=== PATIENT | female | born 1960 | race Caucasian/White ===

== ENCOUNTER 2020-07-18 10:15 | Outpatient (REF) | payer OTHER, SELFPAY ==
--- NOTE | 2020-07-18 10:17 | XR_ITS ---
EXAMINATION: XR ANKLE, LEFT CLINICAL INFORMATION: Pain in joints left ankle and foot. COMPARISON: Radiographs left ankle 11/11/2017. TECHNIQUE: AP, lateral, and mortise views of the left ankle. FINDINGS: There is no acute fracture, dislocation, destructive process. Old hardware again noted distal fibula with sideplate and multiple screws and 2 screws medial ankle. The hardware is intact. There is no osteolysis. The ankle mortise is symmetric. Talar dome shows no osteochondral lesion. The subtalar joint is unremarkable. 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 There are bulky posterior and smaller plantar calcaneal spurs again seen. The retrocalcaneal recess is preserved. Scattered benign venostasis calcifications again suggested soft tissues lower leg. IMPRESSION: 1. No acute bony abnormality. Hardware intact. No destructive process. 2. Calcaneal spurs. 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
== END 2020-07-18 10:16 | disposition home or self-care (01) ==
LOC: HO.XRAY 10:15
PROVIDERS: PCP Internal Medicine; Referring Provider Internal Medicine; Visit Provider Orthopaedic Surgery
DX: T84.84XA Pain due to internal orthopedic prosthetic devices, implants and grafts, initial encounter (principal); M25.572 Pain in left ankle and joints of left foot
CPT/HCPCS: 73610; 99204

== ENCOUNTER 2020-08-16 06:09 | Day surgery (SDC) | payer OTHER, SELFPAY ==
--- NOTE | 2020-08-15 12:32 | HO.ANESPROP2 ---
Documented by User: Marley Arana 08/15/20 12:34 HPI - Anesthesia Eval Consult details Narrative: 60yo F for Removal Orthopedic Hardware Ankle PMFSH Past Medical History Medical History Asthma due to environmental allergies Bimalleolar fracture of left ankle Brain aneurysm Depression Easy bruisability Essential hypertension Fibromyalgia GERD (gastroesophageal reflux disease) HLD (hyperlipidemia) Osteoarthritis Family History Family History (Updated 07/18/20 @ 10:22 by Nivia Valdez CMA) Mother Diabetes Father No problems noted. Surgical History Surgical History History of partial hysterectomy Status post open reduction with internal fixation (ORIF) of fracture of ankle Social History Social History (Updated 07/18/20 @ 10:31 by Nivia Valdez CMA) Smoking Status: Light tobacco smoker Patient Interested in Nicotine Replacement: No Use of substances other than those prescribed or required for medical reasons: No Advance Directives: No Advance Directives Information Provided: No Advance Directives on File: No Current occupational status: disabled Current occupation: Right [employer]ed Meds Allergies Allergy/AdvReac Type Severity Reaction Status Date / Time No Known Allergies Allergy Verified 08/09/20 19:53 [No Known Allergies*] Home Medications Medication Instructions Recorded Confirmed Type aripiprazole 2 mg tablet 2 mg PO DAILY 07/18/20 08/09/20 History atorvastatin 20 mg tablet 20 mg PO DAILY 07/18/20 08/09/20 History bupropion HCl 150 mg 24 hr tablet, 150 mg PO QAM 07/18/20 08/09/20 History extended release clonazepam 1 mg tablet 1 mg PO DAILY 07/18/20 08/09/20 History escitalopram oxalate 5 mg tablet 5 mg PO DAILY 07/18/20 08/09/20 History gabapentin 300 mg capsule 300 mg PO BID 07/18/20 08/09/20 History meloxicam 15 mg tablet 15 mg PO DAILY 07/18/20 08/09/20 History meloxicam 7.5 mg tablet 7.5 mg PO DAILY 07/18/20 08/09/20 History methylcellulose (laxative) 500 mg 500 mg PO DAILY 07/18/20 08/09/20 History tablet triamcinolone acetonide 0.1 % 1 applic TOPICAL DAILY 08/13/20 History topical cream Exam Exam Date and Time: August 15, 2020 1232 Height,Weight and Vital Signs: Height 5 ft 4 in Weight 79.379 kg Pertinent Lab Results Pertinent Lab Results: Laboratory Tests 05/16/20 10:10 Sodium 142 Potassium 4.2 Chloride 109 H BUN 15 Creatinine 0.72 Assessment and Plan Assessment Anesthesia Assessment: Chart Reviewed Documented by User: Fidelina Guzman 08/16/20 07:50 [facility] Past Medical History Medical History Asthma due to environmental allergies Bimalleolar fracture of left ankle Brain aneurysm Depression Easy bruisability Essential hypertension Fibromyalgia GERD (gastroesophageal reflux disease) HLD (hyperlipidemia) Osteoarthritis Family History Family History (Updated 07/18/20 @ 10:22 by Nivia Valdez CMA) Mother Diabetes Father No problems noted. Surgical History Surgical History History of partial hysterectomy Status post open reduction with internal fixation (ORIF) of fracture of ankle Social History Social History (Updated 07/18/20 @ 10:31 by Nivia Valdez CMA) Smoking Status: Light tobacco smoker Patient Interested in Nicotine Replacement: No Use of substances other than those prescribed or required for medical reasons: No Advance Directives: No Advance Directives Information Provided: No Advance Directives on File: No Current occupational status: disabled Current occupation: Right Handed Meds Allergies Allergy/AdvReac Type Severity Reaction Status Date / Time No Known Allergies Allergy Verified 08/09/20 19:53 [No Known Allergies*] Home Medications Medication Instructions Recorded Confirmed Type aripiprazole 2 mg tablet 2 mg PO DAILY 07/18/20 08/09/20 History atorvastatin 20 mg tablet 20 mg PO DAILY 07/18/20 08/09/20 History bupropion HCl 150 mg 24 hr tablet, 150 mg PO QAM 07/18/20 08/09/20 History extended release clonazepam 1 mg tablet 1 mg PO DAILY 07/18/20 08/09/20 History escitalopram oxalate 5 mg tablet 5 mg PO DAILY 07/18/20 08/09/20 History gabapentin 300 mg capsule 300 mg PO BID 07/18/20 08/09/20 History meloxicam 15 mg tablet 15 mg PO DAILY 07/18/20 08/09/20 History meloxicam 7.5 mg tablet 7.5 mg PO DAILY 07/18/20 08/09/20 History methylcellulose (laxative) 500 mg 500 mg PO DAILY 07/18/20 08/09/20 History tablet triamcinolone acetonide 0.1 % 1 applic TOPICAL DAILY 08/13/20 History topical cream Exam Airway Mallampati Class: II TM Dist: >3cm Neck ROM: Full Denture: Upper and Lower Assessment and Plan Assessment Anesthesia Assessment: Anesthesia Plan Discussed and Chart Reviewed Final Anesthetic Review NPO: Yes ASA Class: III Final Preanesthetic Review: No Changes in Pt Med Stat, Meds/Allgs Chart Reviewed, Consent Obtained/Reviewed and Anes Risks/Benef Reviewed Patient Risk: Intermediate Procedure Risk: Low Assessment/Block/Sedation in SS: Assess/Block/Sedation-SS Anesthetic Plan Anesthetic Plan: GA Disposition: Standard PACU
[2020-08-16] VITALS (15 sets, daily range): BP systolic 134–161; BP diastolic 69–98; PULSE 72–91; RESP 16–20; TEMP 36.2–36.6; O2SAT 95–100
[2020-08-16] MEDS: Lactated Ringers 1,000 ML 100 ML IVCONT (07:01)
--- NOTE | 2020-08-16 07:18 | FL_ITS ---
EXAMINATION: XR FLUOROSCOPY WITH IMAGES CLINICAL INFORMATION: Removal left ankle hardware in the operating room. COMPARISON: Left ankle radiographs on 07/18/2020 TECHNIQUE: Fluoroscopy performed by Dr. Melton. Fluoroscopy time: 0.1 minutes DAP: 0.121 mGycm2 Images: 1 FINDINGS: Single fluoroscopic image of the left ankle demonstrates alvaro along the medial border adjacent to the medial malleolus. Surgical, metallic hardware identified on the prior radiograph from 07/18/2020 is not present on the current examination. FL/FL guidance in OR IMPRESSION: Post removal of left ankle hardware.
--- NOTE | 2020-08-16 07:25 | MHC.SHP ---
Pre-Procedural Eval Section A The patient is an INPATIENT: No Changes since office visit: No Cold of Flu in the past 2 weeks, No New Medical Problems, No Changes in Medication and No Patient answered all questions The History & Physical has been completed within 30 days and I have reviewed it.: Yes Section B Chief Complaint: Painful Hardware of Left Ankle Allergies: Allergies Allergy/AdvReac Type Severity Reaction Status Date / Time No Known Allergies Allergy Verified 08/09/20 19:53 [No Known Allergies*] Plan Patient has been examined and remains a candidate for the planned procedure
--- NOTE | 2020-08-16 08:48 | PM.PRCOR ---
Brief Operative Note Date of procedure: 08/16/20 Pre-op diagnosis: painful hardware post orif left ankle Post-op diagnosis: same Anesthesia: MAC and local Surgeon: Valdemar Melton Estimated blood loss (mL): 15 Pathology: none sent Condition: stable Disposition: PACU
[2020-08-16] MEDS: Acetaminophen 325 MG TABLET 650 MG PO (08:54)
[2020-08-16] MEDS: oxyCODONE HCl Immed Release 5 MG TABLET PO ×2 (08:56→11:28)
[2020-08-16] MEDS: fentaNYL citrate/PF 100 MCG/2 ML VIAL 25 MCG IVPUSH ×4 (08:57→09:37)
[2020-08-16] MEDS: Midazolam HCl/PF 2 MG/2 ML VIAL 1 MG IVPUSH (09:02)
--- NOTE | 2020-08-16 10:28 | HO.POSTANES ---
Post Anesthesia Evaluation Post Anesthesia Evaluation Vital Signs: Vital Signs Temp Pulse Resp BP Pulse Ox 08/16/20 09:57 97.4 F 72 20 140/81 H 100 08/16/20 09:42 73 18 143/91 H 99 08/16/20 09:37 20 08/16/20 09:35 79 20 152/88 H 100 08/16/20 09:30 20 08/16/20 09:27 79 20 161/98 H 08/16/20 09:18 91 20 134/78 96 08/16/20 09:13 20 08/16/20 09:07 80 18 146/88 H 95 08/16/20 09:02 77 18 143/87 H 95 08/16/20 08:57 78 20 150/72 H 95 08/16/20 08:52 78 20 156/69 H 95 08/16/20 08:49 82 18 152/84 H 95 08/16/20 08:46 97.8 F 84 16 148/82 H 95 08/16/20 06:56 97.1 F 73 16 138/86 98 Anesthesia: General LMA Mental Status: Awake Pain Control: Satisfactory Nausea/Vomiting: None Hydration: Adequate Anesthesia-Related Issues: No Anes. Related Issues
--- NOTE | 2020-08-16 12:25 | PC.NURSE ---
Pt given Oxycodone 5mg PO ordered by TESSY Roach for reports of 10/10 surgical pain; given by Neelima Mcmullen RN as ordered. Pt still reported pain following Oxycodone. Anesthesia aware; recommends no further actions. Pt waited in discharge for ride for over 2 hours due to ride issue. Pt requested lunch however pt advised that this was not best due to her surgery; pt given 2 packs of cookies and 2 coffees as requested. Pt taken home by [email or web address], hospital employee.
--- NOTE | 2020-08-22 18:26 | OP_ITS ---
SURGEON: Valdemar Melton MD PREOPERATIVE DIAGNOSIS: Painful hardware, left ankle. POSTOPERATIVE DIAGNOSIS: Painful hardware, left ankle. PROCEDURE PERFORMED: Removal of hardware, left ankle. ESTIMATED BLOOD LOSS: COMPLICATIONS: ANESTHESIA: ASSISTANTS: SPECIMENS: CLINICAL NOTE: This lady had operative fixation of her left ankle while ago. She has healed very well, but the hardware has been giving her difficulty. Therefore, after explaining the risks, benefits, and alternatives and answering all the questions, it was mutually agreed upon to carry out the following procedure. DESCRIPTION OF PROCEDURE: Under a MAC anesthetic and local infiltrated over the incisions of 0.75% Marcaine, total of 2 mL, the patient was placed supine on the operating table. Pneumatic tourniquet cuff was placed around the upper left thigh, inflated to 300 mmHg at the beginning of the case. The left foot and ankle were then prepped and draped in standard fashion. Surgical time-out was then performed. The patient was identified, procedure confirmed, site confirmed. Medical analogy and history were reviewed. No preoperative antibiotics. No DVT prophylaxis. All other items were discussed and agreed upon. Approach to the medial side first under fluoroscopic guidance, a small incision was made at the tip of the medial malleolus along the old incision, it was dissected down to the level of the bone. The 2 heads of the screws were identified and they were successfully removed. This wound was successfully removed. Turning our attention to the lateral side, the old incision was carried out. The interfragmentary screw was identified first and removed. Following this, all the screws of the plate was removed as well. The area was debrided through the screw holes. Both wounds were thoroughly irrigated and they were proceeded to closure. Identical closures were performed. The soft tissues were approximated deep with #2 Dexon. 3-0 Dexon was used to approximate the skin. Estuardo were used to close the skin. Tourniquet was let down. Total tourniquet time approximately 32 minutes. An Valentin wrap was then placed as well. The patient was then transferred supine to the room bed and taken to the recovery room in good condition. Intraoperatively, there was only 15 mL blood loss. No complications. Valdemar Melton MD KKI/MODL / [id number]
== END 2020-08-16 12:16 | disposition home or self-care (01) ==
PROVIDERS: PCP Internal Medicine; Visit Provider Orthopaedic Surgery
PROC: (CPT 20680; principal; 2020-08-16 09:30)
DX: T84.84XA Pain due to internal orthopedic prosthetic devices, implants and grafts, initial encounter (principal); M25.572 Pain in left ankle and joints of left foot; G89.18 Other acute postprocedural pain; I10 Essential (primary) hypertension; J45.909 Unspecified asthma, uncomplicated; M19.90 Unspecified osteoarthritis, unspecified site; Y79.3 Surgical instruments, materials and orthopedic devices (including sutures) associated with adverse incidents; Y92.9 Unspecified place or not applicable; F17.200 Nicotine dependence, unspecified, uncomplicated; Z79.899 Other long term (current) drug therapy
CPT/HCPCS: 20680; J1100; J1885; J2250; J2405; J3010

== ENCOUNTER → 2020-08-28 11:02 | Outpatient (BNVA) | payer OTHER, SELFPAY | PROVIDERS: PCP Internal Medicine; Visit Provider Orthopaedic Surgery | DX: Z76.89 Persons encountering health services in other specified circumstances (principal) ==

== ENCOUNTER → 2020-08-30 10:28 | Outpatient (BNVA) | payer OTHER, SELFPAY | PROVIDERS: PCP Internal Medicine; Visit Provider Physician Assistant | DX: T84.84XA Pain due to internal orthopedic prosthetic devices, implants and grafts, initial encounter (principal) | CPT/HCPCS: 99212 ==

== ENCOUNTER 2020-09-06 10:37 | Outpatient (REF) | payer OTHER, SELFPAY ==
[2020-09-06 12:19] LABS: Alanine Aminotransferase 19 U/L (0-31); Albumin Level 4.4 g/dL (3.5-5.0); Alkaline Phosphatase 100 U/L (39-117); Anion Gap 19 (12-20); Aspartate Amino Transferase 13 U/L (5-31); Bilirubin Total 0.4 mg/dL (0.0-1.0); Blood Urea Nitrogen 14 mg/dL (9-16); Calcium 9.4 mg/dL (8.4-10.2); Carbon Dioxide 22 mmol/L (22-29); Chloride 105 mmol/L (96-108); Cholesterol 250 mg/dL; Estimated Glomerular Filt Rate > 60; Glucose Fasting 110 mg/dL (60-99); HDL Cholesterol 57 mg/dL; LDL Cholesterol Calculated 159 mg/dl; Potassium 4.4 mmol/l (3.3-5.1); Sodium 142 mmol/L (135-145); Total Protein 7.1 g/dL (6.5-8.0); Triglycerides 171 mg/dL
== END 2020-09-06 10:38 | disposition home or self-care (01) ==
LOC: HO.LAB 10:37
PROVIDERS: PCP Internal Medicine; Visit Provider Internal Medicine
DX: E78.00 Pure hypercholesterolemia, unspecified (principal)
CPT/HCPCS: 80053; 80061

== ENCOUNTER → 2020-09-11 10:06 | Outpatient (BNVA) | payer OTHER, SELFPAY | PROVIDERS: PCP Internal Medicine; Visit Provider Orthopaedic Surgery | DX: Z48.00 Encounter for change or removal of nonsurgical wound dressing (principal) | CPT/HCPCS: 99212 ==

== ENCOUNTER → 2020-09-19 10:58 | Outpatient (BNVA) | payer OTHER, SELFPAY | PROVIDERS: Visit Provider Orthopaedic Surgery | DX: M25.572 Pain in left ankle and joints of left foot (principal); Z98.890 Other specified postprocedural states | CPT/HCPCS: 99212 ==

== ENCOUNTER → 2020-09-25 10:01 | Outpatient (BNVA) | payer OTHER, SELFPAY | PROVIDERS: Visit Provider Orthopaedic Surgery | DX: Z47.89 Encounter for other orthopedic aftercare (principal) | CPT/HCPCS: 99212 ==

== ENCOUNTER 2020-10-01 11:00 | Outpatient (RCR) | payer OTHER, SELFPAY ==
--- NOTE | 2020-09-18 11:36 | MHC.PT.EP ---
[facility] [place] [facility] [place] Office [place] Office [address] [address] [phone] F: [phone] F: [phone] F: [phone] F: [phone] Physical Therapy Plan of Care Date of Evaluation: 09/18/20 Date of Surgery: 08/16/20 Diagnosis: pain due to internal orthopedic prosthetic devices, implants at encounter Assessment: 60 year old female referred for pain due to internal orthopedic prosthetic devices, implants at encounter . Pt had ankle fracture about 5 years back and this was managed with ORIF. Pt reported of having pain with one of the hardware therefore she had it removed. She is 1 month s/o hardward removal. Pt states her pain is worse post surgically and has an open wound at the medial suture site. Most of her pain is around the suture site. Examination reveals 3/10 pain at rest and 9/10 pain with weight bearing and ankle movements, TTP along suture site, open wound at suture site, decreased muscle strength, altered posture and gait. She lives alone but has a ORDER PULLER due to other medical conditions to help her with ADLS. She would benefit from PT to improve ROM, increase muscle strength, postural correction, gait training, balance training and functional training. Frequency and Duration: The patient will be seen 2/week for 5 weeks Short Term Goals: 1. Pt will have 50% decrease in pain in 2 weeks 2. Pt will have all ankle ROMs WNL in 3 weeks. Usp Goals: 1. Pt will be able to walk without any pain in 4 weeks. 2. Pt will return to PLOF in 5 weeks. Treatment Plan: Modalities to reduce pain, spasms and effusion. Manual therapy to restore motion and function. Therapeutic exercise to improve strength and flexibility. Neuromuscular re-education for posture and balance. Therapeutic activities to return to functional activities of daily living. Electronically signed by: Veronica Carvajal DPT Please sign and return to therapist. Thank you for your referral.
--- NOTE | 2020-10-10 11:33 | MHC.PT.DC ---
[facility] [place] Office [place] Office [place] Office [address] [place] [address] [facility] [phone] F: [phone] F: [phone] F: [phone] F: [phone] Physical Therapy Discharge Report Diagnosis: pain due to internal orthopedic prosthetic devices, implants at encounter Date of Surgery: 08/16/20 Date of Evaluation: 09/18/20 Date of Discharge: 10/10/20 Treatments to Date: 2 Cancellations to Date: 0 No Shows to Date: 0 Discharge Status: Patient Elected to Stop Discharge Summary: Pt called stating she is feeling good and discharged self from therapy. Electronically signed by: Veronica Carvajal DPT Please sign and return to therapist. Thank you for your referral.
== END 2020-10-10 11:34 | disposition other institution (70) ==
LOC: HO.PT 11:00
PROVIDERS: Visit Provider Physician Assistant
DX: T84.84XD Pain due to internal orthopedic prosthetic devices, implants and grafts, subsequent encounter (principal)
CPT/HCPCS: 97110; 97140; 97161; 97530

== ENCOUNTER 2021-01-23 14:37 | Outpatient (REF) | payer OTHER, SELFPAY ==
--- NOTE | ~2021-01-23 | MM_ITS ---
EXAMINATION: MM SCREENING DIGITAL BREAST TOMOSYNTHESIS, BILATERAL CLINICAL INFORMATION: Screening. Asymptomatic. The lifetime risk of breast cancer based on the Tyrer-Cuzick Model is 3%. COMPARISON: Mammography: 08/16/2019, 07/16/2018, 06/17/2017 TECHNIQUE: Digital breast tomosynthesis is performed in both the craniocaudal and mediolateral oblique views along with computer-aided detection (CAD). Synthesized 2D images are generated from the tomosynthesis. FINDINGS: There are scattered areas of fibroglandular density (ACR BI-RADS breast composition Category b). There are no significant masses, abnormal calcifications, or other abnormalities. There are scattered stable fibroglandular asymmetries similar to prior exams. No developing density. No significant changes. MM/MM tomosynthesis screening BI IMPRESSION: No significant changes from prior exams. ASSESSMENT: BI-RADS 2: Benign RECOMMENDATION: Routine annual mammography screening. This patient's information was entered into a reminder system with a target due date for their next mammogram.
== END 2021-01-23 14:38 | disposition home or self-care (01) ==
LOC: HO.MAMMO 14:37
PROVIDERS: Visit Provider Internal Medicine
DX: Z12.31 Encounter for screening mammogram for malignant neoplasm of breast (principal)
CPT/HCPCS: 77063; 77067

== ENCOUNTER 2021-02-05 10:09 | Emergency (ER) | payer OTHER, SELFPAY ==
[2021-02-05] VITALS (7 sets, daily range): BP systolic 136–183; BP diastolic 55–100; PULSE 70–82; RESP 16–17; TEMP 36.8–37.2; O2SAT 97–99; BMI 29.2
--- NOTE | ~2021-02-05 | XR_ITS ---
EXAMINATION: XR HIP, LEFT CLINICAL INFORMATION: Pain COMPARISON: None TECHNIQUE: Two views of the left hip and one view of the pelvis. FINDINGS: Bone alignment is normal. No fracture or dislocation is seen. The left hip joint is normal.. There is mild arthritis at the right hip joint with joint space narrowing and osteophyte formation. Bones of the pelvis are unremarkable. There are degenerative changes visualized lower lumbar spine. There are soft tissue pelvic calcifications probably representing calcified phleboliths. There is a larger 1.2 x 2 cm soft tissue calcification projecting over the left inferior pubic ramus likely related to old soft tissue injury. XR/XR hand wrist LT IMPRESSION: Soft tissue calcification overlying the left inferior pubic ramus likely related to old soft tissue trauma otherwise normal left hip. EXAMINATION: Left hand and wrist x-ray CLINICAL INFORMATION: Pain COMPARISON: Previous left wrist x-ray report April 2010. No images available. TECHNIQUE: 4 views of the left hand and wrist FINDINGS: Bone alignment is normal. No acute fracture or dislocation is seen. There is soft tissue well-corticated ossifications adjacent to the ulnar styloid, question representing accessory ossicles. The joint spaces are normal. Soft tissues are otherwise normal. IMPRESSION: Probable accessory ossicles adjacent to the ulnar styloid. Otherwise unremarkable exam.
--- NOTE | ~2021-02-05 | XR_ITS ---
EXAMINATION: XR HIP, LEFT CLINICAL INFORMATION: Pain COMPARISON: None TECHNIQUE: Two views of the left hip and one view of the pelvis. FINDINGS: Bone alignment is normal. No fracture or dislocation is seen. The left hip joint is normal.. There is mild arthritis at the right hip joint with joint space narrowing and osteophyte formation. Bones of the pelvis are unremarkable. There are degenerative changes visualized lower lumbar spine. There are soft tissue pelvic calcifications probably representing calcified phleboliths. There is a larger 1.2 x 2 cm soft tissue calcification projecting over the left inferior pubic ramus likely related to old soft tissue injury. XR/XR hip LT w PEL1V IMPRESSION: Soft tissue calcification overlying the left inferior pubic ramus likely related to old soft tissue trauma otherwise normal left hip. EXAMINATION: Left hand and wrist x-ray CLINICAL INFORMATION: Pain COMPARISON: Previous left wrist x-ray report April 2010. No images available. TECHNIQUE: 4 views of the left hand and wrist FINDINGS: Bone alignment is normal. No acute fracture or dislocation is seen. There is soft tissue well-corticated ossifications adjacent to the ulnar styloid, question representing accessory ossicles. The joint spaces are normal. Soft tissues are otherwise normal. IMPRESSION: Probable accessory ossicles adjacent to the ulnar styloid. Otherwise unremarkable exam.
--- NOTE | 2021-02-05 10:10 | ED.EXTPRO ---
HPI - Extremity Problem General Chief complaint: Extremity Problem Stated complaint: L HIP PAIN Time Seen by Provider: 02/05/21 10:09 Source: patient and EMS Mode of arrival: EMS Limitations: no limitations History of Present Illness MD Complaint: joint paint Onset (ago): day(s) (1) Pain Consistency: constant Location: left and other (hpi and wrist) Quality: aching Radiation: none Relieving factors: nothing Exacerbating factors: range of motion, weight bearing and walking Associated symptoms: denies other symptoms Context: other (chronic L hip pain and new onset L wrist) Related Data Home Medications Medication Instructions Recorded Confirmed aripiprazole 2 mg tablet 2 mg PO DAILY PRN 07/18/20 02/05/21 calcium carbonate 600 mg (1,500 1 tab PO DAILY 10/16/20 02/05/21 mg)-vitamin D3 400 unit tablet clonazepam 0.5 mg tablet 0.5 mg PO DAILY PRN 10/16/20 02/05/21 escitalopram oxalate 20 mg tablet 20 mg PO QAM 10/16/20 02/05/21 omeprazole 40 mg capsule,delayed 40 mg PO QAM 10/16/20 02/05/21 release bupropion HCl 1 tab PO QAM 02/05/21 02/05/21 Previous Rx's Medication Instructions Recorded ropinirole 1 mg tablet 1 mg PO BEDTIME #30 tab 07/12/20 meloxicam 15 mg tablet 15 mg PO DAILY PRN 90 Days #90 tab 08/25/20 atorvastatin 20 mg tablet 20 mg PO DAILY 90 Days #90 tab 10/16/20 lisinopril 10 mg tablet 10 mg PO DAILY 90 Days #90 tab 10/16/20 furosemide 20 mg tablet 20 mg PO DAILY #90 tab 12/08/20 docusate sodium 100 mg capsule 100 mg PO BID 90 Days #180 cap 01/22/21 albuterol sulfate 90 mcg/actuation 2 puff PO Q6H PRN #18 g 02/05/21 aerosol inhaler cyclobenzaprine 10 mg PO TID PRN #14 tab 02/05/21 gabapentin 300 mg capsule 300 mg PO Q8H #90 cap 02/05/21 lidocaine 1 patch TOPICAL DAILY PRN #10 ea 02/05/21 naproxen 500 mg tablet 500 mg PO Q12H PRN #60 tab 02/05/21 Allergies Allergy/AdvReac Type Severity Reaction Status Date / Time No Known Allergies Allergy Verified 10/16/20 10:26 [No Known Allergies*] Review of Systems Review of Systems: Constitutional : No Fever, No Chills ENT/Mouth : No Ear Pain, No Hoarseness, No sore throat Eyes: No Eye Pain, No Swelling, No Redness, No Foreign Body Cardiovascular : No Chest Pain, No SOB Respiratory : No Cough, No Dyspnea Gastrointestinal : No Nausea, No Vomiting, No Diarrhea, No abdominal Pain Genitourinary : No Dysuria, No Hematuria Musculoskeletal : positive joint pain, No Myalgias, No Joint Swelling Skin : No Skin lacerations, No rash Neuro : No Weakness, No Numbness, No Loss of Consciousness, No Dizziness, No Headache Psych : No Anxiety/Panic, No Depression Heme/Lymph: no easy bruising, no Lymphadenopathy Endocrine : No Polyuria, No Polydipsia All other systems reviewed and are negative [facility] Past Medical History Attestation statement: The following information was validated with the patient. Medical History Asthma due to environmental allergies Bimalleolar fracture of left ankle Brain aneurysm Depression Dyslipidemia Easy bruisability Essential hypertension Fibromyalgia GERD (gastroesophageal reflux disease) Osteoarthritis Surgical History History of partial hysterectomy Status post open reduction with internal fixation (ORIF) of fracture of ankle Family History Family History Mother Diabetes Father No problems noted. Social History Social History Alcohol intake: current Alcohol intake frequency: a few times a week Smoking Status: Current some day smoker Tobacco Type: Cigarette Cigarettes Per Day: 2 Use of substances other than those prescribed or required for medical reasons: No Advance Directives: Yes Advance Directives Information Provided: Yes Advance Directives on File: No Current occupational status: disabled Current occupation: Right Handed Physical Exam Vital Signs: Vital Signs: Last Vital Signs Temp 98.9 F 02/05/21 14:23 Pulse 80 02/05/21 14:23 Resp 17 02/05/21 14:23 BP 149/100 H 02/05/21 14:23 Pulse Ox 99 02/05/21 14:23 Body Mass Index 29.2 Appearance: Alert. Oriented X3. No acute distress. Eyes: Pupils equal, round and reactive to light. ENT: Pharynx normal. Neck: Normal inspection. Neck supple. CVS: Normal heart rate and rhythm. Pulses normal. Respiratory: No respiratory distress. Breath sounds normal. Abdomen: Soft and nontender. Skin: Skin warm and dry. Normal skin color. Normal skin turgor. Extremities: No lower extremity edema. No calf ttp L wrist no deformity NV intact, no erythema/warmth ttp along dorsum of wrist no swelling, L hip pain distal NV intact pain with ROM testing Neuro: Oriented X 3. No motor deficit. No sensory deficit. Course Course Course Narrative: Patient placed in physician observation at 140pm. The indication for observation is that the patient needs more time to see if their arthralgias improves or they will need STR. At this time the patient is well developed well nourished, lungs clear, CV RRR, abd nontender, neuro is intact. Physician observation ended at 357pm. Patient wants to go home and follow up with her doctor. Plan is to follow up with her doctor. NAD, lungs clear, CV RRR, Abd nontender, Neuro intact. Disposition is for home. Procedures Orthopedic Splinting/Casting Injury #1: Side: right Upper Extremity Injury Location: wrist Upper Extremity Immobilizer: wrist splint MDM - Extremity (Nontraumatic) MDM Narrative Medical decision making narrative: 60 yo female with chronic pain from arthritis, HPL, HTN, GERD here with atraumatic chronic L hip pain NV intact no signs of infection and also L wrist pain x 1 day NV intact no signs of infection - at this time will obtain labs, xrays, PO pain control Lab Data Result diagrams: 02/05/21 12:57 02/05/21 12:58 Labs: Lab Results 02/05/21 02/05/21 02/05/21 Range/Units 12:57 12:58 12:58 WBC 5.8 (4.8-10.8) X10*3/uL RBC 3.99 L (4.20-5.50) X10*6/uL Hgb 12.6 (12.0-16.0) g/dl Hct 39.3 (37-47) % MCV 98.5 H (80-98) fL MCH 31.6 (27.0-33.0) pg MCHC 32.1 (31.0-35.0) g/dl RDW 14.5 (11.0-16.0) % Plt Count 241 (160-400) X10*3/uL MPV 9.8 (9.4-12.3) fL Immature Gran % (Auto) 0.3 (0.0-0.4) % Neut % (Auto) 60.0 (45-73) % Lymph % (Auto) 32.8 (20-40) % [place] % (Auto) 5.6 (2-11) % Eos % (Auto) 1.0 (0-4) % Baso % (Auto) 0.3 (0-2) % Lymph # (Auto) 1.9 (1.2-4.9) X10*3/uL [place] # (Auto) 0.3 (0.1-1.2) X10*3/uL Eos # (Auto) 0.1 (0.0-0.4) X10*3/uL Baso # (Auto) 0.0 (0.0-0.2) X10*3/uL Abs Immat Gran (auto) 0.02 (0.00-0.03) X10*3/uL Absolute Neuts (auto) 3.5 (2.0-8.3) X10*3/uL Absolute Nucleated RBC 0.000 (0.0-0.012) X10*3/uL Nucleated RBC % (auto) 0.0 (0.0-0.2) /100WBC ESR 7 (0-20) MM/HR Sodium 142 (135-145) mmol/L Potassium 3.5 (3.3-5.1) mmol/L Chloride 106 (96-108) mmol/L Carbon Dioxide 28 (22-29) mmol/L Anion Gap 12 (12-20) BUN 8 L (9-16) mg/dL Creatinine 0.75 (0.5-1.4) mg/dL Estim Creat Clear Calc 82.1 Estimated GFR > 60 Random Glucose 153 H (60-115) mg/dL Calcium 9.4 (8.4-10.2) mg/dL Magnesium 2.1 (1.6-2.6) mg/dL C-Reactive Protein 0.40 (< or = 0.50) mg/dL COVID-19 (SERGE[facility]) (Negative) COVID-19 Clin Com 02/05/21 Range/Units 13:49 WBC (4.8-10.8) X10*3/uL RBC (4.20-5.50) X10*6/uL Hgb (12.0-16.0) g/dl Hct (37-47) % MCV (80-98) fL MCH (27.0-33.0) pg MCHC (31.0-35.0) g/dl RDW (11.0-16.0) % Plt Count (160-400) X10*3/uL MPV (9.4-12.3) fL Immature Gran % (Auto) (0.0-0.4) % Neut % (Auto) (45-73) % Lymph % (Auto) (20-40) % [place] % (Auto) (2-11) % Eos % (Auto) (0-4) % Baso % (Auto) (0-2) % Lymph # (Auto) (1.2-4.9) X10*3/uL [place] # (Auto) (0.1-1.2) X10*3/uL Eos # (Auto) (0.0-0.4) X10*3/uL Baso # (Auto) (0.0-0.2) X10*3/uL Abs Immat Gran (auto) (0.00-0.03) X10*3/uL Absolute Neuts (auto) (2.0-8.3) X10*3/uL Absolute Nucleated RBC (0.0-0.012) X10*3/uL Nucleated RBC % (auto) (0.0-0.2) /100WBC ESR (0-20) MM/HR Sodium (135-145) mmol/L Potassium (3.3-5.1) mmol/L Chloride (96-108) mmol/L Carbon Dioxide (22-29) mmol/L Anion Gap (12-20) BUN (9-16) mg/dL Creatinine (0.5-1.4) mg/dL Estim Creat Clear Calc Estimated GFR Random Glucose (60-115) mg/dL Calcium (8.4-10.2) mg/dL Magnesium (1.6-2.6) mg/dL C-Reactive Protein (< or = 0.50) mg/dL COVID-19 ([facility]) Negative (Negative) COVID-19 Clin Com See Note Discharge Plan Discharge Clinical Impression: Arthralgia Qualifiers: Joint pain location: wrist Laterality: left Qualified Code(s): M25.532 - Pain in left wrist Patient Disposition: Home, Self-Care Instructions: Arthralgia (ED) Additional Instructions: wear splint for the next week please follow up with your doctor in the few days Prescriptions: New cyclobenzaprine 10 mg tablet 10 mg PO TID PRN (Reason: muscle spasm) Qty: 14 RF: 0 lidocaine 4 % adhesive patch,medicated 1 patch topical DAILY PRN (Reason: pain) Qty: 10 RF: 0 No Action ropinirole 1 mg tablet 1 mg PO BEDTIME Qty: 30 RF: 11 meloxicam 15 mg tablet 15 mg PO DAILY PRN (Reason: pain) 90 Days Qty: 90 RF: 1 furosemide 20 mg tablet 20 mg PO DAILY Qty: 90 RF: 1 docusate sodium [Colace] 100 mg capsule 100 mg PO BID 90 Days Qty: 180 RF: 1 gabapentin 300 mg capsule 300 mg PO Q8H Qty: 90 RF: 0 naproxen 500 mg tablet 500 mg PO Q12H PRN (Reason: for pain) Qty: 60 RF: 0 albuterol sulfate [Ventolin HFA] 90 mcg/actuation HFA aerosol inhaler 2 puff PO Q6H PRN (Reason: for muscle spasm) Qty: 18 RF: 6 bupropion HCl 150 mg tablet extended release 24 hr 1 tab PO QAM RF: 0 clonazepam 0.5 mg tablet 0.5 mg PO DAILY PRN (Reason: Anxiety) RF: 0 escitalopram oxalate 20 mg tablet 20 mg PO QAM RF: 0 calcium carbonate-vitamin D3 600 mg(1,500mg) -400 unit tablet 1 tab PO DAILY RF: 0 omeprazole 40 mg capsule,delayed release(DR/EC) 40 mg PO QAM RF: 0 atorvastatin 20 mg tablet 20 mg PO DAILY 90 Days Qty: 90 RF: 3 lisinopril 10 mg tablet 10 mg PO DAILY 90 Days Qty: 90 RF: 3 aripiprazole 2 mg tablet 2 mg PO DAILY PRN (Reason: ANXIETY) RF: 0 Referrals: Trang Moya MD [Primary Care Provider] - 2 days
[2021-02-05] MEDS: HYDROcodone Bit/Acetam 5/325 TABLET 1 TAB PO (10:38)
[2021-02-05] MEDS: Cyclobenzaprine HCl 10 MG TABLET PO (10:52)
[2021-02-05 13:03] LABS: MANUAL DIFF FLAG NO
[2021-02-05 13:04] LABS: Basophils Percent Auto 0.3 % (0-2); Eosinophils Absolute Auto 0.1 X10*3/uL (0.0-0.4); Hematocrit 39.3 % (37-47); Hemoglobin 12.6 g/dl (12.0-16.0); Imm Gran Abs Auto 0.02 X10*3/uL (0.00-0.03); Imm Gran Pct Auto 0.3 % (0.0-0.4); Lymphocytes Absolute Auto 1.9 X10*3/uL (1.2-4.9); Lymphocytes Percent Auto 32.8 % (20-40); Mean Corpuscular HGB Conc 32.1 g/dl (31.0-35.0); Mean Corpuscular Hemoglobin 31.6 pg (27.0-33.0); Mean Corpuscular Volume 98.5 fL (80-98); Mean Platelet Volume 9.8 fL (9.4-12.3); Monocytes Absolute Auto 0.3 X10*3/uL (0.1-1.2); Monocytes Percent Auto 5.6 % (2-11); Neutrophils Absolute Auto 3.5 X10*3/uL (2.0-8.3); Platelet Count 241 X10*3/uL (160-400); Red Blood Count 3.99 X10*6/uL (4.20-5.50); Red Cell Distribution Width 14.5 % (11.0-16.0); White Blood Count 5.8 X10*3/uL (4.8-10.8)
[2021-02-05 13:32] LABS: Anion Gap 12 (12-20); Blood Urea Nitrogen 8 mg/dL (9-16); Calcium 9.4 mg/dL (8.4-10.2); Carbon Dioxide 28 mmol/L (22-29); Chloride 106 mmol/L (96-108); Creatinine Clr Calc Pharmacy 82.1; Estimated Glomerular Filt Rate > 60; Glucose Random 153 mg/dL (60-115); Magnesium 2.1 mg/dL (1.6-2.6); Potassium 3.5 mmol/L (3.3-5.1); Sodium 142 mmol/L (135-145)
[2021-02-05 13:48] LABS: Erythrocyte Sedimentation Rate 7 MM/HR (0-20)
[2021-02-05 14:22] LABS: COVID-19 Test Negative (Negative)
--- NOTE | 2021-02-05 15:03 | MHC.CM.ED ---
Addendum entered by Karen Smith 02/05/21 15:26: Patient also goes to a day program for Mental Health support. Original Note: Received case management consult from Dr Roberts. Patient came to the ER due to left hip pain. Work up essentially negative. Physical therapy eval completed. Short term rehab is recommended. Met with patient and daughter. 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 PCP verified. Patient has never been positive of Covid and hasn't received any Covid vaccines. [facility] is first choice. [facility] is attempting to arrange a bed and needs insurance auth. Anticipate patient will remain in ER overnight. Continue to monitor for d/c needs.
--- NOTE | 2021-02-05 15:57 | PC.NURSE ---
pt requesting dc
== END 2021-02-05 16:16 | disposition home or self-care (01) ==
PROVIDERS: Emergency Provider Emergency Medicine; PCP Internal Medicine
DX: M25.532 Pain in left wrist (principal); M25.552 Pain in left hip; Z20.822 Contact with and (suspected) exposure to COVID-19; I10 Essential (primary) hypertension; E78.5 Hyperlipidemia, unspecified; F17.210 Nicotine dependence, cigarettes, uncomplicated
CPT/HCPCS: 36415; 73110; 73130; 73502; 80048; 83735; 85025; 85652; 86140; 87635; 97162; 99285

== ENCOUNTER → 2021-02-19 11:22 | Outpatient (BNVA) | payer OTHER, SELFPAY | PROVIDERS: Visit Provider Orthopaedic Surgery | DX: M25.552 Pain in left hip (principal) | CPT/HCPCS: 99212 ==

== ENCOUNTER 2021-03-12 09:24 | Outpatient (REF) | payer OTHER, SELFPAY ==
--- NOTE | ~2021-03-12 | XR_ITS ---
EXAMINATION: XR WRIST, LEFT CLINICAL INFORMATION: Pain. COMPARISON: Radiographs left hand and wrist 02/05/2021. TECHNIQUE: The left wrist is imaged in 4 views. FINDINGS: There is no acute or healing fracture, dislocation, destructive process. The ulnar variance is neutral. The pronator quadratus fat pad appears normal. Again, there are incidental small corticated ossicles adjacent to tip ulnar styloid. The carpus shows no fracture or dislocation or interval arthropathy. No focal joint narrowing or erosive change. XR/XR wrist LT w scaphoid IMPRESSION: Unremarkable left wrist. No acute abnormality.
== END 2021-03-12 09:25 | disposition home or self-care (01) ==
LOC: HO.HOSX 09:24
PROVIDERS: Visit Provider Orthopaedic Surgery
DX: M18.12 Unilateral primary osteoarthritis of first carpometacarpal joint, left hand (principal); F17.210 Nicotine dependence, cigarettes, uncomplicated
CPT/HCPCS: 73110; 99202

== ENCOUNTER → 2021-04-08 10:26 | Outpatient (BNVA) | payer OTHER, SELFPAY | PROVIDERS: PCP Internal Medicine; Visit Provider Internal Medicine | DX: M47.816 Spondylosis without myelopathy or radiculopathy, lumbar region (principal); M25.561 Pain in right knee; M25.562 Pain in left knee; M25.552 Pain in left hip; G89.29 Other chronic pain | CPT/HCPCS: 99202 ==

== ENCOUNTER 2021-04-30 11:00 | Outpatient (REF) | payer OTHER, SELFPAY ==
[2021-04-30 12:38] LABS: Alanine Aminotransferase 20 U/L (0-31); Albumin Level 3.9 g/dL (3.5-5.0); Alkaline Phosphatase 103 U/L (39-117); Anion Gap 13 (12-20); Aspartate Amino Transferase 15 U/L (5-31); Bilirubin Total 0.4 mg/dL (0.0-1.0); Blood Urea Nitrogen 9 mg/dL (9-16); Calcium 9.8 mg/dL (8.4-10.2); Carbon Dioxide 23 mmol/L (22-29); Chloride 111 mmol/L (96-108); Cholesterol 270 mg/dL; Estimated Glomerular Filt Rate > 60; Glucose Fasting 114 mg/dL (60-99); HDL Cholesterol 76 mg/dL; LDL Cholesterol Calculated 163 mg/dl; Potassium 3.5 mmol/L (3.3-5.1); Sodium 143 mmol/L (135-145); Total Protein 6.3 g/dL (6.5-8.0); Triglycerides 157 mg/dL
== END 2021-04-30 11:01 | disposition home or self-care (01) ==
LOC: HO.LAB 11:00
PROVIDERS: PCP Internal Medicine; Visit Provider Internal Medicine
DX: E78.5 Hyperlipidemia, unspecified (principal); I10 Essential (primary) hypertension
CPT/HCPCS: 36415; 80053; 80061

== ENCOUNTER → 2021-05-13 13:44 | Outpatient (BNVA) | payer OTHER, SELFPAY | PROVIDERS: PCP Internal Medicine; Visit Provider Internal Medicine | DX: M47.816 Spondylosis without myelopathy or radiculopathy, lumbar region (principal) | CPT/HCPCS: 99212 ==

== ENCOUNTER 2021-05-16 12:35 | Outpatient (REF) | payer OTHER, SELFPAY ==
[2021-05-16 13:08] LABS: MANUAL DIFF FLAG NO
[2021-05-16 13:10] LABS: Basophils Percent Auto 0.3 % (0-2); Eosinophils Percent Auto 0.7 % (0-4); Hematocrit 38.6 % (37-47); Hemoglobin 12.4 g/dl (12.0-16.0); Imm Gran Abs Auto 0.01 X10*3/uL (0.00-0.03); Imm Gran Pct Auto 0.2 % (0.0-0.4); Lymphocytes Absolute Auto 1.6 X10*3/uL (1.2-4.9); Lymphocytes Percent Auto 27.1 % (20-40); Mean Corpuscular HGB Conc 32.1 g/dl (31.0-35.0); Mean Corpuscular Hemoglobin 31.8 pg (27.0-33.0); Mean Platelet Volume 9.9 fL (9.4-12.3); Monocytes Absolute Auto 0.3 X10*3/uL (0.1-1.2); Monocytes Percent Auto 5.6 % (2-11); Neutrophils Percent Auto 66.1 % (45-73); Platelet Count 193 X10*3/uL (160-400); Red Cell Distribution Width 14.5 % (11.0-16.0); White Blood Count 6.1 X10*3/uL (4.8-10.8)
[2021-05-16 14:43] LABS: Alanine Aminotransferase 23 U/L (0-31); Albumin Level 3.9 g/dL (3.5-5.0); Alkaline Phosphatase 108 U/L (39-117); Anion Gap 12 (12-20); Aspartate Amino Transferase 18 U/L (5-31); Bilirubin Total 0.4 mg/dL (0.0-1.0); Blood Urea Nitrogen 8 mg/dL (9-16); Calcium 9.6 mg/dL (8.4-10.2); Carbon Dioxide 27 mmol/L (22-29); Chloride 109 mmol/L (96-108); Cholesterol 228 mg/dL; Estimated Glomerular Filt Rate > 60; Glucose Fasting 84 mg/dL (60-99); HDL Cholesterol 66 mg/dL; LDL Cholesterol Calculated 117 mg/dl; Potassium 3.7 mmol/L (3.3-5.1); Sodium 144 mmol/L (135-145); Total Protein 6.2 g/dL (6.5-8.0); Triglycerides 226 mg/dL
[2021-05-16 14:51] LABS: Glucose Urine UA NEG (NEG); Leukocyte Esterase Urine NEG (NEG); Nitrite Urine NEG (NEG); Specific Gravity - Urine 1.025 (1.005-1.025); Urine Blood NEG (NEG); Urine Ketones NEG (NEG); Urine Protein NEG (NEG-TRACE)
[2021-05-16 14:52] LABS: Appearance Urine CLEAR; Color Urine YELLOW
[2021-05-16 15:07] LABS: Thyroid Stimulating Hormone 2.75 uIU/mL (0.32-4.0)
[2021-05-21 15:37] LABS: Vitamin D 25-OH, D2 <4 ng/mL; Vitamin D 25-OH, D3 9 ng/mL; Vitamin D 25-OH, Total 9 ng/mL (30-100)
== END 2021-05-16 12:36 | disposition home or self-care (01) ==
LOC: HO.LAB 12:35
PROVIDERS: PCP Internal Medicine; Visit Provider Internal Medicine
DX: E55.9 Vitamin D deficiency, unspecified (principal); E78.5 Hyperlipidemia, unspecified; I10 Essential (primary) hypertension; R63.4 Abnormal weight loss; R30.0 Dysuria; D64.9 Anemia, unspecified
CPT/HCPCS: 36415; 80053; 80061; 81003; 82306; 84443; 85025

== ENCOUNTER 2021-05-23 11:15 | Emergency (ER) | payer OTHER, SELFPAY ==
[2021-05-23 11:20] VITALS: BP 156/96; PULSE 82; RESP 16; TEMP 36.6; O2SAT 98; BMI 27.3
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
[2021-05-23] MEDS: Fluorescein Sodium STRIP 1 STRIP EYE-RIGHT (13:01)
[2021-05-23] MEDS: Tetracaine HCl/PF 0.5% Oph Sol 4 ML DROPS 1 DROP EYE-RIGHT (13:01)
[2021-05-23] MEDS: Erythromycin Base 0.5% Oph Oin 1 GM TUBE 1 CM EYE-RIGHT (13:41)
== END 2021-05-23 14:01 | disposition home or self-care (01) ==
PROVIDERS: Emergency Provider Emergency Medicine; PCP Internal Medicine
DX: S05.8X1A Other injuries of right eye and orbit, initial encounter (principal); X79.XXXA Intentional self-harm by blunt object, initial encounter; H10.31 Unspecified acute conjunctivitis, right eye; H57.11 Ocular pain, right eye; I10 Essential (primary) hypertension; E78.5 Hyperlipidemia, unspecified; F17.210 Nicotine dependence, cigarettes, uncomplicated; F14.11 Cocaine abuse, in remission; Z79.899 Other long term (current) drug therapy; Z79.02 Long term (current) use of antithrombotics/antiplatelets; Y93.89 Activity, other specified; Y92.039 Unspecified place in apartment as the place of occurrence of the external cause; Y99.9 Unspecified external cause status
CPT/HCPCS: 99283; 99284

== ENCOUNTER 2021-09-12 11:56 | Inpatient (IN) | payer OTHER, SELFPAY ==
[2021-09-12 11:58] VITALS: BP 112/83; PULSE 92; RESP 16; TEMP 36.9; O2SAT 98; BMI 25.5
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
[2021-09-12 12:44] LABS: MANUAL DIFF FLAG NO
[2021-09-12 12:47] LABS: Basophils Percent Auto 0.3 % (0-2); Eosinophils Absolute Auto 0.1 X10*3/uL (0.0-0.4); Eosinophils Percent Auto 1.2 % (0-4); Hematocrit 39.1 % (37.0-47.0); Hemoglobin 12.8 g/dl (12.0-16.0); Imm Gran Abs Auto 0.01 X10*3/uL (0.00-0.03); Imm Gran Pct Auto 0.2 % (0.0-0.4); Lymphocytes Absolute Auto 1.7 X10*3/uL (1.2-4.9); Lymphocytes Percent Auto 27.9 % (20-40); Mean Corpuscular HGB Conc 32.7 g/dl (31.0-35.0); Mean Corpuscular Hemoglobin 31.2 pg (27.0-33.0); Mean Corpuscular Volume 95.4 fL (80.0-98.0); Mean Platelet Volume 9.7 fL (9.4-12.3); Monocytes Absolute Auto 0.4 X10*3/uL (0.1-1.2); Monocytes Percent Auto 6.3 % (2-11); Neutrophils Absolute Auto 3.9 x10*3/uL (2.0-8.3); Neutrophils Percent Auto 64.1 % (45-73); Platelet Count 249 X10*3/uL (160-400); Red Cell Distribution Width 14.1 % (11.0-16.0); White Blood Count 6.1 X10*3/uL (4.8-10.8)
[2021-09-12 13:01] LABS: Alanine Aminotransferase 16 U/L (0-31); Alkaline Phosphatase 94 U/L (39-117); Anion Gap 13 (12-20); Aspartate Amino Transferase 14 U/L (5-31); Bilirubin Direct 0.2 mg/dL (0.0-0.5); Bilirubin Total 0.5 mg/dL (0.0-1.0); Blood Urea Nitrogen 9 mg/dL (9-16); Carbon Dioxide 25 mmol/L (22-29); Creatinine Clr Calc Pharmacy 85.4; Estimated Glomerular Filt Rate > 60; Total Protein 6.3 g/dL (6.5-8.0)
[2021-09-12 13:03] LABS: COVID-19 Test Negative (Negative); IDNOW Serial# 55D5AD1C
[2021-09-12 13:20] LABS: Albumin Level 3.9 g/dL (3.5-5.0); Calcium 9.6 mg/dL (8.4-10.2); Chloride 109 mmol/L (96-108); Glucose Random 98 mg/dL (60-115); Potassium 3.3 mmol/L (3.3-5.1); Sodium 144 mmol/L (135-145)
[2021-09-12 14:02] VITALS: BP 155/84; PULSE 75; RESP 16; O2SAT 98
[2021-09-12] MEDS: Diphth,Pertus(ACell),Tet Adult 0.5 ML SYRINGE IM (14:07)
[2021-09-12] MEDS: Lidocaine HCl 1 % 20 ML VIAL SUBCUT (14:07)
--- NOTE | 2021-09-12 17:31 | PHA.MEDREC ---
Pharmacy Consult ? Medication Reconciliation Pharmacy has completed the medication reconciliation. Patient has not started vit d yet. She takes her abilify PRN, and admits to missing her meds a few days a week. Thanks Sumaya Chaudhry
[2021-09-12 17:44] LABS: Appearance Urine HAZY; Color Urine YELLOW; Glucose Urine UA NEG (NEG); Leukocyte Esterase Urine 2+ (NEG); Nitrite Urine NEG (NEG); Specific Gravity - Urine 1.025 (1.005-1.025); UACC Culture Trigger YES; Urine Blood NEG (NEG); Urine Ketones NEG (NEG); Urine Protein NEG (NEG-TRACE)
[2021-09-12 17:57] LABS: Bacteria Urine 1+ /LPF; RBC Urine 0 /HPF (0); Squamous Epithelial Cell Urine 1+ /LPF; UACC CULT YES
[2021-09-12 18:03] LABS: Amphetamine Screen Urine Not Detected (Not Detect); Barbiturates, Urine Not Detected (Not Detect); Benzodiazepines Screen Urine Not Detected (Not Detect); Cannabinoid Screen Urine POSITIVE (Not Detect); Cocaine Screen Urine POSITIVE (Not Detect); Fentanyl, urine Not Detected (Not Detect); Opiate Screen Urine Not Detected (Not Detect); Phencyclidine Screen Urine Not Detected (Not Detect)
--- NOTE | 2021-09-12 19:06 | PC.NURSE ---
Pt remains calm and cooperative fro 1500 to 1900. pt maintians appropriate eye contact and speaks in clear and even tones. n has evaluated pt.
[2021-09-12] MEDS: rOPINIRole HCL 1 MG TABLET PO (21:41)
[2021-09-12] MEDS: Diclofenac Sodium Delayed Rel 75 MG TABLET.DR PO (21:41)
[2021-09-12] MEDS: ARIPiprazole 2 MG TABLET PO (21:42)
[2021-09-12] MEDS: Atorvastatin Calcium 20 MG TABLET PO (21:42)
[2021-09-12] MEDS: Acetaminophen 325 MG TABLET 650 MG PO (21:46)
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
[2021-09-13] MEDS: Omeprazole 40 MG CAPSULE.DR PO (06:53)
[2021-09-13 08:38] LABS: Cholesterol 237 mg/dL; HDL Cholesterol 54 mg/dL; LDL Cholesterol Calculated 158 mg/dl; Magnesium 2.2 mg/dL (1.6-2.6); Triglycerides 125 mg/dL
[2021-09-13 08:45] LABS: Estimated Average Glucose 105 mg/dL; Hemoglobin A1c % 5.3 %
[2021-09-13] MEDS: Escitalopram Oxalate 20 MG TABLET PO (08:48)
[2021-09-13] MEDS: Diclofenac Sodium Delayed Rel 75 MG TABLET.DR PO ×2 (08:48→20:40)
[2021-09-13 08:49] VITALS: BP 141/94; PULSE 94
[2021-09-13] MEDS: lisinopriL 10 MG TABLET PO (08:49)
[2021-09-13] MEDS: Furosemide 20 MG TABLET PO (08:49)
[2021-09-13 09:00] LABS: Free T4 (Free Thyroxine) 0.74 ng/dL (0.71-1.85); Thyroid Stimulating Hormone 2.15 uIU/mL (0.32-4.0)
[2021-09-13 09:12] LABS: Vitamin B12 184 pg/mL (200-900)
[2021-09-13 12:42] VITALS: TEMP 36.4; O2SAT 98
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
[2021-09-13 20:38] VITALS: BP 144/74; PULSE 72; RESP 18; TEMP 36.8; O2SAT 98
[2021-09-13] MEDS: ARIPiprazole 2 MG TABLET PO (20:41)
[2021-09-13] MEDS: traZODone HCL 50 MG TABLET PO ×2 (20:42→22:28)
[2021-09-13] MEDS: rOPINIRole HCL 1 MG TABLET PO (20:43)
[2021-09-13] MEDS: Atorvastatin Calcium 20 MG TABLET PO (20:50)
[2021-09-13] MEDS: Triamcinolone Acet 0.1 % Cream 15 GM TUBE 1 APPL TOPICAL (21:04)
[2021-09-14 06:00] VITALS: BP 105/59; PULSE 63; RESP 18; TEMP 36; O2SAT 96
[2021-09-14 09:11] VITALS: BP 138/86; PULSE 86
[2021-09-14] MEDS: Omeprazole 40 MG CAPSULE.DR PO (09:11)
[2021-09-14] MEDS: Triamcinolone Acet 0.1 % Cream 15 GM TUBE 1 APPL TOPICAL (09:11)
[2021-09-14] MEDS: lisinopriL 10 MG TABLET PO (09:11)
[2021-09-14] MEDS: Furosemide 20 MG TABLET PO (09:12)
[2021-09-14] MEDS: Escitalopram Oxalate 10 MG TABLET PO (09:12)
[2021-09-14] MEDS: Diclofenac Sodium Delayed Rel 75 MG TABLET.DR PO ×2 (09:12→20:01)
[2021-09-14] MEDS: Acetaminophen 325 MG TABLET 650 MG PO (09:23)
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
[2021-09-14] MEDS: rOPINIRole HCL 1 MG TABLET PO (20:00)
[2021-09-14] MEDS: Milk of Magnesia 30 ML ORAL.SUSP PO (20:00)
[2021-09-14] MEDS: ARIPiprazole 2 MG TABLET PO (20:03)
[2021-09-14] MEDS: Atorvastatin Calcium 20 MG TABLET PO (20:03)
[2021-09-14] MEDS: traZODone HCL 50 MG TABLET PO ×2 (20:03→22:46)
[2021-09-14 21:38] VITALS: BP 146/81; PULSE 79; RESP 16
[2021-09-15 06:00] VITALS: BP 119/59; PULSE 70; RESP 18; TEMP 36.1; O2SAT 97
[2021-09-15] MEDS: Ergocalciferol (Vitamin D2) 1,250 MCG CAPSULE 1250 MCG PO (09:01)
[2021-09-15] MEDS: Furosemide 20 MG TABLET PO (09:01)
[2021-09-15 09:02] VITALS: BP 175/86; PULSE 77
[2021-09-15] MEDS: Omeprazole 40 MG CAPSULE.DR PO (09:02)
[2021-09-15] MEDS: lisinopriL 10 MG TABLET PO (09:02)
[2021-09-15] MEDS: Diclofenac Sodium Delayed Rel 75 MG TABLET.DR PO ×2 (09:02→20:10)
[2021-09-15] MEDS: Triamcinolone Acet 0.1 % Cream 15 GM TUBE 1 APPL TOPICAL (09:02)
[2021-09-15] MEDS: Escitalopram Oxalate 10 MG TABLET PO (09:02)
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
[2021-09-15] MEDS: rOPINIRole HCL 1 MG TABLET PO (20:10)
[2021-09-15] MEDS: Atorvastatin Calcium 20 MG TABLET PO (20:10)
[2021-09-15] MEDS: ARIPiprazole 2 MG TABLET PO (20:10)
[2021-09-15] MEDS: traZODone HCL 50 MG TABLET PO ×2 (20:16→22:06)
[2021-09-15 20:19] VITALS: BP 124/66; PULSE 96; O2SAT 98
[2021-09-16 06:00] VITALS: BP 142/64; PULSE 67; RESP 14; TEMP 36; O2SAT 98
[2021-09-16] MEDS: Omeprazole 40 MG CAPSULE.DR PO (06:17)
[2021-09-16 08:31] VITALS: BP 140/68; PULSE 68
[2021-09-16] MEDS: Furosemide 20 MG TABLET PO (08:31)
[2021-09-16] MEDS: lisinopriL 10 MG TABLET PO (08:31)
[2021-09-16] MEDS: Diclofenac Sodium Delayed Rel 75 MG TABLET.DR PO ×2 (08:32→19:38)
[2021-09-16] MEDS: Escitalopram Oxalate 10 MG TABLET PO (08:32)
[2021-09-16] MEDS: Mineral Oil/Petrolatum,White 106 GM Tube 1 APPL TOPICAL ×2 (08:33→19:36)
[2021-09-16 09:50] LABS: COVID-19 Test Negative (Negative); IDNOW Serial# 9DD0AD1C
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
[2021-09-16] MEDS: Triamcinolone Acet 0.1 % Cream 15 GM TUBE 1 APPL TOPICAL (11:20)
[2021-09-16 19:30] VITALS: BP 143/85; PULSE 79; TEMP 36.5
[2021-09-16 19:36] VITALS: BP 143/85; PULSE 79
[2021-09-16] MEDS: cloNIDine HCL 0.1 MG TABLET PO (19:36)
[2021-09-16] MEDS: Atorvastatin Calcium 20 MG TABLET PO (19:37)
[2021-09-16] MEDS: rOPINIRole HCL 1 MG TABLET PO (19:37)
[2021-09-16] MEDS: ARIPiprazole 2 MG TABLET PO (19:39)
[2021-09-17 06:00] VITALS: BP 139/89; PULSE 72; RESP 16; TEMP 36.7; O2SAT 100
[2021-09-17] MEDS: Omeprazole 40 MG CAPSULE.DR PO (06:16)
[2021-09-17] MEDS: Diclofenac Sodium Delayed Rel 75 MG TABLET.DR PO ×2 (08:49→20:24)
[2021-09-17] MEDS: Furosemide 20 MG TABLET PO (08:49)
[2021-09-17 08:50] VITALS: BP 138/71; PULSE 70
[2021-09-17] MEDS: Escitalopram Oxalate 20 MG TABLET PO (08:50)
[2021-09-17] MEDS: lisinopriL 10 MG TABLET PO (08:50)
[2021-09-17] MEDS: Acetaminophen 325 MG TABLET 650 MG PO ×2 (08:53→19:01)
[2021-09-17] MEDS: Mineral Oil/Petrolatum,White 106 GM Tube 1 APPL TOPICAL (08:55)
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
[2021-09-17] MEDS: Docusate Sodium 100 MG CAPSULE PO (14:38)
[2021-09-17 20:15] VITALS: BP 112/56; PULSE 68; TEMP 37.1
[2021-09-17] MEDS: rOPINIRole HCL 1 MG TABLET PO (20:21)
[2021-09-17 20:22] VITALS: BP 112/56; PULSE 68
[2021-09-17] MEDS: cloNIDine HCL 0.1 MG TABLET PO (20:22)
[2021-09-17] MEDS: Atorvastatin Calcium 20 MG TABLET PO (20:23)
[2021-09-17] MEDS: ARIPiprazole 2 MG TABLET PO (20:24)
[2021-09-18 06:00] VITALS: BP 121/81; PULSE 82; RESP 16; TEMP 36.3; O2SAT 99
[2021-09-18] MEDS: Omeprazole 40 MG CAPSULE.DR PO (08:19)
[2021-09-18] MEDS: Furosemide 20 MG TABLET PO (08:19)
[2021-09-18 08:20] VITALS: BP 143/67; PULSE 72
[2021-09-18] MEDS: lisinopriL 10 MG TABLET PO (08:20)
[2021-09-18] MEDS: Escitalopram Oxalate 20 MG TABLET PO (08:21)
[2021-09-18] MEDS: Diclofenac Sodium Delayed Rel 75 MG TABLET.DR PO ×2 (08:21→20:35)
[2021-09-18] MEDS: Acetaminophen 325 MG TABLET 650 MG PO ×2 (12:07→20:48)
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
[2021-09-18 17:06] VITALS: BP 91/50; PULSE 88; TEMP 36.8; O2SAT 98
[2021-09-18 20:35] VITALS: BP 122/62; PULSE 88
[2021-09-18] MEDS: cloNIDine HCL 0.1 MG TABLET PO ×2 (20:35→23:28)
[2021-09-18] MEDS: Atorvastatin Calcium 20 MG TABLET PO (20:35)
[2021-09-18] MEDS: rOPINIRole HCL 1 MG TABLET PO (20:35)
[2021-09-18] MEDS: ARIPiprazole 2 MG TABLET PO (20:36)
[2021-09-18] MEDS: clonazePAM 0.5 MG TABLET PO (20:49)
[2021-09-18 23:28] VITALS: BP 107/55; PULSE 71
[2021-09-19 06:00] VITALS: BP 123/74; PULSE 67; RESP 16; TEMP 36.1; O2SAT 99
[2021-09-19] MEDS: Omeprazole 40 MG CAPSULE.DR PO (06:06)
[2021-09-19 07:00] VITALS: BMI 27.1
[2021-09-19] MEDS: Diclofenac Sodium Delayed Rel 75 MG TABLET.DR PO ×2 (08:30→20:19)
[2021-09-19] MEDS: Furosemide 20 MG TABLET PO (08:30)
[2021-09-19] MEDS: Escitalopram Oxalate 20 MG TABLET PO (08:31)
[2021-09-19] MEDS: lisinopriL 10 MG TABLET PO (08:31)
[2021-09-19] MEDS: Mineral Oil/Petrolatum,White 106 GM Tube 1 APPL TOPICAL (08:38)
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
[2021-09-19 12:39] VITALS: BP 101/59; PULSE 65; RESP 14
[2021-09-19] MEDS: clonazePAM 0.5 MG TABLET PO (13:38)
[2021-09-19 20:18] VITALS: BP 115/64; PULSE 77
[2021-09-19] MEDS: cloNIDine HCL 0.1 MG TABLET PO (20:18)
[2021-09-19] MEDS: ARIPiprazole 2 MG TABLET PO (20:19)
[2021-09-19] MEDS: Atorvastatin Calcium 20 MG TABLET PO (20:19)
[2021-09-19] MEDS: rOPINIRole HCL 1 MG TABLET PO (20:19)
[2021-09-19 20:20] VITALS: BP 115/64; PULSE 77; RESP 16; TEMP 36.1; O2SAT 96
[2021-09-20 00:08] VITALS: BP 118/60; PULSE 68
[2021-09-20] MEDS: cloNIDine HCL 0.1 MG TABLET PO ×3 (00:08→21:37)
[2021-09-20 06:00] VITALS: BP 122/56; PULSE 60; RESP 14; TEMP 36.4; O2SAT 99
[2021-09-20] MEDS: Omeprazole 40 MG CAPSULE.DR PO (06:13)
[2021-09-20 08:08] VITALS: BP 122/56; PULSE 60
[2021-09-20] MEDS: Escitalopram Oxalate 20 MG TABLET PO (08:08)
[2021-09-20] MEDS: lisinopriL 10 MG TABLET PO (08:08)
[2021-09-20] MEDS: Furosemide 20 MG TABLET PO (08:09)
[2021-09-20] MEDS: Diclofenac Sodium Delayed Rel 75 MG TABLET.DR PO ×2 (08:09→20:26)
[2021-09-20] MEDS: Docusate Sodium 100 MG CAPSULE PO (16:00)
[2021-09-20] MEDS: clonazePAM 0.5 MG TABLET PO (16:00)
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
[2021-09-20 17:13] VITALS: BP 108/62; PULSE 63
[2021-09-20 20:25] VITALS: BP 112/59; PULSE 70
[2021-09-20] MEDS: ARIPiprazole 2 MG TABLET PO (20:25)
[2021-09-20] MEDS: Atorvastatin Calcium 20 MG TABLET PO (20:25)
[2021-09-20] MEDS: rOPINIRole HCL 1 MG TABLET PO (20:26)
[2021-09-20 21:37] VITALS: BP 110/54; PULSE 73
[2021-09-21] MEDS: Mineral Oil/Petrolatum,White 106 GM Tube 1 APPL TOPICAL (04:03)
[2021-09-21] MEDS: Triamcinolone Acet 0.1 % Cream 15 GM TUBE 1 APPL TOPICAL (04:04)
[2021-09-21 06:00] VITALS: BP 136/64; PULSE 70; TEMP 37; O2SAT 100
[2021-09-21] MEDS: Omeprazole 40 MG CAPSULE.DR PO (06:46)
[2021-09-21] MEDS: Escitalopram Oxalate 20 MG TABLET PO (08:18)
[2021-09-21] MEDS: Furosemide 20 MG TABLET PO (08:18)
[2021-09-21] MEDS: Diclofenac Sodium Delayed Rel 75 MG TABLET.DR PO ×2 (08:18→19:57)
[2021-09-21] MEDS: clonazePAM 0.5 MG TABLET PO (08:22)
[2021-09-21 08:23] VITALS: BP 136/64; PULSE 70
[2021-09-21] MEDS: lisinopriL 10 MG TABLET PO (08:23)
[2021-09-21] MEDS: Milk of Magnesia 30 ML ORAL.SUSP PO (11:21)
--- NOTE | 2021-09-21 11:42 | PC.NURSE ---
Patients sutures reviewed for removal. three of six sutures removed when laceration began to open. Remaining three sutures left intact, steri-strips placed where the three sutures were removed. MD notified and will review. wound was clean and dry, no drainage. Patient tolerated well.
[2021-09-21] MEDS: Acetaminophen 325 MG TABLET 650 MG PO (18:30)
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
[2021-09-21] MEDS: Atorvastatin Calcium 20 MG TABLET PO (19:42)
[2021-09-21] MEDS: QUEtiapine Fumarate 25 MG TABLET PO (19:44)
[2021-09-21] MEDS: ARIPiprazole 2 MG TABLET PO (19:44)
[2021-09-21] MEDS: rOPINIRole HCL 1 MG TABLET PO (19:44)
--- NOTE | 2021-09-21 20:12 | PC.NURSE ---
Dressing changed on sutures on left arm, 3 sutures were removed and one 3 sutures intact. Wound was cleansed with sterile water and bacitracin applied, bandaid covering it. area is slightly pink and pt noted that it was tender when cleansing it.
[2021-09-22 01:20] VITALS: BP 109/64; PULSE 77
[2021-09-22] MEDS: cloNIDine HCL 0.1 MG TABLET PO ×2 (01:20→21:29)
[2021-09-22 06:00] VITALS: BP 129/64; PULSE 67; RESP 16; TEMP 36.1; O2SAT 97
[2021-09-22] MEDS: Omeprazole 40 MG CAPSULE.DR PO (06:23)
[2021-09-22 08:39] VITALS: BP 129/64; PULSE 67
[2021-09-22] MEDS: Escitalopram Oxalate 20 MG TABLET PO (08:39)
[2021-09-22] MEDS: lisinopriL 10 MG TABLET PO (08:39)
[2021-09-22] MEDS: Furosemide 20 MG TABLET PO (08:40)
[2021-09-22] MEDS: Diclofenac Sodium Delayed Rel 75 MG TABLET.DR PO ×2 (08:40→21:30)
[2021-09-22] MEDS: Triamcinolone Acet 0.1 % Cream 15 GM TUBE 1 APPL TOPICAL (08:42)
[2021-09-22] MEDS: Ergocalciferol (Vitamin D2) 1,250 MCG CAPSULE 1250 MCG PO (12:54)
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
[2021-09-22 21:29] VITALS: BP 132/67; PULSE 77
[2021-09-22] MEDS: Mineral Oil/Petrolatum,White 106 GM Tube 1 APPL TOPICAL (21:29)
[2021-09-22] MEDS: Atorvastatin Calcium 20 MG TABLET PO (21:30)
[2021-09-22] MEDS: rOPINIRole HCL 1 MG TABLET PO (21:30)
[2021-09-22] MEDS: ARIPiprazole 2 MG TABLET PO (21:30)
[2021-09-22] MEDS: QUEtiapine Fumarate 50 MG TABLET PO (21:30)
[2021-09-23] MEDS: QUEtiapine Fumarate 50 MG TABLET PO ×2 (02:01→20:12)
[2021-09-23 06:00] VITALS: BP 113/55; PULSE 66; RESP 16; TEMP 36.2; O2SAT 98
[2021-09-23] MEDS: Omeprazole 40 MG CAPSULE.DR PO (06:17)
[2021-09-23] MEDS: Furosemide 20 MG TABLET PO (09:35)
[2021-09-23 09:36] VITALS: BP 128/81; PULSE 75
[2021-09-23] MEDS: Escitalopram Oxalate 20 MG TABLET PO (09:36)
[2021-09-23] MEDS: lisinopriL 10 MG TABLET PO (09:36)
[2021-09-23] MEDS: Diclofenac Sodium Delayed Rel 75 MG TABLET.DR PO ×2 (09:37→20:12)
[2021-09-23] MEDS: clonazePAM 0.5 MG TABLET PO (09:38)
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
[2021-09-23 20:08] VITALS: BP 140/71; PULSE 75; TEMP 36.4; O2SAT 99
[2021-09-23 20:11] VITALS: BP 140/71; PULSE 75
[2021-09-23] MEDS: cloNIDine HCL 0.1 MG TABLET PO (20:11)
[2021-09-23] MEDS: ARIPiprazole 2 MG TABLET PO (20:14)
[2021-09-23] MEDS: Atorvastatin Calcium 20 MG TABLET PO (20:14)
[2021-09-23] MEDS: rOPINIRole HCL 1 MG TABLET PO (20:15)
[2021-09-23] MEDS: Mineral Oil/Petrolatum,White 106 GM Tube 1 APPL TOPICAL (20:15)
[2021-09-23] MEDS: Acetaminophen 325 MG TABLET 650 MG PO (20:20)
[2021-09-24 06:00] VITALS: BP 122/69; PULSE 62; RESP 16; TEMP 36.1; O2SAT 98
[2021-09-24 06:29] VITALS: BP 116/53
[2021-09-24] MEDS: Omeprazole 40 MG CAPSULE.DR PO (06:37)
[2021-09-24 08:58] VITALS: BP 103/65; PULSE 80
[2021-09-24] MEDS: lisinopriL 10 MG TABLET PO (08:58)
[2021-09-24] MEDS: Escitalopram Oxalate 20 MG TABLET PO (08:58)
[2021-09-24] MEDS: Diclofenac Sodium Delayed Rel 75 MG TABLET.DR PO (09:00)
[2021-09-24] MEDS: Furosemide 20 MG TABLET PO (09:00)
[2021-09-24] MEDS: clonazePAM 0.5 MG TABLET PO (09:33)
--- NOTE | 2021-09-24 10:11 | PC.NURSE ---
Wound left forearm evaluated for removal of stitches- erythema noted at suture site, no drainage. Wound edges not approximating. Dr Holden notified. Aidee Grimes notified re: wound consult per mD.
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
--- NOTE | 2021-09-24 11:33 | PC.NURSE ---
Aidee Grimes, RN notified, will evaluate wound. Patient affect anxious, patient prepared to discharge this afternoon. Pt reported some dizziness prior to lunch, orthostatic BP compketed, negative, pt encouraged to drink fluids, offered water.
[2021-09-24 11:35] VITALS: BP 118/70; PULSE 80; RESP 20; O2SAT 100
[2021-09-24 11:36] VITALS: BP 124/76; PULSE 79; RESP 20; O2SAT 100
--- NOTE | 2021-09-24 14:09 | PC.NURSE ---
Skin/wound assessment. Patient has a self inflicted wound to right forearm. This nurse removed 3 sutures then added 3 steri strips to help keep wound closed then applied Xeroform over steri strips and covered with large band aid. To be done daily.
== END 2021-09-24 14:38 | disposition home or self-care (01) | DRG 885 ==
LOC: HO.ED 14:49 → HO.PM5 20:39
PROVIDERS: Emergency Medicine; Psychiatry & Neurology Psychiatry; Admitting Provider Registered Nurse; Emergency Provider Emergency Medicine; PCP Internal Medicine; Visit Provider Psychiatry & Neurology Psychiatry
DX: F33.2 Major depressive disorder, recurrent severe without psychotic features (principal); R45.851 Suicidal ideations; F43.10 Post-traumatic stress disorder, unspecified; S61.512A Laceration without foreign body of left wrist, initial encounter; X78.1XXA Intentional self-harm by knife, initial encounter; Y92.9 Unspecified place or not applicable; Z20.822 Contact with and (suspected) exposure to COVID-19; F17.210 Nicotine dependence, cigarettes, uncomplicated; Z71.6 Tobacco abuse counseling; Z79.899 Other long term (current) drug therapy
CPT/HCPCS: 36415; 80048; 80061; 80076; 80307; 81001; 82607; 83036; 83735; 84439; 84443; 85025; 87086; 87635; 90471; 90715; 99285

== ENCOUNTER 2022-07-04 11:51 | Outpatient (REF) | payer OTHER, SELFPAY ==
--- NOTE | ~2022-07-04 | MM_ITS ---
EXAMINATION: MM SCREENING DIGITAL BREAST TOMOSYNTHESIS, BILATERAL CLINICAL INFORMATION: Screening. Asymptomatic. The lifetime risk of breast cancer based on the Tyrer-Cuzick Model is 2%. COMPARISON: Mammography: 01/23/2021, 08/16/2019, 07/16/2018 TECHNIQUE: Digital breast tomosynthesis is performed in both the craniocaudal and mediolateral oblique views along with computer-aided detection (CAD). Synthesized 2D images are generated from the tomosynthesis. FINDINGS: There are scattered areas of fibroglandular density (ACR BI-RADS breast composition Category b). There are no significant masses, abnormal calcifications, or other abnormalities. Parenchymal pattern is similar to prior studies and there is no developing density. The axilla and skin contours are unremarkable. MM/MM tomosynthesis screening BI IMPRESSION: No mammographic evidence of malignancy. ASSESSMENT: BI-RADS 1: Negative RECOMMENDATION: Routine annual mammography screening. This patient's information was entered into a reminder system with a target due date for their next mammogram.
== END 2022-07-04 11:52 | disposition home or self-care (01) ==
LOC: HO.MAMMO 11:51
PROVIDERS: Visit Provider Internal Medicine
DX: Z12.31 Encounter for screening mammogram for malignant neoplasm of breast (principal)
CPT/HCPCS: 77063; 77067

== ENCOUNTER → 2022-08-26 12:17 | Outpatient (BNVA) | payer OTHER, SELFPAY | PROVIDERS: PCP Internal Medicine; Referring Provider Internal Medicine; Visit Provider Internal Medicine | DX: R63.4 Abnormal weight loss (principal); K59.09 Other constipation; R13.10 Dysphagia, unspecified; L81.9 Disorder of pigmentation, unspecified | CPT/HCPCS: 99202 ==

== ENCOUNTER 2022-09-18 07:39 | Outpatient (REF) | payer OTHER, SELFPAY ==
[2022-09-18 09:57] LABS: Alanine Aminotransferase 12 U/L (0-31); Albumin Level 3.7 g/dL (3.5-5.0); Alkaline Phosphatase 98 U/L (39-117); Anion Gap 12 (12-20); Aspartate Amino Transferase 14 U/L (5-31); Bilirubin Total 0.5 mg/dL (0.0-1.0); Blood Urea Nitrogen 5 mg/dL (9-16); Calcium 9.2 mg/dL (8.4-10.2); Carbon Dioxide 26 mmol/L (22-29); Chloride 109 mmol/L (96-108); Cholesterol 216 mg/dL; Estimated Glomerular Filt Rate > 60; Glucose Fasting 90 mg/dL (60-99); HDL Cholesterol 49 mg/dL; LDL Cholesterol Calculated 138 mg/dl; Potassium 3.6 mmol/L (3.3-5.1); Sodium 143 mmol/L (135-145); Thyroid Stimulating Hormone 4.79 uIU/mL (0.32-4.0); Total Protein 5.9 g/dL (6.5-8.0); Triglycerides 148 mg/dL; Vitamin D 25-OH Total 13.7 ng/mL (>30)
[2022-09-18 10:10] LABS: Folate 12.7 ng/mL (> or = 4.0); Vitamin B12 379 pg/mL (200-900)
[2022-09-23 23:34] LABS: Intrinsic Factor Antibodies Negative (Negative)
[2022-09-24 12:53] LABS: Parietal Cell Antibody <=20.0 Unit (<=20.0)
== END 2022-09-18 07:40 | disposition home or self-care (01) ==
LOC: HO.LAB 07:39
PROVIDERS: PCP Internal Medicine; Visit Provider Internal Medicine
DX: E53.8 Deficiency of other specified B group vitamins (principal); R53.83 Other fatigue; E78.5 Hyperlipidemia, unspecified; I10 Essential (primary) hypertension; E55.9 Vitamin D deficiency, unspecified
CPT/HCPCS: 36415; 80053; 80061; 82306; 82607; 82746; 83516; 84443; 86340

== ENCOUNTER → 2022-09-23 07:55 | Day surgery (SDC) | payer OTHER, SELFPAY ==
[2022-09-16 15:05] VITALS: BMI 22.3
--- NOTE | 2022-09-19 12:34 | HO.ANESPROP2 ---
HPI - Anesthesia Eval Consult details Narrative: 62yo F for Upper Endoscopy and Colonoscopy [facility] Active Problems Active Problems: All Active Problems (Updated 09/16/22 @ 15:03 by Bobbi Fontaine RN) Ankle pain, left (Acute) Painful orthopaedic hardware (Acute) Arthritis of carpometacarpal (CMC) joint of left thumb (Acute) Forearm laceration (Acute) Abdominal pain (Acute) Moderate recurrent major depression (Acute) MICHELLE (generalized anxiety disorder) (Acute) Unintentional weight loss (Acute) Dysphagia (Acute) Hypopigmentation (Acute) Intermittent constipation (Acute) Cocaine use disorder, mild, abuse (Acute) Physical exam (Acute) B12 deficiency (Acute) PTSD (post-traumatic stress disorder) (Acute) Chronic diarrhea (Acute) Cocaine use disorder, mild, in early remission (Acute) Weight loss (Acute) Bilateral knee pain (Acute) Lumbar spondylosis (Acute) Left hip pain (Acute) GERD (gastroesophageal reflux disease) (Acute) Essential hypertension (Acute) Dyslipidemia (Acute) Past Medical History Medical History (Updated 09/16/22 @ 15:03 by Bobbi Fontaine RN) Asthma due to environmental allergies B12 deficiency Bilateral knee pain Bimalleolar fracture of left ankle Brain aneurysm Chronic diarrhea Cocaine use disorder, mild, abuse Cocaine use disorder, mild, in early remission Constipation by delayed colonic transit Depression Dyslipidemia Easy bruisability Essential hypertension Fibromyalgia GERD (gastroesophageal reflux disease) Left hip pain Lumbar spondylosis MDD (major depressive disorder), recurrent episode, severe Osteoarthritis Physical exam PTSD (post-traumatic stress disorder) Weight loss Family History Family History Mother Diabetes Father No problems noted. Surgical History Surgical History (Updated 09/16/22 @ 15:03 by Bobbi Fontaine RN) H/O colonoscopy History of breast lump/mass excision History of partial hysterectomy History of surgery Hx of brain surgery Status post open reduction with internal fixation (ORIF) of fracture of ankle Social History Social History Household Members: None Housing: Apartment Are you a primary pet care associate to a significant other at home: No Do you presently have visiting nurse or other home services: No Alcohol intake: never Patient Tobacco Use Status: Current everyday Tobacco user Tobacco use type: Cigarette Cigarette Packs Per Day: 0 Cigarettes Per Day: 4 Years Smoked: 20 e-Cigarette/Vaping Use: Never Used Second Hand Smoke Exposure: Yes Substance Use Type: Crack/Cocaine and Marijuana service: No Current occupational status: disabled Current occupation: Right Handed Sexual orientation: Did not discuss Cognitive needs: Yes Hearing needs: No Vision needs: Yes Meds Allergies Allergy/AdvReac Type Severity Reaction Status Date / Time No Known Allergies Allergy Verified 08/26/22 12:35 [No Known Allergies*] Home Medications Medication Instructions Recorded Confirmed Last Taken Type calcitriol 0.25 mcg capsule 1 cap PO DAILY 09/16/22 09/16/22 Unknown History Exam Exam Date and Time: September 19, 2022 1234 Height,Weight and Vital Signs: Height 5 ft 4 in Weight 58.967 kg Pertinent Lab Results Pertinent Lab Results: Laboratory Tests 09/12/21 09/18/22 12:36 07:48 WBC 6.1 Hgb 12.8 Hct 39.1 Plt Count 249 Sodium 143 Potassium 3.6 Chloride 109 H Carbon Dioxide 26 BUN 5 L Creatinine 0.63 Assessment and Plan Assessment Anesthesia Assessment: Chart Reviewed
[2022-09-23 08:09] VITALS: BMI 23.1
[2022-09-23 08:20] LABS: Amphetamine Screen Urine Not Detected (Not Detect); Barbiturates, Urine Not Detected (Not Detect); Benzodiazepines Screen Urine Not Detected (Not Detect); Cannabinoid Screen Urine POSITIVE (Not Detect); Cocaine Screen Urine POSITIVE (Not Detect); Fentanyl, urine Not Detected (Not Detect); Opiate Screen Urine Not Detected (Not Detect); Phencyclidine Screen Urine Not Detected (Not Detect)
[2022-09-23 08:29] VITALS: BP 141/85; PULSE 72; RESP 18; TEMP 36.4; O2SAT 98
[2022-09-23 08:32] VITALS: BP 141/85; PULSE 72; RESP 18; TEMP 36.4; O2SAT 98
[2022-09-23 08:33] VITALS: BP 141/85; PULSE 72; RESP 18; TEMP 36.4; O2SAT 98
--- NOTE | 2022-09-23 09:01 | PC.NURSE ---
Dr. Franco floor anesthesiologist & Dr. Madera case anesthesiologist aware of utox + marijuana + cocaine. Dr. Madera aware tthat pt wants to speak to him.
--- NOTE | 2022-09-23 09:07 | PC.NURSE ---
pt dressed and ambulatory independently off unit, ride called. reinforced call to reschedule appt but to avoid drugs as well.
== END ==
PROVIDERS: Nurse Practitioner; PCP Student in an Organized Health Care Education/Training Program; Visit Provider Internal Medicine
DX: R13.10 Dysphagia, unspecified (principal); Z53.8 Procedure and treatment not carried out for other reasons; R82.5 Elevated urine levels of drugs, medicaments and biological substances; R63.4 Abnormal weight loss; F12.90 Cannabis use, unspecified, uncomplicated; F14.90 Cocaine use, unspecified, uncomplicated; F17.210 Nicotine dependence, cigarettes, uncomplicated
CPT/HCPCS: 80307

== ENCOUNTER 2022-11-03 12:40 | Outpatient (REF) | payer OTHER, SELFPAY ==
[2022-11-04 10:04] LABS: Thyroglobulin Antibodies <1 IU/mL (< or = 1); Thyroid Peroxidase Antibodies <1 IU/mL (<9)
== END 2022-11-03 12:41 | disposition home or self-care (01) ==
LOC: HO.LAB 12:40
PROVIDERS: PCP Internal Medicine; Visit Provider Internal Medicine
DX: R79.89 Other specified abnormal findings of blood chemistry (principal)
CPT/HCPCS: 36415; 84439; 84443; 86376; 86800

== ENCOUNTER 2022-11-12 13:49 | Outpatient (REF) | payer OTHER, SELFPAY ==
--- NOTE | ~2022-11-12 | CT_ITS ---
EXAMINATION: CT CHEST, ABDOMEN AND PELVIS WITH CONTRAST CLINICAL INFORMATION: Abnormal weight loss. COMPARISON: CT abdomen and pelvis 12/2018. TECHNIQUE: CT of the chest, abdomen, pelvis was performed with contrast. 85 mL of Omnipaque 350 administered intravenously without immediate complication. DOSE LOWERING TECHNIQUES: This CT examination was performed using dose optimization techniques as appropriate, variously including the following: - Automated exposure control - Adjustment of mA and/or kV according to patient size (this includes techniques or standardized protocols for targeted exams where dose is matched to indication/reason for exam; i.e. extremities or head) - Use of iterative reconstruction technique DLP: 472 mGy-cm. FINDINGS: CHEST: LUNGS: No interstitial disease. Micronodule right apex series 5 image 67. No consolidation. MEDIASTINUM: No adenopathy. The thoracic aorta is normal in caliber. PLEURA: There is no pleural effusion. AXILLA: No lymphadenopathy. ABDOMEN AND PELVIS: LIVER, GALLBLADDER, AND BILIARY TREE: The liver is normal in size, shape, and attenuation. No focal hepatic lesion or biliary ductal dilatation is present. The gallbladder is unremarkable with no evidence of radiopaque gallstones, gallbladder wall thickening, or obvious pericholecystic inflammatory changes. PANCREAS: No pancreatic mass. No ductal dilatation. SPLEEN: Normal. ADRENAL GLANDS: No adrenal mass. KIDNEYS AND URETERS: The kidneys are normal in size, shape, and attenuation. No hydronephrosis, hydroureter, or calculi seen. No perinephric stranding. BLADDER: Unremarkable. GASTROINTESTINAL TRACT: Small bowel is normal in caliber. The appendix is normal there is mild colonic diverticulosis. No acute diverticulitis. ABDOMINAL WALL: No significant hernia is appreciated. LYMPH NODES: No adenopathy. VASCULAR: No aortic aneurysm. Moderate atherosclerosis. PELVIC VISCERA: Hysterectomy. No pelvic mass. OSSEOUS STRUCTURES: Degenerative changes in the spine. CT/CT abdomen pelvis w IV con IMPRESSION: No explanation for weight loss. Micronodule right pulmonary apex. 2017 Fleischner Society Recommendations for Lung Nodule(s): Follow-Up based on size (average of long- and short-axis diameters). Use most suspicious nodule for followup. Single Solid nodule < 6 mm: In a low risk patient, no routine follow-up imaging is recommended. In a high risk patient, a non-contrast CT chest at 12 months is optional. If performed and the nodule is stable at 12 months, no further follow-up is recommended. These guidelines do not apply to patients younger than 35 years, immunocompromised patients, and patients with cancer. Follow up in patients with significant comorbidities as clinically warranted. For lung cancer screening, adhere to Lung-RADS guidelines. Reference: Radiology. 2017 Mar; 284(1):228-243
[2022-11-12] MEDS: Barium Sulfate Oral (Mocha) 450 ML ORAL.SUSP 900 ML PO (16:43)
[2022-11-12] MEDS: iohexoL 350 MG/ML 100 ML INFUS..BTL IV (16:44)
[2022-11-13 07:18] LABS: Creatinine POC 0.6 mg/dL (0.5-1.4); GFR POC > 60
== END 2022-11-12 13:50 | disposition home or self-care (01) ==
LOC: HO.CT 13:49
PROVIDERS: PCP Internal Medicine; Visit Provider Internal Medicine
DX: R63.4 Abnormal weight loss (principal)
CPT/HCPCS: 71260; 74177; 82565; Q9967

== ENCOUNTER 2023-05-06 10:10 | Emergency (ER) | payer OTHER, SELFPAY ==
--- NOTE | ~2023-05-06 | XR_ITS ---
EXAMINATION: XR KNEE, RIGHT CLINICAL INFORMATION: Pain right swelling COMPARISON: None available. TECHNIQUE: Four views of the right knee. FINDINGS: No acute visible fracture or dislocation. Multiple ossific densities are noted in the medial soft tissues along the infrapatellar and suprapatellar region nonspecific though may represent elements of dystrophic calcifications of the medial joint versus less common entities such as lipoma arborescens versus loose bodies. Mild multi joint arthritic changes. Joint spaces and alignment are otherwise maintained. Small knee joint effusion. XR/XR knee RT 3V IMPRESSION: 1. No acute visible fracture or dislocation. 2. Multiple ossific densities are noted in the medial soft tissues along the infrapatellar and suprapatellar region nonspecific though may represent elements of dystrophic calcifications of the medial joint versus less common entities such as lipoma arborescens versus loose bodies. 3. Mild multi joint arthritic changes. 4. Small knee joint effusion.
[2023-05-06 10:17] VITALS: BP 168/97; PULSE 69; O2SAT 97
[2023-05-06 10:19] VITALS: BP 147/89; PULSE 69; RESP 14; TEMP 36.9; O2SAT 97; BMI 26.1
[2023-05-06 11:40] LABS: Basophils Percent Auto 0.5 % (0-2); Eosinophils Absolute Auto 0.1 X10*3/uL (0.0-0.4); Eosinophils Percent Auto 1.2 % (0-4); Hematocrit 38.1 % (37.0-47.0); Hemoglobin 12.3 g/dl (12.0-16.0); Imm Gran Abs Auto 0.01 X10*3/uL (0.00-0.03); Imm Gran Pct Auto 0.2 % (0.0-0.4); Lymphocytes Absolute Auto 2.3 X10*3/uL (1.2-4.9); Lymphocytes Percent Auto 39.3 % (20-40); MANUAL DIFF FLAG NO; Mean Corpuscular HGB Conc 32.3 g/dl (31.0-35.0); Mean Corpuscular Hemoglobin 31.1 pg (27.0-33.0); Mean Corpuscular Volume 96.2 fL (80.0-98.0); Mean Platelet Volume 9.8 fL (9.4-12.3); Monocytes Absolute Auto 0.4 X10*3/uL (0.1-1.2); Monocytes Percent Auto 7.5 % (2-11); Neutrophils Absolute Auto 2.9 x10*3/uL (2.0-8.3); Neutrophils Percent Auto 51.3 % (45-73); Platelet Count 229 X10*3/uL (160-400); Red Blood Count 3.96 X10*6/uL (4.20-5.50); Red Cell Distribution Width 13.5 % (11.0-16.0); White Blood Count 5.7 X10*3/uL (4.8-10.8)
[2023-05-06 11:55] LABS: Anion Gap 13 (12-20); Blood Urea Nitrogen 10 mg/dL (9-16); C Reactive Protein 0.34 mg/dL (< or = 0.50); Calcium 9.6 mg/dL (8.4-10.2); Carbon Dioxide 27 mmol/L (22-29); Chloride 109 mmol/L (96-108); Estimated Glomerular Filt Rate > 60; Glucose Random 92 mg/dL (60-115); Potassium 4.1 mmol/L (3.3-5.1); Sodium 145 mmol/L (135-145); Uric Acid 6.5 mg/dL (2.4-5.7)
[2023-05-06 12:22] LABS: Erythrocyte Sedimentation Rate 11 MM/HR (0-20)
--- NOTE | 2023-05-06 12:34 | ED.LOWEXIN ---
HPI - Extremity Injury (Lower) General Chief Complaint: Extremity Injury, Lower Stated Complaint: R knee pain/bruising per EMS Time Seen by Provider: 05/06/23 10:27 Source: patient, RN notes reviewed and old records reviewed Mode of arrival: ambulatory History of Present Illness HPI Narrative: 63-year-old female with a past medical history of asthma, substance abuse, depression, HLD, GERD, fibromyalgia, HTN, depression, osteoarthritis, PTSD, presenting to the ED complaining of atraumatic right knee pain, swelling, and erythema yesterday. Reports chronic joint pain usually obtains steroid injections. Denies fall, known tick or insect bites, history of gout, fever/chills, numbness/tingling MD complaint: knee injury Related Data Home Medications Medication Instructions Recorded Confirmed calcitriol 0.25 mcg capsule 1 cap PO DAILY 09/16/22 03/26/23 Previous Rx's Medication Instructions Recorded aripiprazole 2 mg tablet 2 mg PO BEDTIME mood 30 days #30 09/24/21 tabs clonazepam 0.5 mg tablet 0.5 mg PO DAILY PRN Anxiety 30 09/24/21 days #30 tabs clonidine HCl 0.1 mg tablet 0.1 mg PO BID PRN anxiety/insomnia 09/24/21 30 days #60 tabs quetiapine 50 mg tablet 50 mg PO BEDTIME PRN insomnia 30 09/24/21 days #30 tabs ropinirole 1 mg tablet 1 mg PO BEDTIME #30 tabs 06/12/22 docusate sodium 100 mg capsule 100 mg PO DAILY PRN Constipation 08/19/22 30 days #30 caps escitalopram oxalate 20 mg tablet 20 mg PO QAM 30 days #30 tabs 08/19/22 furosemide 20 mg tablet 20 mg PO DAILY #90 tabs 08/19/22 lisinopril 10 mg tablet 10 mg PO DAILY 90 days #90 tabs 08/19/22 omeprazole 40 mg capsule,delayed 40 mg PO QAM #90 caps 08/19/22 release peg 3350-electrolytes 236 240 ml PO Q10M colonoscopy #4,000 08/26/22 gram-22.74 gram-6.74 gram-5.86 mL gram solution (Golytely) atorvastatin 20 mg tablet 20 mg PO BEDTIME 90 days #90 tabs 09/23/22 cholecalciferol (vitamin D3) 25 25 mcg PO DAILY 90 days #90 caps 09/23/22 mcg (1,000 unit) capsule loperamide 2 mg capsule 2 mg PO Q6H PRN loose stool 30 01/09/23 days #120 caps diclofenac sodium 75 mg 75 mg PO BID #60 tabs 02/12/23 tablet,delayed release albuterol sulfate 90 mcg/actuation 2 puff PO Q6H PRN Wheezing 30 days 03/11/23 aerosol inhaler (Ventolin HFA) #6.7 grams triamcinolone acetonide 0.1 % 1 appl topical DAILY 2 weeks #80 03/26/23 topical ointment grams cephalexin 500 mg capsule 500 mg PO QID 7 days #28 caps 05/06/23 naproxen 500 mg tablet 500 mg PO BID PRN pain 10 days #20 05/06/23 tabs prednisone 20 mg tablet 40 mg PO DAILY 5 days #10 tabs 05/06/23 Allergies Allergy/AdvReac Type Severity Reaction Status Date / Time No Known Allergies Allergy Verified 05/06/23 10:24 [No Known Allergies*] Review of Systems Review of Systems: Constitutional: No Fever, No Chills, No Fatigue, No Malaise ENT/Mouth: No Ear Pain, No sore throat, No Rhinorrhea, No Swallowing Difficulty Eyes: No Eye Pain, No Swelling, No Redness, No Vision Changes Cardiovascular: No Chest Pain, No SOB, No Edema, No Palpitations Respiratory: No Cough, No Sputum, No Dyspnea Gastrointestinal: No Nausea, No Vomiting, No Diarrhea, No Constipation, No Abdominal pain Musculoskeletal: + joint pain, No Myalgias, + Joint Swelling Skin: No Skin Lesions, No rash Neuro: No Weakness, No Numbness, No Paresthesias, No Headache Yes all other systems are reviewed and are negative Constitutional: Constitutional: Reports as per [facility] Past Medical History Attestation statement: The following information was validated with the patient. Source: old records reviewed Medical History Asthma due to environmental allergies B12 deficiency Bilateral knee pain Bimalleolar fracture of left ankle Brain aneurysm Chronic diarrhea Cocaine use disorder, mild, abuse Cocaine use disorder, mild, in early remission Constipation by delayed colonic transit Depression Dyslipidemia Easy bruisability Essential hypertension Fibromyalgia GERD (gastroesophageal reflux disease) Left hip pain Lumbar spondylosis MDD (major depressive disorder), recurrent episode, severe Osteoarthritis Physical exam PTSD (post-traumatic stress disorder) Weight loss Surgical History H/O colonoscopy History of breast lump/mass excision History of partial hysterectomy History of surgery Hx of brain surgery Status post open reduction with internal fixation (ORIF) of fracture of ankle Family History Family History Mother Diabetes Father No problems noted. Social History Social History Household Members: None Housing: Apartment Are you a primary care director to a significant other at home: No Do you presently have visiting nurse or other home services: No Alcohol intake: never Patient Tobacco Use Status: Current someday Tobacco user Tobacco use type: Cigarette Cigarette Packs Per Day: 0 Cigarettes Per Day: 4 Years Smoked: 20 e-Cigarette/Vaping Use: Never Used Second Hand Smoke Exposure: Yes Substance Use Type: Crack/Cocaine and Marijuana Advance Directives: No service: No Current occupational status: disabled Current occupation: Right Handed Sexual orientation: Did not discuss Cognitive needs: Yes Hearing needs: No Vision needs: Yes Physical Exam Vital Signs: Vital Signs: Last Vital Signs Temp 98.4 F 05/06/23 10:19 Pulse 69 05/06/23 10:19 Resp 14 05/06/23 10:19 BP 147/89 H 05/06/23 10:19 Pulse Ox 97 05/06/23 10:19 O2 Del Method Room Air 05/06/23 10:19 BMI result Body Mass Index 26.1 Const: General: cooperative, healthy appearing and no acute distress Orientation/consciousness: patient oriented x3 Limitations: no limitations HEENT: Head: Yes normal to inspection and Yes atraumatic Ears: hearing grossly normal bilaterally General nose exam: Normal external nose present Face and sinus: Yes normal facial exam Eyes: General: appearance normal, both eyes and all related structures EOM: EOMs intact bilaterally Neck: Neck: Yes normal visual inspection and Yes no meningeal signs Resp: Effort & Inspection: normal respiratory effort and no respiratory distress Auscultation: clear to auscultation bilaterally Cardio: Rate: regular rate Heart sounds: S1 normal heart sound present and S2 normal heart sound present Peripheral pulses: Peripheral pulses 2+ throughout Skin: Rashes: no rashes Wounds: no wounds Neuro: General: patient oriented x3, tone normal and no meningeal signs Gait exam (Neuro): Normal gait present Extrem: Other: Please refer to images above. Mild swelling noted to left knee with medial erythema and warmth. Healing ecchymosis also noted. Diffusely tender to palpation. Full ROM intact. Neurovascular intact distally. No pitting edema or calf tenderness Course Course Course Narrative: -1247--no leukocytosis. ESR/CRP WNL. Uric acid elevated to 6.5 XR knee RT 3V IMPRESSION: 1.? No acute visible fracture or dislocation. 2.? Multiple ossific densities are noted in the medial soft tissues along the infrapatellar and suprapatellar region nonspecific though may represent elements of dystrophic calcifications of the medial joint versus less common entities such as lipoma arborescens versus loose bodies. 3.? Mild multi joint arthritic changes. 4.? Small knee joint effusion. >Results discussed with patient, will treat for gout, recommended orthopedic follow-up. Discussed worrisome signs and symptoms and strict return precautions, and when to return to the emergency department. They verbalized understanding and feel safe for discharge at this time. Medical Decision Making Medical Decision Making [facility] Narrative: 63-year-old female with a past medical history of asthma, substance abuse, depression, HLD, GERD, fibromyalgia, HTN, depression, osteoarthritis, PTSD, presenting to the ED complaining of atraumatic right knee pain, swelling, and erythema yesterday. On exam vital signs stable, NAD, nontoxic appearing, physical exam as noted above. Please refer to image. Concern for subacute injury vs fracture/sprain vs gout/pseudogout vs ? Insect bite. Low suspicion for septic joint/arthritis. Possible early cellulitis. Unlikely DVT Plan: Labs, x-ray, re-evaluate Please refer to course for remaining clinical decision making, interpretation of labs/imaging results, and discussions with consultants and/or family members. Differential Diagnosis Differential Diagnoses: The differential diagnosis associated with the presentation includes As above Admission/Observation Consideration of admission/observation: Escalation of care including admission/observation considered Lab Data [facility] Lab Attestation statement: I reviewed the patient's lab results. 05/06/23 11:35 05/06/23 11:32 Labs: Lab Results 0805/06/23 05/06/23 Range/Units 11:32 11:35 11:35 WBC 5.7 (4.8-10.8) X10*3/uL RBC 3.96 L (4.20-5.50) X10*6/uL Hgb 12.3 (12.0-16.0) g/dl Hct 38.1 (37.0-47.0) % MCV 96.2 (80.0-98.0) fL MCH 31.1 (27.0-33.0) pg MCHC 32.3 (31.0-35.0) g/dl RDW 13.5 (11.0-16.0) % Plt Count 229 (160-400) X10*3/uL MPV 9.8 (9.4-12.3) fL Immature Gran % (Auto) 0.2 (0.0-0.4) % Neut % (Auto) 51.3 (45-73) % Lymph % (Auto) 39.3 (20-40) % [place] % (Auto) 7.5 (2-11) % Eos % (Auto) 1.2 (0-4) % Baso % (Auto) 0.5 (0-2) % Lymph # (Auto) 2.3 (1.2-4.9) X10*3/uL [place] # (Auto) 0.4 (0.1-1.2) X10*3/uL Eos # (Auto) 0.1 (0.0-0.4) X10*3/uL Baso # (Auto) 0.0 (0.0-0.2) X10*3/uL Abs Immat Gran (auto) 0.01 (0.00-0.03) X10*3/uL Absolute Neuts (auto) 2.9 (2.0-8.3) x10*3/uL Absolute Nucleated RBC 0.000 (0.0-0.012) X10*3/uL Nucleated RBC % (auto) 0.0 (0.0-0.2) /100WBC ESR 11 (0-20) MM/HR Sodium 145 (135-145) mmol/L Potassium 4.1 (3.3-5.1) mmol/L Chloride 109 H (96-108) mmol/L Carbon Dioxide 27 (22-29) mmol/L Anion Gap 13 (12-20) BUN 10 (9-16) mg/dL Creatinine 0.64 (0.5-1.4) mg/dL Estim Creat Clear Calc 88.0 Estimated GFR > 60 Random Glucose 92 (60-115) mg/dL Uric Acid 6.5 H (2.4-5.7) mg/dL Calcium 9.6 (8.4-10.2) mg/dL C-Reactive Protein 0.34 (< or = 0.50) mg/dL Radiology Impression Discussion of test interpretation with radiology: I have reviewed the radiologist's reading. External Record Review External record reviewed: Inpatient record, Office record, Outpatient record, Prior outpatient labs, Prior outpatient radiology, Primary care record and Outside ED record Tests considered The following testing was considered but not selected: As above Prescription Management I considered prescription management with: Pain Medication and Antibiotic Chronic Conditions Patient?s care impacted by: Other Discharge Plan Discharge Clinical Impression: Acute knee pain, Gout Patient Disposition: Home, Self-Care Instructions: Gout (ED), Knee Pain (ED) Additional Instructions: Your uric acid level is elevated which is concerning for gout Your x-ray shows possible calcifications versus extra cartilage to area at Prednisone as a steroid which will help with pain/inflammation neck Naproxen as an anti-inflammatory/pain medication take with food Keflex as an antibiotic Please follow-up with her doctor/orthopedics Is symptoms persist or worsen return to the ED Prescriptions: New prednisone 20 mg tablet 40 mg PO DAILY 5 Days Qty: 10 0RF cephalexin 500 mg capsule 500 mg PO QID 7 Days Qty: 28 0RF naproxen 500 mg tablet 500 mg PO BID PRN (Reason: pain) 10 Days Qty: 20 0RF No Action ropinirole 1 mg tablet 1 mg PO BEDTIME Qty: 30 11RF atorvastatin 20 mg tablet 20 mg PO BEDTIME 90 Days Qty: 90 3RF cholecalciferol (vitamin D3) 25 mcg (1,000 unit) capsule 25 mcg PO DAILY 90 Days Qty: 90 1RF loperamide 2 mg capsule 2 mg PO Q6H PRN (Reason: loose stool) 30 Days Qty: 120 1RF diclofenac sodium 75 mg tablet,delayed release (DR/EC) 75 mg PO BID Qty: 60 2RF albuterol sulfate [Ventolin HFA] 90 mcg/actuation HFA aerosol inhaler 2 puff PO Q6H PRN (Reason: Wheezing) 30 Days Qty: 6.7 0RF calcitriol 0.25 mcg capsule 1 cap PO DAILY clonidine HCl 0.1 mg Tablet 0.1 mg PO BID PRN (Reason: anxiety/insomnia) 30 Days Qty: 60 0RF Protocol: Hold for SBP< HOLD for SBP < : 90 quetiapine 50 mg Tablet 50 mg PO BEDTIME PRN (Reason: insomnia) 30 Days Qty: 30 0RF clonazepam 0.5 mg tablet 0.5 mg PO DAILY PRN (Reason: Anxiety) 30 Days Qty: 30 0RF aripiprazole 2 mg tablet 2 mg PO BEDTIME 30 Days Qty: 30 0RF triamcinolone acetonide 0.1 % ointment 1 appl topical DAILY 14 Days Qty: 80 1RF docusate sodium 100 mg capsule 100 mg PO DAILY PRN (Reason: Constipation) 30 Days Qty: 30 0RF escitalopram oxalate 20 mg tablet 20 mg PO QAM 30 Days Qty: 30 0RF furosemide 20 mg tablet 20 mg PO DAILY Qty: 90 1RF lisinopril 10 mg tablet 10 mg PO DAILY 90 Days Qty: 90 3RF omeprazole 40 mg capsule,delayed release(DR/EC) 40 mg PO QAM Qty: 90 3RF peg 3350-electrolytes [Golytely] 236-22.74-6.74 -5.86 gram recon soln 240 ml PO Q10M Qty: 4000 0RF Rx Instructions: as per split prep instructions, until fecal effluent is clear Referrals: [facility] [place] [facility] [Provider Group] - 1 week Trang Moya MD [Primary Care Provider] - 3 days Interventions: ED Discharge Assessment Last Done: 05/06/23 13:18 Discharge Date/Time: 05/06/23 13:20
== END 2023-05-06 13:20 | disposition home or self-care (01) ==
PROVIDERS: Physician Assistant; Emergency Provider Student in an Organized Health Care Education/Training Program; PCP Internal Medicine
DX: M10.061 Idiopathic gout, right knee (principal); M25.561 Pain in right knee; F17.210 Nicotine dependence, cigarettes, uncomplicated; Z71.6 Tobacco abuse counseling; Z79.899 Other long term (current) drug therapy
CPT/HCPCS: 36415; 73562; 80048; 84550; 85025; 85652; 86140; 99282; 99283

== ENCOUNTER 2023-05-20 11:04 | Outpatient (AMB) | payer OTHER, SELFPAY ==
--- NOTE | 2023-05-20 11:17 | MHC.OFFVIS ---
Intake Vital Signs 05/20/23 11:23 Height 5 ft 4 in Weight 149 lb BMI 25.6 Intake Visit Reasons: [employer]-Bilateral Knee Pain Intake Note: Rigo is a a 63 year old female who presents today as a new patient for a evaluation for her bilateral knee pain. Patient reports hx of gout and ongoing pain for 2 weeks. She states that she has noticed a couple lumps on both sides of her knee. Pain is worse when she is walking and standing for too long. Allergies No Known Allergies [No Known Allergies*] Allergy (Verified 05/20/23 11:23) Medication List - Last Reconciled 05/20/23 by Raissa Reveles MD albuterol sulfate 90 mcg/actuation (Ventolin HFA) 2 puffs PO Q6H PRN 30 days aripiprazole 2 mg PO BEDTIME 30 days atorvastatin 20 mg PO BEDTIME 90 days calcitriol 1 cap PO DAILY cholecalciferol (vitamin D3) 25 mcg PO DAILY 90 days clonazepam 0.5 mg PO DAILY PRN 30 days clonidine HCl 0.1 mg See Protocol PO BID PRN 30 days diclofenac sodium 75 mg PO BID docusate sodium 100 mg PO DAILY PRN 30 days escitalopram oxalate 20 mg PO QAM 30 days furosemide 20 mg PO DAILY lisinopril 10 mg PO DAILY 90 days loperamide 2 mg PO Q6H PRN 30 days naproxen 500 mg PO BID PRN 10 days omeprazole 40 mg PO QAM peg 3350-electrolytes 236-22.74-6.74 -5.86 gram (Golytely) 240 mL PO Q10M quetiapine 50 mg PO BEDTIME PRN 30 days ropinirole 1 mg PO BEDTIME triamcinolone acetonide 0.1% 1 appl topical DAILY 2 weeks HPI HPI Comments History of Present Illness Details For past notes, past medical history of asthma, substance abuse, depression, HLD, GERD, fibromyalgia, HTN, depression, osteoarthritis, PTSD. This presented to ER 1 month ago for acute onset right knee swelling. Prescribed prednisone, naproxen and antibiotic. Swelling and pain resolved with medication but pain has come back since she has run out of the medications prescribed. No fever. She was told to have gout basin calcifications seen on patellar tendon on right knee x-ray. No aspiration or crystal exam done at the ER. She is a long-term patient at the arthritis treatment center Dr. Alba. [facility] Medical History (Updated 05/20/23 @ 12:20 by Raissa Reveles MD) Asthma due to environmental allergies B12 deficiency Bilateral knee pain Bimalleolar fracture of left ankle Brain aneurysm Calcification of patellar tendon determined by X-ray Chronic diarrhea Cocaine use disorder, mild, abuse Cocaine use disorder, mild, in early remission Constipation by delayed colonic transit Degenerative joint disease of knee Depression Dyslipidemia Easy bruisability Essential hypertension Fibromyalgia GERD (gastroesophageal reflux disease) Left hip pain Lumbar spondylosis MDD (major depressive disorder), recurrent episode, severe Osteoarthritis Physical exam PTSD (post-traumatic stress disorder) Weight loss Surgical History H/O colonoscopy History of breast lump/mass excision History of partial hysterectomy History of surgery Hx of brain surgery Status post open reduction with internal fixation (ORIF) of fracture of ankle Family History Mother Diabetes Father No problems noted. Social History Household Members: None Housing: Apartment Are you a primary nurse care manager to a significant other at home: No Do you presently have visiting nurse or other home services: No Alcohol intake: never Patient Tobacco Use Status: Current someday Tobacco user Tobacco use type: Cigarette Cigarette Packs Per Day: 0 Cigarettes Per Day: 4 Years Smoked: 20 e-Cigarette/Vaping Use: Never Used Second Hand Smoke Exposure: Yes Substance Use Type: Crack/Cocaine and Marijuana service: No Current occupational status: disabled Current occupation: Right Handed Sexual orientation: Did not discuss Cognitive needs: Yes Hearing needs: No Vision needs: Yes Review of Systems Const All systems reviewed & are unremarkable except as noted in HPI and below Physical Exam Vital Signs: BMI result Body Mass Index 25.6 Constitutional: Patient appears to be in no acute distress, well nourished and well developed. MSK: No specific abnormalities found on inspection of the spine and all extremities. Lumbar ROM was full. Bilateral hip, knee and ankle ROM WNL. No ligamentous laxity or crepitant. No increased effusion. Bilateral medial joint line tenderness. Bilateral tenderness over patella. Patellar grind test is positive bilateral. Anterior drawer test is negative. Sarah test is negative. Posterior drawer test is negative. Valgus and varus stress tests are negative. Rodolfo test is negative. Strength is 5/5 in all muscle groups tested. No increased tone noted. Neurological: Neurologic examination of the upper and lower extremities was nonfocal with intact sensation, muscle stretch reflexes and without focal motor deficits . Dennis?s negative bilaterally. Babinski was down going bilaterally. Clonus was negative. Gait is without loss of balance. Results Reviewed Results Reviewed: I independently reviewed the results of the following: Right knee x-ray showed calcification patellar tendon. Joint spaces preserved. I reviewed records from the following: ER Rheumatology Assessment & Plan Assessment & Plan (1) Degenerative joint disease of knee: Code(s): M17.9 - Osteoarthritis of knee, unspecified (2) Calcification of patellar tendon determined by X-ray: Code(s): M65.869 - Other synovitis and tenosynovitis, unspecified lower leg Plan Known knee arthritis, treated at the arthritis treatment center before. Gets steroid injection every few months from Dr. Alba. Acute swelling on right knee 1 month ago. X-ray shows calcification on patellar tendon. She was told to have gout but no joint fluid aspiration or crystal exam was done. Dr. Alba's past notes have not mention gout before. Discussed with patient how gout is formally diagnosed. Discussed how prednisone is not for long-term use. Due to possible long-term complications. Under review of medication, she is already on chronic diclofenac. Only right-sided x-ray was done at the ER. Will get left-sided three views today. Advised to return to Dr. Alba for repeat joint injection and aspiration. I can do samke for her here in the office if Dr. Alba cannot see her right away. Assessment and plan discussed with patent, and patient was agreeable. All questions were answered thoroughly. Orders: Orders XR knee LT 3V Today M17.9 - Osteoarthritis of knee, unspecified, M65.869 - Other synovitis and tenosynovitis, unspecified lower leg Quality Reporting (2020) Adult ([facility] 138/2/) Smoking risk assessment performed?: Yes Patient Tobacco Use Status: Current someday Tobacco user Coding Level of Care Code New Pt Level 4 (97944) Diagnoses Degenerative joint disease of knee M17.9 Calcification of patellar tendon determined by X-ray M65.869
[2023-05-20 11:23] VITALS: BMI 25.6
== END 2023-05-20 12:19 | disposition home or self-care (01) ==
PROVIDERS: PCP Internal Medicine; Visit Provider Physical Medicine & Rehabilitation
DX: M17.0 Bilateral primary osteoarthritis of knee (principal)
CPT/HCPCS: 99214

== ENCOUNTER 2023-05-20 11:04 | Outpatient (REF) | payer OTHER, SELFPAY ==
--- NOTE | ~2023-05-20 | XR_ITS ---
EXAMINATION: XR KNEE, LEFT CLINICAL INFORMATION: Pain COMPARISON: 01/03/2011 TECHNIQUE: 3 views of the left knee. FINDINGS: No fracture or joint effusion. Alignment is anatomic. Joint spaces are maintained. There is serpiginous calcification in proximal tibia more prominent than in 2011 and consistent with the appearance of enchondroma or bone island. Soft tissue calcification seen medial to the patella with mild narrowing of patellofemoral compartment. XR/XR knee LT 3V IMPRESSION: Mild degenerative changes in the patellofemoral compartment. Enchondroma or bone island in the proximal tibia and soft tissue calcification.
== END 2023-05-20 11:05 | disposition home or self-care (01) ==
LOC: HO.HOSX 11:04
PROVIDERS: PCP Internal Medicine; Visit Provider Physical Medicine & Rehabilitation
DX: M65.869 Other synovitis and tenosynovitis, unspecified lower leg (principal); M17.9 Osteoarthritis of knee, unspecified
CPT/HCPCS: 73562

== ENCOUNTER 2023-05-28 13:33 | Outpatient (AMB) | payer OTHER, SELFPAY ==
[2023-05-28 13:45] VITALS: BP 158/84; PULSE 80; O2SAT 98; BMI 26.7
--- NOTE | 2023-05-28 13:45 | A.OFFPC_ITS ---
Vital Signs 05/28/23 13:45 Height 5 ft 4 in Weight 155 lb 6 oz BMI 26.7 BP 158/84 H Blood Pressure Location Lt brachial Position Sitting Pulse 80 Pulse Source Pulse Oximeter Pulse Oximetry (%) 98 Oxygen Delivery Method Room Air Intake Visit Reasons: 05-06-23/[facility] [place] Intake Note: Patient is here to follow-up after a visit the emergency department at [facility] [place] on 05/06/23 for Gout. Regional Engagement Consultant Required: No Accompanied by: Self / Same As Patient Allergies No Known Allergies [No Known Allergies*] Allergy (Verified 05/28/23 13:47) Tobacco use date assessed: 03/26/23 Dental Screening Dental Screen Date: 05/28/23 Did you have a dental visit in the last 12 months?: No Did you have a dental problem in the last 6 months where you did not have access to dental care?: No Was dental information given to patient?: Patient has dentist HPI HPI Comments History of Present Illness Details 63-year-old female past medical History significant for dyslipidemia, hypertension, GERD, lumbar spondylosis, anxiety disorder, depression. Patient Dr. Ervin last seen in February patient presents today for ER follow-up keep the on 05/06/2023 for atraumatic right knee pain, swelling and redness. Patient has a history of chronic joint pain for which she received steroid injections. Patient denied any acute injury, insect bite or history of gout. Uric acid level 6.5 X-ray showed: IMPRESSION: 1.? No acute visible fracture or dislocation. 2.? Multiple ossific densities are noted in the medial soft tissues along the infrapatellar and suprapatellar region nonspecific though may represent elements of dystrophic calcifications of the medial joint versus less common entities such as lipoma arborescens versus loose bodies. 3.? Mild multi joint arthritic changes. 4.? Small knee joint effusion. Review of the notes patient has followed up orthopedic on 05/20/2023. Left knee x-rays were obtained at that time when showed mild degenerative changes, patient was recommended to follow-up with arthritis specialist Dr. Alba for joint injections and Right knee joint aspiration, to confirm gout diagnosis. Patient states has an appointment with Dr. Alba in May. Patient requesting a medication to have on hand for acute gout flare. REPLACED BY [facility] Medical History (Updated 05/28/23 @ 14:34 by JULIAN Berger) Asthma due to environmental allergies B12 deficiency Bilateral knee pain Bimalleolar fracture of left ankle Brain aneurysm Calcification of patellar tendon determined by X-ray Chronic diarrhea Cocaine use disorder, mild, abuse Cocaine use disorder, mild, in early remission Constipation by delayed colonic transit Degenerative joint disease of knee Depression Dyslipidemia Easy bruisability Essential hypertension Fibromyalgia GERD (gastroesophageal reflux disease) Gout Left hip pain Lumbar spondylosis MDD (major depressive disorder), recurrent episode, severe Osteoarthritis Physical exam PTSD (post-traumatic stress disorder) Weight loss Surgical History H/O colonoscopy History of breast lump/mass excision History of partial hysterectomy History of surgery Hx of brain surgery Status post open reduction with internal fixation (ORIF) of fracture of ankle Family History Mother Diabetes Father No problems noted. Social History Household Members: None Housing: Apartment Are you a primary post acute care nurse practitioner to a significant other at home: No Do you presently have visiting nurse or other home services: No Alcohol intake: never Patient Tobacco Use Status: Current someday Tobacco user Tobacco use type: Cigarette Cigarette Packs Per Day: 0 Cigarettes Per Day: 4 Years Smoked: 20 e-Cigarette/Vaping Use: Never Used Second Hand Smoke Exposure: Yes Substance Use Type: Crack/Cocaine and Marijuana service: No Current occupational status: disabled Current occupation: Right Handed Sexual orientation: Did not discuss Cognitive needs: Yes Hearing needs: No Vision needs: Yes Questionnaire Thrive Questionnaire Date Thrive assessed: 03/26/23 MICHELLE-7 AMB Questionnaire MICHELLE-7 Date MICHELLE - 7 assessed: 08/19/22 Source: Developed by Drs. Sunil Amador, Anahi Mcguire, Bry Tyler and colleagues, with an educational tamie from [employer]. Review of Systems Const Denies chills, Denies fatigue, Denies fever(s) and Denies poor appetite Eyes Denies no additional complaints ENT Reports Normal hearing present Card Denies chest pain, Denies syncope, Denies rapid heart rate and Denies dyspnea Resp Denies cough and Denies dyspnea GI Denies change in stool character, Denies constipation, Denies diarrhea, Denies nausea and Denies vomiting Denies urinary frequency, Denies dysuria and Denies urinary urgency Neuro Reports Normal hearing present, Denies confusion and Denies syncope Psych Denies confusion Endo Denies fatigue Physical exam (Primary Care) Vital Signs: Last Vital Signs Pulse 80 05/28/23 13:45 BP 158/84 H 05/28/23 13:45 Pulse Ox 98 05/28/23 13:45 Oxygen Delivery Method Room Air 05/28/23 13:45 BMI result Body Mass Index 26.7 Tobacco/Smoking Status: Tobacco use Status Tobacco use date assessed 03/26/23 05/28/23 13:51 Patient Tobacco Use Status Current someday Tobacco 05/28/23 13:51 Tobacco use type Cigarette 05/28/23 13:51 e-Cigarette/Vaping Use Never Used 05/28/23 13:51 Thrive Assessment: Date of Thrive Assessment Date Thrive assessed 03/26/23 05/28/23 13:51 Const General: No confusion Orientation/consciousness: No confusion HENMT Head: Yes normocephalic and Yes atraumatic Eyes Conjunctivae: conjunctivae normal Chest Chest palpation & inspection: normal inspection of the chest Resp Effort & Inspection: normal respiratory effort Auscultation: clear to auscultation bilaterally, no crackles, no rhonchi and no wheezes Cardio Rate: regular rate Rhythm: regular rhythm Heart sounds: S1 normal heart sound present and S2 normal heart sound present GI Inspection: Yes normal to inspection Neuro General: No confusion Cranial nerves: Yes Normal hearing present Extrem General: No edema Assessment and Plan Assessment & Plan (1) Gout: Code(s): M10.9 - Gout, unspecified Plan: Uric acid elevated 6.5 Colchicine sent to patient's pharmacy to take at 1st onset of gout flare Patient advised to avoid alcohol consumption, red meat, shellfish, high purine foods to prevent future gout flare-ups. Follow-up with arthritis specialist for joint aspiration to confirm diagnosis. (2) Essential hypertension: Code(s): I10 - Essential (primary) hypertension Plan: Continue on lisinopril 10 mg daily. Follow low-salt diet and exercise. Plan keep scheduled follow up with pcp. Medications: New colchicine (gout) Take 1.2 mg by mouth once at the first onset of gout flare, then 0.6mg by mouth 1 hour later x1 Then 0.6mg bid x 2 days until flare resolves. 0.6 mg PO DAILY PRN 10 tabs 0RF gout M10.9 - Gout, unspecified Coding Level of Care Code Est Pt Level 3 (93852) Diagnoses Gout M10.9 Essential hypertension I10
== END 2023-05-28 14:51 | disposition home or self-care (01) ==
PROVIDERS: PCP Internal Medicine; Visit Provider Nurse Practitioner Family
DX: M10.9 Gout, unspecified (principal); I10 Essential (primary) hypertension
CPT/HCPCS: 99213

== ENCOUNTER 2023-06-05 11:34 | Emergency (ER) | payer OTHER, SELFPAY ==
--- NOTE | ~2023-06-05 | XR_ITS ---
EXAMINATION: XR FOOT, LEFT CLINICAL INFORMATION: Pain COMPARISON: None available. TECHNIQUE: AP, lateral, and oblique views of the left foot. FINDINGS: There is no visible acute fracture, dislocation or subluxation. Joint spaces in mid and hindfoot are maintained normal. The ankle mortise and subtalar joints are normal. There is a small calcaneal heel and retrocalcaneal enthesophyte. There is dystrophic calcification distal tibia likely old bone infarct. The soft tissues are normal. XR/XR foot LT min 3V IMPRESSION: No acute fracture or dislocation left foot. Small calcaneal heel and retrocalcaneal enthesophytes.
[2023-06-05 11:44] VITALS: BP 134/95; PULSE 80; RESP 16; TEMP 36.9; O2SAT 96; BMI 27.6
--- NOTE | 2023-06-05 12:27 | ED.PSYCH ---
HPI - Psych General Chief Complaint: General Medical Stated Complaint: crisis, si, per ems Time Seen by Provider: 06/05/23 11:55 Source: patient Mode of arrival: EMS Limitations: no limitations History of Present Illness HPI Narrative: 63 yo female with depression, substance abuse, HTN, HLD here with c/o L foot pain for weeks worse in AM when she stands on it and now depressed because of it she now c/o SI. At this time she states she feels like she doesn't want to live. She hasn't done anything about her foot. She states she can't live like this with her arthritis no rash no fevers no trauma to the foot. She also tells me she has voices in her head telling her to harm herself. MD complaint: suicidal ideation and feels depressed Onset (ago): day(s) (2) Duration: intermittent History of same: Yes Relieving factors: none Exacerbating factors: other ( arthritis pain ) Context: other Associated psychiatric symptoms: depression and suicidal ideation Associated symptoms: other (left foot pain) Treatments prior to arrival: none Related Data Home Medications Medication Instructions Recorded Confirmed calcitriol 0.25 mcg capsule 1 cap PO DAILY 09/16/22 05/20/23 Previous Rx's Medication Instructions Recorded aripiprazole 2 mg tablet 2 mg PO BEDTIME mood 30 days #30 09/24/21 tabs clonazepam 0.5 mg tablet 0.5 mg PO DAILY PRN Anxiety 30 09/24/21 days #30 tabs clonidine HCl 0.1 mg tablet 0.1 mg PO BID PRN anxiety/insomnia 09/24/21 30 days #60 tabs quetiapine 50 mg tablet 50 mg PO BEDTIME PRN insomnia 30 09/24/21 days #30 tabs ropinirole 1 mg tablet 1 mg PO BEDTIME #30 tabs 06/12/22 docusate sodium 100 mg capsule 100 mg PO DAILY PRN Constipation 08/19/22 30 days #30 caps escitalopram oxalate 20 mg tablet 20 mg PO QAM 30 days #30 tabs 08/19/22 furosemide 20 mg tablet 20 mg PO DAILY #90 tabs 08/19/22 lisinopril 10 mg tablet 10 mg PO DAILY 90 days #90 tabs 08/19/22 omeprazole 40 mg capsule,delayed 40 mg PO QAM #90 caps 08/19/22 release peg 3350-electrolytes 236 240 ml PO Q10M colonoscopy #4,000 08/26/22 gram-22.74 gram-6.74 gram-5.86 mL gram solution (Golytely) atorvastatin 20 mg tablet 20 mg PO BEDTIME 90 days #90 tabs 09/23/22 cholecalciferol (vitamin D3) 25 25 mcg PO DAILY 90 days #90 caps 09/23/22 mcg (1,000 unit) capsule loperamide 2 mg capsule 2 mg PO Q6H PRN loose stool 30 01/09/23 days #120 caps diclofenac sodium 75 mg 75 mg PO BID #60 tabs 02/12/23 tablet,delayed release triamcinolone acetonide 0.1 % 1 appl topical DAILY 2 weeks #80 03/26/23 topical ointment grams naproxen 500 mg tablet 500 mg PO BID PRN pain 10 days #20 05/06/23 tabs albuterol sulfate 90 mcg/actuation 2 puff PO Q6H PRN Wheezing 30 days 05/11/23 aerosol inhaler (Ventolin HFA) #6.7 grams colchicine (gout) 0.6 mg tablet 0.6 mg PO DAILY PRN gout #10 tabs 05/28/23 Allergies Allergy/AdvReac Type Severity Reaction Status Date / Time No Known Allergies Allergy Verified 05/28/23 13:47 [No Known Allergies*] Review of Systems Review of Systems: Constitutional : No Fever, No Chills ENT/Mouth : No Ear Pain, No Hoarseness, No sore throat Eyes: No Eye Pain, No Swelling, No Redness, No Foreign Body Cardiovascular : No Chest Pain, No SOB Respiratory : No Cough, No Dyspnea Gastrointestinal : No Nausea, No Vomiting, No Diarrhea, No abdominal Pain Genitourinary : No Dysuria, No Hematuria Musculoskeletal : positive joint pain, No Myalgias, No Joint Swelling Skin : No Skin lacerations, No rash Neuro : No Weakness, No Numbness, No Loss of Consciousness, No Dizziness, No Headache Psych : pos Anxiety/Panic, pos Depression, pos SI no HI, pos AH All other systems reviewed and are negative [facility] Past Medical History Attestation statement: The following information was validated with the patient. Source: old records reviewed Medical History Calcification of patellar tendon determined by X-ray Degenerative joint disease of knee Gout Physical exam B12 deficiency PTSD (post-traumatic stress disorder) MDD (major depressive disorder), recurrent episode, severe Chronic diarrhea Cocaine use disorder, mild, in early remission Weight loss Cocaine use disorder, mild, abuse Constipation by delayed colonic transit Bilateral knee pain Lumbar spondylosis Left hip pain Dyslipidemia Osteoarthritis GERD (gastroesophageal reflux disease) Depression Fibromyalgia Easy bruisability Essential hypertension Asthma due to environmental allergies Bimalleolar fracture of left ankle Brain aneurysm Surgical History Hx of brain surgery H/O colonoscopy History of breast lump/mass excision History of surgery History of partial hysterectomy Status post open reduction with internal fixation (ORIF) of fracture of ankle Family History Family History Mother Diabetes Father No problems noted. Social History Social History Household Members: None Housing: Apartment Are you a primary resident care coordinator to a significant other at home: No Do you presently have visiting nurse or other home services: No Alcohol intake: never Patient Tobacco Use Status: Current someday Tobacco user Tobacco use type: Cigarette Cigarette Packs Per Day: 0 Cigarettes Per Day: 4 Years Smoked: 20 Smoked in Last 30 Days: Yes e-Cigarette/Vaping Use: Never Used Second Hand Smoke Exposure: Yes Substance Use Type: Crack/Cocaine Advance Directives: Yes Advance Directives Information Provided: Yes Advance Directives on File: No service: No Current occupational status: disabled Current occupation: Right Handed Sexual orientation: Did not discuss Cognitive needs: Yes Hearing needs: No Vision needs: Yes Physical Exam Vital Signs: Vital Signs: Last Vital Signs Temp 98.5 F 06/05/23 11:44 Pulse 80 06/05/23 11:44 Resp 16 06/05/23 11:44 BP 134/95 H 06/05/23 11:44 Pulse Ox 96 06/05/23 11:44 O2 Del Method Room Air 06/05/23 11:44 BMI result Body Mass Index 27.6 Appearance: Alert. Oriented X3. No acute distress. Eyes: Pupils equal, round and reactive to light. ENT: Pharynx normal. Neck: Normal inspection. Neck supple. CVS: Normal heart rate and rhythm. Pulses normal. Respiratory: No respiratory distress. Breath sounds normal. Abdomen: Soft and non-tender. Skin: Skin warm and dry. Normal skin color. Normal skin turgor. Extremities: No lower extremity edema. L foot ttp along the plantar fascia reproduces pain distal NV intact Neuro: Oriented X 3. No motor deficit. No sensory deficit. Course Course Course Narrative: Physician observation started at 111pm. Patient placed in physician observation because the patient needed more time for CARE team to assess the need for psych admission. At the time observation was started the patient's vitals were stable, patient is alert and oriented but slightly anxious Neuro: nonfocal, CV RRR, Lungs clear Reevaluation(s) Reevaluation #1: Physician observation ended at 248pm Patient seen and cleared by CARE team. Plan is to follow up as outpatient she is feeling better. NAD, lungs clear, CV RRR, Abd nontender, Neuro intact. Disposition is for home. Medical Decision Making Medical Decision Making [facility] Narrative: 63 yo female with depression, substance abuse, HTN, HLD here with c/o SI and depression in setting of pain in foot which seems unusual she also tells me voices are telling her to harm herself at this time I will order labs and xray - suspect plantar fasciitis and refer to CARE team. I will not be giving narcotics in light of secondary gain or give narcotics to someone who wants to kill themselves. Differential Diagnosis Differential Diagnoses: The differential diagnosis associated with the presentation includes plantar fasciitis, adjustment disorder, malingering Admission/Observation Consideration of admission/observation: Escalation of care including admission/observation considered observe until CARE team sees Consult Healthcare Provider Management of the patient was discussed with: Behavioral Health Provider Lab Data [facility] Lab Attestation statement: I reviewed the patient's lab results. 06/05/23 12:32 06/05/23 12:32 Labs: Lab Results 06/05/23 Range/Units 12:32 WBC 5.4 (4.8-10.8) X10*3/uL RBC 4.06 L (4.20-5.50) X10*6/uL Hgb 12.5 (12.0-16.0) g/dl Hct 38.0 (37.0-47.0) % MCV 93.6 (80.0-98.0) fL MCH 30.8 (27.0-33.0) pg MCHC 32.9 (31.0-35.0) g/dl RDW 12.7 (11.0-16.0) % Plt Count 241 (160-400) X10*3/uL MPV 9.5 (9.4-12.3) fL Immature Gran % (Auto) 0.2 (0.0-0.4) % Neut % (Auto) 58.1 (45-73) % Lymph % (Auto) 32.0 (20-40) % Cooke % (Auto) 7.8 (2-11) % Eos % (Auto) 1.5 (0-4) % Baso % (Auto) 0.4 (0-2) % Lymph # (Auto) 1.7 (1.2-4.9) X10*3/uL Cooke # (Auto) 0.4 (0.1-1.2) X10*3/uL Eos # (Auto) 0.1 (0.0-0.4) X10*3/uL Baso # (Auto) 0.0 (0.0-0.2) X10*3/uL Abs Immat Gran (auto) 0.01 (0.00-0.03) X10*3/uL Absolute Neuts (auto) 3.1 (2.0-8.3) x10*3/uL Absolute Nucleated RBC 0.000 (0.0-0.012) X10*3/uL Nucleated RBC % (auto) 0.0 (0.0-0.2) /100WBC Sodium 140 (135-145) mmol/L Potassium 4.0 (3.3-5.1) mmol/L Chloride 109 H (96-108) mmol/L Carbon Dioxide 23 (22-29) mmol/L Anion Gap 12 (12-20) BUN 12 (9-16) mg/dL Creatinine 0.64 (0.5-1.4) mg/dL Estim Creat Clear Calc 87.0 Estimated GFR > 60 Random Glucose 93 (60-115) mg/dL Calcium 9.3 (8.4-10.2) mg/dL Total Bilirubin 0.4 (0.0-1.0) mg/dL Direct Bilirubin 0.1 (0.0-0.5) mg/dL AST 18 (5-31) U/L ALT 11 (0-31) U/L Alkaline Phosphatase 89 (39-117) U/L Total Protein 6.4 L (6.5-8.0) g/dL Albumin 3.7 (3.5-5.0) g/dL Ethyl Alcohol < 10 mg/dL COVID-19 (SERGEY) Negative (Negative) COVID-19 Clin Com See Note Independent Interpretation I performed an independent interpretation of an: Plain X-Ray (no fracture) Radiology Impression Discussion of test interpretation with radiology: I have reviewed the radiologist's reading. External Record Review External record reviewed: Inpatient record Discharge Plan Discharge Clinical Impression: Plantar fasciitis of left foot, Anxiety reaction Patient Disposition: Home, Self-Care Instructions: Anxiety (ED), Plantar Fasciitis (ED), Plantar Fasciitis Exercises (ED) Additional Instructions: there are shoe inserts that can help and stretches with your foot. there are also night time foot devices that you can wear. you might have some spurs on your heel as well causing pain. I would call your doctor about this and possibly a biological lab technician I have listed a podiatry number below. any thoughts of self harm please call [phone] or seek care in the ER Prescriptions: No Action ropinirole 1 mg tablet 1 mg PO BEDTIME Qty: 30 11RF atorvastatin 20 mg tablet 20 mg PO BEDTIME 90 Days Qty: 90 3RF cholecalciferol (vitamin D3) 25 mcg (1,000 unit) capsule 25 mcg PO DAILY 90 Days Qty: 90 1RF loperamide 2 mg capsule 2 mg PO Q6H PRN (Reason: loose stool) 30 Days Qty: 120 1RF diclofenac sodium 75 mg tablet,delayed release (DR/EC) 75 mg PO BID Qty: 60 2RF albuterol sulfate [Ventolin HFA] 90 mcg/actuation HFA aerosol inhaler 2 puff PO Q6H PRN (Reason: Wheezing) 30 Days Qty: 6.7 0RF calcitriol 0.25 mcg capsule 1 cap PO DAILY clonidine HCl 0.1 mg Tablet 0.1 mg PO BID PRN (Reason: anxiety/insomnia) 30 Days Qty: 60 0RF Protocol: Hold for SBP< HOLD for SBP < : 90 quetiapine 50 mg Tablet 50 mg PO BEDTIME PRN (Reason: insomnia) 30 Days Qty: 30 0RF clonazepam 0.5 mg tablet 0.5 mg PO DAILY PRN (Reason: Anxiety) 30 Days Qty: 30 0RF aripiprazole 2 mg tablet 2 mg PO BEDTIME 30 Days Qty: 30 0RF naproxen 500 mg tablet 500 mg PO BID PRN (Reason: pain) 10 Days Qty: 20 0RF triamcinolone acetonide 0.1 % ointment 1 appl topical DAILY 14 Days Qty: 80 1RF colchicine (gout) 0.6 mg tablet 0.6 mg PO DAILY PRN (Reason: gout) Qty: 10 0RF Rx Instructions: Take 1.2 mg by mouth once at the first onset of gout flare, then 0.6mg by mouth 1 hour later x1 Then 0.6mg bid x 2 days until flare resolves. docusate sodium 100 mg capsule 100 mg PO DAILY PRN (Reason: Constipation) 30 Days Qty: 30 0RF escitalopram oxalate 20 mg tablet 20 mg PO QAM 30 Days Qty: 30 0RF furosemide 20 mg tablet 20 mg PO DAILY Qty: 90 1RF lisinopril 10 mg tablet 10 mg PO DAILY 90 Days Qty: 90 3RF omeprazole 40 mg capsule,delayed release(DR/EC) 40 mg PO QAM Qty: 90 3RF peg 3350-electrolytes [Golytely] 236-22.74-6.74 -5.86 gram recon soln 240 ml PO Q10M Qty: 4000 0RF Rx Instructions: as per split prep instructions, until fecal effluent is clear Referrals: Shamir Velazquez MD [Physician] -
[2023-06-05 12:36] LABS: MANUAL DIFF FLAG NO
[2023-06-05 12:39] LABS: Basophils Percent Auto 0.4 % (0-2); Eosinophils Absolute Auto 0.1 X10*3/uL (0.0-0.4); Eosinophils Percent Auto 1.5 % (0-4); Hemoglobin 12.5 g/dl (12.0-16.0); Imm Gran Abs Auto 0.01 X10*3/uL (0.00-0.03); Imm Gran Pct Auto 0.2 % (0.0-0.4); Lymphocytes Absolute Auto 1.7 X10*3/uL (1.2-4.9); Mean Corpuscular HGB Conc 32.9 g/dl (31.0-35.0); Mean Corpuscular Hemoglobin 30.8 pg (27.0-33.0); Mean Corpuscular Volume 93.6 fL (80.0-98.0); Mean Platelet Volume 9.5 fL (9.4-12.3); Monocytes Absolute Auto 0.4 X10*3/uL (0.1-1.2); Monocytes Percent Auto 7.8 % (2-11); Neutrophils Absolute Auto 3.1 x10*3/uL (2.0-8.3); Neutrophils Percent Auto 58.1 % (45-73); Platelet Count 241 X10*3/uL (160-400); Red Blood Count 4.06 X10*6/uL (4.20-5.50); Red Cell Distribution Width 12.7 % (11.0-16.0); White Blood Count 5.4 X10*3/uL (4.8-10.8)
[2023-06-05 12:57] LABS: Alanine Aminotransferase 11 U/L (0-31); Albumin Level 3.7 g/dL (3.5-5.0); Alkaline Phosphatase 89 U/L (39-117); Anion Gap 12 (12-20); Aspartate Amino Transferase 18 U/L (5-31); Bilirubin Direct 0.1 mg/dL (0.0-0.5); Bilirubin Total 0.4 mg/dL (0.0-1.0); Blood Urea Nitrogen 12 mg/dL (9-16); Calcium 9.3 mg/dL (8.4-10.2); Carbon Dioxide 23 mmol/L (22-29); Chloride 109 mmol/L (96-108); Estimated Glomerular Filt Rate > 60; Ethanol < 10 mg/dL; Glucose Random 93 mg/dL (60-115); Sodium 140 mmol/L (135-145); Total Protein 6.4 g/dL (6.5-8.0)
[2023-06-05 13:03] LABS: COVID-19 Test Negative (Negative); IDNOW Serial# 08D9AD1C
--- NOTE | 2023-06-05 14:52 | MHC.CARE ---
Pt was assessed by [facility] in the community and was found not to meet inpatient level of care. Pt reported SI upon arrival to ED,however recanted and requested discharged home. Case and information reviewed with Sarah Roberts who agrees with discharge.
== END 2023-06-05 15:45 | disposition home or self-care (01) ==
PROVIDERS: Emergency Provider Emergency Medicine; PCP Internal Medicine
DX: F41.1 Generalized anxiety disorder (principal); M72.2 Plantar fascial fibromatosis; R45.851 Suicidal ideations; F32.A Depression, unspecified; R44.0 Auditory hallucinations; Z20.822 Contact with and (suspected) exposure to COVID-19; I10 Essential (primary) hypertension; E78.5 Hyperlipidemia, unspecified; F43.10 Post-traumatic stress disorder, unspecified; F14.11 Cocaine abuse, in remission; F17.210 Nicotine dependence, cigarettes, uncomplicated; Z79.899 Other long term (current) drug therapy
CPT/HCPCS: 73630; 80048; 80076; 80307; 85025; 87635; 99284

== ENCOUNTER 2023-07-01 11:39 | Outpatient (AMB) | payer OTHER, SELFPAY ==
[2023-07-01 11:47] VITALS: BMI 27.5
--- NOTE | 2023-07-01 11:47 | MHC.OFFVIS ---
Intake Vital Signs 07/01/23 11:47 Height 5 ft 3 in Weight 155 lb BMI 27.5 Intake Visit Reasons: OV - B/L knee aspiration Intake Note: Rigo 63 yr old female presents today for bilateral knee O.A and gout pain. States she is now sure she has gout. States she took the first dose of her gout medication and has noticed a big relief and difference in pain and swelling. States she doesnt want her knee aspirated, however she would like to discuss gout medication. Allergies No Known Allergies [No Known Allergies*] Allergy (Verified 07/01/23 11:50) Medication List - Last Reconciled 07/01/23 by Raissa Reveles MD albuterol sulfate 90 mcg/actuation (Ventolin HFA) 2 puffs PO Q6H PRN 30 days aripiprazole 2 mg PO BEDTIME 30 days atorvastatin 20 mg PO BEDTIME 90 days calcitriol 1 cap PO DAILY cholecalciferol (vitamin D3) 25 mcg PO DAILY 90 days clonazepam 0.5 mg PO DAILY PRN 30 days clonidine HCl 0.1 mg See Protocol PO BID PRN 30 days colchicine (gout) 0.6 mg PO DAILY PRN diclofenac sodium 75 mg PO BID docusate sodium 100 mg PO DAILY PRN 30 days escitalopram oxalate 20 mg PO QAM 30 days furosemide 20 mg PO DAILY lisinopril 10 mg PO DAILY 90 days loperamide 2 mg PO Q6H PRN 30 days naproxen 500 mg PO BID PRN 10 days omeprazole 40 mg PO QAM peg 3350-electrolytes 236-22.74-6.74 -5.86 gram (Golytely) 240 mL PO Q10M quetiapine 50 mg PO BEDTIME PRN 30 days ropinirole 1 mg PO BEDTIME triamcinolone acetonide 0.1% 1 appl topical DAILY 2 weeks HPI HPI Comments History of Present Illness Details Past medical history of asthma, substance abuse, depression, HLD, GERD, fibromyalgia, HTN, depression, osteoarthritis, PTSD. This presented to ER 2 months ago for acute onset right knee swelling. Prescribed prednisone, naproxen and antibiotic. Swelling and pain resolved with medication but pain has come back since she has run out of the medications prescribed. No fever. She was told to have gout based on calcifications seen on patellar tendon on right knee x-ray. No aspiration or crystal exam done at the ER. She is a long-term patient at the [facility] Dr. Alba. Her, she had seen Dr. Ontiveros. Had bilateral knee injections 1 week ago. She says gout is confirmed and she does not need aspiration done today. She is asking to renew medication previously prescribed. I looked back at previous orders and my last note, I did not prescribe anything for her. She says she was given medication that she took for 1 or 2 days that worked very well for her. She has 3 pills left. She wants a refill. She does not remember which medication it was. Looks like PCP prescribed diclofenac last 06/11/2023 for 60 pills, 2 refills. And looks like ER prescribed her colchicine. She reports a recent left foot pain episode 2 weeks ago. [facility] Medical History Calcification of patellar tendon determined by X-ray Degenerative joint disease of knee Gout Physical exam B12 deficiency PTSD (post-traumatic stress disorder) MDD (major depressive disorder), recurrent episode, severe Chronic diarrhea Cocaine use disorder, mild, in early remission Weight loss Cocaine use disorder, mild, abuse Constipation by delayed colonic transit Bilateral knee pain Lumbar spondylosis Left hip pain Dyslipidemia Osteoarthritis GERD (gastroesophageal reflux disease) Depression Fibromyalgia Easy bruisability Essential hypertension Asthma due to environmental allergies Bimalleolar fracture of left ankle Brain aneurysm Surgical History Hx of brain surgery H/O colonoscopy History of breast lump/mass excision History of surgery History of partial hysterectomy Status post open reduction with internal fixation (ORIF) of fracture of ankle Family History Mother Diabetes Father No problems noted. Social History Household Members: None Housing: Apartment Are you a primary health and social care teacher to a significant other at home: No Do you presently have visiting nurse or other home services: No Alcohol intake: never Patient Tobacco Use Status: Current someday Tobacco user Tobacco use type: Cigarette Cigarette Packs Per Day: 0 Cigarettes Per Day: 4 Years Smoked: 20 e-Cigarette/Vaping Use: Never Used Second Hand Smoke Exposure: Yes Substance Use Type: Crack/Cocaine service: No Current occupational status: disabled Current occupation: Right Handed Sexual orientation: Did not discuss Cognitive needs: Yes Hearing needs: No Vision needs: Yes Physical Exam Vital Signs: BMI result Body Mass Index 27.5 Constitutional: Patient appears to be in no acute distress, well nourished and well developed. MSK: No specific abnormalities found on inspection of the spine and all extremities. Neurological: Neurologic examination of the upper and lower extremities was nonfocal with intact sensation, muscle stretch reflexes and without focal motor deficits . Dennis?s negative bilaterally. Babinski was down going bilaterally. Clonus was negative. Gait is without loss of balance. Results Reviewed Results Reviewed: Notes from crisis assessment reviewed. X-rays done on last visit: TECHNIQUE: 3 views of the left knee. FINDINGS: No fracture or joint effusion. Alignment is anatomic. Joint spaces are maintained. There is serpiginous calcification in proximal tibia more prominent than in 2011 and consistent with the appearance of enchondroma or bone island. Soft tissue calcification seen medial to the patella with mild narrowing of patellofemoral compartment. XR/XR knee LT 3V IMPRESSION: Mild degenerative changes in the patellofemoral compartment. Enchondroma or bone island in the proximal tibia and soft tissue calcification. TECHNIQUE: Four views of the right knee. FINDINGS: No acute visible fracture or dislocation. Multiple ossific densities are noted in the medial soft tissues along the infrapatellar and suprapatellar region nonspecific though may represent elements of dystrophic calcifications of the medial joint versus less common entities such as lipoma arborescens versus loose bodies. Mild multi joint arthritic changes. Joint spaces and alignment are otherwise maintained. Small knee joint effusion. XR/XR knee RT 3V IMPRESSION: 1. No acute visible fracture or dislocation. 2. Multiple ossific densities are noted in the medial soft tissues along the infrapatellar and suprapatellar region nonspecific though may represent elements of dystrophic calcifications of the medial joint versus less common entities such as lipoma arborescens versus loose bodies. 3. Mild multi joint arthritic changes. 4. Small knee joint effusion. Assessment & Plan Assessment & Plan (1) Gout: Code(s): M10.9 - Gout, unspecified Qualifiers: Chronicity: chronic Gout etiology: unspecified cause Gout site: knee Laterality: left Qualified Code(s): M1A.0620 - Idiopathic chronic gout, left knee, without tophus (tophi) Plan She was scheduled today for aspiration of both knees, so that we could send fluid to confirm for gout crystals. But today she defers procedure. She says gout is confirmed and that she does not want the pain from the procedure. She had recent knee injections from Dr. Alba, arthritis treatment center. She is asking for a refill of previous medication she had taken. She does not remember the name of the medication. Based on her medication list, she would benefit from taking colchicine every day and diclofenac p.r.n.. Discussed that she does not need a stevedore hold to prescribe this for her. Would be more appropriate for rheumatology or PCP to prescribe. She will discuss with PCP instead. Total of 30 spent today including chart review, results review, history taking, physical examination, discussion of assessment and plan, and coordination of care. Assessment and plan discussed with patient, and patient was agreeable. All questions were answered thoroughly. Raissa Reveles MD, JYOTI Board Certified, [place] [employer] and Rehabilitation (ABPMR) Board Certified, [place] Board [employer] Electro[employer] (ABEM) Quality Reporting (2019) Adult ([facility] 138/11/19/68) Smoking risk assessment performed?: Yes Patient Tobacco Use Status: Current someday Tobacco user Coding Level of Care Code Est Pt Level 4 (63304) Diagnoses Chronic gout of left knee, unspecified cause M1A.0620 Chronicity: chronic Gout etiology: unspecified cause Gout site: knee Laterality: left
== END 2023-07-01 12:00 | disposition home or self-care (01) ==
PROVIDERS: PCP Internal Medicine; Visit Provider Physical Medicine & Rehabilitation
DX: M1A.0620 Idiopathic chronic gout, left knee, without tophus (tophi) (principal)
CPT/HCPCS: 99214

== ENCOUNTER → 2023-07-01 11:39 | Outpatient (BNVA) | payer OTHER, SELFPAY | PROVIDERS: PCP Internal Medicine; Visit Provider Physical Medicine & Rehabilitation | DX: M17.0 Bilateral primary osteoarthritis of knee (principal); M1A.0620 Idiopathic chronic gout, left knee, without tophus (tophi) | CPT/HCPCS: 99212 ==

== ENCOUNTER 2023-08-06 11:42 | Outpatient (REF) | payer OTHER, SELFPAY | END 2023-08-06 11:43 | disposition home or self-care (01) | LOC: HO.MAMMO 11:42 | PROVIDERS: PCP Internal Medicine; Visit Provider Internal Medicine | DX: Z12.31 Encounter for screening mammogram for malignant neoplasm of breast (principal) | CPT/HCPCS: 77063; 77067 ==

== ENCOUNTER → 2023-08-06 12:15 | Outpatient (BNV) | payer OTHER, SELFPAY | PROVIDERS: PCP Internal Medicine; Visit Provider Radiology Diagnostic Radiology | DX: Z12.31 Encounter for screening mammogram for malignant neoplasm of breast (principal) | CPT/HCPCS: 77063; 77067 ==

== ENCOUNTER 2023-09-24 12:27 | Outpatient (AMB) | payer OTHER, SELFPAY ==
--- NOTE | 2023-09-24 12:34 | MHC.PC.OV ---
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: No Accompanied by: Self / Same As Patient Allergies No Known Allergies [No Known Allergies*] Allergy (Verified 09/24/23 12:40) Medication List - Last Reconciled 09/24/23 by Trang Fishman MD albuterol sulfate 90 mcg/actuation (Ventolin HFA) 2 puffs PO Q6H PRN 30 days aripiprazole 2 mg PO BEDTIME 30 days atorvastatin 20 mg PO BEDTIME 90 days calcitriol 1 cap PO DAILY cholecalciferol (vitamin D3) 25 mcg PO DAILY 90 days clonazepam 0.5 mg PO DAILY PRN 30 days clonidine HCl 0.1 mg See Protocol PO BID PRN 30 days colchicine 0.6 mg PO DAILY PRN diclofenac sodium 75 mg PO BID docusate sodium 100 mg PO DAILY PRN 30 days escitalopram oxalate 20 mg PO QAM 30 days furosemide 20 mg PO DAILY lisinopril 10 mg PO DAILY 90 days loperamide 2 mg PO Q6H PRN 30 days naproxen 500 mg PO BID PRN 10 days omeprazole 40 mg PO QAM peg 3350-electrolytes 236-22.74-6.74 -5.86 gram (Golytely) 240 mL PO Q10M quetiapine 50 mg PO BEDTIME PRN 30 days ropinirole 1 mg PO BEDTIME triamcinolone acetonide 0.1% 1 appl topical DAILY 2 weeks Tobacco use date assessed: 03/26/23 Dental Screening Dental Screen Date: 09/24/23 Did you have a dental visit in the last 12 months?: No Did you have a dental problem in the last 6 months where you did not have access to dental care?: No Was dental information given to patient?: Patient has dentist HPI HPI Comments History of Present Illness Details This is a 63-year-old female with hypertension, moderate recurrent major depression, cocaine use disorder that complains today of lumbar pain secondary to lumbar spondylosis and urinary retention. No fever, bowel or bladder incontinence. Blood pressure stable. Depression well control with escitalopram. Was advised to quit cocaine. Will be referred to Pain Management again for her lumbar pain. Wants to see Urology for her urinary retention. I wanted to do a urine today but she declines. [facility] Medical History Calcification of patellar tendon determined by X-ray Degenerative joint disease of knee Gout Physical exam B12 deficiency PTSD (post-traumatic stress disorder) MDD (major depressive disorder), recurrent episode, severe Chronic diarrhea Cocaine use disorder, mild, in early remission Weight loss Cocaine use disorder, mild, abuse Constipation by delayed colonic transit Bilateral knee pain Lumbar spondylosis Left hip pain Dyslipidemia Osteoarthritis GERD (gastroesophageal reflux disease) Depression Fibromyalgia Easy bruisability Essential hypertension Asthma due to environmental allergies Bimalleolar fracture of left ankle Brain aneurysm Surgical History Hx of brain surgery H/O colonoscopy History of breast lump/mass excision History of surgery History of partial hysterectomy Status post open reduction with internal fixation (ORIF) of fracture of ankle Family History Mother Diabetes Father No problems noted. Social History Household Members: None Housing: Apartment Are you a primary manager respiratory care to a significant other at home: No Do you presently have visiting nurse or other home services: No Alcohol intake: never Patient Tobacco Use Status: Current someday Tobacco user Tobacco use type: Cigarette Cigarette Packs Per Day: 0 Cigarettes Per Day: 4 Years Smoked: 20 e-Cigarette/Vaping Use: Never Used Second Hand Smoke Exposure: Yes Substance Use Type: Crack/Cocaine service: No Current occupational status: disabled Current occupation: Right Handed Sexual orientation: Did not discuss Cognitive needs: Yes Hearing needs: No Vision needs: Yes Questionnaire Thrive Questionnaire Date Thrive assessed: 03/26/23 MICHELLE-7 AMB Questionnaire MICHELLE-7 Date MICHELLE - 7 assessed: 08/19/22 Source: Developed by Drs. Sunil Amador, Anahi Mcguire, Bry Tyler and colleagues, with an educational tamie from [employer]. Review of Systems Const All systems reviewed & are unremarkable except as noted in HPI and below Eyes Reports no additional complaints, Denies change in vision and Denies other visual disturbances Card Denies chest pain at rest, Denies chest pain with activity, Denies edema, Denies irregular heart rhythm, Denies claudication, Denies dyspnea, Denies dyspnea on exertion, Denies orthopnea, Denies paroxysmal nocturnal dyspnea and Denies slow heart rate Resp Denies cough, Denies dyspnea and Denies dyspnea on exertion GI Denies abdominal pain, Denies change in bowel habits, Denies excessive flatus, Denies nausea and Denies vomiting Reports difficulty voiding, Denies urinary incontinence, Denies urinary hesitancy and Denies urinary urgency Musc Denies abnormal gait, Reports back pain, Denies atrophy, Denies deformity and Denies limited range of motion Skin/Breast Denies bleeding lesions, Denies changing lesions and Denies rash Neuro Denies abnormal gait, Denies behavioral changes and Denies lack of coordination Psych Denies behavioral changes Physical exam (Primary Care) Vital Signs: Last Vital Signs BP 130/82 09/24/23 12:35 BMI result Body Mass Index 27.5 Tobacco/Smoking Status: Tobacco use Status Tobacco use date assessed 03/26/23 09/24/23 12:39 Patient Tobacco Use Status Current someday Tobacco 09/24/23 12:39 Tobacco use type Cigarette 09/24/23 12:39 e-Cigarette/Vaping Use Never Used 09/24/23 12:39 Thrive Assessment: Date of Thrive Assessment Date Thrive assessed 03/26/23 09/24/23 12:39 Eyes General: appearance normal, both eyes and all related structures Eyelids: Yes eyelids normal Conjunctivae: conjunctivae normal Neck Neck: Yes normal visual inspection and Yes supple Resp Effort & Inspection: normal respiratory effort Auscultation: clear to auscultation bilaterally Cardio Jugular venous distension: no JVD Rate: regular rate Rhythm: regular rhythm Heart sounds: S1 normal heart sound present and S2 normal heart sound present Back/Spine/Pelvis Thoracic/Lumbar Spine: straight leg raise positive bilateral Extrem General: Yes full ROM Assessment and Plan Assessment & Plan (1) Lumbar spondylosis: Code(s): M47.816 - Spondylosis without myelopathy or radiculopathy, lumbar region Plan: Referred to pain management (2) Cocaine use disorder, mild, abuse: Comment: admits to using 09/09/22 Code(s): F14.10 - Cocaine abuse, uncomplicated Plan: Advised to quit doing cocaine. (3) Moderate recurrent major depression: Code(s): F33.1 - Major depressive disorder, recurrent, moderate Plan: Continue escitalopram. (4) Urinary retention: Code(s): R33.9 - Retention of urine, unspecified Plan: Referred to Urology. (5) Essential hypertension: Code(s): I10 - Essential (primary) hypertension Plan: Continue lisinopril and clonidine. Blood pressure goal is equal or less than 130/80. Orders: Referrals Pain Management Referral M47.816 - Spondylosis without myelopathy or radiculopathy, lumbar region Urology Referral R33.9 - Retention of urine, unspecified Coding Level of Care Code Est Pt Level 4 (91359) Diagnoses Lumbar spondylosis M47.816 Cocaine use disorder, mild, abuse F14.10 Moderate recurrent major depression F33.1 Urinary retention R33.9 Essential hypertension I10 Time Spent (min) 24
[2023-09-24 12:35] VITALS: BP 130/82; BMI 27.5
== END 2023-09-24 12:44 | disposition home or self-care (01) ==
PROVIDERS: PCP Internal Medicine; Visit Provider Internal Medicine
DX: M47.816 Spondylosis without myelopathy or radiculopathy, lumbar region (principal); F14.10 Cocaine abuse, uncomplicated; F33.1 Major depressive disorder, recurrent, moderate; R33.9 Retention of urine, unspecified; I10 Essential (primary) hypertension
CPT/HCPCS: 99214

== ENCOUNTER 2023-10-30 11:32 | Outpatient (REF) | payer OTHER, SELFPAY ==
--- NOTE | ~2023-10-30 | XR_ITS ---
EXAMINATION: XR LUMBOSACRAL SPINE WITH OBLIQUES CLINICAL INFORMATION: Spondylosis. COMPARISON: CT abdomen/pelvis 11/12/2022. TECHNIQUE: AP, both oblique, and lateral views of the lumbar spine. Lateral view of the lumbosacral junction. FINDINGS: No evidence of acute compression deformity or traumatic subluxation. Moderate intervertebral disc height loss and facet arthropathy at L5-S1. Mild to moderate intervertebral disc height loss and osteoarthropathy at L4-L5. Neural foraminal encroachment is noted from L4 through S1. Large anterior osteophytes in the lower thoracic spine. No significant paraspinal soft tissue abnormality. Numerous pelvic phleboliths. Moderate to severe atherosclerotic disease. XR/XR lumbar spine 4V min IMPRESSION: 1. No acute compression deformity or traumatic subluxation. 2. Moderate lumbar spondylosis, most notably at L5-S1.
== END 2023-10-30 11:33 | disposition home or self-care (01) ==
LOC: HO.XRAY 11:32
PROVIDERS: PCP Internal Medicine; Referring Provider Internal Medicine; Visit Provider Registered Nurse Emergency
DX: M47.816 Spondylosis without myelopathy or radiculopathy, lumbar region (principal)
CPT/HCPCS: 72110; 99212

== ENCOUNTER 2023-10-30 11:32 | Outpatient (AMB) | payer OTHER, SELFPAY ==
--- NOTE | 2023-10-30 11:35 | MHC.OFFVIS ---
Intake Vital Signs 10/30/23 11:45 Height 5 ft 3 in Weight 159 lb 4 oz BMI 28.2 BP 124/82 Blood Pressure Location Lt brachial Position Sitting Respiration 14 Pulse 73 Pulse Source Pulse Oximeter Pulse Oximetry (%) 97 Oxygen Delivery Method Room Air Intake Visit Reasons: LUMBAR SPONDYLOSIS - LVM Allergies No Known Allergies [No Known Allergies*] Allergy (Verified 10/30/23 11:44) HPI HPI Comments History of Present Illness Details Rigo presents the office today for follow-up lower back pain. Patient reports today pain 10/10, constant, worse with activity. She was previously getting injections from [facility], states last 1 was over 3 years ago. She does endorse good relief with previous injections. Pain today across the lower back she denies shooting, electrical pain or numbness tingling down either lower extremity. She reports previous attempted physical therapy made her pain worse. She does continue to do home exercise program but it is not helping Patient states that they will not give her medications for her pain due to her history of mental health issues. She currently takes Advil as needed with limited benefit. She has tried lidocaine patch in the past with some relief, she would like a prescription for them again today. Denies red flag symptoms including new loss of bowel, bladder or saddle anesthesia. Prior visit with Dr. Del Toro: Patient is a 61-year-old female presenting for a follow-up for low-back pain. We received records from her prior treatment at [facility] that showed multiple interventions including trans-foraminal injections, facet injections, and sacroiliac injections for different instances of her pain over the years. Patient is not having any pain right now. She is here to discuss potential options for her axial low back pain, should it return. She states that the last time she had pain it was in the lower back which is what bothers her the most. Patient has not done physical therapy recently due to it making her pain worse but continues with home exercises. At its worst, the pain is described as excruciating that interferes with ability to carry on with activates of daily living. It occasional radiates down to the knees. [facility], [facility] Medical History Calcification of patellar tendon determined by X-ray Degenerative joint disease of knee Gout Physical exam B12 deficiency PTSD (post-traumatic stress disorder) MDD (major depressive disorder), recurrent episode, severe Chronic diarrhea Cocaine use disorder, mild, in early remission Weight loss Cocaine use disorder, mild, abuse Constipation by delayed colonic transit Bilateral knee pain Lumbar spondylosis Left hip pain Dyslipidemia Osteoarthritis GERD (gastroesophageal reflux disease) Depression Fibromyalgia Easy bruisability Essential hypertension Asthma due to environmental allergies Bimalleolar fracture of left ankle Brain aneurysm Surgical History Hx of brain surgery H/O colonoscopy History of breast lump/mass excision History of surgery History of partial hysterectomy Status post open reduction with internal fixation (ORIF) of fracture of ankle Family History Mother Diabetes Father No problems noted. Social History Household Members: None Housing: Apartment Are you a primary care professionals to a significant other at home: No Do you presently have visiting nurse or other home services: No Alcohol intake: never Patient Tobacco Use Status: Current someday Tobacco user Tobacco use type: Cigarette Cigarette Packs Per Day: 0 Cigarettes Per Day: 4 Years Smoked: 20 e-Cigarette/Vaping Use: Never Used Second Hand Smoke Exposure: Yes Substance Use Type: Crack/Cocaine service: No Current occupational status: disabled Current occupation: Right Handed Sexual orientation: Did not discuss Cognitive needs: Yes Hearing needs: No Vision needs: Yes Review of Systems Const All systems reviewed & are unremarkable except as noted in HPI and below Physical Exam Vital Signs: Last Vital Signs Pulse 73 10/30/23 11:45 Resp 14 10/30/23 11:45 BP 124/82 10/30/23 11:45 Pulse Ox 97 10/30/23 11:45 Oxygen Delivery Method Room Air 10/30/23 11:45 BMI result Body Mass Index 28.2 General: awake, alert, oriented. Answers questions appropriately. Fully engaged in examination. Skin: warm, dry, intact HEENT: Normocephalic. Hearing intact. Cardiac: External chest normal in appearance. Respiratory: No cough, audible wheezing or stridor. Abdomen: without gross distension. MS: No obvious swelling or deformities. Able to stand on bilateral tiptoes and bilateral heels.? Able to transition from sit to stand unassisted. Ambulates with bilaterally normal heel strike and toe off BLE strength 5/5 Facet loading positive SLR negative bilaterally ROM intact Tenderness to palpation midline lumbar vertebrae and lumbar paraspinal muscles Neurological: Oriented to person, place, time and situation. Thought process intact. No gait abnormalities appreciated. Psychiatric: Appropriate mood and affect. Good judgment and insight. Assessment & Plan Assessment & Plan (1) Lumbar spondylosis: Code(s): M47.816 - Spondylosis without myelopathy or radiculopathy, lumbar region Plan Patient presented to the office today for follow-up lower back pain. History, physical exam and provocative testing consistent with lumbar spondylosis without radiculopathy or myelopathy X-ray ordered for evaluation. Lidocaine patches as prescribed. Patient instructed on use Patient has exhausted greater than 6 months of conservative therapy including [id number] medications, topical medications, attempts at physical therapy and home exercise program. Will schedule for bilateral fluoroscopy guided diagnostic L3-L4 DR L5 MBBs with local anesthetic. Discussed options for Sprint versus RFA pending results of diagnostic MBBs. If patient reports good relief with diagnostic injections will plan for bilateral radiofrequency ablation with sedation. All questions and concerns were answered, patient appears the plan. Follow up in the office after injections, sooner if needed Orders: Orders XR lumbar spine 4V min Today M47.816 - Spondylosis without myelopathy or radiculopathy, lumbar region Medications: New lidocaine 5% leave on most painful area for up to 12 hrs 1 patch topical DAILY 30 ea 0RF Quality Reporting (2019) Adult ([facility] 138//) Smoking risk assessment performed?: Yes Patient Tobacco Use Status: Current someday Tobacco user Coding Level of Care Code Est Pt Level 3 (02778) Diagnoses Lumbar spondylosis M47.816
[2023-10-30 11:45] VITALS: BP 124/82; PULSE 73; RESP 14; O2SAT 97; BMI 28.2
== END 2023-10-30 11:56 | disposition home or self-care (01) ==
PROVIDERS: PCP Internal Medicine; Referring Provider Internal Medicine; Visit Provider Registered Nurse Emergency
DX: M47.816 Spondylosis without myelopathy or radiculopathy, lumbar region (principal)
CPT/HCPCS: 99213

== ENCOUNTER 2023-12-08 06:21 | Outpatient (REF) | payer OTHER, SELFPAY ==
--- NOTE | ~2023-12-08 | FL_ITS ---
EXAMINATION: XR FLUOROSCOPY WITH IMAGES CLINICAL INFORMATION: Spondylosis without myelopathy or radiculopathy, lumbar region. COMPARISON: Lumbar spine radiographs 10/30/2023. TECHNIQUE: Fluoroscopy Supervised By: Stephanie Leonard NP. Fluoroscopy Time: 57.4 seconds. Cumulative Dose: 19.744 mGy. DAP: 5.5705 Gy-cm2. Images: 6. FINDINGS: Radiographs show needle positions overlying the lumbar spine with contrast seen bilaterally. Please see Stephanie Leonard's report for full details. FL/FL guidance in treatment room IMPRESSION: Fluoroscopy and spot films provided during lumbar procedure.
== END 2023-12-08 06:22 | disposition home or self-care (01) ==
LOC: CF 06:21
PROVIDERS: Visit Provider Anesthesiology
DX: M47.816 Spondylosis without myelopathy or radiculopathy, lumbar region (principal)
CPT/HCPCS: 64493; 64494; J2795; Q9967

== ENCOUNTER 2023-12-08 12:54 | Outpatient (AMB) | payer OTHER, SELFPAY ==
[2023-12-08 12:56] VITALS: BP 118/64; PULSE 84; RESP 18; O2SAT 98; BMI 28.2
--- NOTE | 2023-12-08 12:56 | A.OFFVIS_ITS ---
Intake Vital Signs 12/08/23 12:56 12/08/23 13:55 Height 5 ft 3 in Weight 159 lb BMI 28.2 BP 118/64 124/78 Blood Pressure Location Lt brachial Lt brachial Position Sitting Sitting Respiration 18 16 Pulse 84 78 Pulse Source Pulse Oximeter Pulse Oximeter Pulse Oximetry (%) 98 95 Oxygen Delivery Method Room Air Room Air Comment Pre-Op Post-Op Intake Visit Reasons: BILATERAL DIAGNOSTIC L3, L4, DRL5 MBB Allergies No Known Allergies [No Known Allergies*] Allergy (Verified 10/30/23 11:44) [facility] Medical History Calcification of patellar tendon determined by X-ray Degenerative joint disease of knee Gout Physical exam B12 deficiency PTSD (post-traumatic stress disorder) MDD (major depressive disorder), recurrent episode, severe Chronic diarrhea Cocaine use disorder, mild, in early remission Weight loss Cocaine use disorder, mild, abuse Constipation by delayed colonic transit Bilateral knee pain Lumbar spondylosis Left hip pain Dyslipidemia Osteoarthritis GERD (gastroesophageal reflux disease) Depression Fibromyalgia Easy bruisability Essential hypertension Asthma due to environmental allergies Bimalleolar fracture of left ankle Brain aneurysm Surgical History Hx of brain surgery H/O colonoscopy History of breast lump/mass excision History of surgery History of partial hysterectomy Status post open reduction with internal fixation (ORIF) of fracture of ankle Family History Mother Diabetes Father No problems noted. Social History Household Members: None Housing: Apartment Are you a primary insurance healthcare consultant to a significant other at home: No Do you presently have visiting nurse or other home services: No Alcohol intake: never Patient Tobacco Use Status: Current someday Tobacco user Tobacco use type: Cigarette Cigarette Packs Per Day: 0 Cigarettes Per Day: 4 Years Smoked: 20 e-Cigarette/Vaping Use: Never Used Second Hand Smoke Exposure: Yes Substance Use Type: Crack/Cocaine service: No Current occupational status: disabled Current occupation: Right Handed Sexual orientation: Did not discuss Cognitive needs: Yes Hearing needs: No Vision needs: Yes Physical Exam Vital Signs: Last Vital Signs Pulse 78 12/08/23 13:55 Resp 16 12/08/23 13:55 BP 124/78 12/08/23 13:55 Pulse Ox 95 12/08/23 13:55 Oxygen Delivery Method Room Air 12/08/23 13:55 BMI result Body Mass Index 28.2 Assessment & Plan Assessment & Plan (1) Lumbar spondylosis: Code(s): M47.816 - Spondylosis without myelopathy or radiculopathy, lumbar region Plan Diagnostic branch block L3,L4 dorsal ramus L5 bilateral.? ? ?Informed consent was explained to the patient. All questions were explained and? answered.? The patient was taken inside the operating room where she was positioned prone on the operating table. Time-out was performed delineating correct site, side, the nature of the procedure, patient's allergy, . All operating room staff was participating in OR time-out procedure. ? ? The lower back was prepped with ChloraPrep and draped with sterile towels.? C- arm was brought over the operating field and sq picture of L4-, L5 vertebra and S1 AREA were delineated on the screen.? Point of interest were delineated as confluence of superior articular process of L4 and L5 vertebra bilaterally with corresponding transverse processes as well as confluence of the sacral alae bilaterally with superior articular process of S1.? The projection of the point of interest to the skin were injected with the small amount of local anesthetic lidocaine 2% 1-1.5 cc.? After that 22 gauge 3.5 inch spinal needle was driven sequentially to the points of interest in tunnel vision fashion. After needles gently contacted the bone at the point of interests the needle was injected with small amount of the contrast.? The injection of the contrast did not demonstrate any intravascular or intrathecal spread of the contrast.? After that injection of the? ropivacaine 0.5%-1cc was performed at each needle location.??after that the needles were removed and Bandaids were applied. ? Upon completion of the injections? needle was? removed and sterile Band-Aids were applied.? The patient tolerated procedure very well. Orders: Orders FL guidance in treatment room 12/08/23 M47.816 - Spondylosis without myelopathy or radiculopathy, lumbar region Quality Reporting (2019) Adult ([facility] 138/11/19/68) Smoking risk assessment performed?: Yes Patient Tobacco Use Status: Current someday Tobacco user Coding Level of Care Code Procedure Only Diagnoses Lumbar spondylosis M47.816
[2023-12-08 13:55] VITALS: BP 124/78; PULSE 78; RESP 16; O2SAT 95
== END 2023-12-08 14:03 | disposition home or self-care (01) ==
LOC: HO.PMCPRC 12:55
PROVIDERS: PCP Internal Medicine; Visit Provider Anesthesiology
DX: M47.816 Spondylosis without myelopathy or radiculopathy, lumbar region (principal)
CPT/HCPCS: 64493; 64494

== ENCOUNTER 2023-12-11 14:22 | Outpatient (AMB) | payer OTHER, SELFPAY ==
--- NOTE | 2023-12-11 14:58 | A.OFFVIS_ITS ---
Intake Intake Visit Reasons: BILATERAL DIAGNOSTIC L3, L4,DRL5 MBB Allergies No Known Allergies [No Known Allergies*] Allergy (Verified 10/30/23 11:44) HPI HPI Comments History of Present Illness Details Telephone visit today completed for follow-up, 2 days status post bilateral diagnostic L3-L4 DR L5 medial branch blocks. Patient reports 100% pain relief for the entire 6 hours after the procedure was improvement in function and mobility. She states she continues to be pain-free even today. She denies untoward effects of the injections. Prior: Rigo presents the office today for follow-up lower back pain. Patient reports today pain 10/10, constant, worse with activity. She was previously getting injections from [facility], states last 1 was over 3 years ago. She does endorse good relief with previous injections. Pain today across the lower back she denies shooting, electrical pain or numbness tingling down either lower extremity. She reports previous attempted physical therapy made her pain worse. She does continue to do home exercise program but it is not helping Patient states that they will not give her medications for her pain due to her history of mental health issues. She currently takes Advil as needed with limited benefit. She has tried lidocaine patch in the past with some relief, she would like a prescription for them again today. Denies red flag symptoms including new loss of bowel, bladder or saddle anesthesia. Prior visit with Dr. Del Toro: Patient is a 61-year-old female presenting for a follow-up for low-back pain. We received records from her prior treatment at [facility] that showed multiple interventions including trans-foraminal injections, facet injections, and sacroiliac injections for different instances of her pain over the years. Patient is not having any pain right now. She is here to discuss potential options for her axial low back pain, should it return. She states that the last time she had pain it was in the lower back which is what bothers her the most. Patient has not done physical therapy recently due to it making her pain worse but continues with home exercises. At its worst, the pain is described as excruciating that interferes with ability to carry on with activates of daily living. It occasional radiates down to the knees. [facility] Medical History Calcification of patellar tendon determined by X-ray Degenerative joint disease of knee Gout Physical exam B12 deficiency PTSD (post-traumatic stress disorder) MDD (major depressive disorder), recurrent episode, severe Chronic diarrhea Cocaine use disorder, mild, in early remission Weight loss Cocaine use disorder, mild, abuse Constipation by delayed colonic transit Bilateral knee pain Lumbar spondylosis Left hip pain Dyslipidemia Osteoarthritis GERD (gastroesophageal reflux disease) Depression Fibromyalgia Easy bruisability Essential hypertension Asthma due to environmental allergies Bimalleolar fracture of left ankle Brain aneurysm Surgical History Hx of brain surgery H/O colonoscopy History of breast lump/mass excision History of surgery History of partial hysterectomy Status post open reduction with internal fixation (ORIF) of fracture of ankle Family History Mother Diabetes Father No problems noted. Social History Household Members: None Housing: Apartment Are you a primary patient care nursing assistant to a significant other at home: No Do you presently have visiting nurse or other home services: No Alcohol intake: never Patient Tobacco Use Status: Current someday Tobacco user Tobacco use type: Cigarette Cigarette Packs Per Day: 0 Cigarettes Per Day: 4 Years Smoked: 20 e-Cigarette/Vaping Use: Never Used Second Hand Smoke Exposure: Yes Substance Use Type: Crack/Cocaine service: No Current occupational status: disabled Current occupation: Right Handed Sexual orientation: Did not discuss Cognitive needs: Yes Hearing needs: No Vision needs: Yes Review of Systems Const All systems reviewed & are unremarkable except as noted in HPI and below Physical Exam Deferred, telephone visit only Results Reviewed Results Reviewed: Notes from crisis assessment reviewed. X-rays done on last visit: TECHNIQUE: 3 views of the left knee. FINDINGS: No fracture or joint effusion. Alignment is anatomic. Joint spaces are maintained. There is serpiginous calcification in proximal tibia more prominent than in 2011 and consistent with the appearance of enchondroma or bone island. Soft tissue calcification seen medial to the patella with mild narrowing of patellofemoral compartment. XR/XR knee LT 3V IMPRESSION: Mild degenerative changes in the patellofemoral compartment. Enchondroma or bone island in the proximal tibia and soft tissue calcification. TECHNIQUE: Four views of the right knee. FINDINGS: No acute visible fracture or dislocation. Multiple ossific densities are noted in the medial soft tissues along the infrapatellar and suprapatellar region nonspecific though may represent elements of dystrophic calcifications of the medial joint versus less common entities such as lipoma arborescens versus loose bodies. Mild multi joint arthritic changes. Joint spaces and alignment are otherwise maintained. Small knee joint effusion. XR/XR knee RT 3V IMPRESSION: 1. No acute visible fracture or dislocation. 2. Multiple ossific densities are noted in the medial soft tissues along the infrapatellar and suprapatellar region nonspecific though may represent elements of dystrophic calcifications of the medial joint versus less common entities such as lipoma arborescens versus loose bodies. 3. Mild multi joint arthritic changes. 4. Small knee joint effusion. Assessment & Plan Assessment & Plan (1) Lumbar spondylosis: Code(s): M47.816 - Spondylosis without myelopathy or radiculopathy, lumbar region Plan Telephone visit completed today for follow-up status post bilateral diagnostic L3-L4 DR L5 medial branch blocks of local anesthetic. Patient reports 100% pain relief in the 6 hours after the procedure with improvement in functional mobility. Three days postprocedure patient continues with 100% pain relief. Patient has exhausted greater than 6 months of conservative therapy including [id number] medications, topical medications, attempts at physical therapy and home exercise program. Discussed options for treatment including peripheral nerve stimulation with Sprint, RFA and more permanent neuromodulation. She does not want to proceed with Sprint peripheral nerve stimulator, she elects to proceed with bilateral radiofrequency ablation with sedation. Patient is aware that insurance may require repeat diagnostic medial branch blocks, in this case she will be called to schedule those first. All questions and concerns were answered, patient appears the plan. Follow up in the office after procedure, sooner if needed Quality Reporting (2019) Adult ([facility] 138/11/19/68) Smoking risk assessment performed?: Yes Patient Tobacco Use Status: Current someday Tobacco user Telehealth Telehealth Location of provider rendering services: practice address Location of patient: address on file Patient Identification confirmed using: Name, : Yes Telehealth method: voice only Patient verbally consented to treatment: Yes Patient verbally consented to billing insurance company: Yes Patient informed of any privacy concerns related to visit: Yes Coding Level of Care Code Est Pt Level 3 (20307) Diagnoses Lumbar spondylosis M47.816
== END 2023-12-11 14:28 | disposition home or self-care (01) ==
LOC: HO.PMC 14:22
PROVIDERS: PCP Internal Medicine; Visit Provider Registered Nurse Emergency
DX: M47.816 Spondylosis without myelopathy or radiculopathy, lumbar region (principal)
CPT/HCPCS: 99442

== ENCOUNTER → 2023-12-11 14:22 | Outpatient (BNVA) | payer OTHER, SELFPAY | PROVIDERS: PCP Internal Medicine; Visit Provider Registered Nurse Emergency ==

== ENCOUNTER 2023-12-25 13:21 | Outpatient (AMB) | payer OTHER, SELFPAY ==
--- NOTE | 2023-12-25 13:42 | MHC.OFFVIS ---
Intake Intake Visit Reasons: incomplete bladder emptying Intake Note: New Patient presents for initial visit for incomplete bladder emptying and retention Urology Medications: none Blood Thinner: none Entry Level Sales Consultant Required: No Accompanied by: Self / Same As Patient Allergies No Known Allergies [No Known Allergies*] Allergy (Verified 12/27/23 13:04) Medication List - Last Reconciled 12/27/23 by JULIAN Mohr- albuterol sulfate 90 mcg/actuation (Ventolin HFA) 2 puffs PO Q6H PRN 30 days aripiprazole 2 mg PO BEDTIME 30 days atorvastatin 20 mg PO BEDTIME 90 days calcitriol 1 cap PO DAILY cholecalciferol (vitamin D3) 25 mcg PO DAILY 90 days clonazepam 0.5 mg PO DAILY PRN 30 days clonidine HCl 0.1 mg See Protocol PO BID PRN 30 days colchicine 0.6 mg PO DAILY PRN diclofenac sodium 75 mg PO BID docusate sodium 100 mg PO DAILY PRN 30 days escitalopram oxalate 20 mg PO QAM 30 days furosemide 20 mg PO DAILY lidocaine 5% 1 patch topical DAILY lisinopril 10 mg PO DAILY 90 days loperamide 2 mg PO Q6H PRN 30 days naproxen 500 mg PO BID PRN 10 days omeprazole 40 mg PO QAM peg 3350-electrolytes 236-22.74-6.74 -5.86 gram (Golytely) 240 mL PO Q10M quetiapine 50 mg PO BEDTIME PRN 30 days ropinirole 1 mg PO BEDTIME triamcinolone acetonide 0.1% 1 appl topical DAILY 2 weeks HPI HPI Comments History of Present Illness Details Rigo is a very pleasant 63-year-old female patient of Dr. Ervin. She has a past medical history of B12 deficiency, PTSD, depression, chronic diarrhea, cocaine use, lumbar spondylosis, dyslipidemia, osteoarthritis, GERD, fibromyalgia, allergic rhinitis, and brain aneurysm status post coil. She presents to the office today as a new patient for ongoing lower urinary tract symptoms. In discussion with the patient today she reports having a longstanding history of feeling of incomplete bladder emptying. She reports having to play with myself to empty she reports noting symptoms have been present for many years. She also reports urinary urgency and frequency. She otherwise denies incontinence, nocturia, hematuria, dysuria, foul smelling urine, changes to urinary stream, flank pain, fever, and or chills. In office urinalysis results reviewed with the patient today. Microscopic hematuria noted. When asked she does report a longstanding history of nicotine dependence. She reports smoking for over 20 years and smokes approximately 5-10 cigarettes a day. PVR 15 mL. Discussed at length potential causes for lower urinary tract symptoms patient is experiencing. Discussed further microscopic hematuria workup versus surveillance monitoring. She otherwise offers no other issues or concerns at this time. [facility] Medical History Calcification of patellar tendon determined by X-ray Degenerative joint disease of knee Gout Physical exam B12 deficiency PTSD (post-traumatic stress disorder) MDD (major depressive disorder), recurrent episode, severe Chronic diarrhea Cocaine use disorder, mild, in early remission Weight loss Cocaine use disorder, mild, abuse Constipation by delayed colonic transit Bilateral knee pain Lumbar spondylosis Left hip pain Dyslipidemia Osteoarthritis GERD (gastroesophageal reflux disease) Depression Fibromyalgia Easy bruisability Essential hypertension Asthma due to environmental allergies Bimalleolar fracture of left ankle Brain aneurysm Surgical History Hx of brain surgery H/O colonoscopy History of breast lump/mass excision History of surgery History of partial hysterectomy Status post open reduction with internal fixation (ORIF) of fracture of ankle Family History Mother Diabetes Father No problems noted. Social History Household Members: None Housing: Apartment Are you a primary hiv/aids care nurse to a significant other at home: No Do you presently have visiting nurse or other home services: No Alcohol intake: never Patient Tobacco Use Status: Current someday Tobacco user Tobacco use type: Cigarette Cigarette Packs Per Day: 0 Cigarettes Per Day: 4 Years Smoked: 20 e-Cigarette/Vaping Use: Never Used Second Hand Smoke Exposure: Yes Substance Use Type: Crack/Cocaine service: No Current occupational status: disabled Current occupation: Right Handed Sexual orientation: Did not discuss Cognitive needs: Yes Hearing needs: No Vision needs: Yes Review of Systems Const Reports as per HPI Eyes Reports no additional complaints ENT Reports no additional complaints Card Reports as per HPI Resp Reports no additional complaints GI Reports no additional complaints Reports as per HPI Musc Reports as per HPI Neuro Reports as per HPI Psych Reports as per HPI Endo Reports no additional complaints Clemente/Lymph Reports no additional complaints Aller/Immun Reports as per HPI Physical Exam Const General: cooperative, comfortable, no acute distress, well developed, alert and awake Orientation/consciousness: patient oriented x3 Limitations: no limitations HEENT Head: Yes normal to inspection, Yes normocephalic and Yes atraumatic Ears: hearing grossly normal bilaterally Eyes General: appearance normal, both eyes and all related structures Neck Neck: Yes normal visual inspection and Yes trachea midline Chest Chest palpation & inspection: normal inspection of the chest Resp Effort & Inspection: normal respiratory effort and able to speak in complete sentences Cardio Rate: regular rate GI Inspection: Yes normal to inspection General: Yes no CVA tenderness Back/Spine/Pelvis Back: no CVA tenderness Skin General skin exam: no rashes or lesions noted Neuro General: patient oriented x3 Extrem General: Yes normal to inspection Psych Appearance: grossly normal and well kempt Mental Status: mental status grossly normal Speech and movement: Normal speech and movement present and Clear speech present Affect: normal affect Attitude: cooperative Thought process: Normal thought process present Thought content: Normal thought content present Insight: Fair insight present (Psych) Judgement: Fair judgement present (Psych) Office Procedures Post Void Residual Post Residual Void Post Void Residual (PVR): 15 [id number] Void Residual by ultrasound Results AMB Urinalysis, Automated UA Leukoctes 0 Giovani/uL Last Edit by [employer] on 12/25/23 13:54 UA Nitrite Negative Last Edit by [employer] on 12/25/23 13:54 UA Urobilinogen 0.2 mg/dL Last Edit by [employer] on 12/25/23 13:54 UA Protein 0 mg/dL Last Edit by [employer] on 12/25/23 13:54 UA pH 6.0 Last Edit by [employer] on 12/25/23 13:54 UA Blood 10 Som/uL Last Edit by [employer] on 12/25/23 13:54 UA Specific [place] 1.015 Last Edit by [employer] on 12/25/23 13:54 UA Ketone Negative Last Edit by [employer] on 12/25/23 13:54 UA Bilirubin 0 mg/dL Last Edit by [employer] on 12/25/23 13:54 UA Glucose 0 mg/dL Last Edit by Odin Moreno on 12/25/23 13:54 Results Reviewed Results Reviewed: Laboratory Last Values Urine pH (Auto) 6.0 12/25/23 13:44 Specific [place] (Auto) 1.015 12/25/23 13:44 Urine Protein (Auto) 0 mg/dL 12/25/23 13:44 Glucose (UA)(Auto) 0 mg/dL 12/25/23 13:44 Urine Ketones (Auto) Negative 12/25/23 13:44 Urine Blood (Auto) 10 Som/uL 12/25/23 13:44 Urine Nitrite (Auto) Negative 12/25/23 13:44 Urine Bilirubin (Auto) 0 mg/dL 12/25/23 13:44 Urine Urobilinogen (Auto) 0.2 mg/dL 12/25/23 13:44 Leukocyte Esterase (Auto) 0 Giovani/uL 12/25/23 13:44 Assessment & Plan Assessment & Plan (1) Microscopic hematuria: Code(s): R31.29 - Other microscopic hematuria (2) Feeling of incomplete bladder emptying: Code(s): R39.14 - Feeling of incomplete bladder emptying (3) Nicotine dependence: Code(s): F17.200 - Nicotine dependence, unspecified, uncomplicated Plan In office urinalysis results reviewed with the patient today; as noted above; will send for urine cytology. PVR 15 mL. Discussed at length potential causes of microscopic hematuria; discussed surveillance monitoring verses further workup with cytology, CT urogram, and in office cystoscopy; risks and benefits of these treatment options were discussed at length. Discussed pelvic floor therapy. Discussed blader triggers/irritants. Discussed further treatment options for lower urinary tract symptoms patient is experiencing. Discussed, educated, and stressed the importance of drinking plenty of water daily. Will obtain retroperitoneal ultrasound for further assessment evaluation. Patient declines further microscopic hematuria workup at this time. Follow-up in 1-3 months with imaging to be completed prior; or sooner with any issues, concerns, and or questions. Orders: Orders AMB Urinalysis Automated 12/25/23 Z13.9 - Encounter for screening, unspecified AMB Post Void Residual by ultrasound 12/25/23 R33.9 - Retention of urine, unspecified US retroperitoneal comp 12/25/23 R31.29 - Other microscopic hematuria Urine Cytology 12/25/23 R33.9 - Retention of urine, unspecified Medications: Discontinued peg 3350-electrolytes 236-22.74-6.74 -5.86 gram (Golytely) as per split prep instructions, until fecal effluent is clear Discontinued Reason: Patient Completed Course 240 mL PO Q10M 4,000 mL 0RF colonoscopy Patient Instructions: The patient had an opportunity to ask questions regarding the treatment plan. All questions were answered. Physical exam, labs, and imaging were discussed and reviewed in detail. As well as risks, benefits, and discussion of treatment choices. No major barriers to understanding were identified. The patient expressed understanding and agreement with the above treatment plan. The patient was made aware they should contact our office by phone for worsening of their current condition, the appearance of new symptoms, or with any questions or concerns. Compliance is encouraged with any medications and follow up testing that is ordered. It is a privilege to be allowed the opportunity to participate in? your urological care.? Again, if you have any questions or concerns If you have any questions or concerns please do not hesitate to contact me. The office is [phone]. This note is constructed using voice recognition software. While every effort has been made to ensure accuracy check scaler errors may have been included. Yours sincerely, JULIAN Mohr- Quality Reporting (2019) Adult ([facility] ) Smoking risk assessment performed?: Yes Patient Tobacco Use Status: Current someday Tobacco user Coding Level of Care Code New Pt Level 3 (13131) Diagnoses Microscopic hematuria R31.29 Feeling of incomplete bladder emptying R39.14 Nicotine dependence F17.200 CPT Codes Post Residual Void - PVR CPT Code: 11027-Pwer Void Residual by ultrasound ([id number])
== END 2023-12-25 14:18 | disposition home or self-care (01) ==
PROVIDERS: PCP Internal Medicine; Visit Provider Nurse Practitioner Family
DX: Z13.9 Encounter for screening, unspecified (principal)
CPT/HCPCS: 99203

== ENCOUNTER 2023-12-25 13:21 | Outpatient (REF) | payer OTHER, SELFPAY ==
[2023-12-25 18:54] LABS: Urine Cytology See Pathology rpt
== END 2023-12-25 13:22 | disposition home or self-care (01) ==
LOC: HO.LNP 13:21
PROVIDERS: PCP Internal Medicine; Visit Provider Nurse Practitioner Family
DX: R33.9 Retention of urine, unspecified (principal); R31.29 Other microscopic hematuria; R39.14 Feeling of incomplete bladder emptying; F17.200 Nicotine dependence, unspecified, uncomplicated; Z79.899 Other long term (current) drug therapy
CPT/HCPCS: 51798; 81003; 88112; 99202

== ENCOUNTER 2024-01-07 12:40 | Outpatient (REF) | payer OTHER, SELFPAY ==
--- NOTE | ~2024-01-07 | US_ITS ---
EXAMINATION: US RETROPERITONEAL COMPLETE (RENAL) CLINICAL INFORMATION: Other microscopic hematuria. COMPARISON: Ultrasound abdomen complete 12/15/2018 and 12/21/2017. CT chest, abdomen and pelvis 11/12/2022. TECHNIQUE: Real-time imaging of the kidneys and bladder. FINDINGS: RIGHT KIDNEY: 10.0 x 5.9 x 5.7 cm (SAG x AP x TRV). The kidney is normal in size, contour, and echogenicity. Renal cortical thickness is normal. No calculi or focal parenchymal lesions. No hydronephrosis. LEFT KIDNEY: 10.5 x 5.6 x 4.5 cm (SAG x AP x TRV). The kidney is normal in size, contour, and echogenicity. Renal cortical thickness is normal. No focal parenchymal lesions or hydronephrosis. There is a tiny 2 mm echogenic focus present at the upper pole of the left kidney consistent with a nonobstructing calculus. BLADDER: Well distended and normal. Left ureteral jet is demonstrated; right is not. Prevoid bladder volume is 194 mL. Postvoid bladder volume is 30.6 mL. US/US retroperitoneal comp IMPRESSION: A 2 mm nonobstructing left upper pole renal calculus.
== END 2024-01-07 12:41 | disposition home or self-care (01) ==
LOC: HO.US 12:40
PROVIDERS: PCP Internal Medicine; Visit Provider Nurse Practitioner Family
DX: R31.29 Other microscopic hematuria (principal)
CPT/HCPCS: 76770

== ENCOUNTER 2024-03-11 11:45 | Outpatient (AMB) | payer OTHER, SELFPAY ==
[2024-03-11 11:51] VITALS: BP 132/71; PULSE 76; RESP 18; O2SAT 97; BMI 28.5
--- NOTE | 2024-03-11 11:51 | MHC.OFFVIS ---
Vital Signs 03/11/24 11:51 Height 5 ft 3 in Weight 161 lb BMI 28.5 BP 132/71 Blood Pressure Location Lt brachial Position Sitting Respiration 18 Pulse 76 Pulse Source Pulse Oximeter Pulse Oximetry (%) 97 Oxygen Delivery Method Room Air Intake Visit Reasons: Lumbar Spondylosis Allergies No Known Allergies [No Known Allergies*] Allergy (Verified 12/27/23 13:04) HPI Comments Details: Patient presents back to the office today for follow up to discuss procedure options to treat her chronic lower back pain Previously she had elected RFA but then decided against it. She is adamant that she does not want Sprint PNS device. Pain today is 8/10. would like to repeat injections with steroids also c/o right hip pain, was told in the past she needs surgery but she is not ready for replacement at this time Prior: Telephone visit today completed for follow-up, 2 days status post bilateral diagnostic L3-L4 DR L5 medial branch blocks. Patient reports 100% pain relief for the entire 6 hours after the procedure was improvement in function and mobility. She states she continues to be pain-free even today. She denies untoward effects of the injections. Prior: Rigo presents the office today for follow-up lower back pain. Patient reports today pain 10/10, constant, worse with activity. She was previously getting injections from [facility] and [email or web address], states last 1 was over 3 years ago. She does endorse good relief with previous injections. Pain today across the lower back she denies shooting, electrical pain or numbness tingling down either lower extremity. She reports previous attempted physical therapy made her pain worse. She does continue to do home exercise program but it is not helping Patient states that they will not give her medications for her pain due to her history of mental health issues. She currently takes Advil as needed with limited benefit. She has tried lidocaine patch in the past with some relief, she would like a prescription for them again today. Denies red flag symptoms including new loss of bowel, bladder or saddle anesthesia. Prior visit with Dr. Del Toro: Patient is a 61-year-old female presenting for a follow-up for low-back pain. We received records from her prior treatment at [facility] that showed multiple interventions including trans-foraminal injections, facet injections, and sacroiliac injections for different instances of her pain over the years. Patient is not having any pain right now. She is here to discuss potential options for her axial low back pain, should it return. She states that the last time she had pain it was in the lower back which is what bothers her the most. Patient has not done physical therapy recently due to it making her pain worse but continues with home exercises. At its worst, the pain is described as excruciating that interferes with ability to carry on with activates of daily living. It occasional radiates down to the knees. [facility] Medical History Calcification of patellar tendon determined by X-ray Degenerative joint disease of knee Gout Physical exam B12 deficiency PTSD (post-traumatic stress disorder) MDD (major depressive disorder), recurrent episode, severe Chronic diarrhea Cocaine use disorder, mild, in early remission Weight loss Cocaine use disorder, mild, abuse Constipation by delayed colonic transit Bilateral knee pain Lumbar spondylosis Left hip pain Dyslipidemia Osteoarthritis GERD (gastroesophageal reflux disease) Depression Fibromyalgia Easy bruisability Essential hypertension Asthma due to environmental allergies Bimalleolar fracture of left ankle Brain aneurysm Surgical History Hx of brain surgery H/O colonoscopy History of breast lump/mass excision History of surgery History of partial hysterectomy Status post open reduction with internal fixation (ORIF) of fracture of ankle Family History Mother Diabetes Father No problems noted. Social History Household Members: None Housing: Apartment Are you a primary pet care associate to a significant other at home: No Do you presently have visiting nurse or other home services: No Alcohol intake: never Patient Tobacco Use Status: Current someday Tobacco user Tobacco use type: Cigarette Cigarette Packs Per Day: 0 Cigarettes Per Day: 4 Years Smoked: 20 e-Cigarette/Vaping Use: Never Used Second Hand Smoke Exposure: Yes Substance Use Type: Crack/Cocaine service: No Current occupational status: disabled Current occupation: Right Handed Sexual orientation: Did not discuss Cognitive needs: Yes Hearing needs: No Vision needs: Yes Review of Systems Const All systems reviewed & are unremarkable except as noted in HPI and below Physical Exam Vital Signs: Last Vital Signs Pulse 76 03/11/24 11:51 Resp 18 06/14/24 11:51 BP 132/71 03/11/24 11:51 Pulse Ox 97 03/11/24 11:51 Oxygen Delivery Method Room Air 03/11/24 11:51 BMI result Body Mass Index 28.5 General: awake, alert, oriented. Answers questions appropriately. Fully engaged in examination. Skin: warm, dry, intact HEENT: Normocephalic. Hearing intact. Cardiac: External chest normal in appearance. Respiratory: No cough, audible wheezing or stridor. Abdomen: without gross distension. MS: No obvious swelling or deformities. Able to stand on bilateral tiptoes and bilateral heels.? Able to transition from sit to stand unassisted. Ambulates with bilaterally normal heel strike and toe off BLE strength 5/5 Facet loading positive SLR negative bilaterally ROM intact Tenderness to palpation midline lumbar vertebrae and lumbar paraspinal muscles Pain with I/E rotation right hip Neurological: Oriented to person, place, time and situation. Thought process intact. No gait abnormalities appreciated. Psychiatric: Appropriate mood and affect. Good judgment and insight. Quality Reporting (2019) Adult ([facility] 138/11/19/68) Smoking risk assessment performed?: Yes Patient Tobacco Use Status: Current someday Tobacco user Results Reviewed Results Reviewed: X-rays done on last visit: TECHNIQUE: 3 views of the left knee. FINDINGS: No fracture or joint effusion. Alignment is anatomic. Joint spaces are maintained. There is serpiginous calcification in proximal tibia more prominent than in 2011 and consistent with the appearance of enchondroma or bone island. Soft tissue calcification seen medial to the patella with mild narrowing of patellofemoral compartment. XR/XR knee LT 3V IMPRESSION: Mild degenerative changes in the patellofemoral compartment. Enchondroma or bone island in the proximal tibia and soft tissue calcification. TECHNIQUE: Four views of the right knee. FINDINGS: No acute visible fracture or dislocation. Multiple ossific densities are noted in the medial soft tissues along the infrapatellar and suprapatellar region nonspecific though may represent elements of dystrophic calcifications of the medial joint versus less common entities such as lipoma arborescens versus loose bodies. Mild multi joint arthritic changes. Joint spaces and alignment are otherwise maintained. Small knee joint effusion. XR/XR knee RT 3V IMPRESSION: 1. No acute visible fracture or dislocation. 2. Multiple ossific densities are noted in the medial soft tissues along the infrapatellar and suprapatellar region nonspecific though may represent elements of dystrophic calcifications of the medial joint versus less common entities such as lipoma arborescens versus loose bodies. 3. Mild multi joint arthritic changes. 4. Small knee joint effusion. Assessment & Plan Assessment & Plan (1) Lumbar spondylosis: Code(s): M47.816 - Spondylosis without myelopathy or radiculopathy, lumbar region Category: Medical (2) Right hip pain: Code(s): M25.551 - Pain in right hip Category: Medical Plan Patient presented to the office for follow up back pain and procedure discussion. Reported 100% pain relief for 3 months after bilateral diagnostic L3-L4 DR L5 medial branch blocks with improvement in functional mobility. Patient has exhausted greater than 6 months of conservative therapy including [id number] medications, topical medications, attempts at physical therapy and home exercise program. Discussed options for treatment including peripheral nerve stimulation with Sprint, RFA and more permanent neuromodulation. She does not want to proceed with Sprint peripheral nerve stimulator, no longer wishes to proceed with bilateral radiofrequency ablation as previously discussed Will schedule for Fluoroscopy guided Therapeutic bilateral L3-L4 DR L5 medial branch blocks with local anesthetic. XR right hip ordered for evaluation of pain All questions and concerns were answered, patient appears the plan. Follow up in the office after procedure, sooner if needed Orders: Orders XR hip RT min 2V Today M25.551 - Pain in right hip Coding Level of Care Code Est Pt Level 3 (59477) Diagnoses Lumbar spondylosis M47.816 Right hip pain M25.551
== END 2024-03-11 12:03 | disposition home or self-care (01) ==
PROVIDERS: PCP Internal Medicine; Visit Provider Registered Nurse Emergency
DX: M47.816 Spondylosis without myelopathy or radiculopathy, lumbar region (principal); M25.551 Pain in right hip
CPT/HCPCS: 99213

== ENCOUNTER → 2024-03-11 11:45 | Outpatient (BNVA) | payer OTHER, SELFPAY | PROVIDERS: PCP Internal Medicine; Visit Provider Registered Nurse Emergency | DX: M47.816 Spondylosis without myelopathy or radiculopathy, lumbar region (principal); M25.551 Pain in right hip; Z98.890 Other specified postprocedural states | CPT/HCPCS: 99212 ==

== ENCOUNTER 2024-03-14 11:27 | Outpatient (REF) | payer OTHER, SELFPAY ==
--- NOTE | ~2024-03-14 | XR_ITS ---
EXAMINATION: XR HIP, RIGHT CLINICAL INFORMATION: Hip pain COMPARISON: X-ray 02/05/2021 TECHNIQUE: Two views of the right hip. FINDINGS: Mild right hip arthritis, spurring along the lateral aspect of the acetabulum with subchondral cysts no acute fracture or dislocation. Redemonstrated is chronic ossification/enthesophyte along the greater tuberosity. Stable chronic calcifications/phleboliths in the pelvis. Stable small soft tissue calcification the right gluteal region. XR/XR hip RT min 2V IMPRESSION: Mild right hip arthritis.
== END 2024-03-14 11:28 | disposition home or self-care (01) ==
LOC: HO.XRAY 11:27
PROVIDERS: PCP Internal Medicine; Visit Provider Registered Nurse Emergency
DX: M25.551 Pain in right hip (principal)
CPT/HCPCS: 73502

== ENCOUNTER 2024-03-17 16:46 | Emergency (ER) | payer OTHER, SELFPAY ==
--- NOTE | ~2024-03-17 | XR_ITS ---
EXAMINATION: XR HIP, RIGHT CLINICAL INFORMATION: Right hip pain. No history of trauma. COMPARISON: Right hip March 14, 2024. CT abdomen and pelvis November 12, 2022 TECHNIQUE: Frontal view of pelvis Two views of the right hip. FINDINGS: No fracture. No dislocation. Hip joint space maintained. No significant arthropathy. Normal sacroiliac joints. No focal bone lesion. XR/XR hip RT w PEL1V IMPRESSION: Normal right hip.
[2024-03-17 16:51] VITALS: BP 142/88; PULSE 85; O2SAT 96
[2024-03-17 16:54] VITALS: BMI 28.3
[2024-03-17 16:56] VITALS: BP 122/62; PULSE 85; RESP 16; TEMP 37.1; O2SAT 96
--- NOTE | 2024-03-17 17:40 | ED.BACK ---
HPI - Back Pain/Injury General Chief Complaint: Back Pain/Injury Stated Complaint: SCIATICA X 1MONTH,HIP PAIN WHILE WALKING Time Seen by Provider: 03/17/24 17:20 Source: patient, EMS, RN notes reviewed and old records reviewed Mode of arrival: EMS Limitations: no limitations History of Present Illness ED Provider: JACKIE GANN PA-C HPI Narrative: 64-year-old female with pmhx significant for fibromyalgia, gout, HTN, GERD, depression, PTSD, cocaine use disorder, asthma, and sciatica presents to the ED via EMS from home for evaluation of atraumatic left hip pain x3 days. Denies injury or trauma. Reports pain with walking due to pain. Denies saddle anesthesia, numbness/tingling/weakness of the LEs, bowel or bladder incontinence or retention. Denies hx of IVDU. Denies hx of spinal surgeries. Additionally reports atraumatic left wrist pain, worse on waking up in the morning. Reports slight tingling to digits 3-5, worse with flexion of the wrist. Denies known hx of carpal tunnel. Not taking any OTC medications for this at home. Related Data Home Medications ?Medication ?Instructions ?Recorded ?Confirmed calcitriol 0.25 mcg capsule 1 cap PO DAILY 09/16/22 09/24/23 Previous Rx's ?Medication ?Instructions ?Recorded aripiprazole 2 mg tablet 2 mg PO BEDTIME mood 30 days #30 09/24/21 tabs clonazepam 0.5 mg tablet 0.5 mg PO DAILY PRN Anxiety 30 09/24/21 days #30 tabs clonidine HCl 0.1 mg tablet 0.1 mg PO BID PRN anxiety/insomnia 09/24/21 30 days #60 tabs quetiapine 50 mg tablet 50 mg PO BEDTIME PRN insomnia 30 09/24/21 days #30 tabs docusate sodium 100 mg capsule 100 mg PO DAILY PRN Constipation 08/19/22 30 days #30 caps escitalopram oxalate 20 mg tablet 20 mg PO QAM 30 days #30 tabs 08/19/22 naproxen 500 mg tablet 500 mg PO BID PRN pain 10 days #20 05/06/23 tabs colchicine 0.6 mg tablet 0.6 mg PO DAILY PRN gout #10 tabs 05/28/23 ropinirole 1 mg tablet 1 mg PO BEDTIME #30 tabs 06/11/23 loperamide 2 mg capsule 2 mg PO Q6H PRN loose stool 30 08/11/23 days #120 caps lisinopril 10 mg tablet 10 mg PO DAILY 90 days #90 tabs 09/10/23 omeprazole 40 mg capsule,delayed 40 mg PO QAM #90 caps 09/10/23 release lidocaine 5 % topical patch 1 patch topical DAILY #30 patches 12/10/23 atorvastatin 20 mg tablet 20 mg PO BEDTIME 90 days #90 tabs 12/11/23 disposable wipes #1 ea 01/12/24 albuterol sulfate 90 mcg/actuation 2 puff PO Q6H PRN Wheezing 30 days 02/09/24 aerosol inhaler (Ventolin HFA) #8.5 grams cholecalciferol (vitamin D3) 25 25 mcg PO DAILY 90 days #90 caps 02/09/24 mcg (1,000 unit) capsule furosemide 20 mg tablet 20 mg PO DAILY #90 tabs 02/09/24 diclofenac sodium 75 mg 75 mg PO BID #60 tabs 03/07/24 tablet,delayed release triamcinolone acetonide 0.1 % 1 appl topical DAILY 2 weeks #80 03/07/24 topical ointment grams acetaminophen 650 mg 650 mg PO Q12H PRN pain (scale 03/17/24 tablet,extended release (Tylenol score 1-3) #20 tabs Arthritis Pain) baclofen 5 mg tablet 5 mg PO QID #9 tabs 03/17/24 lidocaine 5 % topical patch 1 patch topical DAILY #15 ea 03/17/24 (Lidoderm) Allergies Allergy/AdvReac Type Severity Reaction Status Date / Time No Known Allergies Allergy Verified 03/17/24 16:55 [No Known Allergies*] Review of Systems Review of Systems: Constitutional: No fever, chills, fatigue, night sweats, weight changes ENT/Mouth: No ear pain, hearing loss, nasal congestion, sinus pain, rhinorrhea, sore throat Eyes: No eye pain, swelling, redness, vision changes, discharge Cardio: No chest pain, palpitations, TOBAR, orthopnea, peripheral edema Pulm: No SOB, cough, sputum, wheezing, dyspnea, hemoptysis GI: No nausea, vomiting, hematemesis, abdominal pain, diarrhea, constipation, hematochezia, melena : No irregular bleeding, dysuria, frequency, urgency, hesitancy, hematuria, flank pain, urinary flow changes, urinary incontinence or retention MSK: No back pain, neck pain, joint pain, myalgias, +right hip pain, +left wrist pain Skin: No lesions, rashes Neuro: No weakness, numbness, paresthesias, LOC, dizziness, headache Psych: No anxiety/panic, depression, SI/HI, AH/VH All other systems reviewed and are negative. [facility] Past Medical History Attestation statement: The following information was validated with the patient. Source: old records reviewed and nursing notes reviewed Medical History Calcification of patellar tendon determined by X-ray Degenerative joint disease of knee Gout Physical exam B12 deficiency PTSD (post-traumatic stress disorder) MDD (major depressive disorder), recurrent episode, severe Chronic diarrhea Cocaine use disorder, mild, in early remission Weight loss Cocaine use disorder, mild, abuse Constipation by delayed colonic transit Bilateral knee pain Lumbar spondylosis Left hip pain Dyslipidemia Osteoarthritis GERD (gastroesophageal reflux disease) Depression Fibromyalgia Easy bruisability Essential hypertension Asthma due to environmental allergies Bimalleolar fracture of left ankle Brain aneurysm Surgical History Hx of brain surgery H/O colonoscopy History of breast lump/mass excision History of surgery History of partial hysterectomy Status post open reduction with internal fixation (ORIF) of fracture of ankle Family History Family History Mother Diabetes Father No problems noted. Social History Social History Household Members: None Housing: Apartment Are you a primary home care chaplain to a significant other at home: No Do you presently have visiting nurse or other home services: No Alcohol intake: never Patient Tobacco Use Status: Current someday Tobacco user Tobacco use type: Cigarette Cigarette Packs Per Day: 0 Cigarettes Per Day: 4 Years Smoked: 20 Smoked in Last 30 Days: No e-Cigarette/Vaping Use: Never Used Second Hand Smoke Exposure: Yes Use of substances other than those prescribed or required for medical reasons: Yes Substance Use Type: Crack/Cocaine Substance Use Frequency: Occasionally Advance Directives: No Advance Directives Information Provided: No Do you have a plan to hurt others: No Plan Patient : No service: No Current occupational status: disabled Current occupation: Right Handed Sexual orientation: Did not discuss Cognitive needs: Yes Hearing needs: No Vision needs: Yes Physical Exam Vital Signs: Vital Signs: Last Vital Signs Temp 98.7 F 03/17/24 16:56 Pulse 85 03/17/24 16:56 Resp 16 03/17/24 16:56 BP 122/62 03/17/24 16:56 Pulse Ox 96 03/17/24 16:56 O2 Del Method Room Air 03/17/24 16:56 BMI result Body Mass Index 28.3 Vital signs stable Const: General: cooperative, healthy appearing, comfortable and no acute distress Orientation/consciousness: patient oriented x3 HEENT: Head: Yes normal to inspection, Yes No palpable skull fracture present, Yes normocephalic and Yes atraumatic Eyes: General: appearance normal, both eyes and all related structures Pupils: Equal, round and reactive pupils present Resp: Effort & Inspection: normal respiratory effort and able to speak in complete sentences Auscultation: clear to auscultation bilaterally Cardio: Rate: regular rate Rhythm: regular rhythm GI: Inspection: Yes normal to inspection Palpation (GI): Soft to palpation and not firm : General: Yes no CVA tenderness Back/Spine/Pelvis: Other: No midline spinous tenderness or step-off deformity. No paraspinal muscle tenderness to palpation Back: no CVA tenderness Skin: General skin exam: no rashes or lesions noted Neuro: Other: Strength 5/5 intact throughout.? No saddle anesthesia.? Sensation intact to light touch.? Neurovascular intact distally.? General: patient oriented x3 and tone normal Cranial nerves: Yes Equal, round and reactive pupils present Motor exam (neuro): 5/5 motor strength present throughout Pupils: Normal pupillary reactivity/response: bilateral Extrem: Other: + FROM intact to right hip with minimal pain on extension. no overlying skin changes or deformity. FROM intact to right knee. 2+ PT/DP and popliteal pulse intact. + no overlying skin changes or bony deformity noted to left wrist. positive Tinel and Phalen sign to left wrist. FROM intac to left wrist with pain elicited with flexion. [employer]ter strength is slightly decreased to left hand. Finger to thumb opposition intact. Course Course Course Narrative: 1842-- X-ray pelvis and right hip does not demonstrate acute fracture. Patient reports improvement in pain with baclofen and lidocaine patch. Will send these to pharmacy. I educated patient on importance of following up with PCP for possible physical therapy as pain medication only masks her symptoms. She verbalizes understanding. Ambulating with steady gait to the bathroom. I feel comfortable with patient being discharged home at this time. She is agreeable to this. Patient has remained stable throughout ED visit today. Discussed worrisome signs and symptoms and when to return to the ED. All questions answered at this time. Patient is agreeable with disposition and stable for discharge. Medications Administered Discontinued Medications Generic Name Dose Route Start Last Admin Trade Name Freq PRN Reason Stop Dose Admin Baclofen 10 mg 03/17/24 17:25 03/17/24 17:53 Baclofen 10 Mg Tablet PO 03/17/24 17:26 10 mg ONCE ONE Administration Lidocaine 1 patch 03/17/24 17:25 03/17/24 17:53 Lidocaine 4 % Patch Adh..Patch TRANSDERMA 03/17/24 17:26 1 patch ONCE ONE Administration Protocol Medical Decision Making Medical Decision Making MDM Narrative: 64-year-old female with pmhx significant for fibromyalgia, gout, HTN, GERD, depression, PTSD, cocaine use disorder, asthma, and sciatica presents to the ED via EMS from home for evaluation of atraumatic left hip pain x3 days. Vital signs stable. Patient is nontoxic-appearing and in no acute distress. On exam, FROM intact to right hip with minimal pain on extension. no overlying skin changes or deformity. FROM intact to right knee. 2+ PT/DP and popliteal pulse intact. No overlying skin changes or bony deformity noted to left wrist. positive Tinel and Phalen sign to left wrist. FROM intac to left wrist with pain elicited with flexion. [employer] Setter strength is slightly decreased to left hand. Finger to thumb opposition intact. Differential diagnosis includes sciatica, MSK sprain/strain, contusion, fracture, dislocation, carpal tunnel syndrome, arthritis. Unlikely cauda equina, epidural abscess, cord compression, threat to limb, neurovascular compromise. Plan for xrays, pain control, and re-evaluation. Differential Diagnosis Differential Diagnoses: The differential diagnosis associated with the presentation includes as above. Admission/Observation Not indicated. Independent Interpretation I performed an independent interpretation of an: Plain X-Ray Interpretation: XR right hip without fracture, agree with radiologist's interpretation Radiology Impression Discussion of test interpretation with radiology: I have reviewed the radiologist's reading. Radiologist Impression: EXAMINATION: XR HIP, RIGHT CLINICAL INFORMATION: Right hip pain. No history of trauma. COMPARISON: Right hip March 14, 2024. CT abdomen and pelvis November 12, 2022 TECHNIQUE: Frontal view of pelvis Two views of the right hip. FINDINGS: No fracture. No dislocation. Hip joint space maintained. No significant arthropathy. Normal sacroiliac joints. No focal bone lesion. XR/XR hip RT w PEL1V IMPRESSION: Normal right hip. External Record Review External record reviewed: Inpatient record, Office record, Outpatient record, Prior outpatient labs, Prior outpatient radiology, Primary care record and Outside ED record Prescription Management I considered prescription management with: Other (Tylenol, baclofen, lidocaine patch) Chronic Conditions Patient?s care impacted by: Other (chronic pain, arthritis) Social Determinants Patient?s care significantly limited by Social Determinants of Health including: Other Social Determinant of Health Procedures Orthopedic Splinting/Casting Injury #1: Side: left Upper Extremity Injury Location: wrist Upper Extremity Immobilizer: wrist splint Critical Care Time Critical Care Time Critical Care Time: No Discharge Plan Discharge Clinical Impression: Acute carpal tunnel syndrome of left wrist, Chronic pain of right hip Patient Disposition: Home, Self-Care Instructions: Pain Management in Older Adults (DC), Hip Pain (ED) Additional Instructions: The xray of your pelvis/ hip is normal. Baclofen has been sent to your pharmacy for you to take as needed for muscle pain. Do not take this with diclofenac. Lidocaine patches have been sent to your pharmacy. You may apply these to painful areas. Follow-up with your primary care provider. As discussed, you likely have carpal tunnel of the left wrist. Keep wrist splint applied to help with pain/ discomfort. Wear this while you sleep at night to prevent your wrist bending in painful positions. Take tylenol and motrin at home for pain/ discomfort. Follow up with ortho. You have been provided a referral. You may call them to establish care. They will not call you. Return with new or worsening symptoms. In the case of an emergency call 911. Prescriptions: New baclofen 5 mg tablet 5 mg PO QID Qty: 9 0RF lidocaine [Lidoderm] 5 % adhesive patch,medicated 1 patch topical DAILY Qty: 15 0RF Rx Instructions: leave on most painful area for up to 12 hrs acetaminophen [Tylenol Arthritis Pain] 650 mg tablet extended release 650 mg PO Q12H PRN (Reason: pain (scale score 1-3)) Qty: 20 0RF No Action ropinirole 1 mg tablet 1 mg PO BEDTIME Qty: 30 11RF loperamide 2 mg capsule 2 mg PO Q6H PRN (Reason: loose stool) 30 Days Qty: 120 1RF lisinopril 10 mg tablet 10 mg PO DAILY 90 Days Qty: 90 3RF omeprazole 40 mg capsule,delayed release(DR/EC) 40 mg PO QAM Qty: 90 3RF lidocaine 5 % adhesive patch,medicated 1 patch topical DAILY Qty: 30 3RF atorvastatin 20 mg tablet 20 mg PO BEDTIME 90 Days Qty: 90 3RF (DME) disposable wipes See Rx Instructions .Route .MEDSUPPLY Qty: 1 6RF Rx Instructions: As directed cholecalciferol (vitamin D3) 25 mcg (1,000 unit) capsule 25 mcg PO DAILY 90 Days Qty: 90 1RF albuterol sulfate [Ventolin HFA] 90 mcg/actuation HFA aerosol inhaler 2 puff PO Q6H PRN (Reason: Wheezing) 30 Days Qty: 8.5 1RF furosemide 20 mg tablet 20 mg PO DAILY Qty: 90 1RF diclofenac sodium 75 mg tablet,delayed release (DR/EC) 75 mg PO BID Qty: 60 2RF triamcinolone acetonide 0.1 % ointment 1 appl topical DAILY 14 Days Qty: 80 2RF calcitriol 0.25 mcg capsule 1 cap PO DAILY clonidine HCl 0.1 mg Tablet 0.1 mg PO BID PRN (Reason: anxiety/insomnia) 30 Days Qty: 60 0RF Protocol: Hold for SBP< HOLD for SBP < : 90 quetiapine 50 mg Tablet 50 mg PO BEDTIME PRN (Reason: insomnia) 30 Days Qty: 30 0RF clonazepam 0.5 mg tablet 0.5 mg PO DAILY PRN (Reason: Anxiety) 30 Days Qty: 30 0RF aripiprazole 2 mg tablet 2 mg PO BEDTIME 30 Days Qty: 30 0RF naproxen 500 mg tablet 500 mg PO BID PRN (Reason: pain) 10 Days Qty: 20 0RF colchicine 0.6 mg tablet 0.6 mg PO DAILY PRN (Reason: gout) Qty: 10 0RF Rx Instructions: Take 1.2 mg by mouth once at the first onset of gout flare, then 0.6mg by mouth 1 hour later x1 Then 0.6mg bid x 2 days until flare resolves. docusate sodium 100 mg capsule 100 mg PO DAILY PRN (Reason: Constipation) 30 Days Qty: 30 0RF escitalopram oxalate 20 mg tablet 20 mg PO QAM 30 Days Qty: 30 0RF Referrals: [facility] [place] [facility] [Provider Group] Trang Moya MD [Primary Care Provider] - Print Language: [place]ian
[2024-03-17] MEDS: Lidocaine 4 % Patch ADH..PATCH 1 PATCH TRANSDERMA (17:53)
[2024-03-17] MEDS: Baclofen 10 MG TABLET PO (17:53)
--- NOTE | 2024-03-17 17:55 | PC.NURSE ---
pt medicated per order
[2024-03-17 18:46] VITALS: BP 155/71; PULSE 76; RESP 18; TEMP 36.6; O2SAT 99
[2024-03-17 18:52] VITALS: BP 155/71; PULSE 76; RESP 18; TEMP 36.6; O2SAT 99
== END 2024-03-17 18:53 | disposition home or self-care (01) ==
PROVIDERS: Emergency Provider Emergency Medicine; PCP Internal Medicine
DX: G89.29 Other chronic pain (principal); M25.552 Pain in left hip; G56.02 Carpal tunnel syndrome, left upper limb
CPT/HCPCS: 73502; 99283; 99284

== ENCOUNTER 2024-04-04 12:03 | Outpatient (AMB) | payer OTHER, SELFPAY ==
[2024-04-04 12:46] VITALS: BP 130/90; PULSE 80; O2SAT 99; BMI 28.4
--- NOTE | 2024-04-04 12:46 | MHC.PC.OV ---
Vital Signs 04/04/24 12:46 Height 5 ft 2 in Weight 155 lb 0.6 oz BMI 28.4 BP 130/90 H Blood Pressure Location Lt brachial Position Sitting Pulse 80 Pulse Source Pulse Oximeter Pulse Oximetry (%) 99 Oxygen Delivery Method Room Air Intake Visit Reasons: Annual Exam Intake Note: Patient is here today for a physical. Aerobics Teacher Required: No Accompanied by: Self / Same As Patient Allergies No Known Allergies [No Known Allergies*] Allergy (Verified 04/04/24 13:16) Medication List - Last Reconciled 04/04/24 by Trang Fishman MD acetaminophen ER (Tylenol Arthritis Pain) 650 mg PO Q12H PRN albuterol sulfate 90 mcg/actuation (Ventolin HFA) 2 puffs PO Q6H PRN 30 days aripiprazole 2 mg PO BEDTIME 30 days atorvastatin 20 mg PO BEDTIME 90 days baclofen 5 mg PO QID calcitriol 1 cap PO DAILY cholecalciferol (vitamin D3) 25 mcg PO DAILY 90 days clonazepam 0.5 mg PO DAILY PRN 30 days clonidine HCl 0.1 mg See Protocol PO BID PRN 30 days colchicine 0.6 mg PO DAILY PRN diclofenac sodium 75 mg PO BID [disposable wipes As directed] docusate sodium 100 mg PO DAILY PRN 30 days escitalopram oxalate 20 mg PO QAM 30 days furosemide 20 mg PO DAILY lidocaine 5% (Lidoderm) 1 patch topical DAILY lidocaine 5% 1 patch topical DAILY lisinopril 10 mg PO DAILY 90 days loperamide 2 mg PO Q6H PRN 30 days naproxen 500 mg PO BID PRN 10 days omeprazole 40 mg PO QAM quetiapine 50 mg PO BEDTIME PRN 30 days ropinirole 1 mg PO BEDTIME triamcinolone acetonide 0.1% 1 appl topical DAILY 2 weeks Tobacco use date assessed: 04/04/24 Dental Screening Dental Screen Date: 04/04/24 HPI HPI Comments History of Present Illness Details This is a 64-year-old female with moderate recurrent major depression and cocaine abuse that comes for her physical exam. Mammogram done 2022 was normal. Colonoscopy done 2018 that needs to be repeated but she declines. She had partial hysterectomy therefore no need for Pap smear. She complains of a red lump that is tender in the right knee most likely an abscess. I will give her antibiotics and send her to surgery. She also has a mass on the right thigh medially and an ultrasound will be done for this matter. Depression is follow by Psychiatry. She still use cocaine and was advised to quit. [facility] Medical History (Updated 04/04/24 @ 20:01 by Trang Fishman MD) Painful orthopaedic hardware Calcification of patellar tendon determined by X-ray Degenerative joint disease of knee Gout Physical exam B12 deficiency PTSD (post-traumatic stress disorder) MDD (major depressive disorder), recurrent episode, severe Chronic diarrhea Cocaine use disorder, mild, in early remission Weight loss Cocaine use disorder, mild, abuse Constipation by delayed colonic transit Bilateral knee pain Lumbar spondylosis Left hip pain Dyslipidemia Osteoarthritis GERD (gastroesophageal reflux disease) Depression Fibromyalgia Easy bruisability Essential hypertension Asthma due to environmental allergies Bimalleolar fracture of left ankle Brain aneurysm Surgical History Hx of brain surgery H/O colonoscopy History of breast lump/mass excision History of surgery History of partial hysterectomy Status post open reduction with internal fixation (ORIF) of fracture of ankle Family History Mother Diabetes Father No problems noted. Social History (Updated 04/04/24 @ 20:05 by Trang Fishman MD) Household Members: None Housing: Apartment Are you a primary healthcare network consultant to a significant other at home: No Do you presently have visiting nurse or other home services: No Alcohol intake: current Alcohol intake frequency: a few times a month Patient Tobacco Use Status: Current someday Tobacco user Tobacco use type: Cigarette Cigarette Packs Per Day: 0 Cigarettes Per Day: 4 Years Smoked: 20 e-Cigarette/Vaping Use: Never Used Second Hand Smoke Exposure: Yes Substance Use Type: Crack/Cocaine service: No Current occupational status: disabled Current occupation: Right Handed Sexual orientation: Did not discuss Cognitive needs: Yes Hearing needs: No Vision needs: Yes Questionnaire PHQ-9 Over the last 2 weeks, how often have you been bothered by any of the following problems? 1. Little interest or pleasure in doing things: more than half the days 2. Feeling down, depressed, or hopeless: more than half the days 3. Trouble falling or staying asleep, or sleeping too much: nearly every day 4. Feeling tired or having little energy: more than half the days 5. Poor appetite or overeating: more than half the days 6. Feeling bad about yourself - or that you are a failure or have let yourself or your family down: several days 7. Trouble concentrating on things, such as reading the newspaper or watching television: several days 8. Moving or speaking so slowly that other people could have noticed. Or the opposite - being so fidgety or restless that you have been moving around a lot more than usual: several days 9. Thoughts that you would be better off or of hurting yourself in some way: not at all Total score: 14 Depression Screening Interpretation: Positive Depression Screening Follow-up: Existing condition, In treatment, Community Mental Health Worker F/U and Follow-up Visit Requested Depression Screening Done: Yes 49980 - PHQ-9 Billing: Yes Source: Developed by Drs. Sunil Amador, Anahi Mcguire, Bry Tyler and colleagues, with an educational tamie from [employer]. Thrive Questionnaire Date Thrive assessed: 04/04/24 AUDIT C Alcohol Use Questionnaire (AUDIT-C) 1. How often do you have a drink containing alcohol?: Monthly or less 2. How many drinks containing alcohol do you have on a typical day when you are drinking?: 1 or 2 3. How often do you have six or more drinks on one occasion?: Never Total Score: 1 Score Reviewed/Action Taken: No MICHELLE-7 AMB Questionnaire MICHELLE-7 Date MICHELLE - 7 assessed: 04/04/24 (due to pain ) Feeling nervous, anxious, or on edge: 1 = Several days Not being able to stop or control worryin = Several days Worrying too much about different things: 1 = Several days Trouble relaxin = Several days Being so restless that it is hard to sit still: 1 = Several days Becoming easily annoyed or irritable: 1 = Several days Feeling afraid as if something awful might happen: 1 = Several days Total MICHELLE-7 score (0-4 normal; 5-9 mild; 10-14 moderate; 15-21 severe): 7 Source: Developed by Drs. Sunil Amador, Anahi Mcguire, Bry Tyler and colleagues, with an educational tamie from [employer]. MICHELLE-7 Assessment Billing MICHELLE-7 Assessment Tool: MICHELLE-7 Assessment 09414 Review of Systems Const All systems reviewed & are unremarkable except as noted in HPI and below Card Denies chest pain at rest, Denies chest pain with activity, Denies edema, Denies irregular heart rhythm, Denies claudication, Denies dyspnea, Denies dyspnea on exertion, Denies orthopnea, Denies paroxysmal nocturnal dyspnea and Denies slow heart rate Resp Denies cough, Denies dyspnea and Denies dyspnea on exertion GI Denies abdominal pain, Denies change in bowel habits, Denies excessive flatus, Denies nausea and Denies vomiting Physical exam (Primary Care) Vital Signs: Last Vital Signs Pulse 80 04/04/24 12:46 BP 130/90 H 04/04/24 12:46 Pulse Ox 99 04/04/24 12:46 Oxygen Delivery Method Room Air 04/04/24 12:46 BMI result Body Mass Index 28.4 Tobacco/Smoking Status: Tobacco use Status Tobacco use date assessed 04/04/24 04/04/24 12:47 Patient Tobacco Use Status Current someday Tobacco 04/04/24 12:47 Tobacco use type Cigarette 04/04/24 12:47 e-Cigarette/Vaping Use Never Used 04/04/24 12:47 PHQ-9: PHQ-9 Score PHQ-9: Total score 14 04/04/24 13:23 Depression Screening Interpretation: Positive Depression Screening Follow-up: Existing condition, In treatment, Community Mental Health Worker F/U and Follow-up Visit Requested Thrive Assessment: Date of Thrive Assessment Date Thrive assessed 04/04/24 04/04/24 12:47 HENFL Head: Yes normal to inspection, Yes normocephalic and Yes atraumatic Ears: external ears normal Eyes General: appearance normal, both eyes and all related structures Eyelids: Yes eyelids normal Conjunctivae: conjunctivae normal Neck Neck: Yes normal visual inspection and Yes supple Resp Effort & Inspection: normal respiratory effort Auscultation: clear to auscultation bilaterally Cardio Jugular venous distension: no JVD Rate: regular rate Rhythm: regular rhythm Heart sounds: S1 normal heart sound present and S2 normal heart sound present GI Inspection: Yes normal to inspection Palpation (GI): Soft to palpation and nontender Auscultation: normal bowel sounds Skin General skin exam: no rashes or lesions noted Neuro General: no focal motor deficits Extrem Other: Medial lump in right thigh and abscess right knee General: Yes full ROM Psych Appearance: grossly normal Assessment and Plan Assessment & Plan (1) Physical exam: Code(s): Z00.00 - Encounter for general adult medical examination without abnormal findings Plan: Repeat in a year. (2) Cocaine use disorder, mild, abuse: Comment: admits to using 09/09/22 Code(s): F14.10 - Cocaine abuse, uncomplicated Plan: Advised to quit. (3) Mass of right thigh: Code(s): R22.41 - Localized swelling, mass and lump, right lower limb Plan: Ultrasound ordered (4) Abscess: Code(s): L02.91 - Cutaneous abscess, unspecified Plan: Start Bactrim. Referred to General surgery. (5) Moderate recurrent major depression: Code(s): F33.1 - Major depressive disorder, recurrent, moderate Plan: Follow-up with psychiatry. Orders: Orders US extremity nonvascular Today R22.41 - Localized swelling, mass and lump, right lower limb CT hip RT wo IV con Today M25.551 - Pain in right hip Referrals General Surgery Referral L02.91 - Cutaneous abscess, unspecified Medications: New sulfamethoxazole-trimethoprim 800-160 mg (Bactrim DS) 1 tab PO BID 10 days 20 tabs 0RF Changed From baclofen 5 mg PO QID 9 tabs 0RF To baclofen 5 mg PO QID 30 days 120 tabs 0RF From acetaminophen ER (Tylenol Arthritis Pain) 650 mg PO Q12H PRN 20 tabs 0RF pain (scale score 1-3) To acetaminophen ER (Tylenol Arthritis Pain) 650 mg PO Q8H 30 days PRN 90 tabs 4RF pain (scale score 1-3) Coding Level of Care Code Est Pt Level 3 (69622) Est Pt Prev Care 40-64y(60226) Diagnoses Physical exam Z00.00 Cocaine use disorder, mild, abuse F14.10 Mass of right thigh R22.41 Abscess L02.91 Moderate recurrent major depression F33.1 Additional Codes MICHELLE-7 Assessment Billing - MICHELLE-7 Assessment Tool: MICHELLE-7 Assessment 66651 ([id number]) Time Spent (min) 33
== END 2024-04-04 13:32 | disposition home or self-care (01) ==
PROVIDERS: PCP Internal Medicine; Visit Provider Internal Medicine
DX: Z00.00 Encounter for general adult medical examination without abnormal findings (principal); F14.10 Cocaine abuse, uncomplicated; F33.1 Major depressive disorder, recurrent, moderate; R22.41 Localized swelling, mass and lump, right lower limb; L02.91 Cutaneous abscess, unspecified
CPT/HCPCS: 99213; 99396

== ENCOUNTER 2024-04-11 11:26 | Outpatient (REF) | payer OTHER, SELFPAY ==
--- NOTE | ~2024-04-11 | CT_ITS ---
EXAMINATION: CT HIP WITHOUT CONTRAST, RIGHT CLINICAL INFORMATION: Right hip pain. COMPARISON: Right hip radiographs dated 03/17/2024. TECHNIQUE: Multidetector volumetric imaging was obtained through the right hip without contrast material. Multiplanar reformatted images were submitted in coronal and sagittal planes. This CT examination was performed using dose optimization techniques as appropriate, variously including the following: *Automated exposure control *Adjustment of mA and/or kV according to patient size (this includes techniques or standardized protocols for targeted exams where dose is matched to indication/reason for exam; i.e. extremities or head) *Use of iterative reconstruction technique DLP: 315 mGy-cm FINDINGS: No acute fracture or dislocation. Mild right hip joint space narrowing with small marginal osteophytes. Enthesopathic spurring at the greater trochanter with a lateral corticated ossification measuring up to 1.9 cm in AP dimension. Findings could represent an unfused osteophyte versus chronic calcific tendinitis. No concerning lytic or blastic osseous lesion. No evidence of avascular necrosis. Attenuation of the distal gluteus medius and gluteus minimus tendons which could represent a combination of tendinosis and chronic partial tearing. Evaluation significantly limited on CT examination. No abnormal soft tissue mass or fluid collection. Phleboliths within the pelvis. Otherwise, the visualized intrapelvic structures are grossly unremarkable. CT/CT hip RT wo IV con IMPRESSION: 1. No acute fracture or dislocation. 2. Mild right hip osteoarthritis. 3. Enthesopathic spurring at the greater trochanter with a lateral corticated ossification measuring up to 1.9 cm in AP dimension. Findings could represent an unfused osteophyte versus chronic calcific tendinitis. 4. Attenuation of the distal gluteus medius and gluteus minimus tendons which could represent a combination of tendinosis and chronic partial tearing. Evaluation significantly limited on CT examination.
--- NOTE | ~2024-04-11 | US_ITS ---
EXAMINATION: US EXTREMITY, NONVASCULAR CLINICAL INFORMATION: Right lower limb lump. COMPARISON: None available. TECHNIQUE: Patient directed the supervisor type disk quality control to the area of concern. Targeted ultrasound was performed. FINDINGS: There is no visible sonographic abnormality in the area of palpable concern. US/US extremity nonvascular IMPRESSION: No visible sonographic abnormality in the area of palpable concern. Consider MRI without and with intravenous contrast for further evaluation.
== END 2024-04-11 11:27 | disposition home or self-care (01) ==
LOC: HO.CT 11:26
PROVIDERS: PCP Internal Medicine; Visit Provider Internal Medicine
DX: M25.551 Pain in right hip (principal); R22.41 Localized swelling, mass and lump, right lower limb
CPT/HCPCS: 73700; 76882

== ENCOUNTER 2024-04-19 11:33 | Outpatient (AMB) | payer OTHER, SELFPAY ==
--- NOTE | 2024-04-19 11:34 | MHC.OFFVIS ---
Intake Visit Reasons: Mass~ Rt med thigh Intake Note: Patient referred by pcp Dr. Arcadio Fishman for mass on Rt medial thigh. Abscess treated w/bactrim. Patient c/o: denies pain. Computer Aided Design Designer Required: Yes Computer Aided Design Designer Name: Jackeline MILLARD Accompanied by: Self / Same As Patient Allergies No Known Allergies [No Known Allergies*] Allergy (Verified 04/19/24 11:40) HPI Comments Details: Patient has right groin pain for several weeks time. Because of progression of symptoms, she presents here for further evaluation. Patient otherwise tolerating her diet. Having regular bowel habits. Pain is a very specific point in the infra inguinal area. Chart was reviewed and patient evaluated. Patient has a plethora of comorbidities PFSH Medical History Painful orthopaedic hardware Calcification of patellar tendon determined by X-ray Degenerative joint disease of knee Gout Physical exam B12 deficiency PTSD (post-traumatic stress disorder) MDD (major depressive disorder), recurrent episode, severe Chronic diarrhea Cocaine use disorder, mild, in early remission Weight loss Cocaine use disorder, mild, abuse Constipation by delayed colonic transit Bilateral knee pain Lumbar spondylosis Left hip pain Dyslipidemia Osteoarthritis GERD (gastroesophageal reflux disease) Depression Fibromyalgia Easy bruisability Essential hypertension Asthma due to environmental allergies Bimalleolar fracture of left ankle Brain aneurysm Surgical History Hx of brain surgery H/O colonoscopy History of breast lump/mass excision History of surgery History of partial hysterectomy Status post open reduction with internal fixation (ORIF) of fracture of ankle Family History Mother Diabetes Father No problems noted. Social History Household Members: None Housing: Apartment Are you a primary child care associate teacher to a significant other at home: No Do you presently have visiting nurse or other home services: No Alcohol intake: current Alcohol intake frequency: a few times a month Patient Tobacco Use Status: Current someday Tobacco user Tobacco use type: Cigarette Cigarette Packs Per Day: 0 Cigarettes Per Day: 4 Years Smoked: 20 e-Cigarette/Vaping Use: Never Used Second Hand Smoke Exposure: Yes Substance Use Type: Crack/Cocaine service: No Current occupational status: disabled Current occupation: Right Handed Sexual orientation: Did not discuss Cognitive needs: Yes Hearing needs: No Vision needs: Yes Physical Exam Chest Other: Chest breath sounds bilaterally, HS 1 in 2 GI Other: Patient was examined both supine and standing with Valsalva. Lower midline scar. No obvious incisional hernia. Abdomen corpulent, soft, benign Left groin negative. Right groin inguinal area negative. Patient has tenderness over the right femoral area in the region of a femoral hernia. Although the patient is corpulent, a small right femoral hernia was palpable. Quality Reporting (2019) Adult ([facility] 13811/19/68) Smoking risk assessment performed?: Yes Patient Tobacco Use Status: Current someday Tobacco user Assessment & Plan Assessment & Plan (1) Femoral hernia of right side: Code(s): K41.90 - Unilateral femoral hernia, without obstruction or gangrene, not specified as recurrent Category: Surgical Plan Findings were reviewed with the patient. Options include observation or surgical repair. Patient has operative for the latter. Risks, benefits, and alternatives of right femoral hernia repair with mesh were reviewed the patient and included but not limited to bleeding, infection, recurrence, numbness, pain, scarring and the patient wishes to proceed. All questions answered. Arrangements were made for this. Coding Level of Care Code New Pt Level 5 (59529) Diagnoses Femoral hernia of right side K41.90
== END 2024-04-19 11:49 | disposition home or self-care (01) ==
PROVIDERS: PCP Internal Medicine; Referring Provider Internal Medicine; Visit Provider Surgery
DX: K41.90 Unilateral femoral hernia, without obstruction or gangrene, not specified as recurrent (principal)
CPT/HCPCS: 99205

== ENCOUNTER → 2024-04-19 11:33 | Outpatient (BNVA) | payer OTHER, SELFPAY | PROVIDERS: PCP Internal Medicine; Referring Provider Internal Medicine; Visit Provider Surgery | DX: K41.90 Unilateral femoral hernia, without obstruction or gangrene, not specified as recurrent (principal) | CPT/HCPCS: 99202 ==

== ENCOUNTER 2024-04-26 12:17 | Outpatient (AMB) | payer OTHER, SELFPAY ==
[2024-04-26 12:33] VITALS: BMI 28.3
--- NOTE | 2024-04-26 12:33 | A.OFFVIS_ITS ---
Vital Signs 04/26/24 12:33 Height 5 ft 2 in Weight 155 lb BMI 28.3 Intake Visit Reasons: New Prob - Left hand Pain - ? CTS Intake Note: Rigo is a 64 yo right hand dominant female who presents today for bilateral hand pain that began 1-2 years ago although scheduled for just the left hand. Patient reports numbness and tingling. Denies locking on fingers. Patient reports her pains have worsened since the time she was referred. No EMG done. Allergies No Known Allergies [No Known Allergies*] Allergy (Verified 04/26/24 12:35) HPI HPI New Prob - Left hand Pain - ? CTS: Details: Rigo is a 64 year old right dominant woman presents with complaints of left wrist pain She complains primarily of pain in her left radial & volar wrist, with no ulnar sided wrist pain. She has pain when gripping objects or with pinching activities, saying she cannot open a can or a jar, and she has difficulty pulling her pants up. She says she wakes up at night due to her pain, and she is unsure if she has any numbness in her hands when this occurs. She denies any numbness or tingling in her fingers, but when seen in the ED on 03/17/24 she was told she had acute carpal tunnel syndrome. She denies any prior treatment options, but has been wearing a wrist brace given to her by the ED. She also complains of severe right knee pain which limits her ambulation and daily activities. She was tearful today in clinic and says she feels sad & depressed, and like her body is falling apart. She has a Hx of Fibromyalgia, Gout, major depression, PTSD, cocaine use, and is a daily cigarette smoker. She is scheduled for a Hernia repair surgery on 05/05/24 . She follows with Pain Management for lumbar pain, and is seen at an outside arthritis center for knee OA & Gout. [facility] Medical History (Updated 04/26/24 @ 13:23 by Blair Fine) Painful orthopaedic hardware Calcification of patellar tendon determined by X-ray Degenerative joint disease of knee Gout Physical exam B12 deficiency PTSD (post-traumatic stress disorder) MDD (major depressive disorder), recurrent episode, severe Chronic diarrhea Cocaine use disorder, mild, in early remission Weight loss Cocaine use disorder, mild, abuse Constipation by delayed colonic transit Bilateral knee pain Lumbar spondylosis Left hip pain Dyslipidemia Osteoarthritis GERD (gastroesophageal reflux disease) Depression Fibromyalgia Easy bruisability Essential hypertension Asthma due to environmental allergies Bimalleolar fracture of left ankle Brain aneurysm Surgical History (Updated 04/19/24 @ 11:53 by Saurabh Quick MD) Hx of brain surgery H/O colonoscopy History of breast lump/mass excision History of surgery History of partial hysterectomy Status post open reduction with internal fixation (ORIF) of fracture of ankle Family History Mother Diabetes Father No problems noted. Social History Household Members: None Housing: Apartment Are you a primary critical care nurse specialist to a significant other at home: No Do you presently have visiting nurse or other home services: No Alcohol intake: current Alcohol intake frequency: a few times a month Patient Tobacco Use Status: Current someday Tobacco user Tobacco use type: Cigarette Cigarette Packs Per Day: 0 Cigarettes Per Day: 4 Years Smoked: 20 e-Cigarette/Vaping Use: Never Used Second Hand Smoke Exposure: Yes Substance Use Type: Crack/Cocaine service: No Current occupational status: disabled Current occupation: Right Handed Sexual orientation: Did not discuss Cognitive needs: Yes Hearing needs: No Vision needs: Yes Review of Systems Const All systems reviewed & are unremarkable except as noted in HPI and below Physical Exam Vital Signs: BMI result Body Mass Index 28.3 Const General: cooperative, healthy appearing and no acute distress Orientation/consciousness: patient oriented x3 HEENT Head: Yes normocephalic and Yes atraumatic Eyes EOM: EOMs intact bilaterally Resp Effort & Inspection: normal respiratory effort and able to speak in complete sentences Cardio Jugular venous distension: no JVD Skin General skin exam: turgor normal Rashes: no rashes Neuro General: patient oriented x3 Extrem Other: Evaluation of Bilateral Upper Extremity: The patient is alert and oriented. She became tearful today in clinic when discussing her symptoms. Neuro: Median, Ulnar, Radial nerves motor and sensory intact and sensation is normal to the tips of all digits No thenar or intrinsic wasting Good APB muscle belly firing and good finger cross Vascular: Cap refill brisk ROM: She can make a fist and extend all her digits No locking or catching Tender over the LEFT 1ST DORSAL COMPARTMENT She is also tender over the distal aspect of the FCR tendon, to where it passes over the scaphoid tubercle Negative Nazario test on the right Positive Nazario test on the left Radiographs: 3 views of the left wrist from 02/05/2021 show minimal arthritic changes in the basal joint of the left thumb as well as an accessory ossicle in the area of the ulnar styloid. Psych Appearance: grossly normal Affect: normal affect Attitude: cooperative Office Procedures Fracture Care Details: No fracture, injection Fracture Billing Code: Fracture Billing Code Quality Reporting (2019) Adult ([facility] 138/11/19/68) Smoking risk assessment performed?: Yes Patient Tobacco Use Status: Current someday Tobacco user Assessment & Plan Assessment & Plan (1) De Quervain's tenosynovitis, left: Code(s): M65.4 - Radial styloid tenosynovitis [de Quervain] Category: Medical (2) Bilateral hand pain: Code(s): M79.641 - Pain in right hand; M79.642 - Pain in left hand Category: Medical (3) Fibromyalgia: Code(s): M79.7 - Fibromyalgia Category: Medical Plan Assessment & Plan: 1. Left De Quervains tenosynovitis Positive Nazario test She may also have some FCR tendinitis I educated her about this condition I discussed operative and non-operative treatment options The patient would like to proceed with an injection I discussed activity modification, they should limit or avoid any heavy or repetitive pinching or gripping activities She was fitted for a comfort cool brace to wear with daily activity She is happy with the current plan. Injection #1: The risks and benefits of a steroid injection including but not limited to risk of damage to blood vessels, nerves, tendons, infection, skin bleaching, failure to improve symptoms, increased pain, and possible need for further injections or other intervention were discussed with the patient and the patient wishes to proceed with the steroid injection. Once consent was obtained, I sterilely prepped the area over the 1st dorsal compartment of the left thumb. I then injected the 1st dorsal compartment with a combination of 1 mL of dexamethasone (4mg/ml), and 1% lidocaine. The patient tolerated the procedure well with no complications and good improvement of their symptoms prior to leaving clinic. 2. Bilateral night-time hand pain, L>R Patient denies any numbness today in clinic, but according to an ED note from 03/17/24 she had symptoms of acute carpal tunnel syndrome. She says she does wake up every night with pain, but is unsure whether or not she has numbness. I have a low suspicion for carpal tunnel syndrome as she does not believe she has trouble with numbness and tingling, however she is waking up with nighttime symptoms particularly on the left side and is now not sure whether she has numbness at night. I ordered a bilateral NCS to assess for peripheral nerve compression She will follow up when completed for review We are going to see her back in 6-8 weeks to see how she is doing. We are also going to have her schedule an appointment with orthopedics for her right knee pain and history of gout. Scribed for Lennie Dove MD by Blair Fine, outside medical sales representative, on 04/26/24 at 12:45 PM, EST. Orders: Orders NE nerve conduction velocity Today R20.0 - Anesthesia of skin, R20.2 - Paresthesia of skin Coding Level of Care Code Est Pt Level 4 (98417) Diagnoses De Quervain's tenosynovitis, left M65.4 Bilateral hand pain M79.641; M79.642 Fibromyalgia M79.7 CPT Codes Fracture Care - Fracture Billing Code: Fracture Billing Code ([id number])
== END 2024-04-26 13:28 | disposition home or self-care (01) ==
PROVIDERS: PCP Internal Medicine; Visit Provider Orthopaedic Surgery
DX: M65.4 Radial styloid tenosynovitis [de Quervain] (principal); M79.641 Pain in right hand; M79.642 Pain in left hand; M79.7 Fibromyalgia
CPT/HCPCS: 20550; 99214

== ENCOUNTER → 2024-04-26 12:17 | Outpatient (BNVA) | payer OTHER, SELFPAY | PROVIDERS: PCP Internal Medicine; Visit Provider Orthopaedic Surgery | DX: M65.4 Radial styloid tenosynovitis [de Quervain] (principal); M79.641 Pain in right hand; M79.642 Pain in left hand; M79.7 Fibromyalgia | CPT/HCPCS: 20550; 99212; J1100 ==

== ENCOUNTER 2024-04-27 11:24 | Outpatient (AMB) | payer OTHER, SELFPAY ==
[2024-04-27 11:27] VITALS: BP 128/83; PULSE 83; O2SAT 97; BMI 28.3
--- NOTE | 2024-04-27 11:27 | A.OFFVIS_ITS ---
Vital Signs 04/27/24 11:27 Height 5 ft 2 in Weight 155 lb BMI 28.3 BP 128/83 Blood Pressure Location Rt brachial Position Sitting Pulse 83 Pulse Source Pulse Oximeter Pulse Oximetry (%) 97 Oxygen Delivery Method Room Air Intake Visit Reasons: Right hip/Right Knee Allergies No Known Allergies [No Known Allergies*] Allergy (Verified 04/26/24 12:35) HPI Comments Details: Rigo presents back to the office today for follow-up Complaining of right hip/groin pain Had recent visit with PCP and General surgery. She is scheduled for inguinal hernia repair on the right on May 05 Approximately 3 weeks ago she was treated with Bactrim for question of an abscess to the right lower extremity. She was told by PCP to follow-up top of the abscess drained. She was under the impression that this is what we would be doing in the office today. Also complaining of intermittent bilateral lower extremity edema. She currently takes 20 mg of Lasix daily but edema persists. Had steroid injection to her left hand/wrist yesterday by Orthopedics She is currently under care of orthopedics for bilateral wrist and bilateral knee pains. Prior: Patient presents back to the office today for follow up to discuss procedure options to treat her chronic lower back pain Previously she had elected RFA but then decided against it. She is adamant that she does not want Sprint PNS device. Pain today is 8/10. would like to repeat injections with steroids also c/o right hip pain, was told in the past she needs surgery but she is not ready for replacement at this time Prior: Telephone visit today completed for follow-up, 2 days status post bilateral diagnostic L3-L4 DR L5 medial branch blocks. Patient reports 100% pain relief for the entire 6 hours after the procedure was improvement in function and mobility. She states she continues to be pain-free even today. She denies untoward effects of the injections. Prior: Rigo presents the office today for follow-up lower back pain. Patient reports today pain 10/10, constant, worse with activity. She was previously getting injections from [facility], states last 1 was over 3 years ago. She does endorse good relief with previous injections. Pain today across the lower back she denies shooting, electrical pain or numbness tingling down either lower extremity. She reports previous attempted physical therapy made her pain worse. She does continue to do home exercise program but it is not helping Patient states that they will not give her medications for her pain due to her history of mental health issues. She currently takes Advil as needed with limited benefit. She has tried lidocaine patch in the past with some relief, she would like a prescription for them again today. Denies red flag symptoms including new loss of bowel, bladder or saddle anesthesia. Prior visit with Dr. Del Toro: Patient is a 61-year-old female presenting for a follow-up for low-back pain. We received records from her prior treatment at [facility] that showed multiple interventions including trans-foraminal injections, facet injections, and sacroiliac injections for different instances of her pain over the years. Patient is not having any pain right now. She is here to discuss potential options for her axial low back pain, should it return. She states that the last time she had pain it was in the lower back which is what bothers her the most. Patient has not done physical therapy recently due to it making her pain worse but continues with home exercises. At its worst, the pain is described as excruciating that interferes with ability to carry on with activates of daily living. It occasional radiates down to the knees. [facility] Medical History (Updated 04/27/24 @ 12:01 by Veronica Hansen APRN, MACHINIST [employer]) Painful orthopaedic hardware Calcification of patellar tendon determined by X-ray Degenerative joint disease of knee Gout Physical exam B12 deficiency PTSD (post-traumatic stress disorder) MDD (major depressive disorder), recurrent episode, severe Chronic diarrhea Cocaine use disorder, mild, in early remission Weight loss Cocaine use disorder, mild, abuse Constipation by delayed colonic transit Bilateral knee pain Lumbar spondylosis Left hip pain Dyslipidemia Osteoarthritis GERD (gastroesophageal reflux disease) Depression Fibromyalgia Easy bruisability Essential hypertension Asthma due to environmental allergies Bimalleolar fracture of left ankle Brain aneurysm Surgical History (Updated 04/19/24 @ 11:53 by Saurabh Quick MD) Hx of brain surgery H/O colonoscopy History of breast lump/mass excision History of surgery History of partial hysterectomy Status post open reduction with internal fixation (ORIF) of fracture of ankle Family History Mother Diabetes Father No problems noted. Social History Household Members: None Housing: Apartment Are you a primary childcare attendant to a significant other at home: No Do you presently have visiting nurse or other home services: No Alcohol intake: current Alcohol intake frequency: a few times a month Patient Tobacco Use Status: Current someday Tobacco user Tobacco use type: Cigarette Cigarette Packs Per Day: 0 Cigarettes Per Day: 4 Years Smoked: 20 e-Cigarette/Vaping Use: Never Used Second Hand Smoke Exposure: Yes Substance Use Type: Crack/Cocaine service: No Current occupational status: disabled Current occupation: Right Handed Sexual orientation: Did not discuss Cognitive needs: Yes Hearing needs: No Vision needs: Yes Review of Systems Const All systems reviewed & are unremarkable except as noted in HPI and below Physical Exam Vital Signs: Last Vital Signs Pulse 83 04/27/24 11:27 BP 128/83 04/27/24 11:27 Pulse Ox 97 04/27/24 11:27 Oxygen Delivery Method Room Air 04/27/24 11:27 BMI result Body Mass Index 28.3 General: awake, alert, oriented. Answers questions appropriately. Fully engaged in examination. Skin: warm, dry, intact HEENT: Normocephalic. Hearing intact. Cardiac: External chest normal in appearance. Respiratory: No cough, audible wheezing or stridor. Abdomen: without gross distension. MS: No obvious swelling or deformities. 1+ pitting edema bilateral lower extremities No visible abscess of the right lower extremity Neurological: Oriented to person, place, time and situation. Thought process intact. No gait abnormalities appreciated. Psychiatric: Appropriate mood and affect. Good judgment and insight. Quality Reporting (2019) Adult ([facility] 138/11/19/68) Smoking risk assessment performed?: Yes Patient Tobacco Use Status: Current someday Tobacco user Results Reviewed Results Reviewed: 04/11 RLE US: IMPRESSION: No visible sonographic abnormality in the area of palpable concern. Consider MRI without and with intravenous contrast for further evaluation. 04/11/24 CT right hip IMPRESSION: 1. No acute fracture or dislocation. 2. Mild right hip osteoarthritis. 3. Enthesopathic spurring at the greater trochanter with a lateral corticated ossification measuring up to 1.9 cm in AP dimension. Findings could represent an unfused osteophyte versus chronic calcific tendinitis. 4. Attenuation of the distal gluteus medius and gluteus minimus tendons which could represent a combination of tendinosis and chronic partial tearing. Evaluation significantly limited on CT examination. 05/20/23 XR/XR knee LT 3V IMPRESSION: Mild degenerative changes in the patellofemoral compartment. Enchondroma or bone island in the proximal tibia and soft tissue calcification. 05/20/23 XR/XR knee RT 3V IMPRESSION: 1. No acute visible fracture or dislocation. 2. Multiple ossific densities are noted in the medial soft tissues along the infrapatellar and suprapatellar region nonspecific though may represent elements of dystrophic calcifications of the medial joint versus less common entities such as lipoma arborescens versus loose bodies. 3. Mild multi joint arthritic changes. 4. Small knee joint effusion. Assessment & Plan Assessment & Plan (1) Peripheral edema: Code(s): R60.0 - Localized edema Category: Medical (2) Lumbar spondylosis: Code(s): M47.816 - Spondylosis without myelopathy or radiculopathy, lumbar region Category: Medical (3) Right hip pain: Code(s): M25.551 - Pain in right hip Category: Medical Plan Continue with plan for inguinal hernia repair May 05 with general surgery Referral placed for vascular surgery to evaluate for venous insufficiency given patient's complaint of bilateral lower extremity edema Follow-up with orthopedics as planned for knee pain. Patient received cortisone injection yesterday to left wrist, she is not eligible for any steroid injections for at least 1 month. Follow up with PCP to discuss questions regarding her Lasix dose. Patient questioning if she could take 40 mg daily, she was referred back to her primary care doctor. Advised patient not to increase the dose unless instructed to by her PCP. All questions and concerns were answered, patient appears the plan. Follow up in the office after procedure, sooner if needed Orders: Referrals Vascular Surgery Referral R60.0 - Localized edema Coding Level of Care Code Est Pt Level 3 (39934) Diagnoses Peripheral edema R60.0 Lumbar spondylosis M47.816 Right hip pain M25.551
== END 2024-04-27 11:57 | disposition home or self-care (01) ==
PROVIDERS: PCP Internal Medicine; Visit Provider Registered Nurse Emergency
DX: R60.0 Localized edema (principal); M47.816 Spondylosis without myelopathy or radiculopathy, lumbar region; M25.551 Pain in right hip
CPT/HCPCS: 99213

== ENCOUNTER → 2024-04-27 11:24 | Outpatient (BNVA) | payer OTHER, SELFPAY | PROVIDERS: PCP Internal Medicine; Visit Provider Registered Nurse Emergency | DX: M25.551 Pain in right hip (principal); R60.0 Localized edema; M47.816 Spondylosis without myelopathy or radiculopathy, lumbar region | CPT/HCPCS: 99212 ==

== ENCOUNTER 2024-04-28 | Outpatient (REF) | payer OTHER, SELFPAY ==
--- NOTE | 2024-04-28 | ECG_ITS ---
Test Reason : preop Blood Pressure : / mmHG Vent. Rate : 058 BPM Atrial Rate : 058 BPM P-R Int : 144 ms QRS Dur : 084 ms QT Int : 452 ms P-R-T Axes : -18 041 041 degrees QTc Int : 443 ms Sinus bradycardia Otherwise normal ECG When compared with ECG of 10-MAR-2019 09:19, No significant change was found Referred By: Marley Arana Electronically Signed By:Buck Villalpando
[2024-04-28 12:02] VITALS: BP 125/69; PULSE 67; RESP 16; O2SAT 98; BMI 28.2
--- NOTE | 2024-04-28 12:27 | HO.ANESPROP2 ---
HPI - Anesthesia Eval Consult details Narrative: ? pending reschedule 64yo F for Right OPEN Hernia Femoral Reducible with mesh, 06/03/24 No recent illness Rare occassionaly atypical CP TOBAR with walking ~ 10 blocks (asthma) + Cocaine use: Last 04/27/24, long discussion about risks with anesthesia and hx brain aneurysm. Pt will try to refrain preop. Utox DOS. Some day smoker Brain aneurysm: repaired with coil ~ 20years ago Seizures: none since teens, no rx Asthma: stable, albuterol ~ 1 x weekly GERD: ppi PMFSH Active Problems Active Problems: All Active Problems Peripheral edema (Acute) Bilateral hand pain (Acute) De Quervain's tenosynovitis, left (Acute) Bilateral hand numbness (Acute) Femoral hernia of right side (Acute) Urinary incontinence (Acute) Physical exam (Acute) Mass of right thigh (Acute) Abscess (Acute) Right hip pain (Acute) Nicotine dependence (Acute) Feeling of incomplete bladder emptying (Acute) Microscopic hematuria (Acute) Urinary retention (Acute) Vitiligo (Acute) Urinary straining (Acute) Elevated TSH (Acute) Intermittent constipation (Acute) Hypopigmentation (Acute) Dysphagia (Acute) Unintentional weight loss (Acute) MICHELLE (generalized anxiety disorder) (Acute) Moderate recurrent major depression (Acute) Abdominal pain (Acute) Forearm laceration (Acute) Arthritis of carpometacarpal (CMC) joint of left thumb (Acute) Ankle pain, left (Acute) Fibromyalgia (Acute) Gout (Acute) Calcification of patellar tendon determined by X-ray (Acute) Degenerative joint disease of knee (Acute) Cocaine use disorder, mild, abuse (Acute) Physical exam (Acute) B12 deficiency (Acute) PTSD (post-traumatic stress disorder) (Acute) Chronic diarrhea (Acute) Weight loss (Acute) Bilateral knee pain (Acute) Lumbar spondylosis (Acute) Left hip pain (Acute) GERD (gastroesophageal reflux disease) (Acute) Essential hypertension (Acute) Dyslipidemia (Acute) Past Medical History Medical History (Updated 04/28/24 @ 12:01 by Janice Chavis RN) History of seizure Hyperlipidemia HTN (hypertension) Calcification of patellar tendon determined by X-ray Degenerative joint disease of knee Gout Physical exam B12 deficiency PTSD (post-traumatic stress disorder) MDD (major depressive disorder), recurrent episode, severe Chronic diarrhea Cocaine use disorder, mild, in early remission Weight loss Cocaine use disorder, mild, abuse Constipation by delayed colonic transit Bilateral knee pain Lumbar spondylosis Left hip pain Dyslipidemia Osteoarthritis GERD (gastroesophageal reflux disease) Depression Painful orthopaedic hardware Fibromyalgia Easy bruisability Essential hypertension Asthma due to environmental allergies Bimalleolar fracture of left ankle Brain aneurysm (~2003) Family History Family History Mother Diabetes Father No problems noted. Family history of problems with anesthesia: No Surgical History Surgical History (Updated 04/19/24 @ 11:53 by Saurabh Quick MD) Hx of brain surgery H/O colonoscopy History of breast lump/mass excision History of surgery History of partial hysterectomy Status post open reduction with internal fixation (ORIF) of fracture of ankle History of Problems with Anesthesia: No Social History Social History (Updated 04/28/24 @ 12:28 by Janice Chavis RN) Household Members: None Housing: Apartment Are you a primary assisted living care manager to a significant other at home: No Do you presently have visiting nurse or other home services: Yes (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) Alcohol intake: current Alcohol intake frequency: a few times a month Patient Tobacco Use Status: Current someday Tobacco user Tobacco use type: Cigarette Cigarette Packs Per Day: 0 Cigarettes Per Day: 4 (someday smoker) Years Smoked: 30 e-Cigarette/Vaping Use: Never Used Second Hand Smoke Exposure: Yes Substance Use Type: Crack/Cocaine service: No Current occupational status: disabled Current occupation: Right Handed Sexual orientation: Did not discuss Cognitive needs: Yes Hearing needs: No Vision needs: Yes Meds Allergies Allergy/AdvReac Type Severity Reaction Status Date / Time No Known Allergies Allergy Verified 05/03/24 12:53 [No Known Allergies*] Home Medications ?Medication ?Instructions ?Recorded ?Confirmed ?Last Taken ?Type calcitriol 0.25 mcg capsule 1 cap PO DAILY 09/16/22 04/27/24 Unknown History Exam Height,Weight and Vital Signs: Height 5 ft 2 in Weight 69.853 kg Last Vital Signs Pulse 67 04/28/24 12:02 Resp 16 04/28/24 12:02 BP 125/69 04/28/24 12:02 Pulse Ox 98 04/28/24 12:02 O2 Del Method Room Air 04/28/24 12:02 Pertinent Lab Results Pertinent Lab Results: Lab Results 04/28/24 Range/Units 12:58 WBC 6.1 (4.8-10.8) X10*3/uL RBC 3.84 L (4.20-5.50) X10*6/uL Hgb 11.8 L (12.0-16.0) g/dl Hct 36.9 L (37.0-47.0) % MCV 96.1 (80.0-98.0) fL MCH 30.7 (27.0-33.0) pg MCHC 32.0 (31.0-35.0) g/dl RDW 12.6 (11.0-16.0) % Plt Count 274 (160-400) X10*3/uL MPV 9.7 (9.4-12.3) fL Absolute Nucleated RBC 0.000 (0.0-0.012) X10*3/uL Nucleated RBC % (auto) 0.0 (0.0-0.2) /100WBC Sodium 145 (135-145) mmol/L Potassium 3.4 (3.3-5.1) mmol/L Chloride 108 (96-108) mmol/L Carbon Dioxide 31 H (22-29) mmol/L Anion Gap 9 L (12-20) BUN 16 (9-16) mg/dL Creatinine 0.74 (0.5-1.4) mg/dL Estim Creat Clear Calc 72.2 Estimated GFR > 60 Random Glucose 83 (60-115) mg/dL Calcium 10.1 D (8.4-10.2) mg/dL Narrative Narrative: EKG 04/2024 Vent. Rate : 058 BPM Atrial Rate : 058 BPM P-R Int : 144 ms QRS Dur : 084 ms QT Int : 452 ms P-R-T Axes : -18 041 041 degrees QTc Int : 443 ms Sinus bradycardia Otherwise normal ECG When compared with ECG of 10-MAR-2019 09:19, No significant change was found Airway Mallampati Class: III (small mouth opening) TM Dist: >3cm Neck ROM: Full Denture: Upper Heart: RRR Lungs: faint insp wheeze RUL Assessment and Plan Assessment Anesthesia Assessment: Anesthesia Plan Discussed, Smoking Cess. Discussed (Instructed to avoid cocaine) and PAT Visit Final Anesthetic Review Family History of Problems with Anesthesia: No History of Problems with Anesthesia: No
[2024-04-28 13:08] LABS: Hematocrit 36.9 % (37.0-47.0); Hemoglobin 11.8 g/dl (12.0-16.0); Mean Corpuscular Hemoglobin 30.7 pg (27.0-33.0); Mean Corpuscular Volume 96.1 fL (80.0-98.0); Mean Platelet Volume 9.7 fL (9.4-12.3); Platelet Count 274 X10*3/uL (160-400); Red Blood Count 3.84 X10*6/uL (4.20-5.50); Red Cell Distribution Width 12.6 % (11.0-16.0); White Blood Count 6.1 X10*3/uL (4.8-10.8)
[2024-04-28 13:37] LABS: Anion Gap 9 (12-20); Blood Urea Nitrogen 16 mg/dL (9-16); Calcium 10.1 mg/dL (8.4-10.2); Carbon Dioxide 31 mmol/L (22-29); Chloride 108 mmol/L (96-108); Creatinine Clr Calc Pharmacy 72.2; Estimated Glomerular Filt Rate > 60; Glucose Random 83 mg/dL (60-115); Potassium 3.4 mmol/L (3.3-5.1); Sodium 145 mmol/L (135-145)
== END 2024-04-28 00:01 | disposition home or self-care (01) ==
LOC: HO.PAT
PROVIDERS: Nurse Practitioner; PCP Internal Medicine; Visit Provider Surgery
DX: K41.90 Unilateral femoral hernia, without obstruction or gangrene, not specified as recurrent (principal); Z01.818 Encounter for other preprocedural examination
CPT/HCPCS: 36415; 80048; 85027; 93005

== ENCOUNTER → 2024-04-28 12:47 | Outpatient (BNV) | payer OTHER, SELFPAY | PROVIDERS: PCP Internal Medicine; Visit Provider Internal Medicine Cardiovascular Disease | DX: R00.1 Bradycardia, unspecified (principal); Z01.810 Encounter for preprocedural cardiovascular examination | CPT/HCPCS: 93010 ==

== ENCOUNTER 2024-05-03 06:29 | Outpatient (REF) | payer OTHER, SELFPAY ==
--- NOTE | ~2024-05-03 | FL_ITS ---
EXAMINATION: XR FLUOROSCOPY WITH IMAGES CLINICAL INFORMATION: Spondylosis without myelopathy or radiculopathy, lumbar region. COMPARISON: Lumbar radiographs to 10/30/2023. TECHNIQUE: Fluoroscopy provided to: Dr. Zarate Fluoroscopy time: 0.5 minutes DAP: 0.254 mGycm2 Images: 12 FINDINGS: Sequential spot images of the dorsal lower lumbar spine demonstrate needle placement and contrast injection within the L4 and L5 nerve root sleeves. FL/FL guidance in treatment room IMPRESSION: Fluoroscopic guidance. Please refer to the full operative report for details. Electronically signed by: Ruslan Spain MD 07/01/2024 02:30 PM EDT
== END 2024-05-03 06:30 | disposition home or self-care (01) ==
LOC: CF 06:29
PROVIDERS: Visit Provider Anesthesiology
DX: M47.816 Spondylosis without myelopathy or radiculopathy, lumbar region (principal)
CPT/HCPCS: 64493; 64494; J2795; J3301; Q9967

== ENCOUNTER 2024-05-03 12:46 | Outpatient (AMB) | payer OTHER, SELFPAY ==
[2024-05-03 12:52] VITALS: BP 202/106; PULSE 70; RESP 14; O2SAT 98; BMI 27.8
--- NOTE | 2024-05-03 12:52 | MHC.OFFVIS ---
Vital Signs 05/03/24 12:52 05/03/24 12:53 05/03/24 13:36 Height 5 ft 2 in Weight 152 lb BMI 27.8 BP 202/106 H 145/89 H 177/100 H Blood Pressure Location Lt brachial Rt brachial Lt brachial Position Sitting Sitting Sitting Respiration 14 14 Pulse 70 79 Pulse Source Pulse Oximeter Pulse Oximeter Pulse Oximetry (%) 98 98 Oxygen Delivery Method Room Air Room Air Comment Pre-Op BP recheck Post-Op Intake Visit Reasons: Bilateral Therapeutic L3-L4 DR L5 MBBS Domestic Cleaner Required: No Accompanied by: Self / Same As Patient Allergies No Known Allergies [No Known Allergies*] Allergy (Verified 05/03/24 12:53) [facility] Medical History (Updated 04/28/24 @ 12:01 by Janice Chavis RN) History of seizure Hyperlipidemia HTN (hypertension) Calcification of patellar tendon determined by X-ray Degenerative joint disease of knee Gout Physical exam B12 deficiency PTSD (post-traumatic stress disorder) MDD (major depressive disorder), recurrent episode, severe Chronic diarrhea Cocaine use disorder, mild, in early remission Weight loss Cocaine use disorder, mild, abuse Constipation by delayed colonic transit Bilateral knee pain Lumbar spondylosis Left hip pain Dyslipidemia Osteoarthritis GERD (gastroesophageal reflux disease) Depression Painful orthopaedic hardware Fibromyalgia Easy bruisability Essential hypertension Asthma due to environmental allergies Bimalleolar fracture of left ankle Brain aneurysm (~2003) Surgical History (Updated 04/19/24 @ 11:53 by Saurabh Quick MD) Hx of brain surgery H/O colonoscopy History of breast lump/mass excision History of surgery History of partial hysterectomy Status post open reduction with internal fixation (ORIF) of fracture of ankle Family History Mother Diabetes Father No problems noted. Social History (Updated 04/28/24 @ 12:28 by Janice Chavis RN) Household Members: None Housing: Apartment Are you a primary rn primary care to a significant other at home: No Do you presently have visiting nurse or other home services: Yes ([employer] 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) Alcohol intake: current Alcohol intake frequency: a few times a month Patient Tobacco Use Status: Current someday Tobacco user Tobacco use type: Cigarette Cigarette Packs Per Day: 0 Cigarettes Per Day: 4 (someday smoker) Years Smoked: 30 e-Cigarette/Vaping Use: Never Used Second Hand Smoke Exposure: Yes Substance Use Type: Crack/Cocaine service: No Current occupational status: disabled Current occupation: Right Handed Sexual orientation: Did not discuss Cognitive needs: Yes Hearing needs: No Vision needs: Yes Physical Exam Vital Signs: Last Vital Signs Pulse 79 05/03/24 13:36 Resp 14 05/03/24 13:36 BP 177/100 H 05/03/24 13:36 Pulse Ox 98 05/03/24 13:36 Oxygen Delivery Method Room Air 05/03/24 13:36 BMI result Body Mass Index 27.8 Quality Reporting (2019) Adult ([facility] [address]11/19/68) Smoking risk assessment performed?: Yes Patient Tobacco Use Status: Current someday Tobacco user Assessment & Plan Assessment & Plan (1) Lumbar spondylosis: Code(s): M47.816 - Spondylosis without myelopathy or radiculopathy, lumbar region Category: Medical Plan Therapeutic branch block L3,L4 dorsal ramus L5 bilateral.? ? ?Informed consent was explained to the patient. All questions were explained and? answered.? The patient was taken inside the operating room where she was positioned prone on the operating table. Time-out was performed delineating correct site, side, the nature of the procedure, patient's allergy, . All operating room staff was participating in OR time-out procedure. ? ? The lower back was prepped with ChloraPrep and draped with sterile towels.? C-arm was brought over the operating field and sq picture of L4-, L5 vertebra and S1 AREA were delineated on the screen.? Point of interest were delineated as confluence of superior articular process of L4 and L5 vertebra bilaterally with corresponding transverse processes as well as confluence of the sacral alae bilaterally with superior articular process of S1.? The projection of the point of interest to the skin were injected with the small amount of local anesthetic lidocaine 2% 1-1.5 cc.? After that 22 gauge 3.5 inch spinal needle was driven sequentially to the points of interest in tunnel vision fashion. After needles gently contacted the bone at the point of interests the needle was injected with small amount of the contrast.? The injection of the contrast did not demonstrate any intravascular or intrathecal spread of the contrast.? After that injection of the? ropivacaine 0.5%-1cc mixed with Kenalog was performed at each needle location.? Total dose of Kenalog was 80 mg. ?after that the needles were removed and Bandaids were applied. ? Upon completion of the injections? needle was? removed and sterile Band-Aids were applied.? The patient tolerated procedure very well. Orders: Orders FL guidance in treatment room Today M47.816 - Spondylosis without myelopathy or radiculopathy, lumbar region Coding Level of Care Code Procedure Only Diagnoses Lumbar spondylosis M47.816
[2024-05-03 12:53] VITALS: BP 145/89
[2024-05-03 13:36] VITALS: BP 177/100; PULSE 79; RESP 14; O2SAT 98
== END 2024-05-03 13:26 | disposition home or self-care (01) ==
LOC: HO.PMCPRC 12:46
PROVIDERS: PCP Internal Medicine; Visit Provider Anesthesiology
DX: M47.816 Spondylosis without myelopathy or radiculopathy, lumbar region (principal)
CPT/HCPCS: 64493; 64494

== ENCOUNTER 2024-06-03 11:06 | Outpatient (AMB) | payer OTHER, SELFPAY ==
[2024-06-03 11:21] VITALS: BP 123/71; PULSE 62; O2SAT 98; BMI 28.2
--- NOTE | 2024-06-03 11:21 | A.OFFVIS_ITS ---
Vital Signs 06/03/24 11:21 Height 5 ft 2 in Weight 154 lb BMI 28.2 BP 123/71 Blood Pressure Location Lt brachial Position Sitting Pulse 62 Pulse Source Pulse Oximeter Pulse Oximetry (%) 98 Oxygen Delivery Method Room Air Intake Visit Reasons: Therapeutic L3-L4 DR L5 MBBS Allergies No Known Allergies [No Known Allergies*] Allergy (Verified 05/03/24 12:53) HPI Comments Details: Patient presents back to the office today for follow-up, 1 month status post bilateral therapeutic L3-L4 DR L5 medial branch blocks with local anesthetic Pain today is rated as a 1/10. She reports greater than 90% pain relief with improvement in functional mobility. Denies any untoward effects of the injections Prior: Rigo presents back to the office today for follow-up Complaining of right hip/groin pain Had recent visit with PCP and General surgery. She is scheduled for inguinal hernia repair on the right on May 05 Approximately 3 weeks ago she was treated with Bactrim for question of an abscess to the right lower extremity. She was told by PCP to follow-up top of the abscess drained. She was under the impression that this is what we would be doing in the office today. Also complaining of intermittent bilateral lower extremity edema. She currently takes 20 mg of Lasix daily but edema persists. Had steroid injection to her left hand/wrist yesterday by Orthopedics She is currently under care of orthopedics for bilateral wrist and bilateral knee pains. Prior: Patient presents back to the office today for follow up to discuss procedure options to treat her chronic lower back pain Previously she had elected RFA but then decided against it. She is adamant that she does not want Sprint PNS device. Pain today is 8/10. would like to repeat injections with steroids also c/o right hip pain, was told in the past she needs surgery but she is not ready for replacement at this time Prior: Telephone visit today completed for follow-up, 2 days status post bilateral diagnostic L3-L4 DR L5 medial branch blocks. Patient reports 100% pain relief for the entire 6 hours after the procedure was improvement in function and mobility. She states she continues to be pain-free even today. She denies untoward effects of the injections. Prior: Rigo presents the office today for follow-up lower back pain. Patient reports today pain 10/10, constant, worse with activity. She was previously getting injections from [facility], states last 1 was over 3 years ago. She does endorse good relief with previous injections. Pain today across the lower back she denies shooting, electrical pain or numbness tingling down either lower extremity. She reports previous attempted physical therapy made her pain worse. She does continue to do home exercise program but it is not helping Patient states that they will not give her medications for her pain due to her history of mental health issues. She currently takes Advil as needed with limited benefit. She has tried lidocaine patch in the past with some relief, she would like a prescription for them again today. Denies red flag symptoms including new loss of bowel, bladder or saddle anesthesia. Prior visit with Dr. Del Toro: Patient is a 61-year-old female presenting for a follow-up for low-back pain. We received records from her prior treatment at [facility] that showed multiple interventions including trans-foraminal injections, facet injections, and sacroiliac injections for different instances of her pain over the years. Patient is not having any pain right now. She is here to discuss potential options for her axial low back pain, should it return. She states that the last time she had pain it was in the lower back which is what bothers her the most. Patient has not done physical therapy recently due to it making her pain worse but continues with home exercises. At its worst, the pain is described as excruciating that interferes with ability to carry on with activates of daily living. It occasional radiates down to the knees. [facility] Medical History (Updated 04/28/24 @ 12:01 by Janice Chavis RN) History of seizure Hyperlipidemia HTN (hypertension) Calcification of patellar tendon determined by X-ray Degenerative joint disease of knee Gout Physical exam B12 deficiency PTSD (post-traumatic stress disorder) MDD (major depressive disorder), recurrent episode, severe Chronic diarrhea Cocaine use disorder, mild, in early remission Weight loss Cocaine use disorder, mild, abuse Constipation by delayed colonic transit Bilateral knee pain Lumbar spondylosis Left hip pain Dyslipidemia Osteoarthritis GERD (gastroesophageal reflux disease) Depression Painful orthopaedic hardware Fibromyalgia Easy bruisability Essential hypertension Asthma due to environmental allergies Bimalleolar fracture of left ankle Brain aneurysm (~2003) Surgical History (Updated 04/19/24 @ 11:53 by Saurabh Quick MD) Hx of brain surgery H/O colonoscopy History of breast lump/mass excision History of surgery History of partial hysterectomy Status post open reduction with internal fixation (ORIF) of fracture of ankle Family History Mother Diabetes Father No problems noted. Social History (Updated 04/28/24 @ 12:28 by Janice Chavis RN) Household Members: None Housing: Apartment Are you a primary college and career counselor to a significant other at home: No Do you presently have visiting nurse or other home services: Yes ([employer] 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) Alcohol intake: current Alcohol intake frequency: a few times a month Patient Tobacco Use Status: Current someday Tobacco user Tobacco use type: Cigarette Cigarette Packs Per Day: 0 Cigarettes Per Day: 4 (someday smoker) Years Smoked: 30 e-Cigarette/Vaping Use: Never Used Second Hand Smoke Exposure: Yes Substance Use Type: Crack/Cocaine service: No Current occupational status: disabled Current occupation: Right Handed Sexual orientation: Did not discuss Cognitive needs: Yes Hearing needs: No Vision needs: Yes Review of Systems Const All systems reviewed & are unremarkable except as noted in HPI and below Physical Exam Vital Signs: Last Vital Signs Pulse 62 06/03/24 11:21 BP 123/71 06/03/24 11:21 Pulse Ox 98 06/03/24 11:21 Oxygen Delivery Method Room Air 06/03/24 11:21 BMI result Body Mass Index 28.2 General: awake, alert, oriented. Answers questions appropriately. Fully engaged in examination. Skin: warm, dry, intact HEENT: Normocephalic. Hearing intact. Cardiac: External chest normal in appearance. Respiratory: No cough, audible wheezing or stridor. Abdomen: without gross distension. MS: No obvious swelling or deformities. Neurological: Oriented to person, place, time and situation. Thought process intact. No gait abnormalities appreciated. Psychiatric: Appropriate mood and affect. Good judgment and insight. Quality Reporting (2019) Adult ([facility] 138/11/19/68) Smoking risk assessment performed?: Yes Patient Tobacco Use Status: Current someday Tobacco user Results Reviewed Results Reviewed: 04/11 RLE US: IMPRESSION: No visible sonographic abnormality in the area of palpable concern. Consider MRI without and with intravenous contrast for further evaluation. 04/11/24 CT right hip IMPRESSION: 1. No acute fracture or dislocation. 2. Mild right hip osteoarthritis. 3. Enthesopathic spurring at the greater trochanter with a lateral corticated ossification measuring up to 1.9 cm in AP dimension. Findings could represent an unfused osteophyte versus chronic calcific tendinitis. 4. Attenuation of the distal gluteus medius and gluteus minimus tendons which could represent a combination of tendinosis and chronic partial tearing. Evaluation significantly limited on CT examination. 05/20/23 XR/XR knee LT 3V IMPRESSION: Mild degenerative changes in the patellofemoral compartment. Enchondroma or bone island in the proximal tibia and soft tissue calcification. 05/20/23 XR/XR knee RT 3V IMPRESSION: 1. No acute visible fracture or dislocation. 2. Multiple ossific densities are noted in the medial soft tissues along the infrapatellar and suprapatellar region nonspecific though may represent elements of dystrophic calcifications of the medial joint versus less common entities such as lipoma arborescens versus loose bodies. 3. Mild multi joint arthritic changes. 4. Small knee joint effusion. Assessment & Plan Assessment & Plan (1) Lumbar spondylosis: Code(s): M47.816 - Spondylosis without myelopathy or radiculopathy, lumbar region Category: Medical (2) Right hip pain: Code(s): M25.551 - Pain in right hip Category: Medical Plan Rigo presented back to the office today for follow-up, 1 month status post bilateral therapeutic L3-L4 DR L5 medial branch blocks. She reports greater than 90% pain relief with improvement in functional mobility since the injections. Patient is aware we can repeat this procedure in 3 months, she will call to schedule appointment when her pain returns. All questions and concerns were answered, patient appears the plan. Follow up when pain returns, sooner if needed Coding Level of Care Code Est Pt Level 3 (87285) Complex EM visit Add On G2211 Diagnoses Lumbar spondylosis M47.816 Right hip pain M25.551
== END 2024-06-03 11:35 | disposition home or self-care (01) ==
PROVIDERS: PCP Internal Medicine; Visit Provider Registered Nurse Emergency
DX: M47.816 Spondylosis without myelopathy or radiculopathy, lumbar region (principal); M25.551 Pain in right hip
CPT/HCPCS: 99213; G2211

== ENCOUNTER → 2024-06-03 11:06 | Outpatient (BNVA) | payer OTHER, SELFPAY | PROVIDERS: PCP Internal Medicine; Visit Provider Registered Nurse Emergency | DX: M47.816 Spondylosis without myelopathy or radiculopathy, lumbar region (principal); M25.551 Pain in right hip | CPT/HCPCS: 99212 ==

== ENCOUNTER 2024-07-21 10:36 | Outpatient (AMB) | payer OTHER, SELFPAY ==
[2024-07-21 10:46] VITALS: BP 180/84; PULSE 80; O2SAT 98; BMI 27.4
--- NOTE | 2024-07-21 10:46 | MHC.OFFVIS ---
Vital Signs 07/21/24 10:46 Height 5 ft 2 in Weight 150 lb BMI 27.4 BP 180/84 H Blood Pressure Location Rt brachial Position Sitting Pulse 80 Pulse Source Pulse Oximeter Pulse Oximetry (%) 98 Oxygen Delivery Method Room Air Intake Visit Reasons: Follow Up/Discuss Injections Allergies No Known Allergies [No Known Allergies*] Allergy (Verified 07/21/24 10:47) Medication List - Last Reconciled 07/21/24 by Renetta Charlton acetaminophen ER (Tylenol Arthritis Pain) 650 mg PO Q8H PRN 30 days albuterol sulfate 90 mcg/actuation (Ventolin HFA) 2 puffs PO Q6H PRN 30 days aripiprazole 2 mg PO BEDTIME 30 days atorvastatin 20 mg PO BEDTIME 90 days baclofen 5 mg PO QID 30 days calcitriol 1 cap PO DAILY cholecalciferol (vitamin D3) 25 mcg PO DAILY 90 days clonazepam 0.5 mg PO DAILY PRN 30 days clonidine HCl 0.1 mg See Protocol PO BID PRN 30 days colchicine 0.6 mg PO DAILY PRN [disposable wipes As directed] escitalopram oxalate 20 mg PO QAM 30 days furosemide 20 mg PO DAILY lidocaine 5% (Lidoderm) 1 patch topical DAILY lisinopril 10 mg PO DAILY 90 days loperamide 2 mg PO Q6H PRN 30 days omeprazole 40 mg PO QAM quetiapine 50 mg PO BEDTIME PRN 30 days [raised toilet seat As directed] ropinirole 1 mg PO BEDTIME triamcinolone acetonide 0.1% 1 appl topical DAILY 2 weeks [wipes As directed] HPI Comments Details: Rigo presents back to the office today for follow-up lower back pain Pain today is 10/10, she reports she fell 2 days ago and this has exacerbated her pain. Prior to this her pain had been slowly returning after her previous therapeutic lumbar medial branch blocks. She had schedule an appointment to discuss repeating the injections. Also complains of bilateral knee pain and left shoulder pain after the fall Prior: Patient presents back to the office today for follow-up, 1 month status post bilateral therapeutic L3-L4 DR L5 medial branch blocks with local anesthetic Pain today is rated as a 1/10. She reports greater than 90% pain relief with improvement in functional mobility. Denies any untoward effects of the injections Prior: Rigo presents back to the office today for follow-up Complaining of right hip/groin pain Had recent visit with PCP and General surgery. She is scheduled for inguinal hernia repair on the right on May 05 Approximately 3 weeks ago she was treated with Bactrim for question of an abscess to the right lower extremity. She was told by PCP to follow-up top of the abscess drained. She was under the impression that this is what we would be doing in the office today. Also complaining of intermittent bilateral lower extremity edema. She currently takes 20 mg of Lasix daily but edema persists. Had steroid injection to her left hand/wrist yesterday by Orthopedics She is currently under care of orthopedics for bilateral wrist and bilateral knee pains. Prior: Patient presents back to the office today for follow up to discuss procedure options to treat her chronic lower back pain Previously she had elected RFA but then decided against it. She is adamant that she does not want Sprint PNS device. Pain today is 8/10. would like to repeat injections with steroids also c/o right hip pain, was told in the past she needs surgery but she is not ready for replacement at this time Prior: Telephone visit today completed for follow-up, 2 days status post bilateral diagnostic L3-L4 DR L5 medial branch blocks. Patient reports 100% pain relief for the entire 6 hours after the procedure was improvement in function and mobility. She states she continues to be pain-free even today. She denies untoward effects of the injections. Intake note: Rigo presents the office today for follow-up lower back pain. Patient reports today pain 10/10, constant, worse with activity. She was previously getting injections from [facility], states last 1 was over 3 years ago. She does endorse good relief with previous injections. Pain today across the lower back she denies shooting, electrical pain or numbness tingling down either lower extremity. She reports previous attempted physical therapy made her pain worse. She does continue to do home exercise program but it is not helping Patient states that they will not give her medications for her pain due to her history of mental health issues. She currently takes Advil as needed with limited benefit. She has tried lidocaine patch in the past with some relief, she would like a prescription for them again today. Denies red flag symptoms including new loss of bowel, bladder or saddle anesthesia. Prior visit with Dr. Del Toro: Patient is a 61-year-old female presenting for a follow-up for low-back pain. We received records from her prior treatment at [facility] that showed multiple interventions including trans-foraminal injections, facet injections, and sacroiliac injections for different instances of her pain over the years. Patient is not having any pain right now. She is here to discuss potential options for her axial low back pain, should it return. She states that the last time she had pain it was in the lower back which is what bothers her the most. Patient has not done physical therapy recently due to it making her pain worse but continues with home exercises. At its worst, the pain is described as excruciating that interferes with ability to carry on with activates of daily living. It occasional radiates down to the knees. [facility] Medical History (Updated 07/21/24 @ 10:56 by Veronica Hansen APRN, TIP SCOURER) History of seizure Hyperlipidemia HTN (hypertension) Calcification of patellar tendon determined by X-ray Degenerative joint disease of knee Gout Physical exam B12 deficiency PTSD (post-traumatic stress disorder) MDD (major depressive disorder), recurrent episode, severe Chronic diarrhea Cocaine use disorder, mild, in early remission Weight loss Cocaine use disorder, mild, abuse Constipation by delayed colonic transit Bilateral knee pain Lumbar spondylosis Left hip pain Dyslipidemia Osteoarthritis GERD (gastroesophageal reflux disease) Depression Painful orthopaedic hardware Fibromyalgia Easy bruisability Essential hypertension Asthma due to environmental allergies Bimalleolar fracture of left ankle Brain aneurysm (~2003) Surgical History (Updated 04/19/24 @ 11:53 by Saurabh Quick MD) Hx of brain surgery H/O colonoscopy History of breast lump/mass excision History of surgery History of partial hysterectomy Status post open reduction with internal fixation (ORIF) of fracture of ankle Family History Mother Diabetes Father No problems noted. Social History (Updated 04/28/24 @ 12:28 by Janice Chavis RN) Household Members: None Housing: Apartment Are you a primary intensive care medicine specialist to a significant other at home: No Do you presently have visiting nurse or other home services: Yes ([employer] 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) Alcohol intake: current Alcohol intake frequency: a few times a month Patient Tobacco Use Status: Current someday Tobacco user Tobacco use type: Cigarette Cigarette Packs Per Day: 0 Cigarettes Per Day: 4 Years Smoked: 30 e-Cigarette/Vaping Use: Never Used Second Hand Smoke Exposure: Yes Substance Use Type: Crack/Cocaine service: No Current occupational status: disabled Current occupation: Right Handed Sexual orientation: Did not discuss Cognitive needs: Yes Hearing needs: No Vision needs: Yes Review of Systems Const All systems reviewed & are unremarkable except as noted in HPI and below Physical Exam Vital Signs: Last Vital Signs Pulse 80 07/21/24 10:46 BP 180/84 H 07/21/24 10:46 Pulse Ox 98 07/21/24 10:46 Oxygen Delivery Method Room Air 07/21/24 10:46 BMI result Body Mass Index 27.4 General: awake, alert, oriented. Answers questions appropriately. Fully engaged in examination. Skin: warm, dry, intact HEENT: Normocephalic. Hearing intact. Cardiac: External chest normal in appearance. Respiratory: No cough, audible wheezing or stridor. Abdomen: without gross distension. MS: No obvious swelling or deformities. Left shoulder: Limited range of motion secondary to pain. Bilateral knees: Tender to palpation. Positive crepitus. Abrasions noted to bilateral knees. Neurological: Oriented to person, place, time and situation. Thought process intact. No gait abnormalities appreciated. Psychiatric: Appropriate mood and affect. Good judgment and insight. Quality Reporting (2019) Adult ([facility] 138/11/19/68) Smoking risk assessment performed?: Yes Patient Tobacco Use Status: Current someday Tobacco user Results Reviewed Results Reviewed: 04/11 RLE US: IMPRESSION: No visible sonographic abnormality in the area of palpable concern. Consider MRI without and with intravenous contrast for further evaluation. 04/11/24 CT right hip IMPRESSION: 1. No acute fracture or dislocation. 2. Mild right hip osteoarthritis. 3. Enthesopathic spurring at the greater trochanter with a lateral corticated ossification measuring up to 1.9 cm in AP dimension. Findings could represent an unfused osteophyte versus chronic calcific tendinitis. 4. Attenuation of the distal gluteus medius and gluteus minimus tendons which could represent a combination of tendinosis and chronic partial tearing. Evaluation significantly limited on CT examination. 05/20/23 XR/XR knee LT 3V IMPRESSION: Mild degenerative changes in the patellofemoral compartment. Enchondroma or bone island in the proximal tibia and soft tissue calcification. 05/20/23 XR/XR knee RT 3V IMPRESSION: 1. No acute visible fracture or dislocation. 2. Multiple ossific densities are noted in the medial soft tissues along the infrapatellar and suprapatellar region nonspecific though may represent elements of dystrophic calcifications of the medial joint versus less common entities such as lipoma arborescens versus loose bodies. 3. Mild multi joint arthritic changes. 4. Small knee joint effusion. Assessment & Plan Assessment & Plan (1) Left shoulder pain: Code(s): M25.512 - Pain in left shoulder Category: Medical (2) Knee pain: Code(s): M25.569 - Pain in unspecified knee Category: Medical (3) Lumbar spondylosis: Code(s): M47.816 - Spondylosis without myelopathy or radiculopathy, lumbar region Category: Medical Plan Patient presents today for follow-up low back pain, status post fall X-rays ordered for evaluation Patient has exhausted greater than 6 months of conservative therapy including [id number] medications, topical medications, attempts at physical therapy and home exercise program. Discussed options for treatment including peripheral nerve stimulation with Sprint, RFA and more permanent neuromodulation. She is not interested in sprint PNS trial. Would like to proceed with bilateral L3-L4 DR L5 RFA with sedation. Continue with Tylenol and lidocaine patches as needed. All questions and concerns answered, patient agrees to the plan. Follow up after procedure, sooner if needed Orders: Orders XR knee LT 3V Today M25.569 - Pain in unspecified knee XR knee RT 3V Today M25.569 - Pain in unspecified knee XR shoulder LT min 2V Today M25.512 - Pain in left shoulder Coding Level of Care Code Est Pt Level 3 (14069) Complex EM visit Add On G2211 Diagnoses Left shoulder pain M25.512 Knee pain M25.569 Lumbar spondylosis M47.816
== END 2024-07-21 10:56 | disposition home or self-care (01) ==
PROVIDERS: PCP Internal Medicine; Visit Provider Registered Nurse Emergency
DX: M25.512 Pain in left shoulder (principal); M25.569 Pain in unspecified knee; M47.816 Spondylosis without myelopathy or radiculopathy, lumbar region
CPT/HCPCS: 99213; G2211

== ENCOUNTER 2024-07-21 10:36 | Outpatient (REF) | payer OTHER, SELFPAY ==
--- NOTE | ~2024-07-21 | XR_ITS ---
EXAMINATION: XR SHOULDER, LEFT CLINICAL INFORMATION: Pain COMPARISON: None available. TECHNIQUE: AP external , and internal rotation, and scapular Y, views of the left shoulder. FINDINGS: No acute cortical disruption or malalignment. No lytic or blastic lesions. XR/XR shoulder LT min 2V IMPRESSION: No acute fracture or dislocation. Electronically signed by: Antione Colby MD 07/21/2024 11:33 AM EDT
== END 2024-07-21 10:37 | disposition home or self-care (01) ==
LOC: HO.XRAY 10:36
PROVIDERS: PCP Internal Medicine; Visit Provider Registered Nurse Emergency
DX: M25.512 Pain in left shoulder (principal); M47.816 Spondylosis without myelopathy or radiculopathy, lumbar region; M25.561 Pain in right knee; M25.562 Pain in left knee; Z91.81 History of falling
CPT/HCPCS: 73030; 73562; 99212

== ENCOUNTER → 2024-07-21 11:09 | Outpatient (BNV) | payer OTHER, SELFPAY | PROVIDERS: PCP Internal Medicine; Visit Provider Radiology Diagnostic Radiology | DX: M25.512 Pain in left shoulder (principal) | CPT/HCPCS: 73030 ==

== ENCOUNTER 2024-08-11 11:24 | Outpatient (AMB) | payer OTHER, SELFPAY ==
[2024-08-11 11:28] VITALS: BP 131/96; PULSE 81; O2SAT 99; BMI 28.2
--- NOTE | 2024-08-11 11:28 | MHC.OFFVIS ---
Vital Signs 08/11/24 11:28 Height 5 ft 2 in Weight 154 lb BMI 28.2 BP 131/96 H Blood Pressure Location Rt brachial Position Sitting Pulse 81 Pulse Source Pulse Oximeter Pulse Oximetry (%) 99 Oxygen Delivery Method Room Air Intake Visit Reasons: 2 month F/U Allergies No Known Allergies [No Known Allergies*] Allergy (Verified 08/11/24 11:29) Medication List - Last Reconciled 08/11/24 by Renetta Charlton acetaminophen ER (Tylenol Arthritis Pain) 650 mg PO Q8H PRN 30 days albuterol sulfate 90 mcg/actuation (Ventolin HFA) 2 puffs PO Q6H PRN 30 days aripiprazole 2 mg PO BEDTIME 30 days atorvastatin 20 mg PO BEDTIME 90 days baclofen 5 mg PO QID 30 days calcitriol 1 cap PO DAILY cholecalciferol (vitamin D3) 25 mcg PO DAILY 90 days clonazepam 0.5 mg PO DAILY PRN 30 days clonidine HCl 0.1 mg See Protocol PO BID PRN 30 days colchicine 0.6 mg PO DAILY PRN [disposable wipes As directed] escitalopram oxalate 20 mg PO QAM 30 days furosemide 20 mg PO DAILY lidocaine 5% (Lidoderm) 1 patch topical DAILY lisinopril 10 mg PO DAILY 90 days loperamide 2 mg PO Q6H PRN 30 days omeprazole 40 mg PO QAM quetiapine 50 mg PO BEDTIME PRN 30 days [raised toilet seat As directed] ropinirole 1 mg PO BEDTIME triamcinolone acetonide 0.1% 1 appl topical DAILY 2 weeks [wipes As directed] HPI Comments Details: Patient presents back to the office today for follow-up to discuss upcoming procedure. Pain today is rated as a 9/10, she has pending L3-L4 DR L5 RFA with sedation Patient here to discuss the procedure she has some questions and concerns Prior: Rigo presents back to the office today for follow-up lower back pain Pain today is 10/10, she reports she fell 2 days ago and this has exacerbated her pain. Prior to this her pain had been slowly returning after her previous therapeutic lumbar medial branch blocks. She had schedule an appointment to discuss repeating the injections. Also complains of bilateral knee pain and left shoulder pain after the fall Prior: Patient presents back to the office today for follow-up, 1 month status post bilateral therapeutic L3-L4 DR L5 medial branch blocks with local anesthetic Pain today is rated as a 1/10. She reports greater than 90% pain relief with improvement in functional mobility. Denies any untoward effects of the injections Prior: Rigo presents back to the office today for follow-up Complaining of right hip/groin pain Had recent visit with PCP and General surgery. She is scheduled for inguinal hernia repair on the right on May 05 Approximately 3 weeks ago she was treated with Bactrim for question of an abscess to the right lower extremity. She was told by PCP to follow-up top of the abscess drained. She was under the impression that this is what we would be doing in the office today. Also complaining of intermittent bilateral lower extremity edema. She currently takes 20 mg of Lasix daily but edema persists. Had steroid injection to her left hand/wrist yesterday by Orthopedics She is currently under care of orthopedics for bilateral wrist and bilateral knee pains. Prior: Patient presents back to the office today for follow up to discuss procedure options to treat her chronic lower back pain Previously she had elected RFA but then decided against it. She is adamant that she does not want Sprint PNS device. Pain today is 8/10. would like to repeat injections with steroids also c/o right hip pain, was told in the past she needs surgery but she is not ready for replacement at this time Prior: Telephone visit today completed for follow-up, 2 days status post bilateral diagnostic L3-L4 DR L5 medial branch blocks. Patient reports 100% pain relief for the entire 6 hours after the procedure was improvement in function and mobility. She states she continues to be pain-free even today. She denies untoward effects of the injections. Intake note: Rigo presents the office today for follow-up lower back pain. Patient reports today pain 10/10, constant, worse with activity. She was previously getting injections from [facility], states last 1 was over 3 years ago. She does endorse good relief with previous injections. Pain today across the lower back she denies shooting, electrical pain or numbness tingling down either lower extremity. She reports previous attempted physical therapy made her pain worse. She does continue to do home exercise program but it is not helping Patient states that they will not give her medications for her pain due to her history of mental health issues. She currently takes Advil as needed with limited benefit. She has tried lidocaine patch in the past with some relief, she would like a prescription for them again today. Denies red flag symptoms including new loss of bowel, bladder or saddle anesthesia. Prior visit with Dr. Del Toro: Patient is a 61-year-old female presenting for a follow-up for low-back pain. We received records from her prior treatment at [facility] that showed multiple interventions including trans-foraminal injections, facet injections, and sacroiliac injections for different instances of her pain over the years. Patient is not having any pain right now. She is here to discuss potential options for her axial low back pain, should it return. She states that the last time she had pain it was in the lower back which is what bothers her the most. Patient has not done physical therapy recently due to it making her pain worse but continues with home exercises. At its worst, the pain is described as excruciating that interferes with ability to carry on with activates of daily living. It occasional radiates down to the knees. [facility] Medical History (Updated 07/21/24 @ 10:56 by Veronica Hansen APRN, DESOLDERER) History of seizure Hyperlipidemia HTN (hypertension) Calcification of patellar tendon determined by X-ray Degenerative joint disease of knee Gout Physical exam B12 deficiency PTSD (post-traumatic stress disorder) MDD (major depressive disorder), recurrent episode, severe Chronic diarrhea Cocaine use disorder, mild, in early remission Weight loss Cocaine use disorder, mild, abuse Constipation by delayed colonic transit Bilateral knee pain Lumbar spondylosis Left hip pain Dyslipidemia Osteoarthritis GERD (gastroesophageal reflux disease) Depression Painful orthopaedic hardware Fibromyalgia Easy bruisability Essential hypertension Asthma due to environmental allergies Bimalleolar fracture of left ankle Brain aneurysm (~2003) Surgical History (Updated 04/19/24 @ 11:53 by Saurabh Quick MD) Hx of brain surgery H/O colonoscopy History of breast lump/mass excision History of surgery History of partial hysterectomy Status post open reduction with internal fixation (ORIF) of fracture of ankle Family History Mother Diabetes Father No problems noted. Social History (Updated 04/28/24 @ 12:28 by Janice Chavis RN) Household Members: None Housing: Apartment Are you a primary pulmonary care nurse to a significant other at home: No Do you presently have visiting nurse or other home services: Yes ([employer] 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) Alcohol intake: current Alcohol intake frequency: a few times a month Patient Tobacco Use Status: Current someday Tobacco user Tobacco use type: Cigarette Cigarette Packs Per Day: 0 Cigarettes Per Day: 4 Years Smoked: 30 e-Cigarette/Vaping Use: Never Used Second Hand Smoke Exposure: Yes Substance Use Type: Crack/Cocaine service: No Current occupational status: disabled Current occupation: Right Handed Sexual orientation: Did not discuss Cognitive needs: Yes Hearing needs: No Vision needs: Yes Review of Systems Const All systems reviewed & are unremarkable except as noted in HPI and below Physical Exam Vital Signs: Last Vital Signs Pulse 81 08/11/24 11:28 BP 131/96 H 08/11/24 11:28 Pulse Ox 99 08/11/24 11:28 Oxygen Delivery Method Room Air 08/11/24 11:28 BMI result Body Mass Index 28.2 General: awake, alert, oriented. Answers questions appropriately. Fully engaged in examination. Skin: warm, dry, intact HEENT: Normocephalic. Hearing intact. Cardiac: External chest normal in appearance. Respiratory: No cough, audible wheezing or stridor. Abdomen: without gross distension. MS: No obvious swelling or deformities. Neurological: Oriented to person, place, time and situation. Thought process intact. No gait abnormalities appreciated. Psychiatric: Appropriate mood and affect. Good judgment and insight. Quality Reporting (2020) Adult ([facility] 138/11/19/68) Smoking risk assessment performed?: Yes Patient Tobacco Use Status: Current someday Tobacco user Results Reviewed Results Reviewed: 04/11 RLE US: IMPRESSION: No visible sonographic abnormality in the area of palpable concern. Consider MRI without and with intravenous contrast for further evaluation. 04/11/24 CT right hip IMPRESSION: 1. No acute fracture or dislocation. 2. Mild right hip osteoarthritis. 3. Enthesopathic spurring at the greater trochanter with a lateral corticated ossification measuring up to 1.9 cm in AP dimension. Findings could represent an unfused osteophyte versus chronic calcific tendinitis. 4. Attenuation of the distal gluteus medius and gluteus minimus tendons which could represent a combination of tendinosis and chronic partial tearing. Evaluation significantly limited on CT examination. 05/20/23 XR/XR knee LT 3V IMPRESSION: Mild degenerative changes in the patellofemoral compartment. Enchondroma or bone island in the proximal tibia and soft tissue calcification. 05/20/23 XR/XR knee RT 3V IMPRESSION: 1. No acute visible fracture or dislocation. 2. Multiple ossific densities are noted in the medial soft tissues along the infrapatellar and suprapatellar region nonspecific though may represent elements of dystrophic calcifications of the medial joint versus less common entities such as lipoma arborescens versus loose bodies. 3. Mild multi joint arthritic changes. 4. Small knee joint effusion. Assessment & Plan Assessment & Plan (1) Left shoulder pain: Code(s): M25.512 - Pain in left shoulder Category: Medical (2) Knee pain: Code(s): M25.569 - Pain in unspecified knee Category: Medical (3) Lumbar spondylosis: Code(s): M47.816 - Spondylosis without myelopathy or radiculopathy, lumbar region Category: Medical Plan Patient presents today for follow-up low back pain, procedure discussion All questions and concerns regarding the pending radiofrequency ablation were addressed with the patient. Patient is spoke with the surgery scheduler after the visit, procedure has been scheduled for September 02. All questions and concerns answered, patient agrees to the plan. Follow up after procedure, sooner if needed Coding Level of Care Code Est Pt Level 3 (35371) Complex EM visit Add On G2211 Diagnoses Left shoulder pain M25.512 Knee pain M25.569 Lumbar spondylosis M47.816
== END 2024-08-11 11:52 | disposition home or self-care (01) ==
PROVIDERS: PCP Internal Medicine; Visit Provider Registered Nurse Emergency
DX: M25.512 Pain in left shoulder (principal); M25.569 Pain in unspecified knee; M47.816 Spondylosis without myelopathy or radiculopathy, lumbar region
CPT/HCPCS: 99213; G2211

== ENCOUNTER → 2024-08-11 11:24 | Outpatient (BNVA) | payer OTHER, SELFPAY | PROVIDERS: PCP Internal Medicine; Visit Provider Registered Nurse Emergency | DX: M25.512 Pain in left shoulder (principal); M25.569 Pain in unspecified knee; M47.816 Spondylosis without myelopathy or radiculopathy, lumbar region | CPT/HCPCS: 99212 ==

== ENCOUNTER 2024-08-23 13:07 | Outpatient (REF) | payer OTHER, SELFPAY ==
--- NOTE | ~2024-08-23 | MM_ITS ---
EXAMINATION: MM SCREENING DIGITAL BREAST TOMOSYNTHESIS, BILATERAL CLINICAL INFORMATION: Screening. Asymptomatic. COMPARISON: Mammography: Comparison is made with available priors TECHNIQUE: Digital breast mammography with tomosynthesis is performed in both the craniocaudal and mediolateral oblique views along with computer-aided detection (CAD). FINDINGS: There are scattered areas of fibroglandular density (ACR BI-RADS breast composition Category b). There are no significant masses, abnormal calcifications, or other abnormalities. MM/MM tomosynthesis screening BI IMPRESSION: No mammographic evidence of malignancy. ASSESSMENT: BI-RADS BI-RADS 1 - Negative RECOMMENDATION: Routine annual mammography screening. 1 year F/U This examination should not preclude the clinical evaluation of a suspicious palpable abnormality. This patient's information was entered into a reminder system with a target due date for their next mammogram. Electronically signed by: Dipika Yen DO 09/01/2024 01:47 PM [facility]
== END 2024-08-23 13:08 | disposition home or self-care (01) ==
LOC: HO.MAMMO 13:07
PROVIDERS: PCP Internal Medicine; Visit Provider Internal Medicine
DX: Z12.31 Encounter for screening mammogram for malignant neoplasm of breast (principal)
CPT/HCPCS: 77063; 77067

== ENCOUNTER → 2024-08-23 13:30 | Outpatient (BNV) | payer OTHER, SELFPAY | PROVIDERS: PCP Internal Medicine; Visit Provider Internal Medicine | DX: Z12.31 Encounter for screening mammogram for malignant neoplasm of breast (principal) | CPT/HCPCS: 77063; 77067 ==

== ENCOUNTER → 2024-09-02 11:03 | Day surgery (SDC) | payer OTHER, SELFPAY ==
[2024-08-31 13:35] VITALS: BMI 28.2
--- NOTE | 2024-09-01 10:54 | HO.ANESPROP2 ---
HPI - Anesthesia Eval Consult details Narrative: 64yo F for Bilateral L3-L4-DR L5 Medial Branch Radiofrequency AB Pt seen in PAT 04/2024 for hernia repair, not performed. + Cocaine use: Last 04/27/24, long discussion about risks with anesthesia and hx brain aneurysm. Pt will try to refrain preop. Utox DOS. Some day smoker Brain aneurysm: repaired with coil ~ 20years ago Seizures: none since teens, no rx Asthma: stable, albuterol ~ 1 x weekly GERD: ppi PMFSH Active Problems Active Problems: All Active Problems Left shoulder pain (Acute) Knee pain (Acute) Peripheral edema (Acute) Bilateral hand pain (Acute) De Quervain's tenosynovitis, left (Acute) Bilateral hand numbness (Acute) Femoral hernia of right side (Acute) Urinary incontinence (Acute) Physical exam (Acute) Mass of right thigh (Acute) Abscess (Acute) Right hip pain (Acute) Nicotine dependence (Acute) Feeling of incomplete bladder emptying (Acute) Microscopic hematuria (Acute) Urinary retention (Acute) Vitiligo (Acute) Urinary straining (Acute) Elevated TSH (Acute) Intermittent constipation (Acute) Hypopigmentation (Acute) Dysphagia (Acute) Unintentional weight loss (Acute) MICHELLE (generalized anxiety disorder) (Acute) Moderate recurrent major depression (Acute) Abdominal pain (Acute) Forearm laceration (Acute) Arthritis of carpometacarpal (CMC) joint of left thumb (Acute) Ankle pain, left (Acute) Fibromyalgia (Acute) Gout (Acute) Calcification of patellar tendon determined by X-ray (Acute) Degenerative joint disease of knee (Acute) Cocaine use disorder, mild, abuse (Acute) Physical exam (Acute) B12 deficiency (Acute) PTSD (post-traumatic stress disorder) (Acute) Chronic diarrhea (Acute) Weight loss (Acute) Bilateral knee pain (Acute) Lumbar spondylosis (Acute) Left hip pain (Acute) GERD (gastroesophageal reflux disease) (Acute) Essential hypertension (Acute) Dyslipidemia (Acute) Past Medical History Medical History (Updated 07/21/24 @ 10:56 by Veronica Hansen APRN, SCHEDULING SPECIALIST) History of seizure Hyperlipidemia HTN (hypertension) Calcification of patellar tendon determined by X-ray Degenerative joint disease of knee Gout Physical exam B12 deficiency PTSD (post-traumatic stress disorder) MDD (major depressive disorder), recurrent episode, severe Chronic diarrhea Cocaine use disorder, mild, in early remission Weight loss Cocaine use disorder, mild, abuse Constipation by delayed colonic transit Bilateral knee pain Lumbar spondylosis Left hip pain Dyslipidemia Osteoarthritis GERD (gastroesophageal reflux disease) Depression Painful orthopaedic hardware Fibromyalgia Easy bruisability Essential hypertension Asthma due to environmental allergies Bimalleolar fracture of left ankle Brain aneurysm (~2003) Family History Family History Mother Diabetes Father No problems noted. Family history of problems with anesthesia: No Surgical History Surgical History (Updated 04/19/24 @ 11:53 by Saurabh Quick MD) Hx of brain surgery H/O colonoscopy History of breast lump/mass excision History of surgery History of partial hysterectomy Status post open reduction with internal fixation (ORIF) of fracture of ankle History of Problems with Anesthesia: No Social History Social History (Updated 04/28/24 @ 12:28 by Janice Chavis RN) Household Members: None Housing: Apartment Are you a primary senior care provider to a significant other at home: No Do you presently have visiting nurse or 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 home services: 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) Alcohol intake: current Alcohol intake frequency: a few times a month Patient Tobacco Use Status: Current someday Tobacco user Tobacco use type: Cigarette Cigarette Packs Per Day: 0 Cigarettes Per Day: 4 Years Smoked: 30 e-Cigarette/Vaping Use: Never Used Second Hand Smoke Exposure: Yes Substance Use Type: Crack/Cocaine service: No Current occupational status: disabled Current occupation: Right Handed Sexual orientation: Did not discuss Cognitive needs: Yes Hearing needs: No Vision needs: Yes Meds Allergies Allergy/AdvReac Type Severity Reaction Status Date / Time No Known Allergies Allergy Verified 08/11/24 11:29 [No Known Allergies*] Home Medications ?Medication ?Instructions ?Recorded ?Confirmed ?Last Taken ?Type calcitriol 0.25 mcg capsule 1 cap PO DAILY 09/16/22 08/11/24 Unknown History Exam Height,Weight and Vital Signs: Height 5 ft 2 in Weight 69.853 kg Pertinent Lab Results Pertinent Lab Results: Lab Results 04/28/24 Range/Units 12:58 WBC 6.1 (4.8-10.8) X10*3/uL RBC 3.84 L (4.20-5.50) X10*6/uL Hgb 11.8 L (12.0-16.0) g/dl Hct 36.9 L (37.0-47.0) % MCV 96.1 (80.0-98.0) fL MCH 30.7 (27.0-33.0) pg MCHC 32.0 (31.0-35.0) g/dl RDW 12.6 (11.0-16.0) % Plt Count 274 (160-400) X10*3/uL MPV 9.7 (9.4-12.3) fL Absolute Nucleated RBC 0.000 (0.0-0.012) X10*3/uL Nucleated RBC % (auto) 0.0 (0.0-0.2) /100WBC Sodium 145 (135-145) mmol/L Potassium 3.4 (3.3-5.1) mmol/L Chloride 108 (96-108) mmol/L Carbon Dioxide 31 H (22-29) mmol/L Anion Gap 9 L (12-20) BUN 16 (9-16) mg/dL Creatinine 0.74 (0.5-1.4) mg/dL Estim Creat Clear Calc 72.2 Estimated GFR > 60 Random Glucose 83 (60-115) mg/dL Calcium 10.1 D (8.4-10.2) mg/dL Narrative Narrative: EKG 04/2024 Vent. Rate : 058 BPM Atrial Rate : 058 BPM P-R Int : 144 ms QRS Dur : 084 ms QT Int : 452 ms P-R-T Axes : -18 041 041 degrees QTc Int : 443 ms Sinus bradycardia Otherwise normal ECG When compared with ECG of 10-MAR-2019 09:19, No significant change was found Assessment and Plan Assessment Anesthesia Assessment: Chart Reviewed Final Anesthetic Review Family History of Problems with Anesthesia: No History of Problems with Anesthesia: No
--- NOTE | 2024-09-02 11:11 | PC.NURSE ---
Patient brought into preop bed 6, patient admitted to use of cocaine yesterday. Dr. wSain notified and at bedside to speak with patient. procedure cancelled by Anesthesia for today,
== END ==
LOC: HO.SSS 11:05
PROVIDERS: PCP Internal Medicine; Visit Provider Anesthesiology
DX: M47.816 Spondylosis without myelopathy or radiculopathy, lumbar region (principal); Z53.09 Procedure and treatment not carried out because of other contraindication; F14.90 Cocaine use, unspecified, uncomplicated; R82.5 Elevated urine levels of drugs, medicaments and biological substances

== ENCOUNTER 2024-10-12 11:05 | Outpatient (AMB) | payer OTHER, SELFPAY ==
[2024-10-12 11:42] VITALS: BP 136/63; PULSE 76; RESP 15; O2SAT 97; BMI 28.2
--- NOTE | 2024-10-12 11:42 | A.OFFVIS_ITS ---
Vital Signs 10/12/24 11:42 Height 5 ft 2 in Weight 154 lb BMI 28.2 BP 136/63 Blood Pressure Location Lt brachial Position Sitting Respiration 15 Pulse 76 Pulse Source Pulse Oximeter Pulse Oximetry (%) 97 Oxygen Delivery Method Room Air Intake Visit Reasons: xray result/ injection discussion Allergies No Known Allergies [No Known Allergies*] Allergy (Verified 10/12/24 11:43) Medication List - Last Reconciled 10/12/24 by Jana Armenta LPN acetaminophen ER (Tylenol Arthritis Pain) 650 mg PO Q8H PRN 30 days albuterol sulfate 90 mcg/actuation (Ventolin HFA) 2 puffs PO Q6H PRN 30 days aripiprazole 2 mg PO BEDTIME 30 days atorvastatin 20 mg PO BEDTIME 90 days baclofen 5 mg PO QID 30 days calcitriol 1 cap PO DAILY cholecalciferol (vitamin D3) 25 mcg PO DAILY 90 days clonazepam 0.5 mg PO DAILY PRN 30 days clonidine HCl 0.1 mg See Protocol PO BID PRN 30 days colchicine 0.6 mg PO DAILY PRN [disposable wipes As directed] escitalopram oxalate 20 mg PO QAM 30 days furosemide 20 mg PO DAILY lidocaine 5% (Lidoderm) 1 patch topical DAILY lisinopril 10 mg PO DAILY 90 days loperamide 2 mg PO Q6H PRN 30 days omeprazole 40 mg PO QAM quetiapine 50 mg PO BEDTIME PRN 30 days [raised toilet seat As directed] ropinirole 1 mg PO BEDTIME triamcinolone acetonide 0.1% 1 appl topical DAILY 2 weeks [wipes As directed] HPI Comments Details: Patient presents back to the office today for follow-up, review x-rays X-rays reviewed, results as per below Continues with bilateral knee pain, left worse than right. Receiving injections through [facility] pain management. States had cortisone injections 2 months ago with no relief. She also complaining of lower back pain. One month ago arrived for lumbar RFA which was canceled. Patient would like to proceed with therapeutic MBB, she is not interested in RFA at this time Patient also states that she has baclofen on her medication list. Her PCP keeps refilling this even though we initiated it. She would like this discontinued as it does not help and she is no longer taking. She does not with the pharmacy to keep filling it. Prior: Patient presents back to the office today for follow-up to discuss upcoming procedure. Pain today is rated as a 9/10, she has pending L3-L4 DR L5 RFA with sedation Patient here to discuss the procedure she has some questions and concerns Prior: Rigo presents back to the office today for follow-up lower back pain Pain today is 10/10, she reports she fell 2 days ago and this has exacerbated her pain. Prior to this her pain had been slowly returning after her previous therapeutic lumbar medial branch blocks. She had schedule an appointment to discuss repeating the injections. Also complains of bilateral knee pain and left shoulder pain after the fall Prior: Patient presents back to the office today for follow-up, 1 month status post bilateral therapeutic L3-L4 DR L5 medial branch blocks with local anesthetic Pain today is rated as a 1/10. She reports greater than 90% pain relief with improvement in functional mobility. Denies any untoward effects of the injections Prior: Rigo presents back to the office today for follow-up Complaining of right hip/groin pain Had recent visit with PCP and General surgery. She is scheduled for inguinal hernia repair on the right on May 05 Approximately 3 weeks ago she was treated with Bactrim for question of an abscess to the right lower extremity. She was told by PCP to follow-up top of the abscess drained. She was under the impression that this is what we would be doing in the office today. Also complaining of intermittent bilateral lower extremity edema. She currently takes 20 mg of Lasix daily but edema persists. Had steroid injection to her left hand/wrist yesterday by Orthopedics She is currently under care of orthopedics for bilateral wrist and bilateral knee pains. Prior: Patient presents back to the office today for follow up to discuss procedure options to treat her chronic lower back pain Previously she had elected RFA but then decided against it. She is adamant that she does not want Sprint PNS device. Pain today is 8/10. would like to repeat injections with steroids also c/o right hip pain, was told in the past she needs surgery but she is not ready for replacement at this time Prior: Telephone visit today completed for follow-up, 2 days status post bilateral diagnostic L3-L4 DR L5 medial branch blocks. Patient reports 100% pain relief for the entire 6 hours after the procedure was improvement in function and mobility. She states she continues to be pain-free even today. She denies untoward effects of the injections. Intake note: Rigo presents the office today for follow-up lower back pain. Patient reports today pain 10/10, constant, worse with activity. She was previously getting injections from [facility], states last 1 was over 3 years ago. She does endorse good relief with previous injections. Pain today across the lower back she denies shooting, electrical pain or numbness tingling down either lower extremity. She reports previous attempted physical therapy made her pain worse. She does continue to do home exercise program but it is not helping Patient states that they will not give her medications for her pain due to her history of mental health issues. She currently takes Advil as needed with limited benefit. She has tried lidocaine patch in the past with some relief, she would like a prescription for them again today. Denies red flag symptoms including new loss of bowel, bladder or saddle anesthesia. Prior visit with Dr. Del Toro: Patient is a 61-year-old female presenting for a follow-up for low-back pain. We received records from her prior treatment at [facility] that showed multiple interventions including trans-foraminal injections, facet injections, and sacroiliac injections for different instances of her pain over the years. Patient is not having any pain right now. She is here to discuss potential options for her axial low back pain, should it return. She states that the last time she had pain it was in the lower back which is what bothers her the most. Patient has not done physical therapy recently due to it making her pain worse but continues with home exercises. At its worst, the pain is described as excruciating that interferes with ability to carry on with activates of daily living. It occasional radiates down to the knees. [facility] Medical History (Updated 07/21/24 @ 10:56 by Veronica Hansen, GOVERNMENT SALES MANAGER, SUPERVISOR IN CIRCUIT TESTING) History of seizure Hyperlipidemia HTN (hypertension) Calcification of patellar tendon determined by X-ray Degenerative joint disease of knee Gout Physical exam B12 deficiency PTSD (post-traumatic stress disorder) MDD (major depressive disorder), recurrent episode, severe Chronic diarrhea Cocaine use disorder, mild, in early remission Weight loss Cocaine use disorder, mild, abuse Constipation by delayed colonic transit Bilateral knee pain Lumbar spondylosis Left hip pain Dyslipidemia Osteoarthritis GERD (gastroesophageal reflux disease) Depression Painful orthopaedic hardware Fibromyalgia Easy bruisability Essential hypertension Asthma due to environmental allergies Bimalleolar fracture of left ankle Brain aneurysm (~2003) Surgical History (Updated 04/19/24 @ 11:53 by Saurabh Quick MD) Hx of brain surgery H/O colonoscopy History of breast lump/mass excision History of surgery History of partial hysterectomy Status post open reduction with internal fixation (ORIF) of fracture of ankle Family History Mother Diabetes Father No problems noted. 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) Alcohol intake: current Alcohol intake frequency: a few times a month Patient Tobacco Use Status: Current someday Tobacco user Tobacco use type: Cigarette Cigarette Packs Per Day: 0 Cigarettes Per Day: 4 Years Smoked: 30 e-Cigarette/Vaping Use: Never Used Second Hand Smoke Exposure: Yes Substance Use Type: Crack/Cocaine service: No Current occupational status: disabled Current occupation: Right Handed Sexual orientation: Did not discuss Cognitive needs: Yes Hearing needs: No Vision needs: Yes Review of Systems Const All systems reviewed & are unremarkable except as noted in HPI and below Physical Exam Vital Signs: Last Vital Signs Pulse 76 10/12/24 11:42 Resp 15 10/12/24 11:42 BP 136/63 10/12/24 11:42 Pulse Ox 97 10/12/24 11:42 Oxygen Delivery Method Room Air 10/12/24 11:42 BMI result Body Mass Index 28.2 General: awake, alert, oriented. Answers questions appropriately. Fully engaged in examination. Skin: warm, dry, intact HEENT: Normocephalic. Hearing intact. Cardiac: External chest normal in appearance. Respiratory: No cough, audible wheezing or stridor. Abdomen: without gross distension. MS: No obvious swelling or deformities. Ambulates with antalgic gait Neurological: Oriented to person, place, time and situation. Thought process intact. No gait abnormalities appreciated. Psychiatric: Appropriate mood and affect. Good judgment and insight. Quality Reporting (2019) Adult ([facility] 138/2//69) Smoking risk assessment performed?: Yes Patient Tobacco Use Status: Current someday Tobacco user Results Reviewed Results Reviewed: 07/21/24 XR/XR knee LT 3V IMPRESSION: 1. No acute finding. 2. Stable enchondroma left tibia. 3. Stable soft tissue calcifications. 07/21/24 XR/XR knee RT 3V IMPRESSION: Progression of soft tissue calcifications. No acute finding. 04/11/24 RLE US: IMPRESSION: No visible sonographic abnormality in the area of palpable concern. Consider MRI without and with intravenous contrast for further evaluation. 04/11/24 CT right hip IMPRESSION: 1. No acute fracture or dislocation. 2. Mild right hip osteoarthritis. 3. Enthesopathic spurring at the greater trochanter with a lateral corticated ossification measuring up to 1.9 cm in AP dimension. Findings could represent an unfused osteophyte versus chronic calcific tendinitis. 4. Attenuation of the distal gluteus medius and gluteus minimus tendons which could represent a combination of tendinosis and chronic partial tearing. Evaluation significantly limited on CT examination. 05/20/23 XR/XR knee LT 3V IMPRESSION: Mild degenerative changes in the patellofemoral compartment. Enchondroma or bone island in the proximal tibia and soft tissue calcification. 05/20/23 XR/XR knee RT 3V IMPRESSION: 1. No acute visible fracture or dislocation. 2. Multiple ossific densities are noted in the medial soft tissues along the infrapatellar and suprapatellar region nonspecific though may represent elements of dystrophic calcifications of the medial joint versus less common entities such as lipoma arborescens versus loose bodies. 3. Mild multi joint arthritic changes. 4. Small knee joint effusion. Assessment & Plan Assessment & Plan (1) Knee pain: Code(s): M25.569 - Pain in unspecified knee Category: Medical (2) Left shoulder pain: Code(s): M25.512 - Pain in left shoulder Category: Medical (3) Lumbar spondylosis: Code(s): M47.816 - Spondylosis without myelopathy or radiculopathy, lumbar region Category: Medical Plan Patient presents today for follow-up bilateral knee and lower back pain Referral placed for Orthopedics to evaluate bilateral knee pain Discontinue baclofen per patient request Discussed RFA, patient is not interested at the time. She would like to proceed with therapeutic L3-L4 DR L5 medial branch blocks. She was advised of the risks of continued steroid use as well as potential for decreased effect with repeat use. Patient verbalizes understanding but would like to proceed with therapeutic injections. Will schedule for fluoroscopy guided bilateral therapeutic L3-L4 DR L5 medial branch blocks with local anesthetic All questions and concerns answered, patient agrees to the plan. Follow up after procedure, sooner if needed Orders: Referrals Orthopedics Referral M25.569 - Pain in unspecified knee Medications: Discontinued baclofen Discontinued Reason: Patient no longer taking 5 mg PO QID 30 days 120 tabs 11RF Coding Level of Care Code Est Pt Level 3 (38097) Complex EM visit Add On G2211 Diagnoses Knee pain M25.569 Left shoulder pain M25.512 Lumbar spondylosis M47.816
== END 2024-10-12 12:02 | disposition home or self-care (01) ==
PROVIDERS: PCP Internal Medicine; Visit Provider Registered Nurse Emergency
DX: M25.569 Pain in unspecified knee (principal); M25.512 Pain in left shoulder; M47.816 Spondylosis without myelopathy or radiculopathy, lumbar region
CPT/HCPCS: 99213; G2211

== ENCOUNTER → 2024-10-12 11:05 | Outpatient (BNVA) | payer OTHER, SELFPAY | PROVIDERS: PCP Internal Medicine; Visit Provider Registered Nurse Emergency | DX: M25.512 Pain in left shoulder (principal); M25.569 Pain in unspecified knee; M47.816 Spondylosis without myelopathy or radiculopathy, lumbar region | CPT/HCPCS: 99212 ==

== ENCOUNTER 2024-12-20 06:35 | Outpatient (REF) | payer OTHER, SELFPAY ==
--- NOTE | ~2024-12-20 | FL_ITS ---
EXAMINATION: FL GUIDANCE ONLY HISTORY: M47.816 - Spondylosis without myelopathy or radiculopathy, lumbar region COMPARISON: None available. TECHNIQUE: Fluoroscopy time: 0.5 minutes. Cumulative Dose: 5.85 mGy. DAP: 0.101 mGym2 Images: 6. FINDINGS: Images demonstrate needles and contrast material in the regions of the bilateral L3-4, L4-5, and L5-S1 facet joints. FL/FL guidance in treatment room IMPRESSION: Fluoroscopy during procedure. Please see procedure report for additional information. Electronically signed by: Sunil Todd MD 12/21/2024 07:02 AM EDT
== END 2024-12-20 06:36 | disposition home or self-care (01) ==
LOC: CF 06:35
PROVIDERS: Visit Provider Anesthesiology
DX: M47.816 Spondylosis without myelopathy or radiculopathy, lumbar region (principal)
CPT/HCPCS: 64493; 64494; J2003; J2795; J3301; Q9967

== ENCOUNTER 2024-12-20 14:36 | Outpatient (AMB) | payer OTHER, SELFPAY ==
--- NOTE | 2024-12-20 14:48 | A.OFFVIS_ITS ---
Vital Signs 12/20/24 14:50 12/20/24 15:31 BP 143/78 H 136/77 Blood Pressure Location Rt brachial Rt brachial Position Sitting Sitting Pulse 74 78 Pulse Source Pulse Oximeter Pulse Oximeter Pulse Oximetry (%) 97 100 Oxygen Delivery Method Room Air Room Air Comment Pre-Procedure Post-Procedure Intake Visit Reasons: BILATERAL THERAPEUTIC L3, L4, DRL5 MBB Allergies No Known Allergies [No Known Allergies*] Allergy (Verified 10/12/24 11:43) PFS Medical History (Updated 12/21/24 @ 07:55 by Zurdo Zarate MD) History of seizure Hyperlipidemia HTN (hypertension) Calcification of patellar tendon determined by X-ray Degenerative joint disease of knee Gout Physical exam B12 deficiency PTSD (post-traumatic stress disorder) MDD (major depressive disorder), recurrent episode, severe Chronic diarrhea Cocaine use disorder, mild, in early remission Weight loss Cocaine use disorder, mild, abuse Constipation by delayed colonic transit Bilateral knee pain Lumbar spondylosis Left hip pain Dyslipidemia Osteoarthritis GERD (gastroesophageal reflux disease) Depression Painful orthopaedic hardware Fibromyalgia Easy bruisability Essential hypertension Asthma due to environmental allergies Bimalleolar fracture of left ankle Brain aneurysm (~2003) Surgical History (Updated 04/19/24 @ 11:53 by Saurabh Quick MD) Hx of brain surgery H/O colonoscopy History of breast lump/mass excision History of surgery History of partial hysterectomy Status post open reduction with internal fixation (ORIF) of fracture of ankle Family History Mother Diabetes Father No problems noted. 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) Alcohol intake: current Alcohol intake frequency: a few times a month Patient Tobacco Use Status: Current someday Tobacco user Tobacco use type: Cigarette Cigarette Packs Per Day: 0 Cigarettes Per Day: 4 Years Smoked: 30 e-Cigarette/Vaping Use: Never Used Second Hand Smoke Exposure: Yes Substance Use Type: Crack/Cocaine service: No Current occupational status: disabled Current occupation: Right Handed Sexual orientation: Did not discuss Cognitive needs: Yes Hearing needs: No Vision needs: Yes Physical Exam Vital Signs: Last Vital Signs Pulse 78 12/20/24 15:31 BP 136/77 12/20/24 15:31 Pulse Ox 100 12/20/24 15:31 Oxygen Delivery Method Room Air 12/20/24 15:31 Assessment & Plan Assessment & Plan (1) Spondylosis of lumbar region without myelopathy or radiculopathy: Code(s): M47.816 - Spondylosis without myelopathy or radiculopathy, lumbar region Category: Medical Plan Therapeutic bilateral medial branch block L3, L4, dorsal ramus L5. Informed consent was thoroughly explained to the patient before the procedure.? The patient came to the operating room.? She was positioned prone on operating table with a pillow under her abdomen.? Time-out was performed delineating correct site and side of the procedure, nature of the injection, name and date of of the patient. The lower back and upper buttocks of the patient was prepped with ChloraPrep and draped with sterile utility towels.? C-arm was brought over the operating field and the point of interest were delineated as confluence of the superior art icular process of L4 vertebra and L5 vertebra bilaterally with corresponding transverse process bilaterally., as well as confluence of the superior articular process of S1 on the bilaterally with sacral ala bilaterally. The point of interest projection to the skin was injected with small amount of mixture of lidocaine 2% and ropivacaine 0.5% one-to-one. After that 22 gauge 3-1/2 inch needle was driven to point of interest in tunnel vision fashion. When needle gently contacted the bone injection of the contrast was performed delineating no intravascular and no intrathecal spread of the contrast. After that injection of the small amount of ropivacaine 0.5% 1 cc mixed with Kenalog into each target site was performed. Total dose of Kenalog was 80 mg. Upon completion of the injections the needle was removed sterile Band-Aids were applied. The patient tolerated procedure well. Orders: Orders FL guidance in treatment room 12/20/24 M47.816 - Spondylosis without myelopathy or radiculopathy, lumbar region Coding Level of Care Code Procedure Only Diagnoses Spondylosis of lumbar region without myelopathy or radiculopathy M47.816
[2024-12-20 14:50] VITALS: BP 143/78; PULSE 74; O2SAT 97
[2024-12-20 15:31] VITALS: BP 136/77; PULSE 78; O2SAT 100
== END 2024-12-20 15:31 | disposition home or self-care (01) ==
LOC: HO.PMCPRC 14:36
PROVIDERS: PCP Internal Medicine; Visit Provider Anesthesiology
DX: M47.816 Spondylosis without myelopathy or radiculopathy, lumbar region (principal)
CPT/HCPCS: 64493; 64494

== ENCOUNTER 2024-12-28 13:01 | Outpatient (AMB) | payer OTHER, SELFPAY ==
--- NOTE | 2024-12-28 13:03 | A.OFFVIS_ITS ---
Vital Signs 12/28/24 13:10 Height 5 ft 2 in Weight 154 lb BMI 28.2 Intake Visit Reasons: Right knee pain Intake Note: Rigo is a 64 year old female who presents with complaints of progressively worsening bilateral knee pains, right greater than left. The patient also complains of a soft tissue mass along the anterior aspect of her right knee. She states that the mass has gotten bigger over the last 6 months. She has been told by other providers that the mass is either a cyst or a ?lipoma?. She is not able to have an MRI because of aneurysm clips. She states that her right knee will give out several times per day. Allergies No Known Allergies [No Known Allergies*] Allergy (Verified 12/28/24 13:08) FOR[facility]LY [facility] Medical History (Updated 12/28/24 @ 13:21 by Marlo Saldaña MD) History of seizure Hyperlipidemia HTN (hypertension) Calcification of patellar tendon determined by X-ray Degenerative joint disease of knee Gout Physical exam B12 deficiency PTSD (post-traumatic stress disorder) MDD (major depressive disorder), recurrent episode, severe Chronic diarrhea Cocaine use disorder, mild, in early remission Weight loss Cocaine use disorder, mild, abuse Constipation by delayed colonic transit Bilateral knee pain Lumbar spondylosis Left hip pain Dyslipidemia Osteoarthritis GERD (gastroesophageal reflux disease) Depression Painful orthopaedic hardware Fibromyalgia Easy bruisability Essential hypertension Asthma due to environmental allergies Bimalleolar fracture of left ankle Brain aneurysm (~2003) Surgical History (Updated 04/19/24 @ 11:53 by Saurabh Quick MD) Hx of brain surgery H/O colonoscopy History of breast lump/mass excision History of surgery History of partial hysterectomy Status post open reduction with internal fixation (ORIF) of fracture of ankle Family History Mother Diabetes Father No problems noted. Social History Household Members: None Housing: Apartment Are you a primary healthcare administration intern to a significant other at home: No Do you presently have visiting nurse or other home services: Yes ([employer] 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) Alcohol intake: current Alcohol intake frequency: a few times a month Patient Tobacco Use Status: Current someday Tobacco user Tobacco use type: Cigarette Cigarette Packs Per Day: 0 Cigarettes Per Day: 4 Years Smoked: 30 e-Cigarette/Vaping Use: Never Used Second Hand Smoke Exposure: Yes Substance Use Type: Crack/Cocaine service: No Current occupational status: disabled Current occupation: Right Handed Sexual orientation: Did not discuss Cognitive needs: Yes Hearing needs: No Vision needs: Yes Physical Exam Vital Signs: BMI result Body Mass Index 28.2 Const Other: Well-nourished well-developed very friendly female awake alert and oriented x3 in no acute distress Extrem Other: Right knee examination shows a soft tissue mass along the anterior aspect of her patella and patella tendon measuring approximately 2 cm x 2 cm, no overlying skin lesions, no redness, no signs of infection, positive Rodolfo's test, no instability Results Reviewed Results Reviewed: X-ray report of the patient's bilateral knees shows ?multiple serpiginous sclerotic medullary bone lesions seen around both knees... Advise MRI for further confirmation? Assessment & Plan Assessment & Plan (1) Mass of right knee: Code(s): R22.41 - Localized swelling, mass and lump, right lower limb Category: Medical (2) Right knee pain: Code(s): M25.561 - Pain in right knee Plan Ms. Gamble presents with right knee pain due to degenerative joint disease as well as possible medial meniscus tearing. She also has a soft tissue mass along the anterior aspect of her right knee of unclear etiology. Thus, I will send the patient for a CT scan of her right knee with and without contrast to help evaluate her soft tissue and bony lesions. I will see her back once the CT scan is performed to discuss the findings and treatment options. Feel free to call me at any time should questions regarding her orthopedic management arise. I spent 20 minutes in reviewing the patient's records and imaging studies, seeing the patient and documenting in the medical record. Orders: Orders CT knee RT wo/w IV con Today R22.41 - Localized swelling, mass and lump, right lower limb Coding Level of Care Code Est Pt Level 3 (11634) Complex EM visit Add On G2211 Diagnoses Mass of right knee R22.41 Right knee pain M25.561
[2024-12-28 13:10] VITALS: BMI 28.2
--- OUTSIDE RECORDS SUMMARY | 2024-12-28 15:39 | XMS_ITS | Data Portability ---
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 Name Role Phone HIM [facility] OTHER Assessment Encounter Date Assessment Date Assessment LastModified by Organization Details LastModified Time 03/22/2024 03/22/2024 service called for lump R knee found 64 yom with HTN no hx CHF c/o 3d new fleshy lump on R knee, started as smal lwhite spot denies injury or fall no new chest pain/pressure /SOB/decerase in exercise capacity no redness, tenderness, swelling VSS afebrile reported exam: firm fleshy nodule overlying skin of R patella, non tender, non-fixed, no redness no joint effusion R knee ROM intact #Lipoma reassured monitor for worsening, redness, swelling and notify service otherwise return to primary team [email or web address] Not available 03/22/2024 23:57:04 Plan of Treatment Reminders Order Date Submit Date Provider Last Modified By Organization Details Last Modified Time Details Appointments None record ed. Lab None record ed. Referral None record ed. Procedures None record ed. Surgeries None record ed. Imaging None record ed. Medication Orders None record ed. Patient TargetsNo targets recorded. Patient InstructionsNo instructions recorded. Reason for Referral None Reported. Medical Equipment None Reported. Medications Name Sig Start Date Stop Date Status Note LastModified by Organization Details LastModified Time atorvastatin 20 mg tablet TAKE 1 TABLET BY MOUTH ONCE DAILY AT BEDTIME active Not Available Not Available No t Available ropinirole 1 mg tablet TAKE 1 TABLET BY MOUTH AT BEDTIME active Not Available Not Available No t Available loperamide 2 mg capsule TAKE 1 CAPSULE BY MOUTH EVERY 6 HOURS NEEDED FOR loose stool active Not Available Not Available No t Available prednisone 20 mg tablet active Not Available Not Available No t Available clonazepam 0.5 mg tablet Take 1 tablet by mouth twice a day as needed active Not Available Not Available No t Available omeprazole 40 mg capsule,delay ed release TAKE 1 CAPSULE BY MOUTH EVERY MORNING active Not Available Not Available No t Available acetaminophen ER 650 mg tablet,extend ed release TAKE 1 TABLET BY MOUTH EVERY TWELVE HOURS NEEDED FOR PAIN (SCALE 1-3) active Not Available Not Available No t Available cephalexin 500 mg capsule active Not Available Not Available Not Available triamcinolone acetonide 0.1 % topical ointment APPLY TO THE AFFECTED AREA TOPICALLY ONCE DAILY FOR 2 WEEKS active Not Available Not Available No t Available lisinopril 10 mg tablet TAKE 1 TABLET BY MOUTH ONCE DAILY active Not Available Not Available No t Available lidocaine 5 % topical patch APPLY 1 PATCH TOPICALLY ONCE DAILY. remove patch after 12 hours active Not Available Not Available No t Available diclofenac sodium 75 mg tablet,delaye d release TAKE 1 TABLET BY MOUTH two (2) times a day active Not Available Not Available No t Available furosemide 20 mg tablet TAKE 1 TABLET BY MOUTH ONCE DAILY active Not Available Not Available No t Available albuterol sulfate HFA 90 mcg/actuation aerosol inhaler INHALE 2 PUFFS BY MOUTH INTO THE lungs EVERY 6 HOURS NEEDED FOR WHEEZING active Not Available Not Available No t Available colchicine 0.6 mg tablet TAKE 2 TABLETS BY MOUTH ONCE AT THE 1st ONSET OF gout flare THEN 1 TABLET 1 HOUR LATER ONCE, THEN 1 TABLET two (2) times a day FOR 2 DAYS UNTIL flare resolves active Not Available Not Available No t Available naproxen 500 mg tablet active Not Available Not Available No t Available escitalopram 20 mg tablet Take 1 tablet by mouth every morning active Not Available Not Available No t Available Vitamin D3 25 mcg (1,000 unit) capsule TAKE 1 CAPSULE BY MOUTH ONCE DAILY active Not Available Not Available No t Available quetiapine 50 mg tablet TAKE 1 TABLET BY MOUTH ONCE DAILY AT BEDTIME NEEDED active Not Available Not Available No t Available baclofen 5 mg tablet TAKE 1 TABLET BY MOUTH 4 (FOUR) TIMES DAILY active Not Available Not Available No t Available Vitals Date Recorded Body temperature Respiratory rate Body height Heart rate Body weight Oxygen saturation Oxygen saturation in Arterial blood by Pulse oximetry Systolic blood pressure Diastolic blood pressure Provider Name and Address Organization Details Last Updated DateTime 4 96.9 [degF] 16 /min 162.56 cm 97 /min 35422.7 6 g 99 % 99 % 157 mm[Hg] 102 mm[Hg] Not Available [employer]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 Functional Status None recorded. Mental Status None recorded. Family History Nothing Reported. Medical History No medical history recorded. Gynecological HistoryNo gynecological history recorded. Obstetrics History GPAL:G 0 P 0 0 0 0 Past Encounters Encounter ID Performer Location Encounter Start Date Encounter Closed Date Diagnosis/Indication Diagnosis SNOMED-CT Code Diagnosis ICD10 Code Diagnosis Note [id number] Shahrzad Davis MD Main - [address] [phone] 03/22/2024 17:38:17 03/23/2024 20:12:59 Lipoma of skin 902664981 D17.30 Health Concerns Section Related Observation LastModified by Organization Detai ls LastModified Time None Recorded Concern Status LastModified by Organization Details LastModified Time None Recorded Advance Directives Directive None Recorded Payers Encounter Date Sequence Insurance Name Policy Number Policy Martin Covered Member ID Martin Member ID Guarantor Name 03/22/2024 1 [facility] - DOS ON OR AFTER 2022 - DUAL ELIGIBLE - [employer] OPTIONS AND ONE CARE (MEDICARE REPLACEMENT/ADV ANTAGE - HMO) Rigo Gamble [id number] Rigo Gamble Notes Date Note Type Note Provider Name and Address Organization Details Recorded Time 03/22/2024 text/html HPI: Member reports having increased lower extremity edema recently. Went to the ED on 03/17. Member noticed thereafter she was not taking her Lasix and was taking her Cholesterol medication. That same night member developed a soft bump on her right knee that started off soft and white. Member states now that bump is hardened and hot. Unable to state an approximate size to the bump on her knee. Member states he lower extremities have reduced in size but continue to to be edematous. Member states she called her MD and was given an appt for 04/04. Member expresses increased anxiety about her lower extremities and the bump to her right knee and would like to be evaluated. Member is able to ambulate using her cane. .................. .................. .................. .................. .................. .................. .................. ............... [facility] Nurse Triage Notes (Kristin Olmstead): Comments: [facility] RN did not require any additional information to process this visit. .................. .................. .................. .................. .................. .................. .................. ............... Rn Intensive Care Unit Note From Brown Souza: Pt reports a bump on her right knee that formed Thursday evening. Pt denies any associated injury or trauma. Pt only endorses discomfort with palpation. Pt denies CP, SOB, f/n/v/d. Pt also reports some mild BLE edema but sts she mixed up her Lipitor and lasix and missed several days of her lasix (20 mg qd). Pt has PCP f/u on 04/04. Pt is alert, NAD. Mild hypertension (did not take lisinopril today). Afebrile. Non focal neuro exam. Normal gait. Lungs CTA. Bengin ABD exam. Trace BLE edema. Small, what appears to be a lipoma on the top of her right kneecap. It is solid and moveable, feels fatty. Pt instructed to keep f/u with PCP and discuss a derm referral. Pt instructed to seek emergent medical care for new or worsening sx, such as high fever, erythema, if the skin becomes hot, severe pain. .................. .................. .................. .................. .................. .................. .................. ............... Disposition: Fulfilled Shahrzad Davis MD [address] [place] [address],[address] [facility], [place], [phone], [employer] 03/22/2024 23:58:08 OBGyn Episode No OBEpisode recorded.
== END 2024-12-28 13:22 | disposition home or self-care (01) ==
LOC: HO.HOS 13:01
PROVIDERS: PCP Internal Medicine; Visit Provider Orthopaedic Surgery
DX: M25.561 Pain in right knee (principal); R22.41 Localized swelling, mass and lump, right lower limb
CPT/HCPCS: 99213; G2211

== ENCOUNTER → 2024-12-28 13:01 | Outpatient (BNVA) | payer OTHER, SELFPAY | PROVIDERS: PCP Internal Medicine; Visit Provider Orthopaedic Surgery | DX: M25.561 Pain in right knee (principal); R22.41 Localized swelling, mass and lump, right lower limb | CPT/HCPCS: 99212 ==

== ENCOUNTER 2025-02-23 13:57 | Outpatient (AMB) | payer OTHER, SELFPAY ==
--- OUTSIDE RECORDS SUMMARY | 2025-02-23 14:10 | XMS_ITS | Data Portability ---
Author Organization [employer] Address [address] [place] [phone] Care Team Providers Care Complaint Investigator Name Role Phone HIM [facility] OTHER Assessment [...] [degF] 16 /min 162.56 cm 97 /min 23893.7 6 g 99 % 99 % 157 mm[Hg] 102 mm[Hg] Not Available [employer]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 Functional Status None recorded. Mental Status None recorded. Family History Nothing Reported. Medical History No medical history recorded. Gynecological HistoryNo gynecological history recorded. Obstetrics History GPAL:G 0 P 0 0 0 0 Past Encounters Encounter ID Performer Location Encounter Start Date Encounter Closed Date Diagnosis/Indication Diagnosis SNOMED-CT Code Diagnosis ICD10 Code Diagnosis Note [id number] Shahrzad Davis MD Main - [address] [address] 03/22/2024 17:38:17 03/23/2024 20:12:59 Lipoma of skin 635899102 D17.30 Health Concerns Section Related Observation LastModified by Organization Detai ls LastModified Time None Recorded Concern Status LastModified by Organization Details LastModified Time None Recorded Advance Directives Directive None Recorded Payers Insurance Date Sequence Insurance Name Policy Number Policy Martin Covered Member ID Martin Member ID Guarantor Name 03/22/2024 1 [facility] - DOS ON OR AFTER 2022 - DUAL ELIGIBLE - ASSISTED OPTIONS AND ONE CARE (MEDICARE REPLACEMENT/ADV ANTAGE - HMO) Rigo Gamble [id number] Rigo Gamble Notes Date Note Type Note [...] .................. .................. .................. .................. .................. .................. ............... Home Health Cna Note From Brown Souza: Pt reports a [...] .................. ............... Disposition: Fulfilled Shahrzad Davis MD [address] [place] [address],[address] [facility], [place], [phone], [employer] 03/22/2024 23:58:08 OBGyn Episode No OBEpisode recorded.
--- NOTE | 2025-02-23 14:17 | MHC.PC.OV ---
Vital Signs 02/23/25 14:19 Height 5 ft 2 in Weight 152 lb BMI 27.8 BP 118/86 Blood Pressure Location Lt brachial Position Sitting Intake Visit Reasons: Toe pain Process Maintenance Technician Required: No Accompanied by: Self / Same As Patient Allergies No Known Allergies [No Known Allergies*] Allergy (Verified 02/23/25 14:41) Medication List - Last Reconciled 02/23/25 by Trang Fishman MD acetaminophen ER (Tylenol Arthritis Pain) 650 mg PO Q8H PRN 30 days albuterol sulfate 90 mcg/actuation (Ventolin HFA) 2 puffs PO Q6H PRN 30 days aripiprazole 2 mg PO BEDTIME 30 days atorvastatin 20 mg PO BEDTIME 90 days calcitriol 1 cap PO DAILY cholecalciferol (vitamin D3) 25 mcg PO DAILY 90 days clonazepam 0.5 mg PO DAILY PRN 30 days clonidine HCl 0.1 mg See Protocol PO BID PRN 30 days colchicine 0.6 mg PO DAILY PRN [disposable wipes As directed] escitalopram oxalate 20 mg PO QAM 30 days furosemide 20 mg PO DAILY lidocaine 5% (Lidoderm) 1 patch topical DAILY lisinopril 10 mg PO DAILY 90 days loperamide 2 mg PO Q6H PRN 30 days omeprazole 40 mg PO QAM quetiapine 50 mg PO BEDTIME PRN 30 days [raised toilet seat As directed] ropinirole 1 mg PO BEDTIME triamcinolone acetonide 0.1% 1 appl topical DAILY 2 weeks [wipes As directed] Tobacco use date assessed: 02/23/25 Dental Screening Dental Screen Date: 02/23/25 Did you have a dental visit in the last 12 months?: No Did you have a dental problem in the last 6 months where you did not have access to dental care?: No Was dental information given to patient?: Patient declined HPI HPI Comments History of Present Illness Details The patient is a 65-year-old female presenting with musculoskeletal pain and cysts in the knees. She has a history of osteoarthritis affecting both knees, with significant degeneration noted. The condition has been ongoing for over a year. Additionally, there is a cyst in the right knee, which the patient reports as non-painful. Another cyst is present and causes discomfort due to its position above a vein. No recent imaging has been performed for this cyst, although an X-ray was done previously for the knees. The patient also reports chronic pain in her hands, which has been progressively worsening. She is currently receiving treatment at an arthritis center. The patient manages depression with psychiatric care and support from a therapist, noting she can control depressive episodes at home. Her medication regimen remains unchanged, and she is advised to monitor vitamin D and cholesterol levels. Blood pressure is reported as stable. On statins for her elevated cholesterol. [facility], [facility] Medical History History of seizure Hyperlipidemia HTN (hypertension) Calcification of patellar tendon determined by X-ray Degenerative joint disease of knee Gout Physical exam B12 deficiency PTSD (post-traumatic stress disorder) MDD (major depressive disorder), recurrent episode, severe Chronic diarrhea Cocaine use disorder, mild, in early remission Weight loss Cocaine use disorder, mild, abuse Constipation by delayed colonic transit Bilateral knee pain Lumbar spondylosis Left hip pain Dyslipidemia Osteoarthritis GERD (gastroesophageal reflux disease) Depression Painful orthopaedic hardware Fibromyalgia Easy bruisability Essential hypertension Asthma due to environmental allergies Bimalleolar fracture of left ankle Brain aneurysm (~2003) Surgical History Hx of brain surgery H/O colonoscopy History of breast lump/mass excision History of surgery History of partial hysterectomy Status post open reduction with internal fixation (ORIF) of fracture of ankle Family History Mother Diabetes Father No problems noted. Social History Household Members: None Housing: Apartment Are you a primary animal caretaker to a significant other at home: No Do you presently have visiting nurse or other home services: Yes ([employer]ENEWABLE EN[employer]GY ENGINE[employer] 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) Alcohol intake: current Alcohol intake frequency: a few times a month Patient Tobacco Use Status: Current someday Tobacco user Tobacco use type: Cigarette Cigarette Packs Per Day: 0 Cigarettes Per Day: 4 Years Smoked: 30 Packs Per Year: 0 Packs per year/per ci.00 e-Cigarette/Vaping Use: Never Used Second Hand Smoke Exposure: Yes Substance Use Type: Crack/Cocaine service: No Current occupational status: disabled Current occupation: Right Handed Sexual orientation: Did not discuss Cognitive needs: Yes Hearing needs: No Vision needs: Yes Questionnaire PHQ-9 Over the last 2 weeks, how often have you been bothered by any of the following problems? 1. Little interest or pleasure in doing things: nearly every day 2. Feeling down, depressed, or hopeless: nearly every day 3. Trouble falling or staying asleep, or sleeping too much: more than half the days 4. Feeling tired or having little energy: nearly every day 5. Poor appetite or overeating: several days 6. Feeling bad about yourself - or that you are a failure or have let yourself or your family down: nearly every day 7. Trouble concentrating on things, such as reading the newspaper or watching television: nearly every day 8. Moving or speaking so slowly that other people could have noticed. Or the opposite - being so fidgety or restless that you have been moving around a lot more than usual: several days 9. Thoughts that you would be better off or of hurting yourself in some way: several days Total score: 20 Depression Screening Interpretation: Positive (no suicidal thoughts) Depression Screening Follow-up: Existing condition, In treatment, Community Mental Health Worker F/U and Follow-up Visit Requested Depression Screening Done: Yes [id number] - PHQ-9 Billing: Yes Source: Developed by Drs. Sunil Amador, Anahi Mcguire, Bry Tyler and colleagues, with an educational tamie from [employer]. Thrive Questionnaire Date Thrive assessed: 02/23/25 I am a: Patient What is your living situation today?: I have a steady place to live Within the past 12 months, did the food you bought not last and you didn't have the money to get more?: Sometimes True Within the past 12 months, did you worry whether your food would run out before you got money to buy more?: Sometimes True Do you have trouble paying for medicines?: No Do you have trouble getting transportation to medical appointments?: No Do you have trouble paying your heating and electricity bill?: No Do you have trouble taking care of your child, family member or friend?: Yes Do you have trouble with day-to-day activities such as bathing, preparing meals, shopping, managing finances, etc.?: Yes Are you currently unemployed and looking for a job?: Yes Are you interested in more education?: No Please select the resources that you would like help with: Food Currently or been in a relationship where the following occur: No concerns reported and I choose not to answer THRIVE Score: 2 AUDIT C Alcohol Use Questionnaire (AUDIT-C) 1. How often do you have a drink containing alcohol?: 2-3 times a week 2. How many drinks containing alcohol do you have on a typical day when you are drinking?: 1 or 2 3. How often do you have six or more drinks on one occasion?: Never Total Score: 3 MICHELLE-7 AMB Questionnaire MICHELLE-7 Date MICHELLE - 7 assessed: 02/23/25 Feeling nervous, anxious, or on edge: 3 = Nearly every day Not being able to stop or control worryin = Nearly every day Worrying too much about different things: 3 = Nearly every day Trouble relaxin = Nearly every day Being so restless that it is hard to sit still: 3 = Nearly every day Becoming easily annoyed or irritable: 3 = Nearly every day Feeling afraid as if something awful might happen: 3 = Nearly every day Total MICHELLE-7 score (0-4 normal; 5-9 mild; 10-14 moderate; 15-21 severe): 21 Source: Developed by Drs. Sunil Amador, Anahi Mgcuire, Bry Tyler and colleagues, with an educational tamie from [employer]. Review of Systems Const All systems reviewed & are unremarkable except as noted in HPI and below Card Denies chest pain at rest, Denies chest pain with activity, Denies edema, Denies irregular heart rhythm, Denies claudication, Denies dyspnea, Denies dyspnea on exertion, Denies orthopnea, Denies paroxysmal nocturnal dyspnea and Denies slow heart rate Resp Denies cough, Denies dyspnea and Denies dyspnea on exertion GI Denies abdominal pain, Denies change in bowel habits, Denies excessive flatus, Denies nausea and Denies vomiting Denies urinary incontinence, Denies urinary hesitancy and Denies urinary urgency Musc Reports back pain and Reports arthralgias Neuro Denies lack of coordination Physical exam (Primary Care) Vital Signs: Last Vital Signs BP 118/86 02/23/25 14:19 BMI result Body Mass Index 27.8 Tobacco/Smoking Status: Tobacco use Status Tobacco use date assessed 02/23/25 02/23/25 14:25 Patient Tobacco Use Status Current someday Tobacco 02/23/25 14:25 Tobacco use type Cigarette 02/23/25 14:25 e-Cigarette/Vaping Use Never Used 02/23/25 14:25 PHQ-9: PHQ-9 Score PHQ-9: Total score 02/23/25 17:00 Depression Screening Interpretation: Positive (no suicidal thoughts) Depression Screening Follow-up: Existing condition, In treatment, Community Mental Health Worker F/U and Follow-up Visit Requested Thrive Assessment: Date of Thrive Assessment Date Thrive assessed 02/23/25 02/23/25 14:25 Currently or been in a relationship where the following occur: No concerns reported and I choose not to answer Resp Effort & Inspection: normal respiratory effort Auscultation: clear to auscultation bilaterally Cardio Jugular venous distension: no JVD Rate: regular rate Rhythm: regular rhythm Heart sounds: S1 normal heart sound present and S2 normal heart sound present Extrem General: Yes full ROM Coding Level of Care Code Est Pt Level 4 (52234) Complex EM visit Add On G2211 Diagnoses Mass of right knee R22.41 Spondylosis of lumbar region without myelopathy or radiculopathy M47.816 Moderate recurrent major depression F33.1 MICHELLE (generalized anxiety disorder) F41.1 Essential hypertension I10 Dyslipidemia E78.5 Additional Codes PHQ-9 - 53419 - PHQ-9 Billing: Yes ([id number]) Time Spent (min) 23 Assessment & Plan Assessment & Plan (1) Mass of right knee: Code(s): R22.41 - Localized swelling, mass and lump, right lower limb Category: Medical (2) Spondylosis of lumbar region without myelopathy or radiculopathy: Code(s): M47.816 - Spondylosis without myelopathy or radiculopathy, lumbar region Category: Medical (3) Moderate recurrent major depression: Code(s): F33.1 - Major depressive disorder, recurrent, moderate Category: Medical (4) MICHELLE (generalized anxiety disorder): Code(s): F41.1 - Generalized anxiety disorder Category: Medical (5) Essential hypertension: Code(s): I10 - Essential (primary) hypertension Category: Medical (6) Dyslipidemia: Code(s): E78.5 - Hyperlipidemia, unspecified Category: Medical Plan I will continue managing the osteoarthritis of the knees with the current strategies, monitoring the chronic hand pain with the assistance of the arthritis treatment center. The Esteves's cyst in the right knee requires further evaluation to decide on potential interventions. Depression will be managed with ongoing psychiatric support and therapy. I recommend checking vitamin D and cholesterol levels to ensure optimal health. The patient's stable blood pressure will continue to be monitored, and lifestyle modifications will be encouraged. During the visit, I discussed the management of the patient's osteoarthritis, emphasizing adherence to current treatment plans and monitoring strategies. We reviewed the Esteves's cyst, considering potential interventions and the need for further evaluation. For depression, I emphasized the importance of continued psychiatric support and therapy. I highlighted the need to check vitamin D and cholesterol levels to maintain overall health and discussed the benefits of lifestyle modifications to support cardiovascular health. The patient was advised to monitor her blood pressure regularly and report any significant changes or symptoms. Orders: Orders Complete Blood Count Auto Diff Today D64.9 - Anemia, unspecified Lipid Panel Today E78.5 - Hyperlipidemia, unspecified Comprehensive [place]. Panel Fast Today R63.4 - Abnormal weight loss IRON PROFILE Today D64.9 - Anemia, unspecified Vitamin D 25-OH Total Today E55.9 - Vitamin D deficiency, unspecified Vitamin B12 and Folate Today E53.8 - Deficiency of other specified B group vitamins Uric Acid Today M10.9 - Gout, unspecified, M1A.0620 - Idiopathic chronic gout, left knee, without tophus (tophi) Thyroid Stimulating Hormone Today R63.4 - Abnormal weight loss Patient Instructions: - Continue current arthritis management plan. - Seek further evaluation for the Esteves's cyst if symptoms change or worsen. - Engage with psychiatric support and therapy for depression. - Monitor vitamin D and cholesterol levels. - Maintain a healthy lifestyle, including regular exercise and dietary modifications. - Monitor blood pressure regularly.
[2025-02-23 14:19] VITALS: BP 118/86; BMI 27.8
== END 2025-02-23 14:39 | disposition home or self-care (01) ==
LOC: HO.HMCH 13:58
PROVIDERS: PCP Internal Medicine; Visit Provider Internal Medicine
DX: R22.41 Localized swelling, mass and lump, right lower limb (principal); M47.816 Spondylosis without myelopathy or radiculopathy, lumbar region; F33.1 Major depressive disorder, recurrent, moderate; F41.1 Generalized anxiety disorder; I10 Essential (primary) hypertension; E78.5 Hyperlipidemia, unspecified

== ENCOUNTER → 2025-02-23 13:57 | Outpatient (BNVA) | payer OTHER, SELFPAY | PROVIDERS: PCP Internal Medicine; Visit Provider Internal Medicine | DX: R22.41 Localized swelling, mass and lump, right lower limb (principal); M71.21 Synovial cyst of popliteal space [Baker], right knee; M17.0 Bilateral primary osteoarthritis of knee; M47.816 Spondylosis without myelopathy or radiculopathy, lumbar region; F33.1 Major depressive disorder, recurrent, moderate; F41.1 Generalized anxiety disorder; I10 Essential (primary) hypertension; E78.5 Hyperlipidemia, unspecified | CPT/HCPCS: 96127; 99212 ==

== ENCOUNTER 2025-03-02 10:57 | Outpatient (REF) | payer OTHER, SELFPAY ==
--- NOTE | ~2025-03-02 | CT_ITS ---
CLINICAL HISTORY: R22.41 - Localized swelling, mass and lump, right lower limb --- Additional Notes o r Special Instructions: The patient can not have an MRI because of aneurysm clips within her brain. CT right knee with and without contrast Comparison: None Findings: No fractures or dislocations. No joint effusion. There is mild degenerative change. Multiple soft tissue calcifications on the medial aspect of the patella. 0.8 x 2.6 cm cystic area anterior to the patella series 10, image 18 with attenuation of 1.2 Hounsfield unit precontrast and 2.8 Hounsfield unit post-contrast. Impression: Cystic area anterior to the patella without contrast enhancement. Correlation with soft tissue ultrasound findings may be of benefit. This document has been electronically signed by: Krystyna Sparrow MD on 03/02/2025 15:53:08
--- OUTSIDE RECORDS SUMMARY | 2025-03-02 12:56 | XMS_ITS | Data Portability ---
Author Organization [employer], [place] [facility] [employer] Address [address] [place] [id number] Care Team Providers Care Landscape Architect Name Role Phone HIM [facility] OTHER Assessment [...] [degF] 16 /min 162.56 cm 97 /min 17124.7 6 g 99 % 99 % 157 mm[Hg] 102 mm[Hg] Not Available 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 Functional Status None recorded. Mental Status None recorded. Family History Nothing Reported. Medical History No medical history recorded. Gynecological HistoryNo gynecological history recorded. Obstetrics History GPAL:G 0 P 0 0 0 0 Past Encounters Encounter ID Performer Location Encounter Start Date Encounter Closed Date Diagnosis/Indication Diagnosis SNOMED-CT Code Diagnosis ICD10 Code Diagnosis Note [id number] Shahrzad Davis MD Main - [address] [address] 03/22/2024 17:38:17 03/23/2024 20:12:59 Lipoma of skin 401532477 D17.30 Health Concerns Section Related Observation LastModified by Organization Detai ls LastModified Time None Recorded Concern Status LastModified by Organization Details LastModified Time None Recorded Advance Directives Directive None Recorded Payers Insurance Date Sequence Insurance Name Policy Number Policy Martin Covered Member ID Martin Member ID Guarantor Name 03/22/2024 1 [facility] - DOS ON OR AFTER 2022 - DUAL ELIGIBLE - CARE HOME OPTIONS AND ONE CARE (MEDICARE REPLACEMENT/ADV ANTAGE - HMO) Rigo Gamble [id number] Rigo Gamble Notes Date Note Type Note [...] .................. .................. .................. .................. .................. .................. ............... Optician Note From Brown Souza: Pt reports a [...] .................. ............... Disposition: Fulfilled Shahrzad Davis MD [address] [place] [address],[address] [facility], [place], [address], [employer] 03/22/2024 23:58:08 OBGyn Episode No OBEpisode recorded.
[2025-03-02] MEDS: iohexoL 350 MG/ML 100 ML INFUS..BTL 85 ML IV (13:23)
[2025-03-03 10:59] LABS: Creatinine POC 0.8 mg/dL (0.5-1.4); GFR POC > 60
== END 2025-03-02 10:58 | disposition home or self-care (01) ==
LOC: HO.CT 10:57
PROVIDERS: PCP Internal Medicine; Visit Provider Orthopaedic Surgery
DX: R22.41 Localized swelling, mass and lump, right lower limb (principal)
CPT/HCPCS: 73702; 82565; Q9967

== ENCOUNTER → 2025-03-02 11:00 | Outpatient (BNV) | payer OTHER, SELFPAY | PROVIDERS: PCP Internal Medicine; Visit Provider Nuclear Medicine | DX: M22.91 Unspecified disorder of patella, right knee (principal) | CPT/HCPCS: 73702 ==

== ENCOUNTER 2025-03-14 14:35 | Outpatient (AMB) | payer OTHER, SELFPAY ==
[2025-03-14 14:43] VITALS: BMI 27.8
--- NOTE | 2025-03-14 14:43 | MHC.OFFVIS ---
Vital Signs 03/14/25 14:43 Height 5 ft 2 in Weight 152 lb BMI 27.8 Intake Visit Reasons: OV-Right knee CT review Intake Note: Rigo is a 65 year old female who presents with complaints of progressively worsening bilateral knee pains, right greater than left. The patient also complains of a soft tissue mass along the anterior aspect of her right knee. She states that the mass has gotten bigger over the last 6 months. She has been told by other providers that the mass is either a cyst or a ?lipoma?. She is not able to have an MRI because of aneurysm clips. She states that her right knee will give out several times per day. Allergies No Known Allergies (No Known Allergies*) Allergy (Verified 03/14/25 14:44) Medication List - Last Reconciled 03/14/25 by Marlo Saldaña MD acetaminophen ER (Tylenol Arthritis Pain) 650 mg PO Q8H PRN 30 days albuterol sulfate 90 mcg/actuation (Ventolin HFA) 2 puffs PO Q6H PRN 30 days aripiprazole 2 mg PO BEDTIME 30 days atorvastatin 20 mg PO BEDTIME 90 days calcitriol 1 cap PO DAILY cholecalciferol (vitamin D3) 25 mcg PO DAILY 90 days clonazepam 0.5 mg PO DAILY PRN 30 days clonidine HCl 0.1 mg See Protocol PO BID PRN 30 days colchicine 0.6 mg PO DAILY PRN [disposable wipes As directed] escitalopram oxalate 20 mg PO QAM 30 days furosemide 20 mg PO DAILY lidocaine 5% (Lidoderm) 1 patch topical DAILY lisinopril 10 mg PO DAILY 90 days loperamide 2 mg PO Q6H PRN 30 days omeprazole 40 mg PO QAM quetiapine 50 mg PO BEDTIME PRN 30 days [raised toilet seat As directed] ropinirole 1 mg PO BEDTIME triamcinolone acetonide 0.1% 1 appl topical DAILY 2 weeks [wipes As directed] [facility] Medical History History of seizure Hyperlipidemia HTN (hypertension) Calcification of patellar tendon determined by X-ray Degenerative joint disease of knee Gout Physical exam B12 deficiency PTSD (post-traumatic stress disorder) MDD (major depressive disorder), recurrent episode, severe Chronic diarrhea Cocaine use disorder, mild, in early remission Weight loss Cocaine use disorder, mild, abuse Constipation by delayed colonic transit Bilateral knee pain Lumbar spondylosis Left hip pain Dyslipidemia Osteoarthritis GERD (gastroesophageal reflux disease) Depression Painful orthopaedic hardware Fibromyalgia Easy bruisability Essential hypertension Asthma due to environmental allergies Bimalleolar fracture of left ankle Brain aneurysm (~2003) Surgical History Hx of brain surgery H/O colonoscopy History of breast lump/mass excision History of surgery History of partial hysterectomy Status post open reduction with internal fixation (ORIF) of fracture of ankle Family History Mother Diabetes Father No problems noted. 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) Alcohol intake: current Alcohol intake frequency: a few times a month Patient Tobacco Use Status: Current someday Tobacco user Tobacco use type: Cigarette Cigarette Packs Per Day: 0 Cigarettes Per Day: 4 Years Smoked: 30 e-Cigarette/Vaping Use: Never Used Second Hand Smoke Exposure: Yes Substance Use Type: Crack/Cocaine service: No Current occupational status: disabled Current occupation: Right Handed Sexual orientation: Did not discuss Cognitive needs: Yes Hearing needs: No Vision needs: Yes Physical Exam Vital Signs: BMI result Body Mass Index 27.8 Const Other: Well-nourished well-developed very friendly female awake alert and oriented x3 in no acute distress Extrem Other: Right knee examination shows a minimal effusion, minimal crepitus with range of motion, a small cyst along the anterior aspect of her patella measuring approximately 2 cm x 3 cm, no redness, no signs of infection Results Reviewed Results Reviewed: CT scan of the patient's right knee shows mild diffuse degenerative changes as well as a cyst along the anterior aspect of her patella, no signs of malignancy Assessment & Plan Assessment & Plan (1) Right knee pain: Code(s): M25.561 - Pain in right knee Category: Medical Plan Ms. Gamble presents with a prepatellar right knee cyst. I had a lengthy discussion with the patient regarding the treatment options. The patient is interested in having the cyst aspirated but not today. The patient states that she will contact the office when she wishes to have the aspiration. She will continue with her activity modifications in the meantime. Feel free to call me at any time should questions regarding her orthopedic management arise. I spent 21 minutes in reviewing the patient's records and imaging studies, seeing the patient and documenting in the medical record. Coding Level of Care Code Est Pt Level 3 (57484) Complex EM visit Add On G2211 Diagnoses Right knee pain M25.561
--- OUTSIDE RECORDS SUMMARY | 2025-03-14 16:54 | XMS_ITS | Data Portability ---
Author Organization [employer] [facility], [employer] [facility] Address [address] [place] [id number] Care Team Providers Care Transformer Tester Name Role Phone HIM CCA OTHER Assessment [...] [degF] 16 /min 162.56 cm 97 /min 01334.7 6 g 99 % 99 % 157 mm[Hg] 102 mm[Hg] Not Available [employer] 4 17:38:25 Social History None recorded. Functional Status None recorded. Mental Status None recorded. Family History Nothing Reported. Medical History No medical history recorded. Gynecological HistoryNo gynecological history recorded. Obstetrics History GPAL:G 0 P 0 0 0 0 Past Encounters Encounter ID Performer Location Encounter Start Date Encounter Closed Date Diagnosis/Indication Diagnosis SNOMED-CT Code Diagnosis ICD10 Code Diagnosis Note [id number] Shahrzad Davis MD Main - [address] [address] 03/22/2024 17:38:17 03/23/2024 20:12:59 Lipoma of skin 416253483 D17.30 Health Concerns Section Related Observation LastModified by Organization Detai ls LastModified Time None Recorded Concern Status LastModified by Organization Details LastModified Time None Recorded Advance Directives Directive None Recorded Payers Insurance Date Sequence Insurance Name Policy Number Policy Martin Covered Member ID Martin Member ID Guarantor Name 03/22/2024 1 [facility] - DOS ON OR AFTER 2022 - DUAL ELIGIBLE - SENIOR LIVING OPTIONS AND ONE CARE (MEDICARE REPLACEMENT/ADV ANTAGE - HMO) Rigo Gamble [id number] Rigo Gamble Notes Date Note Type Note [...] .................. .................. .................. .................. .................. .................. ............... Wrapper And Preserver Note From Brown Souza: Pt reports a [...] .................. ............... Disposition: Fulfilled Shahrzad Davis MD [address] [place] [address],[facility] [facility], [place], [address], [employer] 03/22/2024 23:58:08 OBGyn Episode No OBEpisode recorded.
== END 2025-03-14 15:00 | disposition home or self-care (01) ==
LOC: HO.HOS 14:36
PROVIDERS: PCP Internal Medicine; Visit Provider Orthopaedic Surgery
DX: M25.561 Pain in right knee (principal)
CPT/HCPCS: 99213; G2211

== ENCOUNTER → 2025-03-14 14:35 | Outpatient (BNVA) | payer OTHER, SELFPAY | PROVIDERS: PCP Internal Medicine; Visit Provider Orthopaedic Surgery | DX: M25.561 Pain in right knee (principal); M70.41 Prepatellar bursitis, right knee | CPT/HCPCS: 99212 ==

== ENCOUNTER 2025-06-15 11:12 | Outpatient (AMB) | payer OTHER, SELFPAY ==
--- NOTE | 2025-06-15 11:29 | A.OFFVIS_ITS ---
Vital Signs 06/15/25 11:30 Height 5 ft 2 in Weight 152 lb BMI 27.8 Intake Visit Reasons: Bilateral knee pain Intake Note: Rigo is a 65 year old woman who presents with complaints of bilateral knee pains. She describes her pains as sharp in nature. She has had cortisone injections in the past which gave her fairly good relief. She has also noticed a cyst along the anterior aspect of her right knee. She denies any locking or giving way. She wishes to hold off on surgery if at all possible. Allergies No Known Allergies (No Known Allergies*) Allergy (Verified 06/15/25 11:30) Medication List - Last Reconciled 06/15/25 by Marlo Saldaña MD acetaminophen ER (Tylenol Arthritis Pain) 650 mg PO Q8H PRN 30 days albuterol sulfate 90 mcg/actuation (Ventolin HFA) 2 puffs PO Q6H PRN 30 days aripiprazole 2 mg PO BEDTIME 30 days atorvastatin 20 mg PO BEDTIME 90 days calcitriol 1 cap PO DAILY cholecalciferol (vitamin D3) 25 mcg PO DAILY 90 days clonazepam 0.5 mg PO DAILY PRN 30 days clonidine HCl 0.1 mg See Protocol PO BID PRN 30 days colchicine 0.6 mg PO DAILY PRN [disposable wipes As directed] escitalopram oxalate 20 mg PO QAM 30 days furosemide 20 mg PO DAILY lidocaine 5% (Lidoderm) 1 patch topical DAILY lisinopril 10 mg PO DAILY 90 days loperamide 2 mg PO Q6H PRN 30 days omeprazole 40 mg PO QAM quetiapine 50 mg PO BEDTIME PRN 30 days [raised toilet seat As directed] ropinirole 1 mg PO BEDTIME triamcinolone acetonide 0.1% 1 appl topical DAILY 2 weeks [wipes As directed] [facility] Medical History History of seizure Hyperlipidemia HTN (hypertension) Calcification of patellar tendon determined by X-ray Degenerative joint disease of knee Gout Physical exam B12 deficiency PTSD (post-traumatic stress disorder) MDD (major depressive disorder), recurrent episode, severe Chronic diarrhea Cocaine use disorder, mild, in early remission Weight loss Cocaine use disorder, mild, abuse Constipation by delayed colonic transit Bilateral knee pain Lumbar spondylosis Left hip pain Dyslipidemia Osteoarthritis GERD (gastroesophageal reflux disease) Depression Painful orthopaedic hardware Fibromyalgia Easy bruisability Essential hypertension Asthma due to environmental allergies Bimalleolar fracture of left ankle Brain aneurysm (~2003) Surgical History Hx of brain surgery H/O colonoscopy History of breast lump/mass excision History of surgery History of partial hysterectomy Status post open reduction with internal fixation (ORIF) of fracture of ankle Family History Mother Diabetes Father No problems noted. 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) Alcohol intake: current Alcohol intake frequency: a few times a month Patient Tobacco Use Status: Current someday Tobacco user Tobacco use type: Cigarette Cigarette Packs Per Day: 0 Cigarettes Per Day: 4 Years Smoked: 30 e-Cigarette/Vaping Use: Never Used Second Hand Smoke Exposure: Yes Substance Use Type: Crack/Cocaine service: No Current occupational status: disabled Current occupation: Right Handed Sexual orientation: Did not discuss Cognitive needs: Yes Hearing needs: No Vision needs: Yes Physical Exam Vital Signs: BMI result Body Mass Index 27.8 Const Other: Well-nourished well-developed very friendly female awake alert and oriented x3 in no acute distress Extrem Other: Bilateral knee examination shows minimal effusions, palpable crepitus with range of motion, pain with range of motion, no instability; there is a small cyst measuring approximately 2 cm x 2 cm x 2 cm along the anterior aspect of her right knee prepatellar bursa, no overlying skin lesions, no redness Office Procedures AMB Joint Injection/Aspiration Joint Injection/Aspiration Primary Site: left knee Prep: site was prepped using aseptic technique Injected: 40 mg of, DepoMedrol and 1% plain lidocaine Procedure: The patient tolerated the procedure well Coding 97048 - Large joint Procedure code (CPT) selection complete AMB Joint Injection/Aspiration Joint Injection/Aspiration Primary Site: right knee Prep: site was prepped using aseptic technique Injected: 40 mg of, DepoMedrol and 1% plain lidocaine Procedure: The patient tolerated the procedure well Coding 40127 - Large joint Procedure code (CPT) selection complete Results Reviewed Results Reviewed: X-rays of the patient's bilateral knees taken previously show joint space narrowing, subchondral sclerosis, no acute bony abnormalities Assessment & Plan Assessment & Plan (1) Osteoarthritis of left knee: Code(s): M17.12 - Unilateral primary osteoarthritis, left knee Category: Medical (2) Osteoarthritis of right knee: Code(s): M17.11 - Unilateral primary osteoarthritis, right knee Category: Medical (3) Bilateral knee pain: Code(s): M25.561 - Pain in right knee; M25.562 - Pain in left knee Category: Medical Qualifiers: Chronicity: chronic Qualified Code(s): M25.561 - Pain in right knee; M25.562 - Pain in left knee; G89.29 - Other chronic pain Plan Ms. Gamble presents with bilateral knee pains due to osteoarthritis. The risks and benefits of bilateral knee cortisone injections were discussed at length with the patient. The patient wished to proceed. She tolerated the injections well. Following the bilateral knee cortisone injections I prepped her right knee prepatellar region with alcohol. I then injected 1 cc of 1% plain lidocaine. I then aspirated 2 cc of clear fluid from the bursa. A compressive dressing was applied. The patient will continue activities as tolerated. She will contact me prior to her follow-up appointment in 3 months should any questions or concerns arise. Feel free to call me at any time should questions regarding her orthopedic management arise. I spent 22 minutes in reviewing the patient's records and imaging studies, seeing the patient and documenting in the medical record. Orders: Orders AMB Joint Injection/Aspiration Today M17.12 - Unilateral primary osteoarthritis, left knee AMB Joint Injection/Aspiration Today M17.11 - Unilateral primary osteoarthritis, right knee Coding Level of Care Code Est Pt Level 3 (72094) Complex EM visit Add On G2211 Diagnoses Osteoarthritis of left knee M17.12 Osteoarthritis of right knee M17.11 Chronic pain of both knees M25.561; M25.562; G89.29 Chronicity: chronic CPT Codes Coding - 41046 Large joint: 21117 - Large joint ([id number]) Coding - 75090 Large joint: 23371 - Large joint ([id number])
[2025-06-15 11:30] VITALS: BMI 27.8
== END 2025-06-15 12:09 | disposition home or self-care (01) ==
LOC: HO.HOS 11:13
PROVIDERS: PCP Internal Medicine; Visit Provider Orthopaedic Surgery
DX: M17.0 Bilateral primary osteoarthritis of knee (principal); M25.561 Pain in right knee; M25.562 Pain in left knee; G89.29 Other chronic pain
CPT/HCPCS: 20610; 99213

== ENCOUNTER → 2025-06-15 11:12 | Outpatient (BNVA) | payer OTHER, SELFPAY | PROVIDERS: PCP Internal Medicine; Visit Provider Orthopaedic Surgery | DX: M17.0 Bilateral primary osteoarthritis of knee (principal); M25.561 Pain in right knee; M25.562 Pain in left knee; G89.29 Other chronic pain | CPT/HCPCS: 20610; 99212; J1010; J2003 ==

== ENCOUNTER 2025-08-16 13:38 | Outpatient (AMB) | payer OTHER, SELFPAY ==
[2025-08-16 13:53] VITALS: BP 114/70; PULSE 79; RESP 18; O2SAT 98; BMI 26.2
--- NOTE | 2025-08-16 13:53 | MHC.PC.OV ---
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 Accompanied by: Self / Same As Patient Allergies No Known Allergies (No Known Allergies*) Allergy (Verified 08/16/25 14:14) Medication List - Last Reconciled 08/16/25 by Trang Fishman MD acetaminophen ER (Tylenol Arthritis Pain) 650 mg PO Q8H PRN 30 days albuterol sulfate 90 mcg/actuation (Ventolin HFA) 2 puffs PO Q6H PRN 30 days atorvastatin 20 mg PO BEDTIME 90 days calcitriol 1 cap PO DAILY cholecalciferol (vitamin D3) 25 mcg PO DAILY 90 days colchicine 0.6 mg PO DAILY PRN [disposable wipes As directed] [electric wheelchair As directed] furosemide 20 mg PO DAILY [Hand brace (L) As directed] [Hand brace (R) As directed] latex gloves As directed lidocaine 5% (Lidoderm) 1 patch topical DAILY lisinopril 10 mg PO DAILY 90 days loperamide 2 mg PO Q6H PRN 30 days omeprazole 40 mg PO QAM [raised toilet seat As directed] triamcinolone acetonide 0.1% 1 appl topical DAILY 2 weeks underpads (Bed Underpads) As directed [wipes As directed] Tobacco use date assessed: 08/16/25 Dental Screening Dental Screen Date: 08/16/25 Did you have a dental visit in the last 12 months?: No Did you have a dental problem in the last 6 months where you did not have access to dental care?: No Was dental information given to patient?: No HPI HPI Comments History of Present Illness Details The patient is a 65-year-old female presenting for a physical exam. She has a history of hypertension currently managed with lisinopril, having previously taken clonidine. She also takes medication for high cholesterol and colchicine for gout. She complains of memory loss and will be referred to Neurology. The patient was previously followed by psychiatry and was on Abilify, but she has since stopped these visits. She reports taking escitalopram but wishes to discontinue it. For her skin, she uses a cream and patches for eczema. Regarding preventative care, her tetanus vaccine is up to date. A bone densitometry scan is due, as it has been over two years since her last one. The patient reports recent memory loss. In terms of social history, she sometimes smokes. She reports drinking alcohol now, but it has been a while, and denies drinking beer. [facility] Medical History (Updated 08/16/25 @ 14:23 by Trang Fishman MD) History of seizure Hyperlipidemia HTN (hypertension) Calcification of patellar tendon determined by X-ray Degenerative joint disease of knee Gout Physical exam B12 deficiency PTSD (post-traumatic stress disorder) MDD (major depressive disorder), recurrent episode, severe Chronic diarrhea Cocaine use disorder, mild, in early remission Weight loss Cocaine use disorder, mild, abuse Constipation by delayed colonic transit Bilateral knee pain Lumbar spondylosis Left hip pain Dyslipidemia Osteoarthritis GERD (gastroesophageal reflux disease) Depression Painful orthopaedic hardware Fibromyalgia Easy bruisability Essential hypertension Asthma due to environmental allergies Bimalleolar fracture of left ankle Brain aneurysm (~2003) Surgical History Hx of brain surgery H/O colonoscopy History of breast lump/mass excision History of surgery History of partial hysterectomy Status post open reduction with internal fixation (ORIF) of fracture of ankle Family History Mother Diabetes Father No problems noted. 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) Alcohol intake: current Alcohol intake frequency: a few times a month Patient Tobacco Use Status: Current someday Tobacco user Tobacco use type: Cigarette Cigarette Packs Per Day: 0 Cigarettes Per Day: 4 Years Smoked: 30 Packs Per Year: 0 Packs per year/per ci.00 e-Cigarette/Vaping Use: Never Used Second Hand Smoke Exposure: Yes Substance Use Type: Crack/Cocaine service: No Current occupational status: disabled Current occupation: Right Handed Sexual orientation: Did not discuss Cognitive needs: Yes Hearing needs: No Vision needs: Yes Questionnaire PHQ-9 Over the last 2 weeks, how often have you been bothered by any of the following problems? 1. Little interest or pleasure in doing things: nearly every day 2. Feeling down, depressed, or hopeless: nearly every day 3. Trouble falling or staying asleep, or sleeping too much: more than half the days 4. Feeling tired or having little energy: nearly every day 5. Poor appetite or overeating: several days 6. Feeling bad about yourself - or that you are a failure or have let yourself or your family down: nearly every day 7. Trouble concentrating on things, such as reading the newspaper or watching television: nearly every day 8. Moving or speaking so slowly that other people could have noticed. Or the opposite - being so fidgety or restless that you have been moving around a lot more than usual: several days 9. Thoughts that you would be better off or of hurting yourself in some way: several days Total score: 20 Depression Screening Interpretation: Positive (no suicidal thoughts) Depression Screening Follow-up: Existing condition, In treatment, Community Mental Health Worker F/U and Follow-up Visit Requested Depression Screening Done: Yes 69603 - PHQ-9 Billing: Yes Source: Developed by Drs. Sunil Amador, Anahi Mcguire, Bry Tyler and colleagues, with an educational tamie from [employer]. Thrive Questionnaire Date Thrive assessed: 08/16/25 I am a: Patient What is your living situation today?: I have a steady place to live Within the past 12 months, did the food you bought not last and you didn't have the money to get more?: Sometimes True Within the past 12 months, did you worry whether your food would run out before you got money to buy more?: Sometimes True Do you have trouble paying for medicines?: No Do you have trouble getting transportation to medical appointments?: No Do you have trouble paying your heating and electricity bill?: No Do you have trouble taking care of your child, family member or friend?: Yes Do you have trouble with day-to-day activities such as bathing, preparing meals, shopping, managing finances, etc.?: Yes Are you currently unemployed and looking for a job?: Yes Are you interested in more education?: No Please select the resources that you would like help with: Food THRIVE Score: 2 AUDIT C Alcohol Use Questionnaire (AUDIT-C) 1. How often do you have a drink containing alcohol?: 2-3 times a week 2. How many drinks containing alcohol do you have on a typical day when you are drinking?: 1 or 2 3. How often do you have six or more drinks on one occasion?: Never Total Score: 3 MICHELLE-7 AMB Questionnaire MICHELLE-7 Date MICHELLE - 7 assessed: 02/23/25 Feeling nervous, anxious, or on edge: 3 = Nearly every day Not being able to stop or control worryin = Nearly every day Worrying too much about different things: 3 = Nearly every day Trouble relaxin = Nearly every day Being so restless that it is hard to sit still: 3 = Nearly every day Becoming easily annoyed or irritable: 3 = Nearly every day Feeling afraid as if something awful might happen: 3 = Nearly every day Total MICHELLE-7 score (0-4 normal; 5-9 mild; 10-14 moderate; 15-21 severe): 21 Source: Developed by Drs. Sunil Amador, Anahi Mcguire, Bry Tyler and colleagues, with an educational tamie from [employer]. Review of Systems Const All systems reviewed & are unremarkable except as noted in HPI and below Eyes Reports no additional complaints, Denies change in vision and Denies other visual disturbances Card Denies chest pain at rest, Denies chest pain with activity, Denies edema, Denies irregular heart rhythm, Denies claudication, Denies dyspnea, Denies dyspnea on exertion, Denies orthopnea, Denies paroxysmal nocturnal dyspnea and Denies slow heart rate Resp Denies cough, Denies dyspnea and Denies dyspnea on exertion GI Denies abdominal pain, Denies change in bowel habits, Denies excessive flatus, Denies nausea and Denies vomiting Denies urinary incontinence, Denies urinary hesitancy and Denies urinary urgency Musc Denies abnormal gait, Denies atrophy, Denies deformity and Denies limited range of motion Skin/Breast Denies bleeding lesions, Denies changing lesions and Denies rash Neuro Denies abnormal gait, Denies behavioral changes and Denies lack of coordination Psych Denies behavioral changes Endo Denies cold intolerance Physical exam (Primary Care) Vital Signs: Last Vital Signs Pulse 79 08/16/25 13:53 Resp 18 08/16/25 13:53 BP 114/70 08/16/25 13:53 Pulse Ox 98 08/16/25 13:53 Oxygen Delivery Method Room Air 08/16/25 13:53 BMI result Body Mass Index 26.2 Tobacco/Smoking Status: Tobacco use Status Tobacco use date assessed 08/16/25 08/16/25 14:02 Patient Tobacco Use Status Current someday Tobacco 08/16/25 14:02 Tobacco use type Cigarette 08/16/25 14:02 e-Cigarette/Vaping Use Never Used 08/16/25 14:02 PHQ-9: PHQ-9 Score PHQ-9: Total score 20 08/16/25 15:51 Depression Screening Interpretation: Positive (no suicidal thoughts) Depression Screening Follow-up: Existing condition, In treatment, Community Mental Health Worker F/U and Follow-up Visit Requested Thrive Assessment: Date of Thrive Assessment Date Thrive assessed 08/16/25 08/16/25 14:02 HENMT Head: Yes normal to inspection, Yes normocephalic and Yes atraumatic Ears: external ears normal Eyes General: appearance normal, both eyes and all related structures Eyelids: Yes eyelids normal Conjunctivae: conjunctivae normal Neck Neck: Yes normal visual inspection and Yes supple Resp Effort & Inspection: normal respiratory effort Auscultation: clear to auscultation bilaterally Cardio Jugular venous distension: no JVD Rate: regular rate Rhythm: regular rhythm Heart sounds: S1 normal heart sound present and S2 normal heart sound present GI Inspection: Yes normal to inspection Palpation (GI): Soft to palpation and nontender Auscultation: normal bowel sounds Skin General skin exam: no rashes or lesions noted Neuro General: no focal motor deficits Extrem General: Yes full ROM Psych Appearance: grossly normal Office Procedures Flu Questionnaire Does the patient have a severe egg allergy?: No Does the patient have severe life threatening allergies?: No Does the patient have a fever or illness today?: No Has the patient ever had Guillain-Helotes Syndrome?: No Has the patient ever had any past reaction to a flu shot?: No Immunizations Fluarix [id number] (PF) 45 mcg (15 mcg x 3)/0.5 mL IM syringe Performing Provider: Trang Fishman MD [facility] Administered by: Boo Bartlett CMA on 08/16/25 14:36 Dose Route Admin Location Dispensed Lot Number Expiration Date NDC 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 Drum Operator 0.5 mL IM Right Deltoid 0.5 mL [id number] 03/27/26 [id number] [employer] VIS Given Date VIS Provided VIS Publication Date 08/16/25 Single Vaccine 24 Eligibility Eligibility Date Funding Source [facility] Eligible-Medicaid 08/16/25 Private Coding Level of Care Code Est Pt Level 3 (05548) Est Pt Prev Care 40-64y(24146) Diagnoses Physical exam Z00.00 Cocaine use disorder, mild, abuse F14.10 Moderate recurrent major depression F33.1 Memory loss R41.3 Additional Codes PHQ-9 - 93517 - PHQ-9 Billing: Yes ([id number]) Time Spent (min) 33 Assessment & Plan Assessment & Plan (1) Physical exam: Code(s): Z00.00 - Encounter for general adult medical examination without abnormal findings Category: Medical (2) Cocaine use disorder, mild, abuse: Code(s): F14.10 - Cocaine abuse, uncomplicated Category: Medical (3) Moderate recurrent major depression: Code(s): F33.1 - Major depressive disorder, recurrent, moderate Category: Medical (4) Memory loss: Code(s): R41.3 - Other amnesia Category: Medical Plan Plan 1. Physical exam Repeat in a year 2. Memory Loss A referral to neurology will be placed for evaluation of memory loss. Labs related to memory loss will also be ordered. Orders: Orders Thyroid Stimulating Hormone Today R41.3 - Other amnesia Syphilis Screen Today R41.3 - Other amnesia Influenza 1184-6471 Immunization Today Z23 - Encounter for immunization CT head/brain wo IV con Today R41.3 - Other amnesia Lipid Panel Today E78.5 - Hyperlipidemia, unspecified Vitamin B12 and Folate Today E53.8 - Deficiency of other specified B group vitamins, R41.3 - Other amnesia Comprehensive [place]. Panel Fast Today R41.3 - Other amnesia Complete Blood Count Auto Diff Today R41.3 - Other amnesia XR DEXA axial skeleton Today Z78.0 - Asymptomatic menopausal state Referrals Neurology Referral R41.3 - Other amnesia
--- OUTSIDE RECORDS SUMMARY | 2025-08-17 01:41 | XMS_ITS | Data Portability ---
Author Organization [facility], [facility] Address [address] [place] [id number] Care Team Providers Care Carriage Feeder Name Role Phone HIM CCA OTHER Assessment [...] in Arterial blood by Pulse oximetry Systolic And Diastolic Provider Name and Address Organization Details Last Updated DateTime 4 96.9 [degF] 16 /min 162.56 cm 97 /min 10668.7 6 g 99 % 99 % 157/102 mm[Hg] Not Available [employer]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 Functional Status None recorded. Mental Status None recorded. Family History Nothing Reported. Medical History No medical history recorded. Gynecological HistoryNo gynecological history recorded. Obstetrics History GPAL:G 0 P 0 0 0 0 Past Encounters Encounter ID Performer Location Encounter Start Date Encounter Closed Date Diagnosis/Indication Diagnosis SNOMED-CT Code Diagnosis ICD10 Code Diagnosis IMO Codes Diagnosis Note [id number] Shahrzad Davis MD Main - [address] [phone] 03/22/2024 17:38:17 03/23/2024 20:12:59 Lipoma of skin 029450288 D17.30 Health Concerns Section Related Observation LastModified by Organization Detai ls LastModified Time None Recorded Concern Status LastModified by Organization Details LastModified Time None Recorded Advance Directives Directive None Recorded Payers Insurance Date Sequence Insurance Name Policy Number Policy Martin Covered Member ID Martin Member ID Guarantor Name 03/22/2024 1 [facility] - DOS ON OR AFTER 2022 - DUAL ELIGIBLE - ALF OPTIONS AND ONE CARE (MEDICARE REPLACEMENT/ADV ANTAGE - HMO) Rigo Gamble [id number] Rigo Gamble Notes Date Note Type Note [...] .................. .................. .................. .................. .................. .................. ............... Australian Rules Footballer Note From Brown Souza: Pt reports a [...] .................. ............... Disposition: Fulfilled Shahrzad Davis MD [address] [place] [address],[facility], [place], [address], [email or web address] 03/22/2024 23:58:08 OBGyn Episode No OBEpisode recorded.
== END 2025-08-16 14:49 | disposition home or self-care (01) ==
PROVIDERS: PCP Internal Medicine; Visit Provider Internal Medicine
DX: Z00.00 Encounter for general adult medical examination without abnormal findings (principal); R41.3 Other amnesia; F33.1 Major depressive disorder, recurrent, moderate; F14.10 Cocaine abuse, uncomplicated; Z23 Encounter for immunization

== ENCOUNTER → 2025-08-16 13:38 | Outpatient (BNVA) | payer OTHER, SELFPAY | PROVIDERS: PCP Internal Medicine; Visit Provider Internal Medicine | DX: Z00.00 Encounter for general adult medical examination without abnormal findings (principal); Z23 Encounter for immunization; F33.1 Major depressive disorder, recurrent, moderate; F14.10 Cocaine abuse, uncomplicated; R41.3 Other amnesia | CPT/HCPCS: 90471; 90656; 96127; 99212; 99396 ==

== ENCOUNTER 2025-08-18 11:13 | Outpatient (AMB) | payer OTHER, SELFPAY ==
--- NOTE | 2025-08-18 11:16 | A.OFFVIS_ITS ---
Vital Signs 08/18/25 11:17 Height 5 ft 2 in Weight 147 lb BMI 26.9 BP 141/65 H Blood Pressure Location Rt brachial Position Sitting Respiration 16 Pulse 78 Pulse Source Pulse Oximeter Pulse Oximetry (%) 98 Oxygen Delivery Method Room Air Intake Visit Reasons: Follow Up/Inj. Discussion [place]stone Machine Operator Required: No Accompanied by: Self / Same As Patient Allergies No Known Allergies (No Known Allergies*) Allergy (Verified 08/18/25 11:16) HPI Comments Details: The patient is a 65-year-old individual presenting with chronic axial back pain. The back pain has been persistent, with previous interventions including injections that provided 90% relief for approximately seven months. The patient reports that the pain has returned last month and is severe, impacting daily activities. Additionally, the patient has a history of a recurrent right knee cyst, which was previously drained but has since recurred. The patient has been advised to consult with a general surgeon for potential excision of the cyst. - Chronic back pain with severe intensity, impacting daily activities. - Knee pain persistent despite corticosteroid injections. - Affect: Pain significantly impacts the patient's daily activities. - Analgesia: Previous injections provided relief for seven months; current pain level is severe. - Activities of Daily Living: Pain interferes with daily functioning. [facility] Medical History History of seizure Hyperlipidemia HTN (hypertension) Calcification of patellar tendon determined by X-ray Degenerative joint disease of knee Gout Physical exam B12 deficiency PTSD (post-traumatic stress disorder) MDD (major depressive disorder), recurrent episode, severe Chronic diarrhea Cocaine use disorder, mild, in early remission Weight loss Cocaine use disorder, mild, abuse Constipation by delayed colonic transit Bilateral knee pain Lumbar spondylosis Left hip pain Dyslipidemia Osteoarthritis GERD (gastroesophageal reflux disease) Depression Painful orthopaedic hardware Fibromyalgia Easy bruisability Essential hypertension Asthma due to environmental allergies Bimalleolar fracture of left ankle Brain aneurysm (~2003) Surgical History Hx of brain surgery H/O colonoscopy History of breast lump/mass excision History of surgery History of partial hysterectomy Status post open reduction with internal fixation (ORIF) of fracture of ankle Family History Mother Diabetes Father No problems noted. Social History Household Members: None Housing: Apartment Are you a primary career development coordinator/teacher to a significant other at home: No Do you presently have visiting nurse or other home services: Yes ([employer] 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) Alcohol intake: current Alcohol intake frequency: a few times a month Patient Tobacco Use Status: Current someday Tobacco user Tobacco use type: Cigarette Cigarette Packs Per Day: 0 Cigarettes Per Day: 4 Years Smoked: 30 e-Cigarette/Vaping Use: Never Used Second Hand Smoke Exposure: Yes Substance Use Type: Crack/Cocaine service: No Current occupational status: disabled Current occupation: Right Handed Sexual orientation: Did not discuss Cognitive needs: Yes Hearing needs: No Vision needs: Yes Review of Systems Narrative - Musculoskeletal: Reports chronic back pain and knee pain. Physical Exam Vital Signs: Last Vital Signs Pulse 78 08/18/25 11:17 Resp 16 08/18/25 11:17 BP 141/65 H 08/18/25 11:17 Pulse Ox 98 08/18/25 11:17 Oxygen Delivery Method Room Air 08/18/25 11:17 BMI result Body Mass Index 26.9 General: awake, alert, oriented. Answers questions appropriately. Fully engaged in examination. Skin: warm, dry, intact HEENT: Normocephalic. Hearing intact. Cardiac: External chest normal in appearance. Respiratory: No cough, audible wheezing or stridor. Abdomen: without gross distension. MS: No obvious swelling or deformities. Ambulates with antalgic gait Neurological: Oriented to person, place, time and situation. Thought process intact. No gait abnormalities appreciated. Psychiatric: Appropriate mood and affect. Good judgment and insight. Results Reviewed Results Reviewed: 07/21/24 XR/XR knee LT 3V IMPRESSION: 1. No acute finding. 2. Stable enchondroma left tibia. 3. Stable soft tissue calcifications. 07/21/24 XR/XR knee RT 3V IMPRESSION: Progression of soft tissue calcifications. No acute finding. 04/11/24 RLE US: IMPRESSION: No visible sonographic abnormality in the area of palpable concern. Consider MRI without and with intravenous contrast for further evaluation. 04/11/24 CT right hip IMPRESSION: 1. No acute fracture or dislocation. 2. Mild right hip osteoarthritis. 3. Enthesopathic spurring at the greater trochanter with a lateral corticated ossification measuring up to 1.9 cm in AP dimension. Findings could represent an unfused osteophyte versus chronic calcific tendinitis. 4. Attenuation of the distal gluteus medius and gluteus minimus tendons which could represent a combination of tendinosis and chronic partial tearing. Evaluation significantly limited on CT examination. 05/20/23 XR/XR knee LT 3V IMPRESSION: Mild degenerative changes in the patellofemoral compartment. Enchondroma or bone island in the proximal tibia and soft tissue calcification. 05/20/23 XR/XR knee RT 3V IMPRESSION: 1. No acute visible fracture or dislocation. 2. Multiple ossific densities are noted in the medial soft tissues along the infrapatellar and suprapatellar region nonspecific though may represent elements of dystrophic calcifications of the medial joint versus less common entities such as lipoma arborescens versus loose bodies. 3. Mild multi joint arthritic changes. 4. Small knee joint effusion. Assessment & Plan Assessment & Plan (1) Knee pain: Code(s): M25.569 - Pain in unspecified knee Category: Medical (2) Left shoulder pain: Code(s): M25.512 - Pain in left shoulder Category: Medical (3) Lumbar spondylosis: Code(s): M47.816 - Spondylosis without myelopathy or radiculopathy, lumbar region Category: Medical Plan The plan includes submitting to insurance for approval to repeat steroid injections in the patient's back, as previous injections provided significant relief. The patient will be scheduled for the procedure upon insurance approval. For the recurrent cyst, the patient has been advised to consult with a general surgeon for potential excision. Patient was informed and verbally consented to the use of an ambient scribe for clinic note documentation during this visit. Patient Instructions: - Await insurance approval for back injections and schedule the procedure once approved. - Consult with a general surgeon regarding the recurrent cyst for potential excision. Coding Level of Care Code Est Pt Level 3 (65298) Complex visit Add On G2211 Diagnoses Knee pain M25.569 Left shoulder pain M25.512 Lumbar spondylosis M47.816
[2025-08-18 11:17] VITALS: BP 141/65; PULSE 78; RESP 16; O2SAT 98; BMI 26.9
--- OUTSIDE RECORDS SUMMARY | 2025-08-18 12:05 | XMS_ITS | Data Portability ---
Author Organization [employer] [facility], [employer] [facility] Address [address] [place] [id number] Care Team Providers Care Siphoner Name Role Phone HIM CCA OTHER Assessment [...] height Heart rate Body weight Oxygen saturation Systolic And Diastolic Provider Name and Address Organization Details Last Updated DateTime 4 96.9 [degF] 16 /min 162.56 cm 97 /min 42825.7 6 g 99 % 157/102 mm[Hg] Not Available [employer] - production 4 17:38:25 Social History None [...] ICD10 Code Diagnosis IMO Codes Diagnosis Note [id number] Shahrzad Davis MD Main [address] [address] 03/22/2024 17:38:17 03/23/2024 20:12:59 Lipoma of skin 252942011 D17.30 Health Concerns Section Related Observation LastModified by Organization Detai ls LastModified Time None Recorded Concern Status LastModified by Organization Details LastModified Time None Recorded Advance Directives Directive None Recorded Payers Insurance Date Sequence Insurance Name Policy Number Policy Martin Covered Member ID Martin Member ID Guarantor Name 03/22/2024 1 [facility] - DOS ON OR AFTER 2022 - DUAL ELIGIBLE - ALF OPTIONS AND ONE CARE (MEDICARE REPLACEMENT/ADV ANTAGE - HMO) Rigo Gamble [id number] Rigo Gamble Notes Date Note Type Note [...] .................. .................. .................. .................. .................. .................. ............... Master Motorcycle Technician Note From Brown Souza: Pt reports a [...] .................. ............... Disposition: Fulfilled Shahrzad Davis MD [address] [facility],[address], [place], [address], SHERIF - Grid NetFLORIDA STODDARD 03/22/2024 23:58:08 OBGyn Episode No OBEpisode recorded.
== END 2025-08-18 11:54 | disposition home or self-care (01) ==
PROVIDERS: PCP Internal Medicine; Visit Provider Registered Nurse Emergency
DX: M25.569 Pain in unspecified knee (principal); M25.512 Pain in left shoulder; M47.816 Spondylosis without myelopathy or radiculopathy, lumbar region
CPT/HCPCS: 99213; G2211

== ENCOUNTER → 2025-08-18 11:13 | Outpatient (BNVA) | payer OTHER, SELFPAY | PROVIDERS: PCP Internal Medicine; Visit Provider Registered Nurse Emergency | DX: M25.512 Pain in left shoulder (principal); M47.816 Spondylosis without myelopathy or radiculopathy, lumbar region; G89.29 Other chronic pain; M25.561 Pain in right knee | CPT/HCPCS: 99212 ==

== ENCOUNTER 2025-08-31 | Outpatient (REF) | payer OTHER, SELFPAY ==
--- OUTSIDE RECORDS SUMMARY | 2025-10-19 11:31 | XMS_ITS | Data Portability ---
Author Organization [employer] [facility] Address [address] [place] [phone] Care Team Providers Care Automated Process Operator Name Role Phone HIM CCA OTHER Assessment [...] [degF] 16 /min 162.56 cm 97 /min 12204.7 6 g 99 % 157/102 mm[Hg] Not [...] ICD10 Code Diagnosis IMO Codes Diagnosis Note [id number] Shahrzad Davis MD [address] [phone] 03/22/2024 17:38:17 03/23/2024 20:12:59 Lipoma of skin 077378966 D17.30 Health Concerns Section Related Observation LastModified by Organization Detai ls LastModified Time None Recorded Concern Status LastModified by Organization Details LastModified Time None Recorded Advance Directives Directive None Recorded Payers Insurance Date Sequence Insurance Name Policy Number Policy Martin Covered Member ID Martin Member ID Guarantor Name 03/22/2024 1 [facility] - DOS ON OR AFTER 2022 - DUAL ELIGIBLE - SHELTER OPTIONS AND ONE CARE (MEDICARE REPLACEMENT/ADV ANTAGE - HMO) Rigo Gamble [id number] Rigo Gamble Notes Date Note Type Note [...] .................. .................. .................. .................. .................. .................. ............... Aviculturist Note From Brown Souza: Pt reports a [...] ............... Disposition: Fulfilled Shahrzad Davis MD [address] [facility], [place], [address], SHERFI - [place] 03/22/2024 23:58:08 OBGyn Episode No OBEpisode recorded.
== END 2025-08-31 00:01 ==
LOC: CF
PROVIDERS: PCP Internal Medicine; Visit Provider Orthopaedic Surgery
DX: S83.242A Other tear of medial meniscus, current injury, left knee, initial encounter (principal); M70.41 Prepatellar bursitis, right knee; G89.29 Other chronic pain; M25.561 Pain in right knee; M25.562 Pain in left knee
CPT/HCPCS: 20610; 99212; J2003

== ENCOUNTER 2025-08-31 11:18 | Outpatient (AMB) | payer OTHER, SELFPAY ==
[2025-08-31 11:40] VITALS: BMI 26.9
--- NOTE | 2025-08-31 11:40 | MHC.OFFVIS ---
Vital Signs 08/31/25 11:40 Height 5 ft 2 in Weight 147 lb BMI 26.9 Intake Visit Reasons: Bilateral knee pains Intake Note: Rigo 65 yr old female presents with complaints of bilateral knee pains, left greater than right. She also reports swelling along the anterior aspect of her right knee. She denies any fevers or chills. She states that her left knee will give out intermittently. Most of her left knee pain is along the medial aspect of her knee. Allergies No Known Allergies (No Known Allergies*) Allergy (Verified 08/31/25 11:46) Medication List - Last Reconciled 08/31/25 by Marlo Saldaña MD acetaminophen ER (Tylenol Arthritis Pain) 650 mg PO Q8H PRN 30 days albuterol sulfate 90 mcg/actuation (Ventolin HFA) 2 puffs PO Q6H PRN 30 days atorvastatin 20 mg PO BEDTIME 90 days calcitriol 1 cap PO DAILY cholecalciferol (vitamin D3) 25 mcg PO DAILY 90 days colchicine 0.6 mg PO DAILY PRN [disposable wipes As directed] [electric wheelchair As directed] furosemide 20 mg PO DAILY [Hand brace (L) As directed] [Hand brace (R) As directed] latex gloves As directed lidocaine 5% (Lidoderm) 1 patch topical DAILY lisinopril 10 mg PO DAILY 90 days loperamide 2 mg PO Q6H PRN 30 days omeprazole 40 mg PO QAM [raised toilet seat As directed] triamcinolone acetonide 0.1% 1 appl topical DAILY 2 weeks underpads (Bed Underpads) As directed [wipes As directed] [facility] Medical History History of seizure Hyperlipidemia HTN (hypertension) Calcification of patellar tendon determined by X-ray Degenerative joint disease of knee Gout Physical exam B12 deficiency PTSD (post-traumatic stress disorder) MDD (major depressive disorder), recurrent episode, severe Chronic diarrhea Cocaine use disorder, mild, in early remission Weight loss Cocaine use disorder, mild, abuse Constipation by delayed colonic transit Bilateral knee pain Lumbar spondylosis Left hip pain Dyslipidemia Osteoarthritis GERD (gastroesophageal reflux disease) Depression Painful orthopaedic hardware Fibromyalgia Easy bruisability Essential hypertension Asthma due to environmental allergies Bimalleolar fracture of left ankle Brain aneurysm (~2003) Surgical History Hx of brain surgery H/O colonoscopy History of breast lump/mass excision History of surgery History of partial hysterectomy Status post open reduction with internal fixation (ORIF) of fracture of ankle Family History Mother Diabetes Father No problems noted. Social History Household Members: None Housing: Apartment Are you a primary workforce investment act career manager to a significant other at home: No Do you presently have visiting nurse or other home services: Yes (EDITOR DICTIONARY 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) Alcohol intake: current Alcohol intake frequency: a few times a month Patient Tobacco Use Status: Current someday Tobacco user Tobacco use type: Cigarette Cigarette Packs Per Day: 0 Cigarettes Per Day: 4 Years Smoked: 30 e-Cigarette/Vaping Use: Never Used Second Hand Smoke Exposure: Yes Substance Use Type: Crack/Cocaine service: No Current occupational status: disabled Current occupation: Right Handed Sexual orientation: Did not discuss Cognitive needs: Yes Hearing needs: No Vision needs: Yes Physical Exam Vital Signs: BMI result Body Mass Index 26.9 Extrem Other: Right knee examination shows a minimal effusion, mild crepitus with range of motion, swelling along her prepatellar bursa, no overlying skin lesions, no signs of infection Left knee examination shows a minimal effusion, mild crepitus with range of motion, tenderness along her medial joint line, positive Rodolfo's test Office Procedures AMB Joint Injection/Aspiration Joint Injection/Aspiration Primary Site: Other (Right knee prepatellar bursa) Prep: site was prepped using aseptic technique Injected: with 3 mL of and 1% plain Lidocaine Procedure: The patient tolerated the procedure well Coding 44517 - Large joint Procedure code (CPT) selection complete Results Reviewed Results Reviewed: X-rays of the patient's bilateral knee show mild to moderate diffuse joint space narrowing, no acute bony abnormalities Assessment & Plan Assessment & Plan (1) Prepatellar bursitis, right knee: Code(s): M70.41 - Prepatellar bursitis, right knee Category: Medical (2) Tear of medial meniscus of left knee: Code(s): S83.242A - Other tear of medial meniscus, current injury, left knee, initial encounter Category: Medical Plan Ms. Mavis presents with right knee pain due to prepatellar bursitis as well as left knee pain and mechanical symptoms due to early degenerative joint disease as well as a medial meniscus tear. The risks and benefits of right knee bursa aspiration were discussed at length with the patient. The patient wished to proceed. After injection of 1% lidocaine I aspirated 3 cc of clear fluid from her right knee prepatellar bursa. No cortisone was injected. A compressive dressing was applied. At this point the patient appears to be failing continued non operative treatments for her left knee. The risks and benefits of left knee arthroscopic surgery were discussed at length with the patient. The patient is interested in proceeding with surgery early next year. She will contact my office to pick a surgery date if she chooses to do so. Surgery will involve left knee arthroscopic partial medial meniscectomy. Otherwise she will follow up on an as-needed basis. Feel free to call me at any time should questions regarding her orthopedic management arise. I spent 20 minutes in reviewing the patient's records and imaging studies, seeing the patient and documenting in the medical record. Orders: Orders XR Knee Beto 3V Today G89.29 - Other chronic pain, M25.561 - Pain in right knee, M25.562 - Pain in left knee AMB Joint Injection/Aspiration Today M70.41 - Prepatellar bursitis, right knee Coding Level of Care Code Est Pt Level 3 (32116) Complex visit Add On G2211 Diagnoses Prepatellar bursitis, right knee M70.41 Tear of medial meniscus of left knee S83.242A CPT Codes Coding - 41965 Large joint: 56368 - Large joint ([id number])
== END 2025-08-31 12:18 | disposition home or self-care (01) ==
LOC: HO.HOS 11:19
PROVIDERS: PCP Internal Medicine; Visit Provider Orthopaedic Surgery
DX: M70.41 Prepatellar bursitis, right knee (principal); S83.242A Other tear of medial meniscus, current injury, left knee, initial encounter
CPT/HCPCS: 20610; 99213

== ENCOUNTER → 2025-08-31 11:26 | Outpatient (BNV) | payer OTHER, SELFPAY | PROVIDERS: Visit Provider Radiology Diagnostic Ultrasound | DX: M61.461 Other calcification of muscle, right lower leg (principal); M61.462 Other calcification of muscle, left lower leg | CPT/HCPCS: 73562 ==

== ENCOUNTER 2025-08-31 15:20 | Outpatient (REF) | payer OTHER, SELFPAY ==
--- NOTE | ~2025-08-31 | XR_ITS ---
EXAMINATION: X-ray left knee X-ray right knee CLINICAL INFORMATION: Bilateral knee pain COMPARISON: X-ray 07/21/2024 TECHNIQUE: Left knee 3 views. Right knee 3 views. FINDINGS: Left knee: Redemonstrated are rounded soft tissue calcifications in the anteromedial tissues of the level of the patella, similar to previous. Redemonstrated sclerotic foci in the proximal tibial metaphysis, similar to previous, probably reflecting an enchondroma. Mild medial compartment marginal spurring. No visible acute fracture or dislocation. No significant effusion. Right knee: Redemonstrated are multiple rounded calcifications in the soft tissues of the anteromedial knee, at the level of the patella. No visible acute fracture, dislocation or suspicious bony lesion. No significant joint space narrowing. No significant effusion. XR/XR Knee Beto 3V IMPRESSION: Left knee: Similar soft tissue calcifications of the knee. Mild medial compartment spurring. No acute findings. Right knee: Similar soft tissue calcifications. No acute osseous findings Electronically signed by: Sekou Fagan MD 08/31/2025 03:58 PM EST
--- OUTSIDE RECORDS SUMMARY | 2025-09-01 19:17 | XMS_ITS | Data Portability ---
Author Organization [facility], [employer] [facility] Address [address] [place] [address] Care Team Providers Care Rn Examiner Name Role Phone HIM CCA OTHER Assessment [...] [degF] 16 /min 162.56 cm 97 /min 33033.7 6 g 99 % 157/102 mm[Hg] Not [...] ICD10 Code Diagnosis IMO Codes Diagnosis Note [id number] Shahrzad Davis MD Main [address] [address] 03/22/2024 17:38:17 03/23/2024 20:12:59 Lipoma of skin 501995171 D17.30 Health Concerns Section Related Observation LastModified by Organization Detai ls LastModified Time None Recorded Concern Status LastModified by Organization Details LastModified Time None Recorded Advance Directives Directive None Recorded Payers Insurance Date Sequence Insurance Name Policy Number Policy Martin Covered Member ID Martin Member ID Guarantor Name 03/22/2024 1 [facility] - DOS ON OR AFTER 2022 - DUAL ELIGIBLE - [facility] OPTIONS AND ONE CARE (MEDICARE REPLACEMENT/ADV ANTAGE - HMO) Rigo Gamble [id number] Rigo Gamble Notes Date Note Type Note [...] .................. .................. .................. .................. .................. .................. ............... Dental Laboratory Technology Teacher Note From Brown Souza: Pt reports a [...] ............... Disposition: Fulfilled Shahrzad Davis MD [address] [facility],[address], [place], [address], SHERIF - [employer] STODDARD 03/22/2024 23:58:08 OBGyn Episode No OBEpisode recorded.
--- OUTSIDE RECORDS SUMMARY | 2025-09-01 19:17 | XMS_ITS | Encounter Summary ---
Author Organization [employer] [facility] Prior to 07/29/2024 Address [address] [place] [address] Care Team Providers Care Proposition Player Name Role Phone Irena Carballo MD Primary Care Provider [phone] [facility], Pcp Primary Care Provider Unavailabl e Reason for Visit * Reason Onset Date Comments [facility]NA Call 12/13/2015 Encounter Details Date Type Department Care Team Description 12/13/2015 Telephone Adult Medicine [address] [phone] Irena Carballo MD [address] [place] [phone] [facility] Call Social History Tobacco Use Types Packs/Day Years Used Date Smoking Tobacco: Some Days Cigarettes Smokeless Tobacco: Never Comments:3 cig/day Alcohol Use Standard Drinks/Week Comments Yes 0 (1 standard drink = 0.6 oz pur e alcohol) big bottle beer weekends Sex Assigned at Date Recorded Not on file documented as of this encounter Miscellaneous Notes * Telephone Encounter - Wenceslao BelloP.N. - 12/13/2015 12:58 PM EDT See FYI below from [facility]NA * Telephone Encounter - Margi Driscoll - 12/13/2015 9:17 AM EDT [facility]NA CALL FYI FYI FYI Which [facility] office is calling? Care tenders Full name of caller: darrell The caller is A Physical Therapist Is the caller at the patients home?: NO Reason for call: patient being d/c'd from pt today/will be sent to outpatient therapy Does caller need an urgent call back? NO Was CONTACT Telephone # obtained above?: NO Fax #: n/a documented in this encounter Plan of Treatment Not on file documented as of this encounter Visit Diagnoses Not on filedocumented in this encounter Care Teams Proposition Player Relationship Specialty Start Date End Date Irena Carballo MD [address] [place] [id number] PCP - General Internal Medicine 04/20/15 02/15/[address] [address] PCP - General Internal Medicine 02/16/18 documented as of this encounter
--- OUTSIDE RECORDS SUMMARY | 2025-09-01 19:18 | XMS_ITS | Encounter Summary ---
Author Organization [employer] [facility] Prior to 07/29/2024 Address [address] [place] [address] Care Team Providers Care Speech Writer Name Role Phone Irena Carballo MD Primary Care Provider [phone] [facility], Pcp Primary Care Provider Unavailabl e Reason for Visit * Reason Onset Date Comments Faxed Order 04/09/2016 Encounter Details Date Type Department Care Team Description 04/09/2016 Telephone Adult Medicine [address] [phone] Irena Carballo MD [address] [place] [address] [phone] Faxed Order Social History Tobacco Use Types Packs/Day Years Used Date Smoking Tobacco: Some Days Cigarettes Smokeless Tobacco: Never Comments:3 cig/day Alcohol Use Standard Drinks/Week Comments Yes 0 (1 standard drink = 0.6 oz pur e alcohol) big bottle beer weekends Sex Assigned at Date Recorded Not on file documented as of this encounter Miscellaneous Notes * Telephone Encounter - Layne Boone - 04/09/2016 10:24 AM EDT [facility] would like Dr. Carballo's signature for faxed orders documented in this encounter Plan of Treatment Not on file documented as of this encounter Visit Diagnoses Not on filedocumented in this encounter Care Teams Speech Writer Relationship Specialty Start Date End Date Irena Carballo MD [address] [place] [id number] PCP - General Internal Medicine 04/20/15 02/15/18 [facility], Pcp [address] [place] [address] SHERIF [place]ite [address] PCP - General Internal Medicine 02/16/18 documented as of this encounter
--- OUTSIDE RECORDS SUMMARY | 2025-09-01 19:18 | XMS_ITS | Encounter Summary ---
Author Organization [employer] [facility] Prior to 07/29/2024 Address [address] [place] [address] Care Team Providers Care Chain Maker Hand Name Role Phone Irena Carballo MD Primary Care Provider [phone] [facility], Pcp Primary Care Provider Unavailabl e Reason for Visit * Reason Onset Date Comments Faxed Order 08/14/2016 Encounter Details Date Type Department Care Team Description 08/14/2016 Telephone Adult Medicine [address] [address] Irena Carballo MD [address] [place] [address] [phone] Faxed Order Social History Tobacco Use Types Packs/Day Years Used Date Smoking Tobacco: Some Days Cigarettes Smokeless Tobacco: Current Comments:3 cig/day Alcohol Use Standard Drinks/Week Comments Yes 0 (1 standard drink = 0.6 oz pur e alcohol) big bottle beer weekends Sex Assigned at Date Recorded Not on file documented as of this encounter Miscellaneous Notes * Telephone Encounter - Alona Mckinley - 08/14/2016 1:52 PM EST Faxed order from [facility] documented in this encounter Plan of Treatment Not on file documented as of this encounter Visit Diagnoses Not on filedocumented in this encounter Care Teams Chain Maker Hand Relationship Specialty Start Date End Date Irena Carballo MD [address] [place] [address] PCP - General Internal Medicine 04/20/15 02/15/18 [facility], Pcp [address] [place] [address] PCP - General Internal Medicine 02/16/18 documented as of this encounter
--- OUTSIDE RECORDS SUMMARY | 2025-09-01 19:18 | XMS_ITS | Encounter Summary ---
Author Organization [employer] [facility] Prior to 07/29/2024 Address [address] [place] [address] Care Team Providers Care Asbestos Siding Installer Name Role Phone Irena Carballo MD Primary Care Provider [phone] [facility], Pcp [facility] Encounter Details Date Type Department Care Team Description 11/26/2015 Home Health Certification Medical Records [address] [place], [place] [phone] Social History Tobacco Use Types Packs/Day Years Used Date Smoking Tobacco: Some Days Cigarettes Smokeless Tobacco: Never Comments:3 cig/day Alcohol Use Standard Drinks/Week Comments Yes 0 (1 standard drink = 0.6 oz pur e alcohol) big bottle beer weekends Sex Assigned at Date Recorded Not on file documented as of this encounter Plan of Treatment Not on file documented as of this encounter Visit Diagnoses Not on filedocumented in this encounter Care Teams Asbestos Siding Installer Relationship Specialty Start Date End Date Irena Carballo MD [address] [place], [place] [phone] PCP - General Internal Medicine 04/20/15 02/15/18 [facility], [address] [address] PCP - General Internal Medicine 02/16/18 documented as of this encounter
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
--- OUTSIDE RECORDS SUMMARY | 2025-09-01 19:18 | XMS_ITS | Encounter Summary ---
Author Organization [employer] [facility] Prior to 07/29/2024 Address [address] [place] [address] Care Team Providers Care Mailmaster Name Role Phone Eduardo Arteaga Primary Care Provider Unav William Stevenson MD Primary Care Provider [phone] Irena aCrballo MD Primary Care Provider [phone] [facility], [facility] Primary Care Provider Unavailabl e Encounter Details Date Type Department Care Team Description 03/05/2015 Business Doc Medical Records [address] [place] [address] Abstract, Provider Social History Tobacco Use Types Packs/Day Years Used Date Smoking Tobacco: Never Assessed Sex Assigned at Date Recorded Not on file documented as of this encounter Plan of Treatment Not on file documented as of this encounter Visit Diagnoses Not on filedocumented in this encounter Care Teams Mailmaster Relationship Specialty Start Date End Date Eduardo Arteaga PCP - General Internal Medicine 10/16/11 04/16/15 William Foote MD [address] [place] [address]557 PCP - General Internal Medicine 04/17/15 04/19/15 Irena Carballo MD [address] [place] [address] PCP - General Internal Medicine 04/20/15 02/15/18 [facility], Pcp [address] [place] [address] PCP - General Internal Medicine 02/16/18 documented as of this encounter
--- OUTSIDE RECORDS SUMMARY | 2025-09-01 19:18 | XMS_ITS | Encounter Summary ---
Author Organization [employer] [facility] Prior to 07/29/2024 Address [address] [place] [address] Care Team Providers Care Foundry Manager Name Role Phone Irena Carballo MD Primary Care Provider [phone] [facility], Pcp Primary Care Provider Unavailabl e Encounter Details Date Type Department Care Team Description 01/28/2016 Burlap Roll Coverer Report Medical Records [address] [place] [address] [place] [address] [place] [address] Social History Tobacco Use Types Packs/Day Years [...] on filedocumented in this encounter Care Teams Foundry Manager Relationship Specialty Start Date End Date Irena Carballo MD [address] [place] [address]113 PCP - General Internal Medicine 04/20/15 02/15/18 [facility], Pcp [address] [place] [address] PCP - General Internal Medicine 02/16/18 documented as of this encounter
--- OUTSIDE RECORDS SUMMARY | 2025-09-01 19:18 | XMS_ITS | Encounter Summary ---
Author Organization [employer] [facility] Prior to 07/29/2024 Address [address] [place] [address] Care Team Providers Care Home Improvement Installer Name Role Phone Irena Carballo MD Primary Care Provider [phone] [facility], Pcp Primary Care Provider Unavailabl e Encounter Details Date Type Department Care Team Description 05/09/2015 Release of Information Medical Records [address] [place], [place] [id number] Abstract, Provider Social History Tobacco Use Types Packs/Day Years Used Date Smoking Tobacco: Never Assessed Sex Assigned at Date Recorded Not on file documented as of this encounter Plan of Treatment Not on file documented as of this encounter Visit Diagnoses Not on filedocumented in this encounter Care Teams Home Improvement Installer Relationship Specialty Start Date End Date Irena Carballo MD [address] [place] [address] PCP - General Internal Medicine 04/20/15 02/15/18 [facility], Pcp [address] [place] [address] PCP - General Internal Medicine 02/16/18 documented as of this encounter
--- OUTSIDE RECORDS SUMMARY | 2025-09-01 19:18 | XMS_ITS | Encounter Summary ---
Author Organization [facility] [facility] Prior to 07/29/2024 Address [address] [place] [address] Care Team Providers Care Cad Application Support Specialist Name Role Phone [facility], Pcp Primary Care Provider Unavailabl e Encounter Details Date Type Department Care Team Description 08/30/2018 Electroplater Automatic Report Medical Records [address] [place] [address] Paul Thorpe MD Social History Tobacco Use Types Packs/Day [...] on filedocumented in this encounter Care Teams Cad Application Support Specialist Relationship Specialty Start Date End Date [facility], Pcp PCP - General Internal Medicine 02/16/18 documented as of this encounter
--- OUTSIDE RECORDS SUMMARY | 2025-09-01 19:18 | XMS_ITS | Encounter Summary ---
Author Organization [employer] [facility] Prior to 07/29/2024 Address [address] [place] [address] Care Team Providers Care Bisque Placer Name Role Phone Irena Carballo MD Primary Care Provider [phone] [facility], Pcp Primary Care Provider [facility] Encounter Details Date Type Department Care Team Description 08/20/2016 Batch Mixer Operator Report Medical Records [address] [place] [address] Tayo Alba MD Social History Tobacco Use [...] on filedocumented in this encounter Care Teams Bisque Placer Relationship Specialty Start Date End Date Irena Carballo MD [address] [place] [address] 39853 PCP - General Internal Medicine 04/20/15 02/15/18 [facility], Pcp [address] [place] [address] PCP - General Internal Medicine 02/16/18 documented as of this encounter
--- OUTSIDE RECORDS SUMMARY | 2025-09-01 19:18 | XMS_ITS | Encounter Summary ---
Author Organization [facility] Prior to 07/29/2024 Address [address] [place] [address] Care Team Providers Care Business Process Coordinator Name Role Phone Irena Carballo MD Primary Care Provider [phone] [facility], Pcp Primary [facility] Encounter Details Date Type Department Care Team Description 02/29/2016 Advertising Clerk Report Medical Records [address] [place] [address] Paul Thorpe MD Social History Tobacco Use [...] on filedocumented in this encounter Care Teams Business Process Coordinator Relationship Specialty Start Date End Date Irena Carballo MD [address] [place] [address] PCP - General Internal Medicine 04/20/15 02/15/18 [facility], Pcp [address] [place], [place] [phone] PCP - General Internal Medicine 02/16/18 documented as of this encounter
--- OUTSIDE RECORDS SUMMARY | 2025-09-01 19:18 | XMS_ITS | Encounter Summary ---
Author Organization [employer] [facility] Prior to 07/29/2024 Address [address] [place] [address] Care Team Providers Care Implementation Advisor Name Role Phone Irena Carballo MD Primary Care Provider [phone] [facility], Pcp Primary Care Provider [facility] e Encounter Details Date Type Department Care Team Description 12/31/2015 Supervisor Carbon Paper Coating Report Medical Records [address] [place] [address] Tayo Alba MD Social History Tobacco Use [...] on filedocumented in this encounter Care Teams Implementation Advisor Relationship Specialty Start Date End Date Irena Carballo MD [address] [place] [address]21 PCP - General Internal Medicine 04/20/15 02/15/18 [facility], Pcp [address] [place] [address] PCP - General Internal Medicine 02/16/18 documented as of this encounter
--- OUTSIDE RECORDS SUMMARY | 2025-09-01 19:18 | XMS_ITS | Encounter Summary ---
Author Organization [email or web address] [facility] Prior to 07/29/2024 Address [address] [place] [address] Care Team Providers Care Commercial Credit Specialist Name Role Phone Irena Carballo MD Primary Care Provider [phone] [facility], Pcp Primary Care Provider Unavailabl e Reason for Visit * Reason Onset Date Comments refill request 04/27/2017 Encounter Details Date Type Department Care Team Description 04/27/2017 Refill Adult Medicine [address] [address] Irena Carballo MD [address] [place] [address] [phone] refill request Social History Tobacco Use Types Packs/Day Years Used Date Smoking Tobacco: Some Days Cigarettes Smokeless Tobacco: Current Comments:3 cig/day Alcohol Use Standard Drinks/Week Comments Yes 0 (1 standard drink = 0.6 oz pur e alcohol) big bottle beer weekends Sex Assigned at Date Recorded Not on file documented as of this encounter Miscellaneous Notes * Telephone Encounter - Rene New C.M.A. - 04/30/2017 3:55 PM EDT 2nd Message left for patient to return my call. * Telephone Encounter - Rene New C.M.A. - 04/27/2017 3:50 PM EDT I called pt to verify medication requested. Ergocalciferol last time prescribed on 05/27/15. Left voice mail in [place] for pt to return my call. * Telephone Encounter - Eileen Perez - 04/27/2017 2:06 PM EDT Patient would like script to be: E-PRESCRIBED/FAXED TO PHARMACY WHEN WAS THE PATIENT'S LAST APPOINTMENT IN ADULT MEDICINE? 04/17/17 WHEN WAS THE LAST TIME THE PATIENT SAW THEIR PCP? 11/21/15 Does patient have an upcoming appointment? Nothing upcoming (THE MEDICATION REQUESTED IS ON THE MED LIST ABOVE) All of the medications requested were on the CURRENT MEDS list Did you check the Pharmacy information above?: NO Patient wants: 30 -day supply Is this a mail order prescription request ? NO Patients current insurance carrier is: [place] / [place] / Product Type: MEDICARE [id number] documented in this encounter Plan of Treatment Not on file documented as of this encounter Visit Diagnoses Not on filedocumented in this encounter Care Teams Commercial Credit Specialist Relationship Specialty Start Date End Date Irena Carballo MD [address] [place] [address] [phone] PCP - General Internal Medicine 04/20/15 02/15/[address] [address] PCP - General Internal Medicine 02/16/18 documented as of this encounter
--- OUTSIDE RECORDS SUMMARY | 2025-09-01 19:18 | XMS_ITS | Encounter Summary ---
Author Organization [employer] [facility] Prior to 07/29/2024 Address [address] [place] [address] Care Team Providers Care Software Quality Assurance Analyst Name Role Phone Irena Carballo MD Primary Care Provider [phone] [facility], Pcp Primary Care [facility] Encounter Details Date Type Department Care Team Description 08/26/2016 Mud Analysis Operator Report Medical Records [address] [place], [place] [id number] InstrValdemar castrejon Social History Tobacco Use Types Packs/Day Years [...] on filedocumented in this encounter Care Teams Software Quality Assurance Analyst Relationship Specialty Start Date End Date Irena Carballo MD [address] [place] [address]397 PCP - General Internal Medicine 04/20/15 02/15/18 [facility], Pcp [address] [place] [address] 29026 PCP - General Internal Medicine 02/16/18 documented as of this encounter
--- OUTSIDE RECORDS SUMMARY | 2025-09-01 19:18 | XMS_ITS | Encounter Summary ---
Author Organization [employer] [facility] Prior to 07/29/2024 Address [address] [place] [address] Care Team Providers Care Ict Managers Name Role Phone Irena Carballo MD Primary Care Provider [phone] [facility], Pcp Primary Care Provider Unavailabl e Reason for Visit * Reason Onset Date Comments Faxed Order 10/10/2016 Encounter Details Date Type Department Care Team Description 10/10/2016 Telephone Adult Medicine [address] [address] Irena Carballo MD [address] [place] [address] [phone] Faxed Order Social History Tobacco Use Types Packs/Day Years Used Date Smoking Tobacco: Some Days Cigarettes Smokeless Tobacco: Current Comments:3 cig/day Alcohol Use Standard Drinks/Week Comments Yes 0 (1 standard drink = 0.6 oz pur e alcohol) big bottle beer weekends Sex Assigned at Date Recorded Not on file documented as of this encounter Miscellaneous Notes * Telephone Encounter - Alona Mckinley - 10/10/2016 1:50 PM EST Faxed order from [employer] documented in this encounter Plan of Treatment Not on file documented as of this encounter Visit Diagnoses Not on filedocumented in this encounter Care Teams Ict Managers Relationship Specialty Start Date End Date Irena Carballo MD [address] [place] [address] PCP - General Internal Medicine 04/20/15 02/15/18 [facility], Pcp [address] [place] [address]141 PCP - General Internal Medicine 02/16/18 documented as of this encounter
--- OUTSIDE RECORDS SUMMARY | 2025-09-01 19:18 | XMS_ITS | Encounter Summary ---
Author Organization [employer] [facility] Prior to 07/29/2024 Address [address] [place] [address] Care Team Providers Care Clammer Name Role Phone Irena Carballo MD Primary Care Provider [phone] [facility], Pcp Primary Care Provider [facility] e Encounter Details Date Type Department Care Team Description 09/06/2015 Casey Saw Operator Report Medical Records [address] [place] [address] Paul Thorpe MD Social History Tobacco Use [...] on filedocumented in this encounter Care Teams Clammer Relationship Specialty Start Date End Date Irena Carballo MD [address] [place] [address] PCP - General Internal Medicine 04/20/15 02/15/18 [facility], Pcp [address] [place], [place] [phone] PCP - General Internal Medicine 02/16/18 documented as of this encounter
--- OUTSIDE RECORDS SUMMARY | 2025-09-01 19:18 | XMS_ITS | Encounter Summary ---
Author Organization [employer] [facility] Prior to 07/29/2024 Address [address] [place] [address] Care Team Providers Care Director Summer Sessions Name Role Phone Irena Carballo MD Primary Care Provider [phone] [facility], Pcp Primary Care Provider Unavailabl e Reason for Visit * Reason Onset Date Comments Faxed Order 11/20/2016 Encounter Details Date Type Department Care Team Description 11/20/2016 Telephone Adult Medicine [address] [address] Irena Carballo MD [address] [place] [address] [phone] Faxed Order Social History Tobacco Use Types Packs/Day Years Used Date Smoking Tobacco: Some Days Cigarettes Smokeless Tobacco: Current Comments:3 cig/day Alcohol Use Standard Drinks/Week Comments Yes 0 (1 standard drink = 0.6 oz pur e alcohol) big bottle beer weekends Sex Assigned at Date Recorded Not on file documented as of this encounter Miscellaneous Notes * Telephone Encounter - Alona Mckinley - 11/20/2016 1:59 PM EST Faxed order from [employer] documented in this encounter Plan of Treatment Not on file documented as of this encounter Visit Diagnoses Not on filedocumented in this encounter Care Teams Director Summer Sessions Relationship Specialty Start Date End Date Irena Carballo MD [address] [place] [address] PCP - General Internal Medicine 04/20/15 02/15/18 [facility], Pcp [address] [place] [address] PCP - General Internal Medicine 02/16/18 documented as of this encounter
--- OUTSIDE RECORDS SUMMARY | 2025-09-01 19:18 | XMS_ITS | Encounter Summary ---
Author Organization [employer] [facility] Prior to 07/29/2024 Address [address] [place] [address] Care Team Providers Care Carroter Name Role Phone Irena Carballo MD Primary Care Provider [phone] [facility], Pcp Primary Care Provider Unavailabl e Reason for Visit * Reason Onset Date Comments VNA Call 11/22/2015 Encounter Details Date Type Department Care Team Description 11/22/2015 Telephone Adult Medicine [address] [phone] Irena Carballo MD [address] [place] [address] [phone] VNA Call Social History Tobacco Use Types Packs/Day Years Used Date Smoking Tobacco: Some Days Cigarettes Smokeless Tobacco: Never Comments:3 cig/day Alcohol Use Standard Drinks/Week Comments Yes 0 (1 standard drink = 0.6 oz pur e alcohol) big bottle beer weekends Sex Assigned at Date Recorded Not on file documented as of this encounter Miscellaneous Notes * Telephone Encounter - Traci Ga R.N. - 11/22/2015 11:47 AM EST [facility] was seen yesterdat by PCP PT and OT approved * Telephone Encounter - Jennifer Muñoz - 11/22/2015 8:44 AM EST [facility] CALL Which [facility] office is calling? Full name of caller: darrell The caller is A Physical Therapist Is the caller at the patients home?: NO Reason for call: asking for verbal orders for PT Does caller need an urgent call back? YES Was CONTACT Telephone # obtained above?: YES Fax #: documented in this encounter Plan of Treatment Not on file documented as of this encounter Visit Diagnoses Not on filedocumented in this encounter Care Teams Carroter Relationship Specialty Start Date End Date Irena Carballo MD [address] [place] [address] PCP - General Internal Medicine 04/20/15 02/15/18 [place] [address] PCP - General Internal Medicine 02/16/18 documented as of this encounter
--- OUTSIDE RECORDS SUMMARY | 2025-09-01 19:18 | XMS_ITS | Encounter Summary ---
Author Organization [employer] [facility] Prior to 07/29/2024 Address [address] [place] [address] Care Team Providers Care Permit Agent Name Role Phone Eduardo Arteaga Primary Care Provider Unav William Stevenson MD Primary Care Provider [phone] Irena Carballo MD Primary Care Provider [phone] [facility] Primary Care Provider Unavailabl e Encounter Details Date Type Department Care Team Description 03/01/2015 Transfer Records Medical Records [address] [place] [address] Abstract, Provider Social History Tobacco Use Types Packs/Day Years Used Date Smoking Tobacco: Never Assessed Sex Assigned at Date Recorded Not on file documented as of this encounter Plan of Treatment Not on file documented as of this encounter Visit Diagnoses Not on filedocumented in this encounter Care Teams Permit Agent Relationship Specialty Start Date End Date Eduardo Arteaga PCP - General Internal Medicine 10/16/11 04/16/15 William Foote MD [address] [place] [address] PCP - General Internal Medicine 04/17/15 04/19/15 Irena Carballo MD [address] [place] [address] PCP - General Internal Medicine 04/20/15 02/15/18 [facility], Pcp [address] [place] [address] PCP - General Internal Medicine 02/16/18 documented as of this encounter
--- OUTSIDE RECORDS SUMMARY | 2025-09-01 19:18 | XMS_ITS | Encounter Summary ---
Author Organization [employer] [facility] Prior to 07/29/2024 Address [address] [place] [address] Care Team Providers Care Finished Goods Stock Clerk Name Role Phone Irena Carballo MD Primary Care Provider [phone] [facility], Pcp Primary Care Provider [facility] Encounter Details Date Type Department Care Team Description 06/28/2015 WATER SERVICE DISPATCHER/[employer] Report Medical Records [address] [place] [address] Abstract, Provider Social History Tobacco Use Types Packs/Day Years Used Date Smoking Tobacco: Some Days Alcohol Use Standard Drinks/Week Comments Yes 0 (1 standard drink = 0.6 oz pur e alcohol) big bottle beer weekends Sex Assigned at Date Recorded Not on file documented as of this encounter Plan of Treatment Not on file documented as of this encounter Visit Diagnoses Not on filedocumented in this encounter Care Teams Finished Goods Stock Clerk Relationship Specialty Start Date End Date Irena Carballo MD [address] [place] [address] PCP - General Internal Medicine 04/20/15 02/15/18 [facility], Pcp [address] [place] [address] PCP - General Internal Medicine 02/16/18 documented as of this encounter
--- OUTSIDE RECORDS SUMMARY | 2025-09-01 19:18 | XMS_ITS | Encounter Summary ---
Author Organization [employer] [facility] Prior to 07/29/2024 Address [address] [place] [address] Care Team Providers Care Electrician Third Name Role Phone Irena Carballo MD Primary Care Provider [phone] [facility], Pcp Primary Care Provider Unavailabl e Encounter Details Date Type Department Care Team Description 06/19/2015 Orders Only General Surgery [address] [place], [place] [phone] Anaid French MD [address] [place] [address] [phone] Social History Tobacco Use Types Packs/Day Years [...] on filedocumented in this encounter Care Teams Electrician Third Relationship Specialty Start Date End Date Irena Carballo MD [address] [place] [address] [phone] PCP - General Internal Medicine 04/20/15 02/15/18 [facility], Pcp [address] [place] [address] PCP - General Internal Medicine 02/16/18 documented as of this encounter
--- OUTSIDE RECORDS SUMMARY | 2025-09-01 19:18 | XMS_ITS | Clinical Summary ---
Author Organization [facility] Prior to 07/29/2024 Address [address] [place] [address] Care Team Providers Care Hospital Admissions Clerk Name Role Phone Community, Pcp Primary Care Provider Unavailabl e Allergies No known active allergies Medications Medication Sig Dispensed Refills Start Date End Date Status ropinirole (REQUIP) 1 MG tablet take 1 tablet by mouth at bedtime 90 Tab 1 10/14/2016 Active Cholecalciferol (VITAMIN D3) 1000 UNITS Tab Take 1 Tab by mouth daily. 30 Tab 0 12/10/2016 Active lorazepam (ATIVAN) 0.5 MG tablet Take 0.5 mg by mouth every 8 hours as needed. Panic Attacks 0 Active Lactobacillus-Inulin ([facility]) Cap Take 1 Tab by mouth daily (with breakfast). 30 Cap 5 02/19/2017 Active meloxicam (MOBIC) 7.5 MG tablet TAKE 1 TABLET BY MOUTH ONCE DAILY WITH BREAKFAST 30 Tab 1 05/25/2017 Active atorvastatin (LIPITOR) 10 MG tablet take 1 tablet by mouth once daily 30 Tab 1 08/24/2017 Active ibuprofen (ADVIL,MOTRIN) 800 MG tablet TAKE 1 TABLET BY MOUTH EVERY 8 HOURS NEEDED 30 Tab 5 08/24/2017 Active ranitidine (ZANTAC) 150 MG tablet Take 1 Tab by mouth 2 times daily. 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 back pain, unspecified back pain laterality, with sciatica presence unspecified take 1 tablet by mouth three times a day 90 Tab 11 02/16/2018 Active Calcium Carbonate-Vitamin D 600-400 MG-UNIT Tab take 1 tablet by mouth once daily 30 Tab 5 02/16/2018 Active VENTOLIN HFA 108 (90 BASE) MCG/ACT Aero SolnIndications:Reacti ve airway disease, mild intermittent, with acute exacerbation inhale 2 puffs by mouth INTO THE LUNGS every 4 hours if need 18 g 5 02/16/2018 Active Active Problems Problem Noted Date Gastroesophageal reflux disease 10/08/19 17 Hyperlipidemia 04/13/2016 Brain aneurysm 05/14/2015 Overview: Coil placed, 2005, [facility] Seizures 05/14/2015 Overview: No seizures for years Osteopenia 05/02/2015 Chronic lower back pain 05/02/2015 HTN (hypertension) 05/02/2015 Anxiety 05/02/2015 Insomnia 05/02/2015 Depression 05/02/2015 Vitamin D deficiency 05/02/2015 Varicose veins of legs 05/02/2015 Polyarthralgia 05/02/2015 Atypical chest pain 05/02/2015 Immunizations Name Administration Dates Next Due TD (STATE SUPPLIED FOR ADULTS AND CHILDREN) 04/28 Family History Medical History Relation Name Comments unknown [Other] Father Diabetes Mother HTN, osteoarthr itis Relation Name Status Comments Father Mother Social History Tobacco Use Types Packs/Day Years Used Date Smoking Tobacco: Some Days Cigarettes Smokeless Tobacco: Current Tobacco Cessation:Ready to Q uit: No Comments:3 cig/day Alcohol Use Standard Drinks/Week Comments Yes 0 (1 standard drink = 0.6 oz pur e alcohol) big bottle beer weekends Sex Assigned at Date Recorded Not on file Last Filed Vital Signs Vital Sign Reading Time Taken Comments Blood Pressure 124/80 07/27/2017 10:52 AM EDT Pulse 85 07/27/2017 10:52 AM EDT Temperature 36.3 C (97.4 F) 04/17/2017 10:49 AM EDT Respiratory Rate 12 07/27/2017 10:5 2 AM EDT Oxygen Saturation 97% 07/27/2017 10: 52 AM EDT Inhaled Oxygen Concentration - - Weight 86.1 kg (189 lb 12.8 oz) 017 10:52 AM EDT Height 157.5 cm (5' 2 ) 07/27/2017 10:5 2 AM EDT Body Mass Index 34.71 07/27/2017 10:52 AM EDT Plan of Treatment Health Maintenance Due Date Last Done Comments Covid-19 Vaccine (#1) 1962 DEPRESSION SCREEN 1974 HEPATITIS C SCREENING 02/14/1980 TOBACCO CHECK/ADVISE 02/14/1980 BASELINE HEALTH EXAM 40-64 2002 COLON CANCER SCREENING 02/14/2012 SHINGLES VACCINE (1 of 2) 02/14/2012 DTAP/TDAP/TD (1 - Tdap) 05/15/2015 05/14/2015 MAMMOGRAM 03/01/2016 03/01/2015, 03/01/2015 CERVICAL CANCER SCREENING 10/31/20172014 (External Completion), 10/31/2014, 10/06/2013, Additional history exists CHOLESTEROL SCREENING 04/10/2021 04/10/2016 , 05/14/2015, 08/02/2014 (External Completion) BMI CHECK/ADVISE 09/28/2024 07/27/2017, , 08/29/2016, Additional history exists INFLUENZA (#1) 2025 PNEUMOCOCCAL VACCINE FOR HIG H RISK PATIENTS (#1) 2027 Care Teams Hospital Admissions Clerk Relationship Specialty Start Date End Date Community, Pcp PCP - General Internal Medicine 02/16/18
--- OUTSIDE RECORDS SUMMARY | 2025-09-01 19:18 | XMS_ITS | Encounter Summary ---
Author Organization [facility] Prior to 07/29/2024 Address [address] [place] [address] Care Team Providers Care Life Science Teacher Name Role Phone Irena Carballo MD Primary Care Provider [phone] [facility], Pcp Primary Care Provider Unavailabl e Reason for Visit * Reason Onset Date Comments Faxed Order 04/09/2017 Encounter Details Date Type Department Care Team Description 04/09/2017 Telephone Adult Medicine [address] [address] Irena Carballo MD [address] [place] [address] [phone] Faxed Order Social History Tobacco Use Types Packs/Day Years Used Date Smoking Tobacco: Some Days Cigarettes Smokeless Tobacco: Current Comments:3 cig/day Alcohol Use Standard Drinks/Week Comments Yes 0 (1 standard drink = 0.6 oz pur e alcohol) big bottle beer weekends Sex Assigned at Date Recorded Not on file documented as of this encounter Miscellaneous Notes * Telephone Encounter - Leia Woods - 04/09/2017 11:08 AM EDT Careplan and orders for Dr Carballo's signature documented in this encounter Plan of Treatment Not on file documented as of this encounter Visit Diagnoses Not on filedocumented in this encounter Care Teams Life Science Teacher Relationship Specialty Start Date End Date Irena Carballo MD [address] [place] [id number] PCP - General Internal Medicine 04/20/15 02/15/18 [facility], Pcp [address] [place] [address] SHERIF Waite [address] PCP - General Internal Medicine 02/16/18 documented as of this encounter
--- OUTSIDE RECORDS SUMMARY | 2025-09-01 19:18 | XMS_ITS | Encounter Summary ---
Author Organization [facility] [employer] [facility] Prior to 07/29/2024 Address [address] [place] [address] Care Team Providers Care Longwall Foreman Name Role Phone Irena Carballo MD Primary Care Provider [phone] [facility], Pcp Primary Care Provider Unavailabl e Reason for Visit * Reason Onset Date Comments Provider Call Back 11/05/2015 Encounter Details Date Type Department Care Team Description 11/05/2015 Telephone Adult Medicine [address] [phone] Irena Carballo MD [address] [place] [address] [phone] Provider Call Back Social History Tobacco Use Types Packs/Day Years Used Date Smoking Tobacco: Some Days Cigarettes Smokeless Tobacco: Never Comments:3 cig/day Alcohol Use Standard Drinks/Week Comments Yes 0 (1 standard drink = 0.6 oz pur e alcohol) big bottle beer weekends Sex Assigned at Date Recorded Not on file documented as of this encounter Miscellaneous Notes * Telephone Encounter - Chelly Colmenares - 11/05/2015 1:59 PM EST Patient calling agian * Telephone Encounter - Irena Carballo MD - 11/05/2015 1:34 PM EST Please refer her to pt services * Telephone Encounter - Renetta White C.M.A. - 11/05/2015 1:29 PM EST Patient is very upset stating we are doing nothing to help her and is requesting to speak with Dr Carballo or patient services. * Telephone Encounter - Irena Carballo MD - 11/05/2015 1:25 PM EST I will not fill this medication; she needs to obtain it from her orthopedist * Telephone Encounter - Renetta White C.M.A. - 11/05/2015 1:21 PM EST Request sent to Dr Carballo to review. * Telephone Encounter - Sydney Chen M.A. - 11/05/2015 10:49 AM EST Caller requesting call back from provider: Is the caller the patient? YES If caller is not the patient, what is the callers name? N/A Callers relationship to patient? N/A If person calling is not the patient themselves, is there a verbal release in FYI or permanent comments for this person: YES Reason for call back: The patient states she needs her Oxycotin refilled from rehab. She is wondering if she can get this refilled before her appt with Dr. Carballo on 11/21/15? Caller offered to speak with the nurse for assistance: YES Response: Patient offered to speak with nurse for assistance and patient agreed. Message forwarded to nurse. documented in this encounter Plan of Treatment Not on file documented as of this encounter Visit Diagnoses Not on filedocumented in this encounter Care Teams Longwall Foreman Relationship Specialty Start Date End Date Irena Carballo MD [address] [place] [id number] PCP - General Internal Medicine 04/20/15 02/15/18 [facility], Pcp [address] [place] [address] SHERIF Waite [address] PCP - General Internal Medicine 02/16/18 documented as of this encounter
--- OUTSIDE RECORDS SUMMARY | 2025-09-01 19:18 | XMS_ITS | Encounter Summary ---
Author Organization [facility] [employer] [facility] Prior to 07/29/2024 Address [address] [place] [address] Care Team Providers Care Civil Engineer Land Development Name Role Phone Irena Carballo MD Primary Care Provider [phone] [facility], Pcp Primary Care Provider [facility] Encounter Details Date Type Department Care Team Description 10/08/2015 Hospital Medical Records [address] [place] [id number] InstrValdemar castrejon Social History Tobacco Use Types [...] on filedocumented in this encounter Care Teams Civil Engineer Land Development Relationship Specialty Start Date End Date Irena Carballo MD [address] [place] [address] PCP - General Internal Medicine 04/20/15 02/15/18 [facility], Pcp [address] [place] [address] PCP - General Internal Medicine 02/16/18 documented as of this encounter
--- OUTSIDE RECORDS SUMMARY | 2025-09-01 19:18 | XMS_ITS | Encounter Summary ---
Author Organization [facility] [employer] [facility] Prior to 07/29/2024 Address [address] [place] [address] Care Team Providers Care Market Maker Name Role Phone Irena Carballo MD Primary Care Provider [phone] [facility], Pcp Primary Care Provider Unavailabl e Reason for Visit * Reason Onset Date Comments refill request 04/22/2017 Encounter Details Date Type Department Care Team Description 04/22/2017 Refill Adult Medicine [address] [phone] Irena Carballo MD [address] [place] [phone] refill request Social History Tobacco Use Types Packs/Day Years Used Date Smoking Tobacco: Some Days Cigarettes Smokeless Tobacco: Current Comments:3 cig/day Alcohol Use Standard Drinks/Week Comments Yes 0 (1 standard drink = 0.6 oz pur e alcohol) big bottle beer weekends Sex Assigned at Date Recorded Not on file documented as of this encounter Miscellaneous Notes * Telephone Encounter - Irena Carballo MD - 04/22/2017 9:51 AM EDT This is an otc med - she needs appt to see me before will fill script * Telephone Encounter - Alona Mckinley - 04/22/2017 9:32 AM EDT Patient would like script to be: E-PRESCRIBED/FAXED TO PHARMACY WHEN WAS THE PATIENT'S LAST APPOINTMENT IN ADULT MEDICINE? [id number] WHEN WAS THE LAST TIME THE PATIENT SAW THEIR PCP? [phone] Does patient have an upcoming appointment? No-voice mail not set up (THE MEDICATION REQUESTED IS ON THE MED LIST ABOVE) All of the medications requested were on the CURRENT MEDS list Did you check the Pharmacy information above?: NO Patient wants: 30 -day supply Is this a mail order prescription request ? NO Patients current insurance carrier is: [place] / Product Type: MEDICARE [id number] documented in this encounter Plan of Treatment Not on file documented as of this encounter Visit Diagnoses Not on filedocumented in this encounter Care Teams Market Maker Relationship Specialty Start Date End Date Irena Carballo MD [address] [place] [address] PCP - General Internal Medicine 04/20/15 02/15/[address] [address] PCP - General Internal Medicine 02/16/18 documented as of this encounter
== END 2025-08-31 15:21 | disposition home or self-care (01) ==
LOC: HO.HOSX 15:20
PROVIDERS: Visit Provider Orthopaedic Surgery
DX: G89.29 Other chronic pain (principal); M25.561 Pain in right knee; M25.562 Pain in left knee
CPT/HCPCS: 73562